=== PATIENT | male | born 1940 | race Caucasian/White ===

== ENCOUNTER 2017-03-06 08:00 | Outpatient (CLI) | payer OTHER | END 2017-03-06 08:01 | disposition home or self-care (01) | DX: I25.10 Atherosclerotic heart disease of native coronary artery without angina pectoris (principal); E78.2 Mixed hyperlipidemia; R73.09 Other abnormal glucose; Z79.899 Other long term (current) drug therapy ==

== ENCOUNTER 2017-06-12 08:44 | Outpatient (CLI) | payer OTHER ==
[2017-06-12 12:05] LABS: HEMOGLOBIN A1C 0.83 g/dL
== END 2017-06-12 08:45 | disposition home or self-care (01) ==
LOC: LAB.R 08:44
PROVIDERS: ATTEND Internal Medicine
DX: E11.9 Type 2 diabetes mellitus without complications (principal); Z79.899 Other long term (current) drug therapy
CPT/HCPCS: 82947; 83036

== ENCOUNTER 2017-09-29 08:00 | Outpatient (CLI) | payer OTHER ==
[2017-09-29 17:47] LABS: HEMOGLOBIN A1C 0.88 g/dL
== END 2017-09-29 08:01 | disposition home or self-care (01) ==
LOC: LAB.R 08:00
PROVIDERS: ATTEND Internal Medicine
DX: E11.49 Type 2 diabetes mellitus with other diabetic neurological complication (principal)
CPT/HCPCS: 83036

== ENCOUNTER 2017-12-17 08:00 | Outpatient (CLI) | payer OTHER ==
[2017-12-17 15:45] LABS: BASOPHILS % (AUTO) 0.6 %; EOSINOPHILS # (AUTO) 0.3 10^3/uL (0.0-0.7); EOSINOPHILS % (AUTO) 8.2 %; HGB - HEMOGLOBIN 14.4 g/dL (14.0-18.0); LYMPHOCYTES # (AUTO) 1.3 10^3/uL (1.5-3.5); LYMPHOCYTES % (AUTO) 31.1 %; MEAN CORPUSCULAR HEMOGLOBIN 32.9 pg (27.0-31.0); MEAN CORPUSCULAR HGB CONC 34.2 g/dL (32.0-36.0); MEAN PLATELET VOLUME 10.1 fL (7.4-11.4); MONOCYTES # (AUTO) 0.4 10^3/uL (0.0-1.0); MONOCYTES % (AUTO) 8.9 %; NEUTROPHILS # (AUTO) 2.1 10^3/uL (1.5-6.6); NEUTROPHILS % (AUTO) 51.2 %; PLT - PLATELET COUNT 130 10^3/uL (130-450); RED BLOOD COUNT 4.36 10^6/uL (4.70-6.10); RED CELL DISTRIBUTION WIDTH 12.4 % (12.0-15.0); WHITE BLOOD COUNT 4.1 x10^3/uL (4.8-10.8)
[2017-12-17 16:07] LABS: ALBUMIN/GLOBULIN RATIO 1.5 (1.0-2.2); ALKALINE PHOSPHATASE 57 IU/L (42-121); ALT ALANINE AMINOTRANSFERASE 21 IU/L (10-60); AST ASPARTATE AMINOTRANSFERASE 21 IU/L (10-42); BILIRUBIN,TOTAL 0.5 mg/dL (0.2-1.0); BUN - BLOOD UREA NITROGEN 15 mg/dL (6-20); CARBON DIOXIDE - CO2 24 mmol/L (21-32); CHLORIDE 103 mmol/L (101-111); CHOL/HDL RATIO 3.5 (<5.0); CHOLESTEROL 116 mg/dL; CREATININE 0.8 mg/dL (0.6-1.2); GFR - MDRD 93 (>89); GLUCOSE 141 mg/dL (70-100); HDL CHOLESTEROL 33 mg/dL; LDL CHOLESTEROL,CALCULATED 41 mg/dL; LDL/HDL RATIO 1.2 (<3.6); SODIUM 137 mmol/L (135-145); TOTAL PROTEIN 6.7 g/dL (6.7-8.2); VLDL CHOLESTEROL 42 mg/dL
[2017-12-17 16:12] LABS: HB2 TOTAL 15.4 g/dL; HEMOGLOBIN A1C 0.97 g/dL; HEMOGLOBIN A1C % 7.9 % (4.6-6.2)
== END 2017-12-17 08:01 | disposition home or self-care (01) ==
LOC: LAB.R 08:00
PROVIDERS: ATTEND Internal Medicine
DX: I10 Essential (primary) hypertension (principal); I45.9 Conduction disorder, unspecified; I25.10 Atherosclerotic heart disease of native coronary artery without angina pectoris; E78.5 Hyperlipidemia, unspecified; E11.49 Type 2 diabetes mellitus with other diabetic neurological complication; Z12.5 Encounter for screening for malignant neoplasm of prostate; Z79.899 Other long term (current) drug therapy
CPT/HCPCS: 80053; 80061; 83036; 83721; 84153; 84443; 85025

== ENCOUNTER 2018-01-30 11:41 | Outpatient (CLI) | payer OTHER ==
--- NOTE | 2018-01-30 13:00 | XRAY Report ---
TWO VIEW CHEST: 01/30/2018 CLINICAL INDICATION: Chest pain. FINDINGS: Frontal and lateral views of the chest demonstrate a normal cardiac silhouette. A left subclavian pacemaker is present. There is eventration of the lateral left hemidiaphragm, with minimal associated atelectasis. No effusion or pneumothorax is present. IMPRESSION: MINIMAL LEFT BASILAR ATELECTASIS. TD: 01/30/2018 13:00
== END 2018-01-30 11:42 | disposition home or self-care (01) ==
LOC: DI 11:41
PROVIDERS: ATTEND Internal Medicine
DX: J98.11 Atelectasis (principal); R07.9 Chest pain, unspecified
CPT/HCPCS: 71046

== ENCOUNTER 2018-02-04 20:58 | Outpatient (CLI) | payer OTHER ==
--- NOTE | 2018-02-05 11:38 | Ultrasound Report ---
COMPLETE ABDOMINAL ULTRASOUND: 02/04/2018 CLINICAL INDICATION: Epigastric pain. TECHNIQUE: Real-time scanning was performed with mill representative static images obtained. FINDINGS: The liver measures 15.1 cm. Hepatic echogenicity is normal. No intrahepatic biliary dilatation or focal parenchymal lesion is present. The common bile duct measures 5 mm. The gallbladder demonstrates cholelithiasis. No wall thickening or pericholecystic fluid is present. The visualized pancreas is unremarkable. The right kidney measures 9.6 cm, and appears unremarkable. The left kidney measures 10.3 cm, and demonstrates incidental cysts. No solid renal lesion or hydronephrosis is present. The spleen measures 9.6 cm, and demonstrates normal echotexture. The abdominal aorta is normal in caliber. The inferior vena cava is unremarkable. No free fluid is present. IMPRESSION: CHOLELITHIASIS, WITHOUT EVIDENCE OF ACUTE CHOLECYSTITIS OR BILIARY OBSTRUCTION. TD: 02/05/2018 11:37
== END 2018-02-04 20:59 | disposition home or self-care (01) ==
LOC: DI 20:58
PROVIDERS: ATTEND Internal Medicine
DX: K80.20 Calculus of gallbladder without cholecystitis without obstruction (principal)
CPT/HCPCS: 76700

== ENCOUNTER 2018-02-20 11:24 | Outpatient (CLI) | payer OTHER ==
--- NOTE | 2018-02-20 13:18 | XRAY Report ---
THORACOLUMBAR SPINE: 02/20/2018 CLINICAL INDICATION: Back pain. FINDINGS: Frontal and lateral views of the spine centered on the thoracolumbar junction were performed. There is S-shaped scoliosis, with a segmentation anomaly in the mid thoracic spine, with 2 left ribs arising from what appears to be T7. Degenerative changes are present. No compression fracture is seen. Pacemaker wires are incidentally noted. 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 TD: 02/20/2018 13:18
== END 2018-02-20 11:25 | disposition home or self-care (01) ==
LOC: DI 11:24
PROVIDERS: ATTEND Internal Medicine
DX: M54.9 Dorsalgia, unspecified (principal); M41.84 Other forms of scoliosis, thoracic region
CPT/HCPCS: 72080

== ENCOUNTER 2018-03-02 09:12 | Outpatient (CLI) | payer OTHER ==
[2018-03-02 13:14] LABS: HB2 TOTAL 15.3 g/dL; HEMOGLOBIN A1C 0.63 g/dL; HEMOGLOBIN A1C % 5.9 % (4.6-6.2)
[2018-03-02 13:20] LABS: ALBUMIN 4.2 g/dL (3.2-5.5); ALBUMIN/GLOBULIN RATIO 1.7 (1.0-2.2); CREATININE 0.8 mg/dL (0.6-1.2); TOTAL PROTEIN 6.7 g/dL (6.7-8.2)
== END 2018-03-02 09:13 | disposition home or self-care (01) ==
LOC: LAB.R 09:12
PROVIDERS: ATTEND Internal Medicine
DX: M54.9 Dorsalgia, unspecified (principal); R10.13 Epigastric pain; E11.49 Type 2 diabetes mellitus with other diabetic neurological complication; E78.5 Hyperlipidemia, unspecified
CPT/HCPCS: 80053; 83036; 83721

== ENCOUNTER 2018-03-04 11:20 | Outpatient (CLI) | payer OTHER ==
[2018-03-04] MEDS ORDERED: IOPAMIDOL-300 50 ML VIAL ONE (11:40)
[2018-03-04] MEDS ORDERED: IOPAMIDOL-300 100 ML VIAL ONE (11:41)
[2018-03-04 11:50] LABS: CREATININE 0.8 mg/dL (0.6-1.2)
[2018-03-04] MEDS ORDERED: IOPAMIDOL-300 50 ML VIAL PO ONE (15:16)
[2018-03-04] MEDS ORDERED: IOPAMIDOL-300 100 ML VIAL IVP ONE (15:16)
--- NOTE | 2018-03-04 18:05 | CT Report ---
CT ABDOMEN AND PELVIS WITH CONTRAST: 03/04/2018 CLINICAL INDICATION: Epigastric pain. TECHNIQUE: Axial CT images of the abdomen and pelvis were obtained with 100 mL Isovue 300 intravenously as well as oral contrast. In accordance with CT protocol optimization, one or more of the following dose reduction techniques were utilized for this exam: Automated exposure control, adjustment of mA and/or KV based on patient size, or use of iterative reconstructive technique. COMPARISON: Ultrasound 02/04/2018. FINDINGS: Limited evaluation of the lung bases is unremarkable. ABDOMEN: The liver, spleen, and adrenal glands appear unremarkable. The right kidney demonstrates a 3 mm nonobstructing calculus in the lower pole. The left kidney demonstrates cortical cysts. Cholelithiasis is again noted, without evidence of acute cholecystitis. There is a 4.0 x 3.8 x 3.0 cm hypodense mass in the uncinate process of the pancreas, without evidence of ductal dilatation, suspicious for pancreatic cancer. No bowel dilatation, free gas, or free fluid is present. No abdominal adenopathy is seen. PELVIS: The appendix is seen in the right lower quadrant, and is normal in caliber. The pelvic organs appear unremarkable. No pelvic adenopathy or free fluid is present. Osseous structures demonstrate degenerative changes. IMPRESSION: A 4 CM PANCREATIC MASS, SUSPICIOUS FOR PANCREATIC CARCINOMA. Results called to Dr. Kyle on 03/04/2018 at 4 p.m. TD: 03/04/2018 16:14
== END 2018-03-04 11:21 | disposition home or self-care (01) ==
LOC: LAB 11:20
PROVIDERS: ATTEND Internal Medicine
DX: K86.9 Disease of pancreas, unspecified (principal)
CPT/HCPCS: 36415; 74177; 82565; Q9967

== ENCOUNTER 2018-06-02 19:15 | Emergency (ER) | payer OTHER ==
[2018-06-02] MEDS ORDERED: SODIUM CHLORIDE 0.9% 1,000 ML IV ONE (19:41)
--- NOTE | 2018-06-02 19:43 | ED Physician Documentation ---
PD HPI ABD PAIN - Stated complaint Stated Complaint: BLOOD IN STOOL/PANCREATIC CANCER - Chief complaint Chief Complaint: Abd Pain - History obtained from History obtained from: Patient, Family - History of Present Illness Timing - onset: Other (77-year-old gentleman with diagnosis of pancreatic cancer with metastases to liver therefore inoperable. 6 days ago he got his third round of what sounds like gemcitabine and Abraxane via right chest wall port. Starting 3 days ago he has had diarrhea which is sometimes dark to black in color and he was sent here to rule out GI bleeding. He denies any significant abdominal pain. He has had nausea but no vomiting.) Review of Systems Constitutional: reports: Fatigue. denies: Fever, Chills Cardiac: denies: Chest pain / pressure, Palpitations Respiratory: denies: Dyspnea, Cough GI: reports: Nausea, Diarrhea, Bloody / black stool. denies: Abdominal Pain, Vomiting PD PAST MEDICAL HISTORY - Past Medical History Cardiovascular: Coronary artery disease, Other Respiratory: None Neuro: Peripheral neuropathy Endocrine/Autoimmune: Type 2 diabetes GI: Hemorrhoids : None HEENT: None Psych: None Derm: None - Past Surgical History Cardiovascular: Coronary stent, Pacemaker HEENT: Cataracts, Tonsil/Adenoidectomy - Present Medications Home Medications: Ambulatory Orders Medication Instructions Recorded Confirmed Cholecalciferol (Vitamin D3) 2,000 unit PO DAILY 04/15/18 04/15/18 [Vitamin D3] Finasteride 5 mg PO QPM 04/15/18 04/15/18 HYDROcod/ACETAM 5/325 [[place] 5/325] 1 tab PO PRN PRN 04/15/18 04/15/18 Lipase/Protease/Amylase [Shamika Alonso 2 - 4 cap PO DAILY 04/15/18 04/15/18 36,000 Units Capsule] Ramipril 5 mg PO BID 04/15/18 04/15/18 Rosuvastatin Calcium 20 mg PO QPM 04/15/18 04/15/18 metFORMIN [Glucophage] 500 mg PO BID 04/15/18 04/15/18 - Allergies Allergies/Adverse Reactions: Allergies Allergy/AdvReac Type Severity Reaction Status Date / Time No Known Allergies Allergy Unknown Verified 04/15/18 13:11 - Social History Smoking Status: Never smoker PD ED PE NORMAL - Vitals Vital signs reviewed: Yes - General General: Alert and oriented X 3, No acute distress, Well developed/nourished - HEENT HEENT: PERRL, EOMI - Neck Neck: Supple, no meningeal sign, No bony TTP - Cardiac Cardiac: RRR, No murmur - Respiratory Respiratory: No respiratory distress, Clear bilaterally - Abdomen Abdomen: Normal bowel sounds, Soft, Non tender - Rectal Rectal: Other (She brings a stool sample, it is small in volume and, guaiac negative.) - Back Back: No CVA TTP, No spinal TTP - Derm Derm: Normal color, Warm and dry - Extremities Extremities: No edema, No calf tenderness / cord - Neuro Neuro: Alert and oriented X 3, Normal speech Results - Vitals Vitals: Vital Signs - 24 hr 06/02/18 06/02/18 19:19 20:34 Temperature 36.4 C L Heart Rate 83 74 Respiratory 18 16 Rate Blood Pressure 125/67 132/82 H O2 Saturation 98 100 Oxygen O2 Source Room air - Labs Labs: Laboratory Tests 06/02/18 06/02/18 19:50 19:50 WBC 1.9 L* RBC 3.18 L Hgb 10.7 L Hct 31.3 L MCV 98.5 H MCH 33.6 H MCHC 34.1 RDW 13.9 Plt Count 205 MPV 9.2 Neut # (Auto) Not Reportable Lymph # (Auto) Not Reportable [place] # (Auto) Not Reportable Eos # (Auto) Not Reportable Baso # (Auto) Not Reportable Absolute Nucleated RBC Not Reportable Total Counted 100 Band Neuts % (Manual) 3 Abnorm Lymph % (Manual) 0 Nucleated RBC % Not Reportable Neutrophils # (Manual) 1.0 L Lymphocytes # (Manual) 0.6 L Monocytes # (Manual) 0.2 Eosinophils # (Manual) 0.0 Basophils # (Manual) 0.0 Differential Comment MANUAL DIFFERENTIAL Manual Slide Review Indicated WBC Morphology NORMAL APPEARANCE Platelet Estimate NORMAL (130-450,000) Platelet Morphology NORMAL APPEARANCE RBC Morph Micro Appear NORMAL APPEARANCE Sodium 131 L Potassium 3.6 Chloride 94 L Carbon Dioxide 26 Anion Gap 11.0 BUN 12 Creatinine 0.6 Estimated GFR (MDRD) 130 Glucose 192 H Calcium 8.5 Total Bilirubin 0.8 AST 252 H ALT 258 H Alkaline Phosphatase 291 H Total Protein 6.0 L Albumin 2.7 L Globulin 3.3 Albumin/Globulin Ratio 0.8 L Lipase 16 L PD MEDICAL DECISION MAKING - ED course ED course: 77-year-old gentleman with pancreatic cancer, chemotherapy likely related diarrhea. Reported to be dark but very guaiac negative. Labs discussed with his oncologist to feel that any changes recently are likely due to his chemotherapy.68-year-old gentleman with pancreatic cancer, chemotherapy likely related diarrhea. Reported to be dark but very guaiac negative. Labs discussed with his oncologist to feel that any changes recently are likely due to his chemotherapy. He was unable to produce a stool sample here and was given collection items and a lab requisition. - Sepsis Event Vital Signs: Vital Signs - 24 hr 06/02/18 06/02/18 19:19 20:34 Temperature 36.4 C L Heart Rate 83 74 Respiratory 18 16 Rate Blood Pressure 125/67 132/82 H O2 Saturation 98 100 Oxygen O2 Source Room air Departure - Departure Disposition: 01 Home, Self Care Clinical Impression: Diarrhea Qualifiers: Diarrhea type: unspecified type Qualified Code(s): R19.7 - Diarrhea, unspecified Pancreatic cancer Qualifiers: Pancreatic malignancy location: unspecified Qualified Code(s): C25.9 - Malignant neoplasm of pancreas, unspecified Condition: Good Record reviewed to determine appropriate education?: Yes Instructions: Chemo Comments: FOLLOWUP WITH DR PEREZ NEXT WEEK SCHEDULED. BRING STOOL CULTURE TO LAB DISCUSSED.
[2018-06-02] MEDS ORDERED: ONDANSETRON 4 MG/2 ML VIAL IVP STA (19:52)
[2018-06-02 19:56] LABS: BASOPHILS % (AUTO) 1.2 %; EOSINOPHILS % (AUTO) 1.3 %; HGB - HEMOGLOBIN 10.7 g/dL (14.0-18.0); LYMPHOCYTES % (AUTO) 34.2 %; MEAN CORPUSCULAR HEMOGLOBIN 33.6 pg (27.0-31.0); MEAN CORPUSCULAR HGB CONC 34.1 g/dL (32.0-36.0); MEAN CORPUSCULAR VOLUME 98.5 fL (80.0-94.0); MEAN PLATELET VOLUME 9.2 fL (7.4-11.4); MONOCYTES % (AUTO) 10.6 %; NEUTROPHILS % (AUTO) 52.7 %; PLT - PLATELET COUNT 205 10^3/uL (130-450); RED BLOOD COUNT 3.18 10^6/uL (4.70-6.10); RED CELL DISTRIBUTION WIDTH 13.9 % (12.0-15.0)
[2018-06-02 20:02] LABS: WHITE BLOOD COUNT 1.9 x10^3/uL (4.8-10.8)
[2018-06-02 20:03] LABS: ABNORMAL LYMPHS % (MANUAL) 0 %
[2018-06-02 20:05] LABS: ALBUMIN 2.7 g/dL (3.2-5.5); ALBUMIN/GLOBULIN RATIO 0.8 (1.0-2.2); BILIRUBIN,TOTAL 0.8 mg/dL (0.2-1.0); CALCIUM 8.5 mg/dL (8.5-10.3); CREATININE 0.6 mg/dL (0.6-1.2)
[2018-06-02 20:26] LABS: BAND NEUTROPHILS % (MANUAL) 3 %; DIFFERENTIAL COMMENT MANUAL DIFFERENTIAL; LYMPHOCYTES # (MANUAL) 0.6 10^3/uL (1.5-3.5); LYMPHOCYTES % (MANUAL) 33 %; MONOCYTES # (MANUAL) 0.2 10^3/uL (0.0-1.0); NEUTROPHILS % (MANUAL) 50 %; PLATELET ESTIMATE, MANUAL NORMAL (130-450,000) (NORMAL); PLATELET MORPHOLOGY NORMAL APPEARANCE (NORMAL); RBC MORPHOLOGY (MULTIPLE) NORMAL APPEARANCE (NORMAL)
[2018-06-02 21:10] VITALS: BP 131/72
== END 2018-06-02 21:13 | disposition home or self-care (01) ==
LOC: ED 19:15
DX: R19.7 Diarrhea, unspecified (principal); C25.9 Malignant neoplasm of pancreas, unspecified; C78.7 Secondary malignant neoplasm of liver and intrahepatic bile duct; Z79.899 Other long term (current) drug therapy
CPT/HCPCS: 36415; 80053; 83690; 85025; 96361; 96374; 99283

== ENCOUNTER 2018-06-23 10:17 | Outpatient (CLI) | payer OTHER | END 2018-06-23 10:18 | disposition critical access hospital (66) | LOC: EMS 10:17 | PROVIDERS: ATTEND Surgery | DX: R53.83 Other fatigue (principal); R41.82 Altered mental status, unspecified ==

== ENCOUNTER 2018-06-23 10:26 | Emergency (ER) | payer OTHER ==
--- NOTE | 2018-06-23 10:44 | ED Physician Documentation ---
PD HPI ALTERED MENTAL STATUS - Stated complaint Stated Complaint: CONFUSION/ FATIGUE - Chief complaint Chief Complaint: Neuro - History obtained from History obtained from: Patient, EMS - History of Present Illness Timing - onset: Today Timing - details: Abrupt onset, Still present, Waxing and waning Quality / character: Less responsive Associated symptoms: Fever (100.8 at home this moring.) Contributing factors: Anticoagulated. No: Diabetic Basline status: Alert and oriented X 3, Ambulatory Similar symptoms before: Has not had sx before Recently seen: Clinic (had chemo 2 weeks ago and is to have it again tomorrow.) Review of Systems Constitutional: denies: Fever, Chills, Myalgias Eyes: denies: Loss of vision, Photophobia Ears: denies: Loss of hearing, Ear pain Nose: denies: Rhinorrhea / runny nose, Congestion Throat: denies: Dental pain / toothache, Sore throat Cardiac: denies: Chest pain / pressure Respiratory: denies: Cough PD PAST MEDICAL HISTORY - Past Medical History Cardiovascular: Coronary artery disease, Other Respiratory: None Neuro: Peripheral neuropathy Endocrine/Autoimmune: Type 2 diabetes GI: Hemorrhoids : None HEENT: None Psych: None Derm: None - Past Surgical History Past Surgical History: Yes Cardiovascular: Coronary stent, Pacemaker HEENT: Cataracts, Tonsil/Adenoidectomy - Present Medications Home Medications: Ambulatory Orders Medication Instructions Recorded Confirmed Cholecalciferol (Vitamin D3) 2,000 unit PO DAILY 04/15/18 04/15/18 [Vitamin D3] Finasteride 5 mg PO QPM 04/15/18 04/15/18 HYDROcod/ACETAM 5/325 [[place] 5/325] 1 tab PO PRN PRN 04/15/18 04/15/18 Lipase/Protease/Amylase [Creon Dr 2 - 4 cap PO DAILY 04/15/18 04/15/18 36,000 Units Capsule] Ramipril 5 mg PO BID 04/15/18 04/15/18 Rosuvastatin Calcium 20 mg PO QPM 04/15/18 04/15/18 metFORMIN [Glucophage] 500 mg PO BID 04/15/18 04/15/18 Levofloxacin [Levaquin] 500 mg PO BID #10 tablet 06/23/18 Ondansetron Odt [Zofran] 4 mg TL Q6H PRN #15 tablet 06/23/18 - Allergies Allergies/Adverse Reactions: Allergies Allergy/AdvReac Type Severity Reaction Status Date / Time No Known Allergies Allergy Unknown Verified 04/15/18 13:11 - Social History Does the pt smoke?: No Smoking Status: Never smoker PD ED PE NORMAL - Vitals Vital signs reviewed: Yes - General General: Alert and oriented X 3, Well developed/nourished, Other (somewhat slow to answer questions but does answer them. ) - HEENT HEENT: Pharynx benign. No: Moist mucous membranes - Neck Neck: Supple, no meningeal sign, No adenopathy - Cardiac Cardiac: RRR, No murmur - Respiratory Respiratory: Clear bilaterally Results - Vitals Vitals: Vital Signs - 24 hr 06/23/18 06/23/18 06/23/18 10:29 12:30 14:30 Temperature 36.0 C L Heart Rate 110 H 88 88 Respiratory 13 12 14 Rate Blood Pressure 104/62 95/63 106/62 O2 Saturation 95 98 98 Oxygen O2 Source Room air - Labs Labs: Laboratory Tests 06/23/18 06/23/18 06/23/18 11:20 11:20 11:20 WBC 14.0 H RBC 3.51 L Hgb 12.3 L Hct 35.5 L MCV 101.1 H MCH 35.0 H MCHC 34.6 RDW 17.6 H Plt Count 178 MPV 8.6 Neut # (Auto) 12.5 H Lymph # (Auto) 0.4 L [place] # (Auto) 1.2 H Eos # (Auto) 0.0 Baso # (Auto) 0.0 Absolute Nucleated RBC 0.00 Nucleated RBC % 0.0 Sodium 133 L Potassium 4.1 Chloride 99 L Carbon Dioxide 24 Anion Gap 10.0 BUN 19 Creatinine 0.5 L Estimated GFR (MDRD) 160 Glucose 222 H Lactic Acid 1.1 Calcium 8.8 Magnesium 1.6 L Total Bilirubin 1.4 H AST 147 H ALT 168 H Alkaline Phosphatase 856 H Ammonia Total Protein 6.2 L Albumin 3.2 Globulin 3.0 Albumin/Globulin Ratio 1.1 Lipase 18 L Urine Color Urine Clarity Urine pH Ur Specific [place] Urine Protein Urine Glucose (UA) Urine Ketones Urine Occult Blood Urine Nitrite Urine Bilirubin Urine Urobilinogen Ur Leukocyte Esterase Ur Microscopic Review Urine Culture Comments Blood Type Antibody Screen 06/23/18 06/23/18 06/23/18 11:20 11:20 13:58 WBC RBC Hgb Hct MCV MCH MCHC RDW Plt Count MPV Neut # (Auto) Lymph # (Auto) [place] # (Auto) Eos # (Auto) Baso # (Auto) Absolute Nucleated RBC Nucleated RBC % Sodium Potassium Chloride Carbon Dioxide Anion Gap BUN Creatinine Estimated GFR (MDRD) Glucose Lactic Acid Calcium Magnesium Total Bilirubin AST ALT Alkaline Phosphatase Ammonia 27.8 Total Protein Albumin Globulin Albumin/Globulin Ratio Lipase Urine Color YELLOW Urine Clarity CLEAR Urine pH 6.0 Ur Specific [place] 1.010 Urine Protein NEGATIVE Urine Glucose (UA) NEGATIVE Urine Ketones NEGATIVE Urine Occult Blood NEGATIVE Urine Nitrite NEGATIVE Urine Bilirubin NEGATIVE Urine Urobilinogen 1 (NORMAL) Ur Leukocyte Esterase NEGATIVE Ur Microscopic Review NOT INDICATED Urine Culture Comments NOT INDICATED Blood Type A POSITIVE Antibody Screen NEGATIVE PD MEDICAL DECISION MAKING - ED course Complexity details: reviewed results (elevated WBC. Othwer ), re-evaluated patient (he is improved with good color and vitals. Good alertness. ), considered differential, d/w patient, d/w clinical consultant (His Oncologist at [facility] , with labs showing some concern for CBD stent having some clogging with mild elevation of LFTs. ) - Sepsis Event Vital Signs: Vital Signs - 24 hr 06/23/18 06/23/18 06/23/18 10:29 12:30 14:30 Temperature 36.0 C L Heart Rate 110 H 88 88 Respiratory 13 12 14 Rate Blood Pressure 104/62 95/63 106/62 O2 Saturation 95 98 98 Oxygen O2 Source Room air Departure - Departure Disposition: 01 Home, Self Care Clinical Impression: Acute cholangitis Altered mental status Qualifiers: Altered mental status type: stupor Qualified Code(s): R40.1 - Stupor Condition: Stable Record reviewed to determine appropriate education?: Yes Follow-Up: Anshu Cornejo MD [Primary Care Provider] - Prescriptions: Levofloxacin [Levaquin] 500 mg PO BID #10 tablet Ondansetron Odt [Zofran] 4 mg TL Q6H PRN #15 tablet PRN Reason: Nausea / Vomiting Comments: The concern would be a developing infection of your common bile duct with the stent. I talked with because he and they would like to see you tomorrow as planned. Start Levaquin antibiotic at his direction with the first dose this evening. Ondansetron if needed for nausea. Tylenol every 4 hours if needed for fevers. Return if worsening symptoms or fever /altered mentation. Follow- up at [facility] tomorrow as planned. Discharge Date/Time: 06/23/18 15:45
[2018-06-23] MEDS ORDERED: SODIUM CHLORIDE 0.9% 1,000 ML IV ONE (11:05)
[2018-06-23 11:35] LABS: BASOPHILS % (AUTO) 0.2 %; EOSINOPHILS % (AUTO) 0.1 %; HGB - HEMOGLOBIN 12.3 g/dL (14.0-18.0); LYMPHOCYTES # (AUTO) 0.4 10^3/uL (1.5-3.5); LYMPHOCYTES % (AUTO) 2.5 %; MEAN CORPUSCULAR HGB CONC 34.6 g/dL (32.0-36.0); MEAN CORPUSCULAR VOLUME 101.1 fL (80.0-94.0); MEAN PLATELET VOLUME 8.6 fL (7.4-11.4); MONOCYTES # (AUTO) 1.2 10^3/uL (0.0-1.0); MONOCYTES % (AUTO) 8.3 %; NEUTROPHILS # (AUTO) 12.5 10^3/uL (1.5-6.6); NEUTROPHILS % (AUTO) 88.9 %; PLT - PLATELET COUNT 178 10^3/uL (130-450); RED BLOOD COUNT 3.51 10^6/uL (4.70-6.10); RED CELL DISTRIBUTION WIDTH 17.6 % (12.0-15.0)
[2018-06-23 11:48] LABS: ALBUMIN 3.2 g/dL (3.2-5.5); ALBUMIN/GLOBULIN RATIO 1.1 (1.0-2.2); BILIRUBIN,TOTAL 1.4 mg/dL (0.2-1.0); CALCIUM 8.8 mg/dL (8.5-10.3); CREATININE 0.5 mg/dL (0.6-1.2); MAGNESIUM 1.6 mg/dL (1.7-2.8); TOTAL PROTEIN 6.2 g/dL (6.7-8.2)
[2018-06-23] MEDS ORDERED: IOPAMIDOL-300 100 ML VIAL ONE (11:52)
[2018-06-23] MEDS ORDERED: AMPICILLIN/SULBACTAM 1.5 GM in SODIUM CHLORIDE 0.9% MINIBAG 100 ML IV STA (11:59)
[2018-06-23] MEDS ORDERED: IOPAMIDOL-300 100 ML VIAL IVP ONE (12:54)
--- NOTE | 2018-06-23 13:08 | CT Report ---
Reason: altered mentation today Procedure Date: 06/23/2018 Accession Number: [id number] / [id number] Procedure: CT - Head W/O CPT Code: FULL RESULT: EXAM: CT HEAD EXAM DATE: 06/23/2018 12:51 PM. CLINICAL HISTORY: Altered mentation today. COMPARISON: None. TECHNIQUE: Multiaxial CT images were obtained from the foramen magnum to the vertex. Reformats: Sagittal and coronal. IV contrast: None. In accordance with CT protocol optimization, one or more of the following dose reduction techniques were utilized for this exam: automated exposure control, adjustment of mA and/or KV based on patient size, or use of iterative reconstructive technique. FINDINGS: Parenchyma: No intraparenchymal hemorrhage. No evidence of mass, midline shift, or CT findings of acute infarction. Stewart-white differentiation is distinct. Diffuse chronic microangiopathic white matter changes are evident. Extraaxial Spaces: Normal for age. No subdural or epidural collections identified. Ventricles: The ventricles and cortical sulci are enlarged, consistent with age-related tissue loss. Sinuses and orbits: Imaged paranasal sinuses, orbits, and mastoids show no significant abnormality. Bones: No evidence of fracture or calvarial defect. Other: None. IMPRESSION: Generalized age-related changes without evidence of acute intracranial abnormality. RADIA
--- NOTE | 2018-06-23 13:20 | CT Report ---
Reason: right abd tenderness and feverish Procedure Date: 06/23/2018 Accession Number: [id number] / [id number] Procedure: CT - Abdomen/Pelvis W/ CPT Code: FULL RESULT: EXAM: CT ABDOMEN AND PELVIS EXAM DATE: 06/23/2018 12:51 PM. CLINICAL HISTORY: Right abd tenderness and feverish. COMPARISONS: None. TECHNIQUE: Routine helical CT imaging was performed through the abdomen and pelvis. IV contrast: ISOVUE 300 100mL. Enteric contrast: No. Reconstructions: Coronal and sagittal. In accordance with CT protocol optimization, one or more of the following dose reduction techniques were utilized for this exam: automated exposure control, adjustment of mA and/or KV based on patient size, or use of iterative reconstructive technique. FINDINGS: Lung Bases: Mild atelectasis or scarring, left greater than right. No consolidation or effusion area. Cardiac pacer leads in expected position. Coronary calcifications. Liver: Interval pneumobilia of left hepatic ducts, presumably associated with the biliary enteric stent. No focal liver lesion. Widely patent vasculature. Gallbladder/Bile Ducts: Gas containing filling defects in the gallbladder consistent with known cholelithiasis. No yecenia gallbladder wall thickening. Interval biliary enteric stent from CHD to duodenum. Upstream CHD 11 mm in diameter. Small gas collections present in CHD. Spleen: Normal. Pancreas: Ill-defined hypodense mass in the uncinate process 2.7 x 2.26 cm in transaxial diameter (34/3), compared to 3.8 x 3.1 cm (34/3). Dilated MPD from neck through tail measuring up to 6.7 mm at the level of the body (29), compared to 5 mm. Increased infiltrative soft tissue encasement of proximal SMA and soft tissue abuts the patent SMV. Adrenal Glands: No nodule. Kidneys: No hydronephrosis. Stable 3 mm nonobstructive lower pole right intrarenal calculus. Small left renal cysts. Otherwise normal bilateral parenchymal enhancement. Peritoneal Cavity/Bowel: No dilatation or acute intestinal abnormality. Moderate stool in the rectosigmoid colon. Colonic diverticulosis without diverticulitis. No free fluid, free air, or loculated collection/abscess. No mesenteric adenopathy by size criteria. Normal appendix. Retroperitoneum: No adenopathy. Pelvic Organs: No obvious abnormality of the partially contractive bladder. [id number] prostatic enlargement. Other pelvic organs unremarkable. No free fluid or pathologic adenopathy by size criteria. Stable mildly prominent fatty bilateral inguinal canals. Vasculature: Calcified plaques of abdominal aorta and common iliac arteries, without aneurysm or dissection. Bones: Stable grade 1-2 anterolisthesis L5 on S1 associated with bilateral L5 pars defect. Mild degenerative changes of the spine. No aggressive bone destructive process. IMPRESSION: 1. Modestly smaller ill-defined infiltrative mass in the uncinate process of pancreatic head. Mildly increased proximal SMA encasement. 2. Interval biliary enteric stent. Expected pneumobilia. Mildly dilated upstream CHD 11 mm in diameter. 3. Increased MPD dilatation from pancreatic neck through tail. 4. Uncomplicated colonic diverticulosis. No other acute inflammatory or obstructive processes identified. 5. Cholelithiasis. RADIA
[2018-06-23 14:07] LABS: BILIRUBIN,URINE NEGATIVE (NEGATIVE); GLUCOSE, URINE (UA) NEGATIVE (NEGATIVE); KETONES,URINE (UA) NEGATIVE (NEGATIVE); LEUKOCYTE ESTERASE, URINE NEGATIVE (NEGATIVE); NITRITE,URINE NEGATIVE (NEGATIVE); OCCULT BLOOD,URINE NEGATIVE (NEGATIVE); PROTEIN,URINE NEGATIVE (NEGATIVE); UROBILINOGEN,URINE 1 (NORMAL) E.U./dL (NORMAL)
[2018-06-23 14:08] LABS: CLARITY,URINE CLEAR (CLEAR)
[2018-06-23 15:57] VITALS: BP 106/62
== END 2018-06-23 15:45 | disposition home or self-care (01) ==
LOC: EDUNIT# → ED 10:26
DX: K83.0 Cholangitis (principal); R40.1 Stupor; E11.9 Type 2 diabetes mellitus without complications; I25.10 Atherosclerotic heart disease of native coronary artery without angina pectoris; Z95.5 Presence of coronary angioplasty implant and graft; Z95.0 Presence of cardiac pacemaker; Z79.01 Long term (current) use of anticoagulants; Z79.84 Long term (current) use of oral hypoglycemic drugs; Z79.899 Other long term (current) drug therapy
CPT/HCPCS: 36415; 70450; 74177; 80053; 81003; 82140; 83605; 83690; 83735; 85025; 86850; 86900; 86901; 87040; 93005; 96365; 99283; 99284; Q9967; 81001; 87086

== ENCOUNTER 2018-07-06 14:17 | Outpatient (CLI) | payer OTHER ==
[2018-07-06 14:49] LABS: BASOPHILS % (AUTO) 0.6 %; EOSINOPHILS # (AUTO) 0.2 10^3/uL (0.0-0.7); EOSINOPHILS % (AUTO) 2.6 %; HGB - HEMOGLOBIN 12.7 g/dL (14.0-18.0); LYMPHOCYTES # (AUTO) 1.7 10^3/uL (1.5-3.5); LYMPHOCYTES % (AUTO) 24.2 %; MEAN CORPUSCULAR VOLUME 103.1 fL (80.0-94.0); MEAN PLATELET VOLUME 9.7 fL (7.4-11.4); MONOCYTES # (AUTO) 0.6 10^3/uL (0.0-1.0); MONOCYTES % (AUTO) 8.8 %; NEUTROPHILS # (AUTO) 4.5 10^3/uL (1.5-6.6); NEUTROPHILS % (AUTO) 63.8 %; PLT - PLATELET COUNT 284 10^3/uL (130-450); RED BLOOD COUNT 3.62 10^6/uL (4.70-6.10); RED CELL DISTRIBUTION WIDTH 17.3 % (12.0-15.0); WHITE BLOOD COUNT 7.1 x10^3/uL (4.8-10.8)
[2018-07-06 15:05] LABS: ALBUMIN 3.6 g/dL (3.2-5.5); ALBUMIN/GLOBULIN RATIO 1.2 (1.0-2.2); BILIRUBIN,TOTAL 0.8 mg/dL (0.2-1.0); CREATININE 0.6 mg/dL (0.6-1.2); TOTAL PROTEIN 6.6 g/dL (6.7-8.2)
== END 2018-07-06 14:18 | disposition home or self-care (01) ==
LOC: LAB.R 14:17
PROVIDERS: ATTEND Internal Medicine Hematology & Oncology
DX: C25.9 Malignant neoplasm of pancreas, unspecified (principal)
CPT/HCPCS: 80053; 85025

== ENCOUNTER 2018-07-07 20:57 | Outpatient (CLI) | payer OTHER ==
--- NOTE | 2018-07-07 21:02 | CONSULTATION NOTE ---
Palliative Care Consultation - Referral Referring Provider: Dr. Naveed Kyle Time of Visit: 8749-8725 Referral setting: Home (It is a taxing and considerable effort for the patient to leave the home; to facilitate treatment plan and family conference) Referral Reason: Pancreatic Cancer with Liver Mets - Information Sources Records reviewed: Previous records reviewed History/Review of Systems obtained from: Patient, Family (Zaria present for visit) Exam limitations: Clinical condition (patient with STM issues; feeling fuzzy and less able to concentrate and track conversations) - History of Present Illness Brief History of Present Illness: This is a timur 77-year-old gentleman who has diagnosis of pancreatic cancer with liver metastases. He presented January with epigastric pain, 10-15 pound weight loss, and on scan was found to have a 4 x 3.8 x 3.0 pancreatic mass. He was also found to have liver metastases and did receive an ERCP with stent placement. He has started with Dr. margot Cason on a regimen that alternates gemcitabine and Abraxane 4 weeks then FOLFIRI 4 weeks, he is to start FOLFIRI for the first time tomorrow. He most recently was hospitalized on 06/24-06/26 with what they thought was cholangitis secondary to stent, he did receive antibiotics, he was also quite dehydrated. He does feel like his functional status, and quality of life continued to deteriorate. He presents with high symptom burden of anorexia, weight loss, fatigue, increasing balance problems, and patient's most severe identified discomfort is actually his hemorrhoidal discomfort. He has struggled intermittently with constipation, though suspect has more to do with a feeling of rectal pressure secondary to his hemorrhoids. He continues to have issues with dehydration, taste changes, and now with decreased concentration and cognitive changes. Medical/Surgical History - Past Medical History Cardiovascular: reports: Hypertension, High cholesterol, Coronary artery disease, Other (heart block) Respiratory: reports: None Neuro: Peripheral neuropathy Endocrine/Autoimmune: reports: Type 2 diabetes GI: reports: Hemorrhoids : reports: Benign prostate hypertrophy, Kidney stones HEENT: reports: None Psych: reports: Depression, Anxiety Musculoskeletal: reports: Fatigue Derm: reports: None MRSA Hx?: No - Past Surgical History General: reports: Other (bile stent) Cardiovascular: reports: Coronary stent, Pacemaker, AICD, Other (portacath) HEENT: reports: Cataracts, Tonsil/Adenoidectomy - Substance History Use: Uses substance without health or social issues: Tobacco (none;), Alcohol (occasional drink), Cannabis (use for appetite/pain) Social History - Living Situation Living arrangement: At home Living Situation: With spouse/s.o. (Zaria his , for 25 years; he has a son 49; and they have a daughter 33 together who just moved up to [place] to be of support with her boyfriend; they moved from [place] to [facility] a few years ago) Family History - Family History Family History: Mother: (recentlly passed of old age), CAD, Diabetes, Type 2, Father: Family History Comment/Other: father passed of ALS Medications/Allergies - Medications Home Medications: Ambulatory Orders Medication Instructions Recorded Confirmed Cholecalciferol (Vitamin D3) 2,000 unit PO DAILY 04/15/18 07/11/18 [Vitamin D3] Finasteride 5 mg PO QPM 04/15/18 07/11/18 Lipase/Protease/Amylase [Creon Dr 2 - 4 cap PO DAILY 04/15/18 07/11/18 36,000 Units Capsule] Ramipril 5 mg PO DAILY 04/15/18 07/11/18 metFORMIN [Glucophage] 500 mg PO BID 04/15/18 07/11/18 Ondansetron Odt [Zofran] 4 mg TL Q6H PRN #15 tablet 06/23/18 07/11/18 Acetaminophen 1,000 mg PO BID 07/11/18 07/11/18 Bisacodyl 10 mg [place] DAILY PRN 07/11/18 07/11/18 Enemeez 1 bottle [place] .QOD PRN 07/11/18 Escitalopram Oxalate [Lexapro] 20 mg PO DAILY 07/11/18 07/11/18 HYDROmorphone [Dilaudid] 2 mg PO Q4HR PRN 07/11/18 07/11/18 Lidocaine [Topicaine 5] 1 applic TOP PRN PRN 07/11/18 07/11/18 Loperamide [Imodium] 2 mg PO PRN PRN 07/11/18 07/11/18 Megestrol Acetate 400 mg PO BID 07/11/18 07/11/18 Morphine Sulfate [Ms Contin] 15 mg PO TID 07/11/18 07/11/18 Polyethylene Glycol 3350 [Miralax] 17 mg PO DAILY PRN 07/11/18 07/11/18 Prochlorperazine Maleate 10 mg PO Q4HR PRN 07/11/18 07/11/18 [Compazine] Senna [Senokot] 17.2 mg PO BID 07/11/18 07/11/18 - Allergies Allergies/Adverse Reactions: Allergies Allergy/AdvReac Type Severity Reaction Status Date / Time No Known Allergies Allergy Unknown Verified 04/15/18 13:11 Review of Systems - Constitutional Constitutional: reports: Fatigue, Poor appetite, Weight loss (153/ previous to illness baseline 180). denies: Fever, Night sweats - Ears, Nose & Throat Ears, Nose & Throat: reports: Hearing loss, Hoarseness, Dry mouth. denies: Sore throat - Cardiovascular Cardiovascular: reports: Exertional dyspnea, Decr. exercise tolerance. denies: Chest pain - Respiratory Respiratory: reports: SOB with exertion. denies: Cough, Orthopnea - Gastrointestinal Gastrointestinal: reports: Change in bowel habits, Nausea (improved with scheduled ondansetron before breakfast/dinner), Early satiety (improved with Megace; challenged to get enough fluid), Other (patient describes "6 days of constipation" but now with diarrhea last couple of days; had continued bowel medications; c/o rectal pressure so feels not going but describes adequate volume of loose watery stool consitent with what has been taking orally; had held bowel meds as instructed this am with decrease in frequency; is to get chemo that causes diarrhea tomorrow so is distressed as to what to do) - Genitourinary Genitourinary: reports: Frequency, Incontinence, Other (has used external hemmorhoid cream without relief) - Musculoskeletal Musculoskeletal: reports: Stiffness, Muscle weakness, Assistive devices (uses walker for balance; has had falls though), Other (severe balance issues; has baseline peripheral neuropathy worried may worsen with treatments) - Integumentary Integumentary: reports: Dryness, Hair changes - Neurological Neurological: reports: General weakness, Headache, Memory problems (reports difficulty with concentration; tracking and STM; has been since illness; great maryellen is reading and now can't;) - Psychiatric Psychiatric: reports: Depression (family felt depressed; patient without insight; feels improved some) - Endocrine Endocrine: reports: Diabetes type 2 (blood sugars running on high side; complicated with need to push fluids dislikes plain water; BS AM 160-257; PM 207-256) - Hematologic/Lymphatic Hematologic/Lymphatic: reports: Anemia, Recurrent infections (admitted recently for concern for stent being infected; completed AB). denies: Blood clots - All Other Systems All Other Systems: reports: Reviewed and negative Physical Exam - Vital Signs Temperature: 36.1 C Pulse Rate: 82 Respiratory Rate: 18 O2 Saturation: 97 (ra @ rest) Blood Pressure: 102/52 - Physical Exam General Appearance: positive: Mild distress (reports rectal discomfort) Eyes Bilateral: positive: Normal inspection ENT: positive: ENT inspection nml. negative: Pharyngeal erythema Neck: positive: No JVD, Trachea midline Cardiovascular: positive: Regular rate & rhythm Respiratory: positive: Diminished in bases (left greater than right). negative: Wheezes, Rales, Rhonchi Abdomen: positive: Soft, Nml bowel sounds, Tenderness (with deep palpation across lower abdomen; no masses appreciated) Skin: positive: Pallor (sallow in color), Dryness, Other (no external hemmorhoids noted;small are of perirectal irritiation; can visualize some swelling in anus with internal hemmorhoids but no prolapse) Extremities: positive: No pedal edema Neurologic/Psychiatric: positive: Oriented x3 (though slow to responds at times; need to pace questions), Mood/affect nml, Weakness Palliative Care - POLST Patient has POLST: No Pain: Pain improved, Location (Reports pain is mid epigastric, radiates around to his back. Has not needed anything for breakthrough pain for long period of time, does feel overall his pain is improved, discussed possibly at this point in time being able to cut back given his concerns for cognitive changes and fatigue. Currently on MS Contin 30 mg twice daily, hydromorphone 2 mg for breakthrough pain, and acetaminophen 1000 mg twice daily) Tiredness/Fatigue: Severe (7-10) Drowsiness/Sedation: Moderate (4-6) Nausea: Moderate (4-6) Depression: Mild (1-3) Anxiety: Mild (1-3) Dyspnea: Mild (1-3) Anorexia: Moderate (4-6), Weight loss Sleep: Variable sleep pattern (up at night to void) Constipation: Yes, Opoid induced, Unmanaged Feelings of wellbeing/Perceived Quality of Life: Poor, Worsening Performance Status: Patient currently quite sedentary, does spend most of his time in the bed or in the chair watching TV no longer holds his interests either. He does find h imself sleeping most of the time.His balance is worsening, he is more fearful of falling. He does use a walker. He is receiving bating services now from home health aide, he does find this quite helpful as far as energy conservation. I would put him at a PPS of 60% - Palliative Care Discussion: Patient and familiar from meeting with palliative care at [facility]. Patient is priority for revisit for management of hemorrhoids, constipation, and anorexia. They are aware of the D[facility], they have multiple questions, we did discuss so in the context of her current visit, we would address it at our next visit as he was quite fatigued by the time we are finished with meeting his goals. Palliative care to continue to provide support for pain and symptom management, building up rapport, and advanced care planning. Impression and Recommendations - Palliative Care Impression: This is a 77-year-old gentleman with pancreatic cancer and liver metastases, has continued to have complications related to his surgery, high symptom burden related to his cancer, and continued both functional and cognitive decline. Patient currently getting support from home health services, receiving active palliative chemotherapy, and with recent hospitalization. Palliative care to provide support for pain and symptom management and anticipatory guidance. Recommendations/Counseling Done: 1. Constipation. Patient to start FOLFIRI tomorrow, well known for side effects of diarrhea. Patient most recently with fairly loose watery stools, has been asked to hold his bowel meds today. Patient quite fearful of constipation, remains quite fixated on this. This is mostly related to his rectal discomfort from his hemorrhoids. Counseling regarding goal is a regular soft stool daily, instructions related to the tools they have at hand, instructed to stop 2 Docusa te Sodium as a duplicate to Miralax. Counseling provided on how to titrate bowel program, with MiraLAX for softening i.e. "mush", if stool hard to initiate as currently watery, Senna is the "push" so if patient is not having diarrhea it is 1 senna for each 15 mg of MS; and increase dose if using ondansetron greater than 1 time a day. Given patient to start FOLFIRI, will need to montior for diarrhea vs constipation. Counseling provided for dosing of immodium, inst. to have some in the home. 2. Hemorrhoids. Patient does not exhibit any external hemorrhoids, describes and on examination appears to be internal hemorrhoids. Instructed to get Anusol suppositories for comfort and to decrease swelling, instructed to take in a.m. after bowel movement and prior to going to bed. Can continue use external hemorrhoid cream for discomfort if needed. Reviewed most likely effective intervention, is going to be regular soft BMs without diarrhea and or hard stool. 3. Pain of neoplastic origin. Patient currently on MS Contin 30 mg twice daily, has not used anything for breakthrough pain for a long period of time. Is also taking acetaminophen 1000 mg twice daily. Discussed in the context of his concern for his cognitive fuzziness, given his response to chemotherapy, would like to initiate decreasing MS Contin 15 mg to 1 tab 3 times daily, if this continues to be without issues for pain. Would further decrease down to MS Contin 15 mg twice daily. Prescription provided for 15 mg tablets. 4. Depression. Patient does express depressive symptoms to myology, though does not have persistent overwhelming feelings of depression. Counseling provided regarding normalized feelings of grief and loss, has had a complicated course with now with recent hospitalization. Patient is also had functional and cognitive decline, is somewhat discouraged with his current quality of life, he is able though to identify things that bring him maryellen and distraction. 5. Advanced care planning. Patient actually initiated conversation with myself about DOROTEO ST. Reports he has had multiple conversations but still feels somewhat confused. Discussed given his level of fatigue, will initiate at next, appointment and that we can complete at that time to reflect goals of care.Patient to receive chemotherapy tomorrow, agreed palliative care to check in on Friday regarding titration of pain medication and confusion regarding constipation versus diarrhea. Visit planned for next Friday. Time Spent: 75 minutes with greater than 50% of this done in counseling regarding goals of care, pain and symptom management, and anticipatory guidance as well as coordination of care with home health.
== END 2018-07-07 20:58 | disposition home or self-care (01) ==
LOC: PC 20:57
PROVIDERS: ATTEND Nurse Practitioner Adult Health
DX: Z51.5 Encounter for palliative care (principal); K59.03 Drug induced constipation; T40.2X5A Adverse effect of other opioids, initial encounter; G89.3 Neoplasm related pain (acute) (chronic); C25.9 Malignant neoplasm of pancreas, unspecified; C78.7 Secondary malignant neoplasm of liver and intrahepatic bile duct; F32.9 Major depressive disorder, single episode, unspecified; Z79.899 Other long term (current) drug therapy; R63.0 Anorexia; E11.40 Type 2 diabetes mellitus with diabetic neuropathy, unspecified; F41.9 Anxiety disorder, unspecified; Z79.84 Long term (current) use of oral hypoglycemic drugs
CPT/HCPCS: 99345

== ENCOUNTER 2018-07-14 17:21 | Outpatient (CLI) | payer OTHER ==
--- NOTE | 2018-07-14 18:19 | CONSULTATION NOTE ---
Palliative Care Follow Up - Referral Referring Provider: Dr. Naveed Kyle Time of Visit: [phone] Referral setting: Home (It is a taxing and considerable effort for the patient to leave the home) Referral Reason: Pancreatic Cancer - Information Sources Records reviewed: Previous records reviewed History/Review of Systems obtained from: Patient, Family ( Zaria at visit) Exam limitations: Clinical condition (patient with some STM deficits-defers to often) - History of Present Illness Update Brief HPI Update: This is a 77-year-old gentleman who was diagnosed with pancreatic cancer in January, with liver metastases including status post liver stent placement. He is on palliative chemotherapy, has finished gemcitabine and Abraxane, was to have started FOLFIRI last week. When he presented to the oncologist appointment, he had orthostatic hypotension, and was deemed to be dehydrated. Patient does stru ggle with getting of food and fluids related to early satiety, anorexia, and constipation.Patient was hospitalized overnight, received fluids, but did not have much resolution of his orthostasis, patient does have known peripheral neuropathy which could definitely be playing into his symptoms. They were quite discouraged in the context that now he has been off for 4 weeks, he is rescheduled to receive his treatment again which will be his first FOLFIRI next Friday. He has decreased his MS Contin all the way down to 15 mg twice daily, says abdominal pain which radiates around to his back is well controlled. He has not needed anything for breakthrough pain. His continued source of discomfort is his hemorrhoids, he has not been able to be consistent in his use of Anusol, he does appear though he does not perceive, his bowels are moving much better small amounts 3-4 times a day, not watery nor hard. Both he and his continue to struggle with managing medications, scheduling, food and fluids, plus home health support. Goal for this visit was to initiate conversation regarding the D[facility] Social History - Living Situation Living arrangement: At home Living Situation: With spouse/s.o. Support System: Currently being followed by AAMIR, Zaria providing most of medication oversight and support for appts. and information; Daughter and her boyfriend recently moved to [facility]; accessing manager freelance care insurance though has 90 day waiting period Medications/Allergies - Medications Home Medications: Ambulatory Orders Medication Instructions Recorded Confirmed Finasteride 5 mg PO QPM 04/15/18 07/15/18 Lipase/Protease/Amylase [Creon Dr 2 - 4 cap PO DAILY 04/15/18 07/15/18 36,000 Units Capsule] metFORMIN [Glucophage] 500 mg PO BID 04/15/18 07/15/18 Ondansetron Odt [Zofran] 4 mg TL Q6H PRN #15 tablet 06/23/18 07/15/18 Acetaminophen 1,000 mg PO BID 07/11/18 07/15/18 Bisacodyl 10 mg SD DAILY PRN 07/11/18 07/15/18 Enemeez 1 bottle SD .QOD PRN 07/11/18 07/15/18 Escitalopram Oxalate [Lexapro] 20 mg PO DAILY 07/11/18 07/15/18 HYDROmorphone [Dilaudid] 2 mg PO Q4HR PRN 07/11/18 07/15/18 Lidocaine [Topicaine 5] 1 applic TOP PRN PRN 07/11/18 07/15/18 Loperamide [Imodium] 2 mg PO PRN PRN 07/11/18 07/15/18 Megestrol Acetate 400 mg PO BID 07/11/18 07/15/18 Morphine Sulfate [Ms Contin] 15 mg PO BID 07/11/18 07/15/18 Polyethylene Glycol 3350 [Miralax] 17 mg PO DAILY PRN 07/11/18 07/15/18 Prochlorperazine Maleate 10 mg PO Q4HR PRN 07/11/18 07/15/18 [Compazine] Senna [Senokot] 8.6 mg PO BID MDD hold loose stools 07/11/18 07/15/18 Anusol Supp 1 supp SD BID 07/15/18 Digestive 8/L.acidoph/Pectin 1 tab PO DAILY 07/15/18 07/15/18 [Digestive Enzymes Tablet] Docusate Sodium [Dulcolax Stool 100 mg PO BID 07/15/18 07/15/18 Softener] Omeprazole [PriLOSEC] 20 mg PO DAILY 07/15/18 07/15/18 - Allergies Allergies/Adverse Reactions: Allergies Allergy/AdvReac Type Severity Reaction Status Date / Time No Known Allergies Allergy Unknown Verified 04/15/18 13:11 Review of Systems - Constitutional Constitutional: reports: Fatigue, Poor appetite - Eyes Eyes: reports: Vision loss, Corrective lenses - Ears, Nose & Throat Ears, Nose & Throat: reports: Hearing loss (mild), Hoarseness, Dry mouth - Cardiovascular Cardiovascular: reports: Exertional dyspnea, Decr. exercise tolerance. denies: Chest pain - Respiratory Respiratory: reports: SOB with exertion. denies: SOB at rest - Gastrointestinal Gastrointestinal: reports: Constipation (though reports soft stool 3-4 times a day; feels residual rectal pressure), Reflux/heartburn, Early satiety, Other (poor fluid intake-trying to improve). denies: Nausea - Genitourinary Genitourinary: reports: Frequency, Urgency, Incontinence (mild) - Musculoskeletal Musculoskeletal: reports: Stiffness, Muscle weakness - Integumentary Integumentary: reports: Rash, Dryness - Neurological Neurological: reports: General weakness, Abnormal gait (peripheral neuropathy demonstrated as numbness and balance issues not pain) - Psychiatric Psychiatric: reports: Depression - Hematologic/Lymphatic Hematologic/Lymphatic: reports: Anemia - All Other Systems All Other Systems: reports: Reviewed and negative Physical Exam - Vital Signs Temperature: 97.0 C Pulse Rate: 96 (sitting 92 standing) Respiratory Rate: 18 O2 Saturation: 96 (ra @ rest) Blood Pressure: 102/58 (sitting; 78/52 standing with no pulse change; balance difficulties but no dizzness; after sat down 120/68 with pulse of 102) - Physical Exam General Appearance: positive: No acute distress Eyes Bilateral: positive: Normal inspection ENT: positive: No signs of dehydration. negative: Pharyngeal erythema, Oral lesions Neck: positive: No JVD, Trachea midline Cardiovascular: positive: Regular rate & rhythm Respiratory: positive: Diminished in bases (right greater than left) Abdomen: positive: Soft, Nml bowel sounds, Tenderness, Other (internal hemmorhoids/given Anusol supp tight sphincter) Skin: positive: Pallor, Dryness Extremities: positive: No pedal edema Neurologic/Psychiatric: positive: Oriented x3, Mood/affect nml, Weakness Palliative Care - POLST Patient has POLST: No Pain: Pain improved, Location (Patient on MS Contin 15 mg twice daily, does have hydromorphone 2 mg for breakthrough pain but has not needed any. Is also on acetaminophen 1000 mg twice daily. His abdominal discomfort is currently controlled, most of his discomfort at this point in time is rectal, fluctuating with bowel movements and sitting. He has had difficulty managing the Anusol suppositories, and has not been consistent particularly with hospitalization.) Tiredness/Fatigue: Severe (7-10) Drowsiness/Sedation: Moderate (4-6) Nausea: Mild (1-3) Depression: Mild (1-3) Anxiety: Mild (1-3) Dyspnea: Mild (1-3) Anorexia: Mild (1-3) Sleep: Variable sleep pattern Constipation: Yes, Opoid induced, Unmanaged (Patient consistently forgot to use the MiraLAX, they have resorted back to the decrease sodium 100 mg twice daily for softening, given his history and use of MS Contin/ondansetron will have them initiate back the senna 8.6 mg when twice daily, hold for loose stools.) Feelings of wellbeing/Perceived Quality of Life: Fair, Worsening Performance Status: Patient's gait is very unsteady, does furniture walk. Has not had any falls most of this is related to balance and his peripheral neuropathy. He does spend quite a bit of time being sedentary, he does have poor activity tolerance. He does have assistance from home health aide for bathing, does all meal prep, and assists with dressing and ADLs. - Palliative Care Discussion: Very lengthy discussion in regarding the D[facility], this of course also included the conversation around the seriousness of his illness, current quality of life, and goals for improved quality of life. Patient does recognize the terminology of his illness, but is having difficulty as far as his final decisions around resuscitation. Much time was spent explaining the decisions, the implications of these decisions, and the form. It did allow facilitation of a very helpful conversation between the 2 of them moving into the future. They wanted to discuss it further, form was left, will continue discussion at next week's visit. Impression and Recommendations - Palliative Care Impression: This is a 77-year-old gentleman who continues to struggle daily with quality of life issues related to his pancreatic cancer, sequela related to pain and constipation, and ongoing functional decline. Palliative care to provide support for pain and symptom management and anticipatory guidance regarding goals of care Recommendations/Counseling Done: 1. Constipation. Counseling provided again regarding normalizing bowel movements, suspect again that the internal hemorrhoids are causing increased rectal pressure and the feeling of constipation. Patient is having no nausea or vomiting, his abdomen is soft good bowel sounds in the amount of stool in consistency is describing does appear adequate in the context of what he is eating. Will add back senna when tab twice daily, t0 facilitate expulsion of stool 2. Hemorrhoids. Patient having difficulty inserting Anusol suppositories, counseling provided regarding keeping them in the refrigerator, this makes him colder and easier to insert, demonstrated positioned so patient can self insert as well as instructions on doing 2 times a day. 3. Hypotension. Patient does have orthostatic hypotension with standing, and review of patient's intake today and last couple days it does appear adequate, suspect this is also have function of his peripheral neuropathy. Patient is not dizzy, just continues with balance issues. Did test blood pressure cuff against home, is still off 8-10 mg. We discussed the role of tracking, as they have gotten yet one more test to do. Instructed to take intermittently through different parts of the day and record, so we will have her record to compare it to at the time of his oncology appointment. The patient continues to have difficulty with fluid intake, can make arrangements for patient to receive fluids at this point in time he does not present with acute symptoms of dehydration thus it would not be paid for by Medicare. This is all explained to patient and his 4. Pain of neoplastic origin. Currently he is tolerating the decrease in the MS Contin 15 mg twice daily, patient is unable to really express that this is improved his cognition, though his does feel he is a little bit more clear and has been reading more which was his main complaint prior. Patient does present with some short-term memory and cognitive issues. We will continue to monitor. 5. Fatigue. This is multifactorial in origin. Patient is doing better with intake, though suspect could do better with increased calories and protein. Strategies reviewed for both caloric and hydration. Did pre parole counseling aide patient should be using walker recognizing patient's fall risk. Phone call made to care home care insurance to look at accessing for increased support, Zaria's understanding though there is a 90 day waiting period. 6. Advanced care planning. Which is a very visit was spent on counseling regarding this, both he and his are struggling regarding the implications of the illness and decisions into the future. [facility] [address] was reviewed extensively and questions were answered. Time Spent: 75 minutes was given 50% of this done in counseling regarding pain and symptom management, bowel program, goals of care and anticipatory guidance
== END 2018-07-14 17:22 | disposition home or self-care (01) ==
LOC: PC 17:21
PROVIDERS: ATTEND Nurse Practitioner Adult Health
DX: Z51.5 Encounter for palliative care (principal); I95.9 Hypotension, unspecified; G89.3 Neoplasm related pain (acute) (chronic); C25.9 Malignant neoplasm of pancreas, unspecified; C78.7 Secondary malignant neoplasm of liver and intrahepatic bile duct; R53.83 Other fatigue; Z79.899 Other long term (current) drug therapy; E11.42 Type 2 diabetes mellitus with diabetic polyneuropathy; Z79.84 Long term (current) use of oral hypoglycemic drugs; K64.9 Unspecified hemorrhoids; K59.03 Drug induced constipation; T40.2X5A Adverse effect of other opioids, initial encounter
CPT/HCPCS: 99350

== ENCOUNTER 2018-07-18 20:20 | Outpatient (CLI) | payer OTHER | END 2018-07-18 20:21 | disposition critical access hospital (66) | LOC: EMS 20:20 | PROVIDERS: ATTEND Surgery | DX: S09.90XA Unspecified injury of head, initial encounter (principal); R42 Dizziness and giddiness; W18.39XA Other fall on same level, initial encounter; Y93.01 Activity, walking, marching and hiking; Y92.008 Other place in unspecified non-institutional (private) residence as the place of occurrence of the external cause | CPT/HCPCS: A0425; A0429 ==

== ENCOUNTER 2018-07-18 20:28 | Emergency (ER) | payer OTHER ==
--- NOTE | 2018-07-18 21:02 | ED Physician Documentation ---
PD HPI HEAD INJURY - Stated complaint Stated Complaint: GLF - Chief complaint Chief Complaint: Trauma Hd/Nk - History obtained from History obtained from: Patient, Family (spouse) - History of Present Illness Mechanism of head injury: Fell Where head injury occurred: Home Timing - onset: How many hours ago (approximately 1 hour ACADEMIC SUPPORT COORDINATOR) Pain level max: 0 Pain level now: 0 Location of injury: Back Quality of pain: No: Pain Associated symptoms: No: LOC, AMS, Amnesia, Nausea / vomiting, Neck pain Symptoms improve with: Rest Symptoms worsen with: Movement Contributing factors: No: Anticoagulated, Intoxicated Recently seen: Emergency Dept (T+R beginning of this month for unrelated c/o) - Additional information Additional information: just got out of car after arriving home, says due to peripheral neuropathy, she usually stands next to him to prevent him from falling but as she was coming around from oil transport driver's side to help him, he already had gotten out of the car. He only took one step and fell backwards, struck back of head on the driveway. Denies any pain, denies LOC. Bleeding from back of head that stopped ACADEMIC SUPPORT COORDINATOR. He c/o dizziness that is distinctly worse with head movement and better with rest. He has not had the dizziness before. He cannot recall whether he was dizzy when he got out of the car (before he fell). Review of Systems Eyes: denies: Loss of vision, Decreased vision Cardiac: denies: Chest pain / pressure GI: denies: Abdominal Pain Skin: reports: Laceration (s) (back of head) Musculoskeletal: reports: Reviewed and negative Neurologic: reports: Head injury. denies: Generalized weakness, Focal weakness, Numbness, Confused, Altered mental status, Headache, LOC PD PAST MEDICAL HISTORY - Past Medical History Cardiovascular: Hypertension, High cholesterol, Coronary artery disease, Other Respiratory: None Neuro: Peripheral neuropathy Endocrine/Autoimmune: Type 2 diabetes GI: Hemorrhoids : Benign prostate hypertrophy, Kidney stones HEENT: None Psych: Depression, Anxiety Musculoskeletal: Fatigue Derm: None - Past Surgical History Past Surgical History: Yes General: Other Cardiovascular: Coronary stent, Pacemaker, AICD, Other HEENT: Cataracts, Tonsil/Adenoidectomy - Present Medications Home Medications: Ambulatory Orders Medication Instructions Recorded Confirmed Finasteride 5 mg PO QPM 04/15/18 07/15/18 Lipase/Protease/Amylase [Creon Dr 2 - 4 cap PO DAILY 04/15/18 07/15/18 36,000 Units Capsule] metFORMIN [Glucophage] 500 mg PO BID 04/15/18 07/15/18 Ondansetron Odt [Zofran] 4 mg TL Q6H PRN #15 tablet 06/23/18 07/15/18 Acetaminophen 1,000 mg PO BID 07/11/18 07/15/18 Bisacodyl 10 mg MS DAILY PRN 07/11/18 07/15/18 Enemeez 1 bottle MS .QOD PRN 07/11/18 07/15/18 Escitalopram Oxalate [Lexapro] 20 mg PO DAILY 07/11/18 07/15/18 HYDROmorphone [Dilaudid] 2 mg PO Q4HR PRN 07/11/18 07/15/18 Lidocaine [Topicaine 5] 1 applic TOP PRN PRN 07/11/18 07/15/18 Loperamide [Imodium] 2 mg PO PRN PRN 07/11/18 07/15/18 Megestrol Acetate 400 mg PO BID 07/11/18 07/15/18 Morphine Sulfate [Ms Contin] 15 mg PO BID 07/11/18 07/15/18 Polyethylene Glycol 3350 [Miralax] 17 mg PO DAILY PRN 07/11/18 07/15/18 Prochlorperazine Maleate 10 mg PO Q4HR PRN 07/11/18 07/15/18 [Compazine] Senna [Senokot] 8.6 mg PO BID MDD hold loose stools 07/11/18 07/15/18 Anusol Supp 1 supp MS BID 07/15/18 Digestive 8/L.acidoph/Pectin 1 tab PO DAILY 07/15/18 07/15/18 [Digestive Enzymes Tablet] Docusate Sodium [Dulcolax Stool 100 mg PO BID 07/15/18 07/15/18 Softener] Omeprazole [PriLOSEC] 20 mg PO DAILY 07/15/18 07/15/18 Meclizine [Antivert] 25 mg PO Q6H PRN #20 tablet 07/18/18 - Allergies Allergies/Adverse Reactions: Allergies Allergy/AdvReac Type Severity Reaction Status Date / Time No Known Allergies Allergy Unknown Verified 04/15/18 13:11 - Social History Does the pt smoke?: No Smoking Status: Never smoker - POLST Patient has POLST: No PD ED PE NORMAL - Vitals Vital signs reviewed: Yes - General General: Alert and oriented X 3, No acute distress, Well developed/nourished - HEENT HEENT: PERRL, EOMI, Other (no nystagmus; superficial lac/abrasion to posterior scalp (occiput) with echymosis but no active bleeding. mild bony tenderness) - Neck Neck: No bony TTP - Cardiac Cardiac: RRR, No murmur - Derm Derm: Normal color, Warm and dry - Neuro Neuro: Alert and oriented X 3, staff combat information center officer 2-12 intact, No motor deficit, No sensory deficit, Normal speech Eye Opening: Spontaneous Motor: Obeys Commands Verbal: Oriented GCS Score: 15 Results - Vitals Vitals: Vital Signs - 24 hr 07/18/18 07/18/18 07/18/18 20:34 20:42 22:18 Temperature 36.3 C L Heart Rate 68 70 73 Respiratory 18 16 Rate Blood Pressure 165/82 H 146/83 H O2 Saturation 98 100 97 Oxygen O2 Source Room air - Rads (name of study) CT head Radiology: Prelim report reviewed, See rad report PD MEDICAL DECISION MAKING - ED course Complexity details: reviewed old records, reviewed results, re-evaluated patient, considered differential, d/w patient, d/w family - Sepsis Event Vital Signs: Vital Signs - 24 hr 07/18/18 07/18/18 07/18/18 20:34 20:42 22:18 Temperature 36.3 C L Heart Rate 68 70 73 Respiratory 18 16 Rate Blood Pressure 165/82 H 146/83 H O2 Saturation 98 100 97 Oxygen O2 Source Room air Departure - Departure Disposition: 01 Home, Self Care Clinical Impression: Head injury, Vertigo Condition: Good Instructions: ED Abrasion, ED Head Injury Closed, Meclizine, ED Vertigo Unspecified Prescriptions: Meclizine [Antivert] 25 mg PO Q6H PRN #20 tablet PRN Reason: Dizziness Discharge Date/Time: 07/18/18 22:41
[2018-07-18] MEDS ORDERED: MECLIZINE 12.5 MG TABLET PO STA (21:14)
--- NOTE | 2018-07-18 21:53 | CT Report ---
Reason: fall, head injury, dizziness Procedure Date: 07/18/2018 Accession Number: [id number] / [id number] Procedure: CT - Head W/O CPT Code: FULL RESULT: EXAM: CT HEAD EXAM DATE: 07/18/2018 09:30 PM. CLINICAL HISTORY: Fall, head injury, dizziness. COMPARISON: HEAD W/O 06/23/2018 12:38 PM. TECHNIQUE: Multiaxial CT images were obtained from the foramen magnum to the vertex. Reformats: Sagittal and coronal. IV contrast: None. In accordance with CT protocol optimization, one or more of the following dose reduction techniques were utilized for this exam: automated exposure control, adjustment of mA and/or KV based on patient size, or use of iterative reconstructive technique. FINDINGS: Parenchyma: Mild periventricular and subcortical low density white matter changes. No evidence of infarction or hemorrhage. Extraaxial Spaces: Normal for age. No subdural or epidural collections identified. Ventricles: Normal in size and position. Sinuses and Orbits: Imaged paranasal sinuses, orbits, and mastoids show no significant abnormality. Bones: No evidence of fracture or calvarial defect. Other: None. IMPRESSION: No acute intracranial abnormality. RADIA
[2018-07-18 22:21] VITALS: BP 146/83
== END 2018-07-18 22:41 | disposition home or self-care (01) ==
LOC: EDUNIT# → ED 20:28
DX: S00.01XA Abrasion of scalp, initial encounter (principal); R42 Dizziness and giddiness; I10 Essential (primary) hypertension; E11.42 Type 2 diabetes mellitus with diabetic polyneuropathy; Z79.84 Long term (current) use of oral hypoglycemic drugs; W18.39XA Other fall on same level, initial encounter; Y93.89 Activity, other specified; Y92.008 Other place in unspecified non-institutional (private) residence as the place of occurrence of the external cause
CPT/HCPCS: 70450; 99283; A9270

== ENCOUNTER 2018-07-21 11:30 | Outpatient (CLI) | payer OTHER ==
--- NOTE | 2018-07-21 14:25 | CONSULTATION NOTE ---
Palliative Care Follow Up - Referral Referring Provider: Dr. Naveed Kyle Time of Visit: [id number] Referral setting: Home Referral Reason: Pancreatic Cancer/Goals of Care - Information Sources Records reviewed: RN notes reviewed, Previous records reviewed History/Review of Systems obtained from: Patient, Family ( Rachelle present for visit) Exam limitations: No limitations - History of Present Illness Update Brief HPI Update: This is a timur 77-year-old gentleman who has a diagnosis of pancreatic cancer with liver metastases. He had presented in January with epigastric pain, 10-15 pound weight loss, and on scan was found to have a pancreatic mass. In workup he was found to have liver metastases and did receive an ERCP with stent placement. He has started with Dr. Cornejo With a regimen that alternates gemcitabine and Abraxane with FOLFIRI, Due to complications attributed to dehydration patient has not been on treatment for greater than a month. He is due to start tomorrow, he has looking forward to moving on with treatment. Unfortunately he did have a fall over the weekend on 07/18, getting out of the car due to his peripheral neuropathy he had fallen back and hit his head. His CT scan Did not show any acute intracranial abnormality, but did continue with intermittent dizziness, and headache pain. This is continued to improve daily, and is no longer needed the meclizine. He does have a large hematoma on the back of his head, and now is using his walker for stability. He does have high symptom burden, though the has had some improvement in his anorexia, his weight has stabilized, he continues though with severe fatigue, his balance problems have been attributed to peripheral neuropathy, he does have some autonomic dysregulation with orthostatic hypotension, he has had improved management of his hemorrhoidal discomfort with the Anusol suppositories, his pain is been well controlled with the decrease to MS Contin 15 mg twice daily. His bowels have also been going on a regular basis and he is pleased with his current regimen. Social History - Living Situation Living arrangement: At home Living Situation: With spouse/s.o. Support System: His spouse Rachelle does oversee his medications, taking his blood sugars, and managing his medical appointments. His daughter and her fianc have moved closer to be of assistance, they are planning a wedding at the end of the month. Both of been quite overwhelmed with just the complexity of the relies relating to his serious illness over the last several weeks. Medications/Allergies - Medications Home Medications: Ambulatory Orders Medication Instructions Recorded Confirmed Finasteride 5 mg PO QPM 04/15/18 07/21/18 Lipase/Protease/Amylase [Shamika Alonso 2 - 4 cap PO DAILY 04/15/18 07/21/18 36,000 Units Capsule] metFORMIN [Glucophage] 500 mg PO BID 04/15/18 07/21/18 Ondansetron Odt [Zofran] 4 mg TL Q6H PRN #15 tablet 06/23/18 07/21/18 Acetaminophen 1,000 mg PO BID 07/11/18 07/21/18 Bisacodyl 10 mg GA DAILY PRN 07/11/18 07/21/18 Enemeez 1 bottle GA .QOD PRN 07/11/18 07/21/18 Escitalopram Oxalate [Lexapro] 20 mg PO DAILY 07/11/18 07/21/18 HYDROmorphone [Dilaudid] 2 mg PO Q4HR PRN 07/11/18 07/21/18 Lidocaine [Topicaine 5] 1 applic TOP PRN PRN 07/11/18 07/21/18 Loperamide [Imodium] 2 mg PO PRN PRN 07/11/18 07/21/18 Megestrol Acetate 400 mg PO BID 07/11/18 07/21/18 Morphine Sulfate [Ms Contin] 15 mg PO BID 07/11/18 07/21/18 Polyethylene Glycol 3350 [Miralax] 17 mg PO DAILY PRN 07/11/18 07/21/18 Prochlorperazine Maleate 10 mg PO Q4HR PRN 07/11/18 07/21/18 [Compazine] Senna [Senokot] 8.6 mg PO BID MDD hold loose stools 07/11/18 07/21/18 Anusol Supp 1 supp GA BID 07/15/18 07/21/18 Digestive 8/L.acidoph/Pectin 1 tab PO DAILY 07/15/18 07/21/18 [Digestive Enzymes Tablet] Docusate Sodium [Dulcolax Stool 100 mg PO BID 07/15/18 07/21/18 Softener] Omeprazole [PriLOSEC] 20 mg PO DAILY 07/15/18 07/21/18 Meclizine [Antivert] 25 mg PO Q6H PRN #20 tablet 07/18/18 07/21/18 - Allergies Allergies/Adverse Reactions: Allergies Allergy/AdvReac Type Severity Reaction Status Date / Time No Known Allergies Allergy Unknown Verified 04/15/18 13:11 Review of Systems - Constitutional Constitutional: reports: Fatigue. denies: Fever - Eyes Eyes: reports: Vision loss, Corrective lenses - Ears, Nose & Throat Ears, Nose & Throat: reports: Hearing loss, Vertigo (improving after fall) - Cardiovascular Cardiovascular: reports: Lightheadedness (with standing), Exertional dyspnea, Decr. exercise tolerance - Respiratory Respiratory: reports: SOB with exertion. denies: Cough, SOB at rest - Gastrointestinal Gastrointestinal: reports: Early satiety, Good appetite (improved), Other (hemmorhoidal pain and swelling decreased). denies: Constipation, Nausea, Reflux/heartburn - Genitourinary Genitourinary: reports: Frequency - Musculoskeletal Musculoskeletal: reports: Stiffness, Limited range of motion, Muscle weakness, Assistive devices (using walker now) - Integumentary Integumentary: reports: Dryness, Other (bruise back of head from fall) - Neurological Neurological: reports: General weakness, Dizziness (improving), Pre-existing deficit, Abnormal gait (secondary to peripheral neuropathy) - Psychiatric Psychiatric: reports: Depression (mild). denies: Anxiety - Endocrine Endocrine: reports: Diabetes type 2 - Hematologic/Lymphatic Hematologic/Lymphatic: denies: Recurrent infections - All Other Systems All Other Systems: reports: Reviewed and negative Physical Exam - Vital Signs Temperature: 96.8 C Pulse Rate: 88 Respiratory Rate: 18 O2 Saturation: 97 (ra @ rest) Blood Pressure: 112/68 (sitting; 84/62 standing without pulse change) - Physical Exam General Appearance: positive: No acute distress Eyes Bilateral: positive: Normal inspection ENT: positive: No signs of dehydration Neck: positive: No JVD, Trachea midline Cardiovascular: positive: Regular rate & rhythm Respiratory: positive: No respiratory distress Abdomen: positive: Soft Skin: positive: Pallor, Dryness, Bruising (back of head from fall) Extremities: positive: No pedal edema Neurologic/Psychiatric: positive: Oriented x3, Mood/affect nml, Flat affect Palliative Care - POLST Patient has POLST: Yes POLST Status: DNR, Selective Treatment (Completed POLST at today's visit) Pain: Pain unchanged, Pain improved, Location (Patient on MS Contin 15 mg twice daily, acetaminophen thousand milligrams twice daily. Pain is located mid epigastric radiated around to the back has been well controlled no increase in pain with decrease of medication. Has not needed anything for breakthrough pain. Hemorrhoidal pain has improved as well with the Anusol suppositories) Tiredness/Fatigue: Moderate (4-6) Drowsiness/Sedation: Mild (1-3) Nausea: Mild (1-3) Depression: Mild (1-3) Anxiety: Mild (1-3) Dyspnea: Mild (1-3) (with activity) Anorexia: Mild (1-3) Sleep: Sleeps well Constipation: Yes, Opoid induced, Managed Performance Status: Patient does need assistance with bathing, he is now progressed to the use of the walker to assist with balance and ambulation. He has started with physical therapy, with a very low impact activity program, which he does find quite fatiguing. He does present with fairly low activity tolerance. He is sleeping about 12-14 hours a night. - Palliative Care Discussion: Patient describes how he feels as "drag city". Is having some mild improvement in his symptoms, is worried about exacerbation of symptoms and increased c omplications with initiating another round of new chemotherapy tomorrow. This is balanced with the concern of no treatment, and recognizing at some level is ongoing decline. We were able to finished the discussion around the DOROTEO [address] form, in the context of the decisions and goals is to focus on quality of life at this point he would treat reversible conditions, but at end of life he would like to be at home. Choices include a do not attempt resuscitation/Allow natural ; and selective treatment with the goal of treating medical conditions while avoiding burdensome measures, further developed his conversation around weighing benefits and burdens of treatments as they present themselves. Patient at this point would accept antibiotics for prolonging life, in the context of medically assisted nutrition would look at weighing benefits and burdens in the context of comfort are within the goals that are currently being defined. They do have D POA documents per report, with is the primary, and their son and daughter with shared decision making as a backup. Their hope is as the month progresses, the wedding is at the very end, that he will continue to feel good enough to participate. His daughter is move this up so her father can be part of this recognizing the seriousness of his current condition. Impression and Recommendations - Palliative Care Impression: This is a 77-year-old gentleman who continues to struggle with quality of life issues related to his pancreatic cancer, with recent acute injury and concussion, presents with a moderate symptom burden. Palliative care to continue provide support regarding goals of care and pain and symptom management. Recommendations/Counseling Done: 1. Closed head injury. Patient's symptoms continue to resolve, moved headache pain, no longer requiring meclizine for dizziness, but still continues with bruising and discomfort. Reviewed signs and symptoms of reason to be concerned, at this point in time is continue to improve. Is using walker for balance and safety. 2. Pain of neoplastic origin. Patient current pain is well controlled on his MS Contin 15 mg twice daily. No further titration needed at this point in time. 3. Weight loss. Patient is doing much better with appetite and food and fluid intake. Is somewhat hesitant is moves into new chemotherapy cycle, counseling provided regarding nausea and diarrhea management. 4. Orthostatic hypotension most likely secondary to autonomic dysfunction. Patient has been doing much better with food and fluids, continues with orthostatic numbers, has been taking and logging. Will take to MD appointment. Patient has long-standing peripheral neuropathy most likely etiology. Counseling provided on getting from sitting to standing pumping legs, using walker for safety, is seen physical therapy for mild activity program. 5. Constipation. Patient current regimen is being titrated appropriately, Anusol suppositories helping with hemorrhoidal pain and swelling. Patient pleased with outcome. 6. Advanced care planning. Counseling provided regarding goals of care, DOROTEO ST was completed to reflect conversation and patient/ wishes. Copy will be provided for PCP and YESSI Cai Instructed to take copy to oncology appointment tomorrow and for [facility] records. Time Spent: Time spent 45 minutes with greater than 50% of this done in counseling regarding advanced care planning symptom management and anticipatory guidance CC: HOME HEALTH
== END 2018-07-21 11:31 | disposition home or self-care (01) ==
LOC: PC 11:30
PROVIDERS: ATTEND Nurse Practitioner Adult Health
DX: Z51.5 Encounter for palliative care (principal); G89.3 Neoplasm related pain (acute) (chronic); C25.9 Malignant neoplasm of pancreas, unspecified; C78.7 Secondary malignant neoplasm of liver and intrahepatic bile duct; R63.4 Abnormal weight loss; I95.1 Orthostatic hypotension; K59.03 Drug induced constipation; T40.2X5D Adverse effect of other opioids, subsequent encounter; Z66 Do not resuscitate
CPT/HCPCS: 99349

== ENCOUNTER 2018-07-27 14:30 | Outpatient (CLI) | payer OTHER ==
--- NOTE | 2018-07-27 21:07 | CONSULTATION NOTE ---
Palliative Care Follow Up - Referral Referring Provider: Dr. Naveed Kyle Time of Visit: [phone] Referral setting: Home (It is a taxing considerable effort for the patient to leave the home secondary to fatigue and balance issues) Referral Reason: Pancreatic Cancer - Information Sources Records reviewed: Previous records reviewed History/Review of Systems obtained from: Patient, Family ( Rachelle) Exam limitations: No limitations - History of Present Illness Update Brief HPI Update: This is a 77-year-old gentleman has a diagnosis of pancreatic cancer with liver metastases. He did receive FOLFIRI at 50% dosing last week, tolerated fairly well with only a couple of episodes of diarrhea and fatigue. Patient has recovered from his fall on 07/18 with concussion on the back of his head, no further dizziness or headache pain. He is still using his walker for stability, and is working physical therapy to improve balance and address deconditioning. Patient's goals are to include getting stronger and be able to participate in wedding activities at the end of the month. Patient has moderate symptom burden, continues with some anorexia, he does sleep for long periods of time. Pain has continued to improve and resolve, will go ahead and titrate off MS Contin, is currently down to 15 mg tabs in 24 hours will have him titrate 2 more nights and discontinue. His hemorrhoidal discomfort is improved and almost resolved, he is not having further trouble with constipation. Social History - Living Situation Living arrangement: At home Living Situation: With spouse/s.o. Support System: Daughter recently moved to the [place] with her fianc, currently planning waiting for the end of July. Rachelle does have home health support, bathing assistance, and friends that provide emotional support. Has been overwhelming with all his medical care needs and appointments, are hoping for things to "settle down". Medications/Allergies - Medications Home Medications: Ambulatory Orders Medication Instructions Recorded Confirmed Finasteride 5 mg PO QPM 04/15/18 07/27/18 Lipase/Protease/Amylase [Shamika Alonso 2 - 4 cap PO DAILY 04/15/18 07/27/18 36,000 Units Capsule] metFORMIN [Glucophage] 500 mg PO BID 04/15/18 07/27/18 Ondansetron Odt [Zofran] 4 mg TL Q6H PRN #15 tablet 06/23/18 07/27/18 Acetaminophen 1,000 mg PO BID 07/11/18 07/27/18 Bisacodyl 10 mg AL DAILY PRN 07/11/18 07/27/18 Enemeez 1 bottle AL .QOD PRN 07/11/18 07/27/18 Escitalopram Oxalate [Lexapro] 20 mg PO DAILY 07/11/18 07/27/18 HYDROmorphone [Dilaudid] 2 mg PO Q4HR PRN 07/11/18 07/27/18 Lidocaine [Topicaine 5] 1 applic TOP PRN PRN 07/11/18 07/27/18 Loperamide [Imodium] 2 mg PO PRN PRN 07/11/18 07/27/18 Megestrol Acetate 400 mg PO BID 07/11/18 07/27/18 Morphine Sulfate [Ms Contin] 15 mg PO DAILY MDD titrating off 07/11/18 07/27/18 Polyethylene Glycol 3350 [Miralax] 17 mg PO DAILY PRN 07/11/18 07/27/18 Prochlorperazine Maleate 10 mg PO Q4HR PRN 07/11/18 07/27/18 [Compazine] Senna [Senokot] 8.6 mg PO BID PRN MDD hold loose 07/11/18 07/27/18 stools Anusol Supp 1 supp AL BID PRN 07/15/18 07/27/18 Digestive 8/L.acidoph/Pectin 1 tab PO DAILY 07/15/18 07/27/18 [Digestive Enzymes Tablet] Docusate Sodium [Dulcolax Stool 100 mg PO BID 07/15/18 07/27/18 Softener] Omeprazole [PriLOSEC] 20 mg PO DAILY 07/15/18 07/27/18 - Allergies Allergies/Adverse Reactions: Allergies Allergy/AdvReac Type Severity Reaction Status Date / Time No Known Allergies Allergy Unknown Verified 04/15/18 13:11 Review of Systems - Constitutional Constitutional: reports: Fatigue, Weight loss. denies: Fever - Eyes Eyes: reports: Vision loss, Corrective lenses - Ears, Nose & Throat Ears, Nose & Throat: reports: Hearing loss, Dry mouth - Cardiovascular Cardiovascular: reports: Lightheadedness, Decr. exercise tolerance. denies: Chest pain, Edema - Respiratory Respiratory: reports: SOB with exertion. denies: Cough, Orthopnea, SOB at rest - Gastrointestinal Gastrointestinal: reports: Diarrhea (one episode over weekend with new chemo requiring loperamide "explosive"), Early satiety. denies: Constipation, Nausea, Vomiting - Genitourinary Genitourinary: reports: Frequency - Musculoskeletal Musculoskeletal: reports: Stiffness, Muscle weakness, Assistive devices (using walker new) - Integumentary Integumentary: reports: Dryness - Neurological Neurological: reports: General weakness, Dizziness, Memory problems (improved) - Psychiatric Psychiatric: denies: Depression, Anxiety - Endocrine Endocrine: reports: Diabetes type 2 (BS up with decadron; improved today) - Hematologic/Lymphatic Hematologic/Lymphatic: reports: Anemia. denies: Recurrent infections - All Other Systems All Other Systems: reports: Reviewed and negative Physical Exam - Vital Signs Temperature: 97.1 C Pulse Rate: 76 Respiratory Rate: 18 O2 Saturation: 95 (ra @ rest) Blood Pressure: 122/74 (laying; ;92/52 sitting; 84/52 standing; notes has not been up long and poor fluid intake today) - Physical Exam General Appearance: positive: No acute distress Eyes Bilateral: positive: Normal inspection ENT: negative: Oral lesions Neck: positive: Trachea midline Cardiovascular: positive: Regular rate & rhythm Respiratory: positive: Breath sounds nml Abdomen: positive: Non-tender, Soft Skin: positive: Other (face slightly flushed) Extremities: positive: No pedal edema Neurologic/Psychiatric: positive: Oriented x3, Mood/affect nml Palliative Care - POLST Patient has POLST: Yes POLST Status: DNR, Selective Treatment Pain: Pain improved, Location (rectal pain minimal; have not needed anusol supp last few days; abdominal pain 0/10 even with decrease of medication to MS Contin 15 ER/24 hours.) Tiredness/Fatigue: Moderate (4-6) Drowsiness/Sedation: Moderate (4-6) Nausea: None Depression: None Constipation: No, Opoid induced, Managed Feelings of wellbeing/Perceived Quality of Life: Fair, Acceptable Performance Status: Patient quite sedentary, does spend most the time in bed are in the chair. Does feel like he is clearing some, is able to read and engage more in conversation and TV. Patient is dependent for bathing, is using a walker, does have a full flight of stairs up to bedroom. Would put him at a PPS of 50% - Palliative Care Discussion: Patient feeling encouraged has been able to return to treatment plan, finding it both are positive and negative working towards daughter's wedding. Addressed patient and 's follow-up questions regarding DOROTEO ST, had concerns regarding pacemaker. Patient does not have an AICD, reassured many people naturally with a pacemaker in place when the time comes. Impression and Recommendations - Palliative Care Impression: This is a 77-year-old gentleman with pancreatic cancer with liver metastases. He received FOLFIRI at 50% dosing, And has tolerated with minimal side effects. Patient continues to have significant fatigue, pain is improving, constipation issues are improved as well. Palliative care to continue to provide support for pain and symptom management and anticipatory guidance Recommendations/Counseling Done: 1. Pain of neoplastic origin. Patient's pain continues to decrease, hopefully in response to his chemotherapy. Will go ahead given patient's fatigue and improvement cognitively with decreased opioids, will discontinue off MS Contin. Titration instructions given to continue at 1 and 24 hours x 2 days, and use hydromorphone 2 mg for breakthrough pain. If patient needing more than 3-4 doses in 24 hours, can reinstate MS Contin as indicated. 2. Fatigue, this is multifactorial in origin. is allowing patient to sleep late into the morning, this does impact his ability to eat and drink, as well as participate in exercise program. Did discuss recommend getting patient up between 9 and 10, rather than around noon. Hopefully with decreasing MS Contin, will not have a "hangover in the morning". 3. Anorexia. Patient does eat when awake, does continue to need encouragement to get adequate fluids and calorie intake. Patient seen at 230 today, had only had about 8 ounces of fluid, counseling provided regarding strategies to improve hydration status. 4. Constipation. Patient's current regimen is working without problems, not needing further Anusol suppositories today. Patient did have some diarrhea needing Imodium x1 with chemotherapy. 5. Advanced care planning. DOROTEO ST is in place with do not attempt resuscitation, limited interventions. Address further questions and concerns brought up by patient and . Patient's goals include working towards improving functional status and energy with impending wedding. Both are aware of the seriousness of his illness, are hoping for extended quality and quantity of time Time Spent: 30 minutes with good 50% of this done in counseling regarding pain and symptom m anagement, follow-up on chemotherapy, and anticipatory guidance
== END 2018-07-27 14:31 | disposition home or self-care (01) ==
LOC: PC 14:30
PROVIDERS: ATTEND Nurse Practitioner Adult Health
DX: Z51.5 Encounter for palliative care (principal); G89.3 Neoplasm related pain (acute) (chronic); C25.9 Malignant neoplasm of pancreas, unspecified; C78.7 Secondary malignant neoplasm of liver and intrahepatic bile duct; R53.83 Other fatigue; R63.0 Anorexia; Z79.899 Other long term (current) drug therapy; E11.9 Type 2 diabetes mellitus without complications; Z79.84 Long term (current) use of oral hypoglycemic drugs; Z66 Do not resuscitate
CPT/HCPCS: 99348

== ENCOUNTER 2018-08-20 16:57 | Outpatient (CLI) | payer OTHER ==
[2018-08-20 17:35] LABS: BASOPHILS % (AUTO) 0.3 %; EOSINOPHILS # (AUTO) 0.2 10^3/uL (0.0-0.7); EOSINOPHILS % (AUTO) 3.4 %; HGB - HEMOGLOBIN 12.3 g/dL (14.0-18.0); LYMPHOCYTES # (AUTO) 1.2 10^3/uL (1.5-3.5); LYMPHOCYTES % (AUTO) 23.9 %; MEAN CORPUSCULAR HEMOGLOBIN 34.4 pg (27.0-31.0); MEAN CORPUSCULAR HGB CONC 34.2 g/dL (32.0-36.0); MEAN CORPUSCULAR VOLUME 100.6 fL (80.0-94.0); MEAN PLATELET VOLUME 7.9 fL (7.4-11.4); MONOCYTES # (AUTO) 0.5 10^3/uL (0.0-1.0); MONOCYTES % (AUTO) 10.9 %; NEUTROPHILS # (AUTO) 3.1 10^3/uL (1.5-6.6); NEUTROPHILS % (AUTO) 61.5 %; PLT - PLATELET COUNT 199 10^3/uL (130-450); RED BLOOD COUNT 3.57 10^6/uL (4.70-6.10); RED CELL DISTRIBUTION WIDTH 14.1 % (12.0-15.0)
[2018-08-20 18:25] LABS: ALBUMIN 2.9 g/dL (3.2-5.5); ALBUMIN/GLOBULIN RATIO 1.2 (1.0-2.2); BILIRUBIN,TOTAL 0.6 mg/dL (0.2-1.0); CALCIUM 7.9 mg/dL (8.5-10.3); CREATININE 0.6 mg/dL (0.6-1.2); TOTAL PROTEIN 5.3 g/dL (6.7-8.2)
== END 2018-08-20 16:58 | disposition home or self-care (01) ==
LOC: LAB 16:57
PROVIDERS: ATTEND Nurse Practitioner Adult Health
DX: C25.9 Malignant neoplasm of pancreas, unspecified (principal)
CPT/HCPCS: 36415; 80053; 85025

== ENCOUNTER 2018-08-20 19:21 | Inpatient (IN) | payer MEDICARE, OTHER ==
[2018-08-20] MEDS ORDERED: SODIUM CHLORIDE 0.9% 1,000 ML IV STA (19:26)
[2018-08-20] MEDS ORDERED: POTASSIUM BICARB 25 MEQ TABLET PO STA (19:37)
[2018-08-20] MEDS ORDERED: POTASSIUM CHLOR 10 MEQ/100 ML 10 MEQ/100 ML BAG IV ONE (19:37)
[2018-08-20] MEDS ORDERED: SODIUM CHLORIDE 0.9% 1,000 ML IV ONE (19:37)
[2018-08-20] MEDS ORDERED: LIDOCAINE TOP PRN (19:38)
[2018-08-20] MEDS ORDERED: HYDROmorphone 2 MG TABLET PO PRN (19:38)
--- NOTE | 2018-08-20 19:38 | ED Physician Documentation ---
History of Present Illness - Stated complaint Stated Complaint: POTASSIUM LOW PER SAVANNAH DAVIDSON - Chief complaint Chief Complaint: Neuro - History obtained from History obtained from: Patient, Family - History of Present Illness Timing: Today Pain level max: 0 Pain level now: 0 Improved by: nothing Worsened by: diarrhea - Additonal information Additional information: Patient is a 77-year-old male who presents to the emergency department with low potassium on an outpatient lab draw today. He has had diarrhea the past several days. He has pancreatic cancer and is currently undergoing chemotherapy. He is on palliative care. Has been feeling weak and had trouble walking the past few days. Not able to eat and drink well. Review of Systems Ten Systems: 10 systems reviewed and negative Constitutional: denies: Fever, Chills Ears: denies: Ear pain Nose: denies: Rhinorrhea / runny nose, Congestion Throat: denies: Sore throat Cardiac: denies: Chest pain / pressure Respiratory: denies: Cough GI: reports: Diarrhea. denies: Nausea, Vomiting : denies: Dysuria Skin: denies: Rash Musculoskeletal: denies: Neck pain, Back pain Neurologic: denies: Focal weakness, Numbness, Headache PD PAST MEDICAL HISTORY - Past Medical History Cardiovascular: Hypertension, High cholesterol, Coronary artery disease, Other Respiratory: None Neuro: Peripheral neuropathy Endocrine/Autoimmune: Type 2 diabetes GI: Hemorrhoids : Benign prostate hypertrophy, Kidney stones HEENT: None Psych: Depression, Anxiety Musculoskeletal: Fatigue Derm: None - Past Surgical History Past Surgical History: Yes General: Other Cardiovascular: Coronary stent, Pacemaker, AICD, Other HEENT: Cataracts, Tonsil/Adenoidectomy - Present Medications Home Medications: Ambulatory Orders Medication Instructions Recorded Confirmed Finasteride 5 mg PO QPM 04/15/18 07/27/18 Lipase/Protease/Amylase [Creon Dr 2 - 4 cap PO DAILY 04/15/18 07/27/18 36,000 Units Capsule] metFORMIN [Glucophage] 500 mg PO BID 04/15/18 07/27/18 Ondansetron Odt [Zofran] 4 mg TL Q6H PRN #15 tablet 06/23/18 07/27/18 Acetaminophen 1,000 mg PO BID 07/11/18 07/27/18 Bisacodyl 10 mg [place] DAILY PRN 07/11/18 07/27/18 Enemeez 1 bottle WA .QOD PRN 07/11/18 07/27/18 Escitalopram Oxalate [Lexapro] 20 mg PO DAILY 07/11/18 07/27/18 HYDROmorphone [Dilaudid] 2 mg PO Q4HR PRN 07/11/18 07/27/18 Lidocaine [Topicaine 5] 1 applic TOP PRN PRN 07/11/18 07/27/18 Loperamide [Imodium] 2 mg PO PRN PRN 07/11/18 07/27/18 Megestrol Acetate 400 mg PO BID 07/11/18 07/27/18 Morphine Sulfate [Ms Contin] 15 mg PO DAILY MDD titrating off 07/11/18 07/27/18 Polyethylene Glycol 3350 [Miralax] 17 mg PO DAILY PRN 07/11/18 07/27/18 Prochlorperazine Maleate 10 mg PO Q4HR PRN 07/11/18 07/27/18 [Compazine] Senna [Senokot] 8.6 mg PO BID PRN MDD hold loose 07/11/18 07/27/18 stools Anusol Supp 1 supp WA BID PRN 07/15/18 07/27/18 Digestive 8/L.acidoph/Pectin 1 tab PO DAILY 07/15/18 07/27/18 [Digestive Enzymes Tablet] Docusate Sodium [Dulcolax Stool 100 mg PO BID 07/15/18 07/27/18 Softener] Omeprazole [PriLOSEC] 20 mg PO DAILY 07/15/18 07/27/18 Fludrocortisone [Florinef] 0.1 mg PO BID 08/20/18 08/20/18 LORazepam [Ativan] 1 tab PO DAILY PRN 08/20/18 08/20/18 Psyllium [Metamucil] 1 packet PO DAILY 08/20/18 08/20/18 glyBURIDE [Glyburide] 2.5 mg PO DAILY 08/20/18 08/20/18 - Allergies Allergies/Adverse Reactions: Allergies Allergy/AdvReac Type Severity Reaction Status Date / Time No Known Allergies Allergy Unknown Verified 08/20/18 19:59 - Social History Does the pt smoke?: No Smoking Status: Never smoker - POLST Patient has POLST: Yes PD ED PE NORMAL - Vitals Vital signs reviewed: Yes - General General: Alert and oriented X 3, No acute distress - HEENT HEENT: PERRL, Other (dry lips) - Neck Neck: Supple, no meningeal sign - Cardiac Cardiac: RRR, Strong equal pulses - Respiratory Respiratory: No respiratory distress, Clear bilaterally - Abdomen Abdomen: Soft, Non tender, Non distended - Derm Derm: Warm and dry, No rash - Extremities Extremities: No edema - Neuro Neuro: Alert and oriented X 3 - Psych Psych: Normal mood, Normal affect Results - Vitals Vitals: Vital Signs - 24 hr 08/20/18 19:27 Temperature 36.9 C Heart Rate 86 Respiratory 18 Rate Blood Pressure 140/79 H O2 Saturation 98 Oxygen O2 Source Room air PD MEDICAL DECISION MAKING - ED course Complexity details: reviewed old records, reviewed results, re-evaluated patient, considered differential, d/w patient, d/w family, d/w job service consultant ED course: Patient is a 77-year-old male with pancreatic cancer and diarrhea who presents with hypokalemia on outpatient blood draw. His port was accessed, IV fluids given. Potassium started to be replaced. Given the severe nature of the hypokalemia along with his weakness, will place in observation for further care. C. difficile ordered for when he has diarrhea. Discussed the case with Dr. Baez, hospitalist who accepts. Also discussed with Savannah Davidson, palliative care. This document was made in part using voice recognition software. While efforts are made to proofread this document, sound alike and grammatical errors may occur. Departure - Departure Disposition: ED Place in Observation Clinical Impression: Hypokalemia, Dehydration, Hypomagnesemia Diarrhea Qualifiers: Diarrhea type: unspecified type Qualified Code(s): R19.7 - Diarrhea, unspecified Condition: Stable Discharge Date/Time: 08/20/18 20:47
[2018-08-20] MEDS ORDERED: HYDROmorphone 1 MG/ML CARPUJECT IVP PRN (19:41)
[2018-08-20] MEDS ORDERED: PROCHLORPERAZINE 10 MG/2 ML VIAL IVP PRN (19:41)
[2018-08-20] MEDS ORDERED: ZOLPIDEM 5 MG TABLET PO PRN (19:41)
[2018-08-20] MEDS ORDERED: PROMETHAZINE 25 MG/1 ML VIAL IM PRN (19:41)
[2018-08-20 19:53] LABS: BASOPHILS % (AUTO) 0.3 %; EOSINOPHILS # (AUTO) 0.1 10^3/uL (0.0-0.7); EOSINOPHILS % (AUTO) 2.9 %; HGB - HEMOGLOBIN 12.1 g/dL (14.0-18.0); LYMPHOCYTES # (AUTO) 1.2 10^3/uL (1.5-3.5); LYMPHOCYTES % (AUTO) 24.3 %; MEAN CORPUSCULAR HEMOGLOBIN 34.6 pg (27.0-31.0); MEAN CORPUSCULAR HGB CONC 34.6 g/dL (32.0-36.0); MEAN PLATELET VOLUME 8.1 fL (7.4-11.4); MONOCYTES # (AUTO) 0.6 10^3/uL (0.0-1.0); MONOCYTES % (AUTO) 12.3 %; NEUTROPHILS % (AUTO) 60.2 %; PLT - PLATELET COUNT 197 10^3/uL (130-450); RED CELL DISTRIBUTION WIDTH 14.7 % (12.0-15.0); WHITE BLOOD COUNT 4.9 x10^3/uL (4.8-10.8)
--- NOTE | 2018-08-20 19:54 | HISTORY & PHYSICAL EXAMINATION ---
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 The patient otherwise has a past medical history significant for diabetes, hypertension, hyperlipidemia, coronary artery disease status post 2 stents, heart block status post pacemaker and peripheral neuropathy which has become worse since starting chemotherapy. The patient states that after his most recent chemotherapy treatment he began having diarrhea. He states the diarrhea started 2 days after he completed the chemo session. He states that since he has had diarrhea off and on but usually not more than 1-2 bowel movements a day. He states that the diarrhea became significantly worse over the last 3 days. He states that over the last 3 days he has been having 4-5 episodes of loose stools per day. He states that the stool has been yellowish in color and foul-smelling. He denies any blood in the stools. He does admit to having some abdominal grumbling and discomfort prior to having episodes of diarrhea but denies any significant abdominal pain. The patient also denies any fevers or chills. He denies any nausea or vomiting. The patient was on antibiotics in June for cholangitis. He has not had any sick contacts. The patient states that he was supposed to start his third round of chemotherapy yesterday but was unable to go due to ongoing diarrhea. The patient states that he has become increasingly weak with the diarrhea and although he is been trying to hydrate himself he feels as though he is dehydrated. He states that he has been taking Imodium the last few days but it has not stopped the diarrhea. He states that today he had one loose bowel movement in the morning but has not had any since. The patient states that his palliative care nurse practitioner ordered lab tests today and called him to tell him to come to the emergency department due to a low potassium. The patient states that he did have abdominal pain with his pancreatic cancer but that is now well controlled. He states he only takes Dilaudid as needed for the abdominal pain. He does state that he has bad peripheral neuropathy which he did have with diabetes but has become significantly worse since being placed on chemotherapy. He states that the peripheral neuropathy has made it more difficult for him to get around and ambulate. Patient denies any headaches, blurred vision, runny nose, sore throat, nasal congestion, difficulty swallowing, chest pain, shortness of air, orthopnea, PND, increased lower extremity swelling, urinary urgency, urinary frequency, dysuria, joint swelling, joint pain, back pain, neck stiffness, skin changes, polyuria, polydipsia, muscle aches, night sweats or any focal neurologic deficits. On presentation to the emergency department the patient was afebrile and vital signs were stable. The patient did appear to be quite dry on examination and appeared to be weak. The patient underwent routine lab work which revealed a potassium of 2.0 and a magnesium of 1.4. The patient also had a mild anemia with a hemoglobin of 12.1 which was near his baseline. The patient also had a mildly elevated BUN but his creatinine was at its baseline. The patient appeared quite dehydrated on examination and was given IV fluids and potassium in the emergency department. It was felt that given his severely low potassium that he would be best off placed in observation for IV potassium replacement and hydration overnight. The patient was placed in observation. History - Past Medical History Cardiovascular: reports: Hypertension, High cholesterol, Coronary artery disease, Other (Heartblock s/p pacemaker) Respiratory: reports: None Neuro: reports: Peripheral neuropathy Endocrine/Autoimmune: reports: Type 2 diabetes GI: reports: Hemorrhoids : reports: Benign prostate hypertrophy, Kidney stones HEENT: reports: None Psych: reports: Depression, Anxiety Musculoskeletal: reports: Fatigue Derm: reports: None MRSA Hx?: No Other Past Medical History: Pancreatic cancer with metastasis to the liver - Past Surgical History General: reports: Other Cardiovascular: reports: Coronary stent, Pacemaker, AICD, Other HEENT: reports: Cataracts, Tonsil/Adenoidectomy - Family & Social History Family History: Mother: (recentlly passed of old age), CAD, Diabetes, Type 2, Father: , Other family: Cancer (Grandfather prostate ca) Living arrangement: At home Living Situation: With spouse/s.o. Social History Notes: The patient lives in [place], [place] with his . They moved to [place] 5 years ago from [place]. The patient lived in [place] and worked as in the field of international development. He is an avid traveler. He and his decided to retire and moved to [facility]. They have 2 children 1 of whom lives on [facility]. The patient has never been a smoker and only drinks rarely on social occasions. He denies any illicit drug use. - Substance History Use: Uses substance without health or social issues: Cannabis (use for appetite/pain) - POLST Patient has POLST: Yes POLST Status: DNR Meds/Allgy - Home Medications Home Medications: Ambulatory Orders Medication Instructions Recorded Confirmed Finasteride 5 mg PO QPM 04/15/18 07/27/18 Lipase/Protease/Amylase [Creon Dr 2 - 4 cap PO DAILY 04/15/18 07/27/18 36,000 Units Capsule] metFORMIN [Glucophage] 500 mg PO BID 04/15/18 07/27/18 Ondansetron Odt [Zofran] 4 mg TL Q6H PRN #15 tablet 06/23/18 07/27/18 Acetaminophen 1,000 mg PO BID 07/11/18 07/27/18 Bisacodyl 10 mg MT DAILY PRN 07/11/18 07/27/18 Enemeez 1 bottle MT .QOD PRN 07/11/18 07/27/18 Escitalopram Oxalate [Lexapro] 20 mg PO DAILY 07/11/18 07/27/18 HYDROmorphone [Dilaudid] 2 mg PO Q4HR PRN 07/11/18 07/27/18 Lidocaine [Topicaine 5] 1 applic TOP PRN PRN 07/11/18 07/27/18 Loperamide [Imodium] 2 mg PO PRN PRN 07/11/18 07/27/18 Megestrol Acetate 400 mg PO BID 07/11/18 07/27/18 Morphine Sulfate [Ms Contin] 15 mg PO DAILY MDD titrating off 07/11/18 07/27/18 Polyethylene Glycol 3350 [Miralax] 17 mg PO DAILY PRN 07/11/18 07/27/18 Prochlorperazine Maleate 10 mg PO Q4HR PRN 07/11/18 07/27/18 [Compazine] Senna [Senokot] 8.6 mg PO BID PRN MDD hold loose 07/11/18 07/27/18 stools Anusol Supp 1 supp MT BID PRN 07/15/18 07/27/18 Digestive 8/L.acidoph/Pectin 1 tab PO DAILY 07/15/18 07/27/18 [Digestive Enzymes Tablet] Docusate Sodium [Dulcolax Stool 100 mg PO BID 07/15/18 07/27/18 Softener] Omeprazole [PriLOSEC] 20 mg PO DAILY 07/15/18 07/27/18 Fludrocortisone [Florinef] 0.1 mg PO BID 08/20/18 08/20/18 LORazepam [Ativan] 1 tab PO DAILY PRN 08/20/18 08/20/18 Psyllium [Metamucil] 1 packet PO DAILY 08/20/18 08/20/18 glyBURIDE [Glyburide] 2.5 mg PO DAILY 08/20/18 08/20/18 - Allergies Allergies/Adverse Reactions: Allergies Allergy/AdvReac Type Severity Reaction Status Date / Time No Known Allergies Allergy Unknown Verified 08/20/18 19:59 Review of Systems - Other Findings Other Findings: A comprehensive review of systems was performed the pertinent positives and negatives are stated above in the HPI and the remainder of the review of systems is negative. Prior Level of Functionality: The patient states he continues to have a good quality of life. He states that he enjoys reading during the day and playing with his dogs. He states that he has become increasingly limited with his ambulation due to his peripheral neuropathy. On most days he is able to perform all his activities of daily living independently however this becomes difficult at times with side effects from the chemotherapy. He states that up until now he is tolerated the chemotherapy fairly well. He would like to continue living for as long as he has a good quality of life. Exam - Vital Signs Reviewed Vital Signs: Yes Vital Signs: Vital Signs x48h Temp Pulse Resp BP Pulse Ox 08/20/18 19:27 36.9 C 86 18 140/79 H 98 - Physical Exam General Appearance: positive: No acute distress, Alert, Other (Patient appears pale and weak looking.) Eyes Bilateral: positive: Normal inspection, PERRL, EOMI, No lid inflammation, C onjunctivae nml, No scleral icterus ENT: positive: ENT inspection nml, Pharynx nml, Dry mucous membranes. negative: Purulent nasal drainage, Pharyngeal erythema, Oral lesions Neck: positive: Nml inspection, Thyroid nml, No JVD, Trachea midline. negative: Thyromegaly, Lymphadenopathy (R), Lymphadenopathy (L), Stiff neck, Carotid bruit, Tracheal deviation Respiratory: positive: Chest non-tender, No respiratory distress, Breath sounds nml. negative: Wheezes, Rales, Rhonchi Cardiovascular: positive: Regular rate & rhythm, No murmur, No gallop Peripheral Pulses: positive: 2+ Abdomen: positive: Non-tender, No organomegaly, Nml bowel sounds, No distention. negative: Guarding, Rebound, Hepatomegaly Back: positive: Nml inspection. negative: CVA tenderness (R), CVA tenderness (L) Skin: positive: Color nml, No rash, Warm, Dry. negative: Cyanosis, Diaphoresis, Pallor, Skin rash Extremities: positive: Non-tender, Full ROM, Nml appearance, No pedal edema Neurologic/Psychiatric: positive: Oriented x3, CN's nml (2-12), Motor nml, Sensation nml, Mood/affect nml Conclusion/Plan - Problem List (1) Hypokalemia Conclusion/Plan: The patient presents to the emergency department with 3 days of severe diarrhea and appears quite dehydrated on examination. Patient's lab work revealed a potassium of 2.0. It was determined that patient needs observation stay for hydration and IV potassium replacement given his ongoing diarrhea. Plan: IV fluids IV potassium replacement Monitor potassium Treat diarrhea (2) Diarrhea Conclusion/Plan: The patient presented to the emergency department secondary to diarrhea. Patient has been having off-and-on diarrhea since his last chemotherapy session 2 weeks ago. Diarrhea became significantly worse over the last 3 days where he had to miss his chemotherapy session yesterday. Patient has not had any fevers or chills and no significant abdominal pain. The patient was on antibiotics more than a month ago for cholangitis. The patient does not have any leukocytosis but does have dehydration and severe hypokalemia. Likely cause of the patient's diarrhea is chemotherapy-induced however given that it has been 2 weeks since his last chemotherapy session and diarrhea is becoming worse this is concerning for possible ongoing infectious diarrhea. The patient has been on Metamucil which could also be contributing to the diarrhea. Plan: Given immunocompromise state and ongoing diarrhea we will do infectious workup with stool cultures and C. difficile PCR. IV fluids Electrolyte replacement Start Imodium as needed Qualifiers: Diarrhea type: unspecified type Qualified Code(s): R19.7 - Diarrhea, unspecified (3) Hypomagnesemia Conclusion/Plan: The patient presented to the emergency department with diarrhea and was found to have hypokalemia as well as hypomagnesemia with a magnesium of 1.4. Likely the patient's hypomagnesemia is secondary to his diarrhea and GI losses of magne sium. Patient will have magnesium replaced via IV and we will continue to monitor his magnesium. (4) Dehydration Conclusion/Plan: Patient has been having diarrhea for the last 2 weeks and it has become significantly worse over the last 3 days. The patient presents with hypokalemia and hypomagnesemia and appears to be dehydrated. The patient has an elevated BUN and has dry mucous membranes. Plan: IV fluids Controlled diarrhea Electrolyte replacement (5) Pancreatic cancer Conclusion/Plan: The patient has pancreatic cancer with metastasis to the liver and has undergone chemotherapy with 4 rounds of gemcitabine and Abraxane and is currently on FOLFIRI of which he is received 2 of 4 rounds. Plan is for patient to continue to alternate between the 2 chemotherapy regimens. The patient has abdominal pain secondary to the pancreatic cancer which at this point is well controlled. The patient is no longer on MS Contin and only takes Dilaudid as needed. The patient is also suffered with bad peripheral neuropathy secondary to the chemotherapy. Patient's current presentation with diarrhea appears to be sec ondary to side effects from chemotherapy. Patient had to miss his chemotherapy session yesterday secondary to his diarrhea. Plan: IV fluids IV hydration Pain control Continue pancreatic enzymes daily Follow-up with oncology as an outpatient once discharged. Qualifiers: Pancreatic malignancy location: unspecified Qualified Code(s): C25.9 - M alignant neoplasm of pancreas, unspecified (6) Diabetes Conclusion/Plan: The patient has a history of diabetes and is on metformin and glyburide at home. The patient states that prior to his diagnosed with pancreatic cancer patient's diabetes became uncontrolled. The patient has not on insulin however. On presentation to the emergency department the patient had an elevated blood glucose of 178. Plan: Hold metformin and glyburide Place patient on sliding scale insulin Diabetic diet Check hemoglobin A1c Check blood glucose before meals at bedtime Qualifiers: Diabetes mellitus type: type 2 Diabetes mellitus alf insulin use: without alf use Diabetes mellitus complication status: with hyperglycemia Qualified Code(s): E11.65 - Type 2 diabetes mellitus with hyperglycemia (7) BPH (benign prostatic hyperplasia) Conclusion/Plan: The patient has a history of BPH and is status post TURP procedure. Patient is currently on finasteride at home for his BPH. While the patient is hospitalized he will be continued on finasteride. - Lab Results Fish Bones: 08/20/18 19:49 08/20/18 19:49 Other Lab Results: Laboratory Results WBC 4.9 x10^3/uL (4.8-10.8) 08/20/18 19:49 RBC 3.50 10^6/uL (4.70-6.10) L 08/20/18 19:49 Hgb 12.1 g/dL (14.0-18.0) L 08/20/18 19:49 Hct 35.0 % (42.0-52.0) L 08/20/18 19:49 MCV 100.0 fL (80.0-94.0) H 08/20/18 19:49 MCH 34.6 pg (27.0-31.0) H 08/20/18 19:49 MCHC 34.6 g/dL (32.0-36.0) 08/20/18 19:49 RDW 14.7 % (12.0-15.0) 08/20/18 19:49 Plt Count 197 10^3/uL (130-450) 08/20/18 19:49 MPV 8.1 fL (7.4-11.4) 08/20/18 19:49 Neut # (Auto) 3.0 10^3/uL (1.5-6.6) 08/20/18 19:49 Lymph # (Auto) 1.2 10^3/uL (1.5-3.5) L 08/20/18 19:49 Potter # (Auto) 0.6 10^3/uL (0.0-1.0) 08/20/18 19:49 Eos # (Auto) 0.1 10^3/uL (0.0-0.7) 11/01/18 19:49 Baso # (Auto) 0.0 10^3/uL (0.0-0.1) 08/20/18 19:49 Absolute Nucleated RBC 0.00 x10^3/uL 08/20/18 19:49 Nucleated RBC % 0.0 /100WBC 08/20/18 19:49 Sodium 139 mmol/L (135-145) 08/20/18 19:49 Potassium 2.0 mmol/L (3.5-5.0) L* 08/20/18 19:49 Chloride 106 mmol/L (101-111) 08/20/18 19:49 Carbon Dioxide 21 mmol/L (21-32) 08/20/18 19:49 Anion Gap 12.0 (6-13) 08/20/18 19:49 BUN 21 mg/dL (6-20) H 08/20/18 19:49 Creatinine 0.6 mg/dL (0.6-1.2) 08/20/18 19:49 Estimated GFR (MDRD) 130 (>89) 08/20/18 19:49 Glucose 178 mg/dL (70-100) H 08/20/18 19:49 POC Whole Bld Glucose 175 mg/dL (70 - 100) H 08/20/18 21:04 Calcium 8.1 mg/dL (8.5-10.3) L 08/20/18 19:49 Phosphorus 3.1 mg/dL (2.5-4.6) 08/20/18 19:49 Magnesium 1.4 mg/dL (1.7-2.8) L 08/20/18 19:49 Total Bilirubin 0.7 mg/dL (0.2-1.0) 08/20/18 19:49 AST 29 IU/L (10-42) 08/20/18 19:49 ALT 36 IU/L (10-60) 08/20/18 19:49 Alkaline Phosphatase 72 IU/L (42-121) 08/20/18 19:49 Total Protein 5.2 g/dL (6.7-8.2) L 08/20/18 19:49 Albumin 2.8 g/dL (3.2-5.5) L 08/20/18 19:49 Globulin 2.4 g/dL (2.1-4.2) 08/20/18 19:49 Albumin/Globulin Ratio 1.2 (1.0-2.2) 08/20/18 19:49 Lipase 16 U/L (22-51) L 08/20/18 19:49 Core Measures - Anticipated LOS I expect patient to be DC'd or transferred within 96 hours.: Yes - DVT/VTE - Prophylaxis VTE/DVT Prophylaxis med ordered at admit?: Yes
[2018-08-20 20:14] LABS: ALBUMIN 2.8 g/dL (3.2-5.5); ALBUMIN/GLOBULIN RATIO 1.2 (1.0-2.2); BILIRUBIN,TOTAL 0.7 mg/dL (0.2-1.0); CALCIUM 8.1 mg/dL (8.5-10.3); CREATININE 0.6 mg/dL (0.6-1.2); MAGNESIUM 1.4 mg/dL (1.7-2.8); PHOSPHORUS 3.1 mg/dL (2.5-4.6); TOTAL PROTEIN 5.2 g/dL (6.7-8.2)
[2018-08-20] MEDS ORDERED: MAGNESIUM SULFATE 2 GRAM 2 GM/50 ML BAG IV ONE (21:03)
[2018-08-20] MEDS ORDERED: LORazepam 0.5 MG TABLET PO PRN (21:19)
[2018-08-20] MEDS: FINASTERIDE 5 MG TABLET PO SCH (21:28)
[2018-08-20] MEDS: FAMOTIDINE 20 MG TABLET PO SCH (21:30)
[2018-08-20] MEDS: MEGESTROL 400 MG/10 ML UDC PO SCH (21:30)
[2018-08-20] MEDS: NS W/20 MEQ KCL 1,000 ML IV SCH (22:05)
[2018-08-20] MEDS: INSULIN ASPART 300 UNIT/3 ML PEN SUBQ SCH (22:06)
[2018-08-20] MEDS: SODIUM CHLORIDE FLUSH 0.9% 10 ML SYRINGE IVP PRN (22:07)
[2018-08-20 23:03] LABS: BILIRUBIN,URINE NEGATIVE (NEGATIVE); GLUCOSE, URINE (UA) 100 mg/dL (NEGATIVE); KETONES,URINE (UA) TRACE mg/dL (NEGATIVE); LEUKOCYTE ESTERASE, URINE NEGATIVE (NEGATIVE); NITRITE,URINE NEGATIVE (NEGATIVE); OCCULT BLOOD,URINE NEGATIVE (NEGATIVE); PROTEIN,URINE TRACE mg/dL (NEGATIVE); UROBILINOGEN,URINE 0.2 (NORMAL) E.U./dL (NORMAL)
[2018-08-20 23:04] LABS: CLARITY,URINE CLEAR (CLEAR)
[2018-08-20] MEDS: LORazepam 0.5 MG TABLET PO PRN (23:45)
[2018-08-20] MEDS: POTASSIUM CHLOR 10 MEQ/100 ML 10 MEQ/100 ML BAG IV SCH (23:45)
[2018-08-21] MEDS: POTASSIUM CHLOR 10 MEQ/100 ML 10 MEQ/100 ML BAG IV SCH ×9 (00:53→10:49)
[2018-08-21] MEDS: SODIUM CHLORIDE FLUSH 0.9% 10 ML SYRINGE IVP SCH ×4 (01:05→23:39)
[2018-08-21] MEDS: SODIUM CHLORIDE FLUSH 0.9% 10 ML SYRINGE IVP PRN ×2 (04:10→04:22)
[2018-08-21 04:33] LABS: BASOPHILS % (AUTO) 0.1 %; EOSINOPHILS # (AUTO) 0.1 10^3/uL (0.0-0.7); EOSINOPHILS % (AUTO) 2.9 %; HGB - HEMOGLOBIN 10.8 g/dL (14.0-18.0); LYMPHOCYTES % (AUTO) 25.6 %; MEAN CORPUSCULAR HEMOGLOBIN 35.1 pg (27.0-31.0); MEAN CORPUSCULAR VOLUME 100.2 fL (80.0-94.0); MEAN PLATELET VOLUME 7.8 fL (7.4-11.4); MONOCYTES # (AUTO) 0.5 10^3/uL (0.0-1.0); MONOCYTES % (AUTO) 11.8 %; NEUTROPHILS # (AUTO) 2.4 10^3/uL (1.5-6.6); NEUTROPHILS % (AUTO) 59.6 %; PLT - PLATELET COUNT 172 10^3/uL (130-450); RED BLOOD COUNT 3.08 10^6/uL (4.70-6.10); RED CELL DISTRIBUTION WIDTH 14.4 % (12.0-15.0)
[2018-08-21 05:08] LABS: INR 1.1 (0.8-1.2); PT - PROTHROMBIN TIME 11.9 secs (9.9-12.6)
[2018-08-21 05:10] LABS: ALBUMIN 2.6 g/dL (3.2-5.5); ALBUMIN/GLOBULIN RATIO 1.3 (1.0-2.2); BILIRUBIN,TOTAL 0.6 mg/dL (0.2-1.0); CALCIUM 7.5 mg/dL (8.5-10.3); CREATININE 0.5 mg/dL (0.6-1.2); MAGNESIUM 1.8 mg/dL (1.7-2.8); PHOSPHORUS 2.5 mg/dL (2.5-4.6); TOTAL PROTEIN 4.6 g/dL (6.7-8.2)
[2018-08-21 05:38] LABS: HEMOGLOBIN A1C 0.76 g/dL; HEMOGLOBIN A1C % 8.5 % (4.6-6.2)
[2018-08-21 07:49] LABS: % IRON SATURATION 17 % (20-50); IRON 35 ug/dL (45-182); TOTAL IRON BINDING CAPACITY 211 ug/dL (250-450); TRANSFERRIN 151 mg/dL (180-329)
[2018-08-21] MEDS: MEGESTROL 400 MG/10 ML UDC PO SCH ×2 (08:47→19:27)
[2018-08-21] MEDS: INSULIN ASPART 300 UNIT/3 ML PEN SUBQ SCH ×4 (08:47→21:25)
[2018-08-21] MEDS: ESCITALOPRAM 10 MG TABLET PO SCH (08:47)
[2018-08-21] MEDS: FAMOTIDINE 20 MG TABLET PO SCH ×2 (08:47→19:28)
[2018-08-21] MEDS: ENOXAPARIN 40 MG/0.4 ML SYRINGE SUBQ SCH (08:48)
[2018-08-21] MEDS: NS W/20 MEQ KCL 1,000 ML IV SCH ×2 (08:49→22:32)
[2018-08-21] MEDS: POLYETHYLENE GLYCOL 3350 17 GM PACKET PO SCH (08:49)
[2018-08-21] MEDS: FERROUS SULFATE 325 MG TABLET PO SCH (08:52)
[2018-08-21] MEDS ORDERED: MORPHINE ER 15 MG TABLET PO SCH ×2 (09:00→23:00)
[2018-08-21] MEDS ORDERED: FLUDROCORTISONE 0.1 MG TABLET PO SCH (09:00)
--- NOTE | 2018-08-21 11:59 | CONSULTATION NOTE ---
Palliative Care Follow Up - Referral Referring Provider: Dr. Baez Time of Visit: Referral setting: Hospitalized patient Referral Reason: Pancreatic Cancer liver mets/hypokalemia/diarrhea - Information Sources Records reviewed: RN notes reviewed, Previous records reviewed History/Review of Systems obtained from: Patient Exam limitations: No limitations - History of Present Illness Update Brief HPI Update: This is a 77-year-old gentleman who was diagnosed with pancreatic in January, with liver metastases status post liver stent placement. He has been receiving chemotherapy at [facility] with Dr. Cornejo, latest regimen has been FOLFIRI, last dose on 08/05. Had mild diarrhea for a few days, improved some, then worsened last few days with foul smelling, loose and incontinent, and yellowish/viera and "floating" per . Was heading to [facility] Friday when had two rounds of diarrhea and incontinence and did not go in for labs or treatment. I had called them on in follow up for appointment, and had recommended go to ED secondary to low b/p taken by PT earlier 70/40 when standing, and severe weakness, with increasing weakness with each diarrhea stool. Patient declined, but did agree to go in for labs, had to use wheelchair, and critical value of K at 2.1, was instructed to go to hospital and agreed. Patient presents with fairly significant fatigue, did not get much sleep last n ight. Reports he has been up to the bathroom, though with assistance. Acknowledges had been getting weaker over the last few days, has poor activity tolerance denies shortness of breath or cough. He has been titrated off his MS Contin, has not needed any oxycodone for breakthrough pain, remains on acetaminophen 1000 mg twice daily. Spouse is patient's medication changes in the last couple weeks, include management of his diabetes. Dr. Cornejo has started him on glyburide 2.5 mg, He is on baseline metformin 1000 mg twice daily, his blood sugars have been somewhat improved between 147 and 229. She does report a blood sugar of 85 on Friday morning, had not increased to the 5 mg tab yet. Has been working with PCP and management of blood sugars. Patient reports at baseline he is sleeping a lot more, no worse nor better, he does worry about his quality of life, and concerned about the stress and burden of his care with his . Social History - Living Situation Living arrangement: At home Living Situation: With spouse/s.o. Support System: Patient does have home health services, with physical therapy doing safety and home exercise program as well as nursing for symptom management. They have initiated some private caregiving through their long-term care insurance. is primary caregiver, does get overwhelmed. The daughter recently has moved up, they just celebrated her wedding, he reports it was a timur ceremony and enjoyed himself immensely Medications/Allergies - Medications Active Medication List: Active Medications Acetaminophen (Tylenol) 650 mg PO Q4HR PRN PRN Reason: Pain 1 to 4 Lipase/Protease/Amylase (Pancrelipase Dr 5,000/17,000/27,000 [facility]) 3 cap PO TIDWM [facility] Enoxaparin Sodium (Lovenox) 40 mg SUBQ DAILY [facility] Last Admin: 08/21/18 08:48 Dose: 40 mg Escitalopram Oxalate (Lexapro) 20 mg PO DAILY [facility] Last Admin: 08/21/18 08:47 Dose: 20 mg Famotidine (Pepcid) 20 mg PO BID [facility] Last Admin: 08/21/18 08:47 Dose: 20 mg Ferrous Sulfate (Feosol) 325 mg PO DAILYWM [facility] Last Admin: 08/21/18 08:52 Dose: 325 mg Finasteride (Proscar) 5 mg PO QPM [facility] Last Admin: 08/20/18 21:28 Dose: Not Given Fludrocortisone Acetate (Florinef) 0.1 mg PO BID [facility] Last Admin: 08/21/18 08:47 Dose: 0.1 mg Hydromorphone HCl (Dilaudid) 2 mg PO Q4HR PRN PRN Reason: PAIN Hydromorphone HCl (Dilaudid Inj Carp) 1 mg IVP Q2HR PRN PRN Reason: Pain 8 to 10 Potassium Chloride/Sodium Chloride (Normal Saline 0.9% W/20 Meq Kcl) 1,000 mls @ 100 mls/hr IV .Q10H [facility] Stop: 08/22/18 01:59 Last Admin: 08/21/18 08:49 Dose: 100 mls/hr Insulin Aspart (Novolog) 1 - 5 unit SUBQ 0800,1200,1700,2100 GABRIELA; Protocol Last Admin: 08/21/18 08:47 Dose: 2 unit Loperamide HCl (Imodium) 2 mg PO QID PRN PRN Reason: Diarrhea Lorazepam (Ativan) 0.5 mg PO DAILY PRN PRN Reason: Anxiety Last Admin: 08/20/18 23:45 Dose: 0.5 mg Megestrol Acetate (Megace) 400 mg PO BID [facility] Last Admin: 08/21/18 08:47 Dose: 400 mg Ondansetron HCl (Zofran Odt) 4 mg TL Q6HR PRN PRN Reason: Nausea / Vomiting Polyethylene Glycol (Miralax) 17 gm PO DAILY [facility] Last Admin: 08/21/18 08:49 Dose: Not Given Prochlorperazine Edisylate (Compazine Inj) 10 mg IVP Q6HR PRN PRN Reason: Nausea / Vomiting Promethazine HCl (Phenergan Inj) 25 mg IM Q6HR PRN PRN Reason: Nausea / Vomiting Sodium Chloride (Normal Saline Flush 0.9%) 10 ml IVP PRN PRN PRN Reason: NEEDED PER PROVIDER ORDERS Last Admin: 08/21/18 04:22 Dose: 10 ml Sodium Chloride (Normal Saline Flush 0.9%) 10 ml IVP 0100,0900,1700 [facility] Last Admin: 08/21/18 04:10 Dose: 10 ml Zolpidem Tartrate (Ambien) 5 mg PO QPM PRN PRN Reason: Insomnia Finasteride 5 mg PO QPM 04/15/18 Lipase/Protease/Amylase [Francison Dr 36,000 Units Capsule] 2 - 4 cap PO TID 04/15/18 metFORMIN [Glucophage] 1,000 mg PO BID 04/15/18 Acetaminophen 1,000 mg PO BID 07/11/18 Bisacodyl 10 mg [place] DAILY PRN 07/11/18 Enemeez 1 bottle [place] .QOD PRN 07/11/18 Escitalopram Oxalate [Lexapro] 20 mg PO DAILY 07/11/18 HYDROmorphone [Dilaudid] 2 mg PO Q4HR PRN 07/11/18 Lidocaine [Topicaine 5] 1 applic TOP PRN PRN 07/11/18 Loperamide [Imodium] 2 mg PO PRN PRN 07/11/18 Megestrol Acetate 400 mg PO BID 07/11/18 Morphine Sulfate [Ms Contin] 15 mg PO DAILY MDD titrating off 07/11/18 Polyethylene Glycol 3350 [Miralax] 17 mg PO DAILY PRN 07/11/18 Prochlorperazine Maleate [Compazine] 10 mg PO Q4HR PRN 07/11/18 Senna [Senokot] 8.6 mg PO BID PRN MDD hold loose stools 07/11/18 Docusate Sodium [Dulcolax Stool Softener] 100 mg PO BID PRN 07/15/18 Hydrocortisone Acetate [Anucort-Hc] 25 mg RC BID PRN 07/15/18 Omeprazole [PriLOSEC] 20 mg PO DAILY 07/15/18 Fludrocortisone [Florinef] 0.1 mg PO BID 08/20/18 LORazepam [Ativan] 0.5 mg PO Q6H 08/20/18 Psyllium [Metamucil] 1 packet PO DAILY 08/20/18 glyBURIDE [Glyburide] 5 mg PO DAILY 08/20/18 Lipase/Protease/Amylase [Creon Dr 36,000 Units Capsule] 2 cap PO BID PRN 08/21/18 Ondansetron [Zofran Odt] 8 mg PO AC PRN 08/21/18 - Allergies Allergies/Adverse Reactions: Allergies Allergy/AdvReac Type Severity Reaction Status Date / Time No Known Allergies Allergy Unknown Verified 08/20/18 19:59 Review of Systems - Constitutional Constitutional: reports: Fatigue, Weight stable. denies: Fever (153) - Eyes Eyes: reports: Vision loss, Corrective lenses - Ears, Nose & Throat Ears, Nose & Throat: denies: Mouth lesions - Cardiovascular Cardiovascular: reports: Exertional dyspnea, Decr. exercise tolerance, Other (orthostatic hypotension attributed to autonomic dysfunction; on florinef with not much improvement; patient only mildly symptomatic when gets up) - Respiratory Respiratory: reports: SOB with exertion. denies: Wheezing, SOB at rest - Gastrointestinal Gastrointestinal: reports: Diarrhea (reports slowing down; stool tests c diff and camphor antigen negative), Early satiety. denies: Abdominal distention, Nausea - Genitourinary Genitourinary: reports: Frequency - Musculoskeletal Musculoskeletal: reports: Muscle weakness, Assistive devices (using walker; has long stair way to bedroom; looking at chair lift for safety) - Integumentary Integumentary: reports: Dryness - Neurological Neurological: reports: General weakness, Memory problems (much improve STM isses), Other (peripheral neuropathy; denies increased pain or discomfort) - Psychiatric Psychiatric: reports: Depression, Anxiety - Endocrine Endocrine: reports: Diabetes type 2 - Hematologic/Lymphatic Hematologic/Lymphatic: reports: Anemia (hgb 10.8) - All Other Systems All Other Systems: reports: Reviewed and negative Physical Exam - Vital Signs Vital Signs: Vital Signs x48h Temp Pulse Resp BP Pulse Ox 08/21/18 11:25 36.8 C 82 16 158/83 H 98 08/21/18 08:00 37.0 C 87 18 128/79 95 08/21/18 04:51 36.4 C L 81 16 132/72 H 97 - Physical Exam General Appearance: positive: No acute distress Eyes Bilateral: positive: Normal inspection ENT: negative: Pharyngeal erythema, Oral lesions Neck: positive: Trachea midline Cardiovascular: positive: Regular rate & rhythm Respiratory: positive: No respiratory distress Abdomen: positive: Non-tender, Other (firm) Skin: positive: Pallor, Dryness Extremities: positive: No pedal edema Neurologic/Psychiatric: positive: Oriented x3, Mood/affect nml, Weakness Palliative Care - POLST Patient has POLST: Yes POLST Status: DNR, Selective Treatment Pain: Pain improved, Location (abdominal;) Tiredness/Fatigue: Severe (7-10) Feelings of wellbeing/Perceived Quality of Life: Fair, Worsening Performance Status: Over the last several days patient has continued to decline in function, increased weakness, needing wheelchair for longer distances. Impacted by diarrhea, most likely also secondary to low potassium - Palliative Care Discussion: Met with patient, is somewhat discouraged by his perceived ongoing quality of life was declining. We did review how the recent wedding went, seeing family, and feelings regarding this. Continues to be concerned regarding the stress and burden his care is putting on his , discussion included quality of life, weighing benefits and burdens as treatment decisions come up. Addressed concerns and questions regarding his current situation and journey with his illness Results - Lab Results Fish Bones: 08/21/18 04:15 08/21/18 11:56 Lab and Imaging Results: Lab Results x24hrs 08/21/18 08/21/18 08/21/18 Range/Units 07:50 07:48 04:15 WBC (4.8-10.8) x10^3/uL RBC (4.70-6.10) 10^6/uL Hgb (14.0-18.0) g/dL Hct (42.0-52.0) % MCV (80.0-94.0) fL MCH (27.0-31.0) pg MCHC (32.0-36.0) g/dL RDW (12.0-15.0) % Plt Count (130-450) 10^3/uL MPV (7.4-11.4) fL Neut # (Auto) (1.5-6.6) 10^3/uL Lymph # (Auto) (1.5-3.5) 10^3/uL [place] # (Auto) (0.0-1.0) 10^3/uL Eos # (Auto) (0.0-0.7) 10^3/uL Baso # (Auto) (0.0-0.1) 10^3/uL Absolute Nucleated RBC x10^3/uL Nucleated RBC % /100WBC PT (9.9-12.6) secs INR (0.8-1.2) Sodium (135-145) mmol/L Potassium (3.5-5.0) mmol/L Chloride (101-111) mmol/L Carbon Dioxide (21-32) mmol/L Anion Gap (6-13) BUN (6-20) mg/dL Creatinine (0.6-1.2) mg/dL Estimated GFR (MDRD) (>89) Glucose (70-100) mg/dL POC Whole Bld Glucose 220 H (70 - 100) mg/dL Glycated Hemoglobin (4.6-6.2) % Estim Average Glucose (70-100) Lactic Acid 3.5 H* (0.5-2.2) mmol/L Calcium (8.5-10.3) mg/dL Phosphorus (2.5-4.6) mg/dL Magnesium (1.7-2.8) mg/dL Iron (45-182) ug/dL TIBC (250-450) ug/dL % Saturation (20-50) % Transferrin (180-329) mg/dL Ferritin (23.9-336.2) ng/mL Total Bilirubin (0.2-1.0) mg/dL AST (10-42) IU/L ALT (10-60) IU/L Alkaline Phosphatase (42-121) IU/L Total Protein (6.7-8.2) g/dL Albumin (3.2-5.5) g/dL Globulin (2.1-4.2) g/dL Albumin/Globulin Ratio (1.0-2.2) Lipase (22-51) U/L Vitamin B12 469 (180-914) pg/mL Folate 32.00 (5.90 - >24.8) ng/mL Urine Color Urine Clarity (CLEAR) Urine pH (5.0-7.5) PH Ur Specific [place] (1.002-1.030) Urine Protein (NEGATIVE) mg/dL Urine Glucose (UA) (NEGATIVE) mg/dL Urine Ketones (NEGATIVE) mg/dL Urine Occult Blood (NEGATIVE) Urine Nitrite (NEGATIVE) Urine Bilirubin (NEGATIVE) Urine Urobilinogen (NORMAL) E.U./dL Ur Leukocyte Esterase (NEGATIVE) Ur Microscopic Review Urine Culture Comments 08/21/18 08/21/18 08/21/18 Range/Units 04:15 04:15 04:15 WBC (4.8-10.8) x10^3/uL RBC (4.70-6.10) 10^6/uL Hgb (14.0-18.0) g/dL Hct (42.0-52.0) % MCV (80.0-94.0) fL MCH (27.0-31.0) pg MCHC (32.0-36.0) g/dL RDW (12.0-15.0) % Plt Count (130-450) 10^3/uL MPV (7.4-11.4) fL Neut # (Auto) (1.5-6.6) 10^3/uL Lymph # (Auto) (1.5-3.5) 10^3/uL [place] # (Auto) (0.0-1.0) 10^3/uL Eos # (Auto) (0.0-0.7) 10^3/uL Baso # (Auto) (0.0-0.1) 10^3/uL Absolute Nucleated RBC x10^3/uL Nucleated RBC % /100WBC PT (9.9-12.6) secs INR (0.8-1.2) Sodium (135-145) mmol/L Potassium (3.5-5.0) mmol/L Chloride (101-111) mmol/L Carbon Dioxide (21-32) mmol/L Anion Gap (6-13) BUN (6-20) mg/dL Creatinine (0.6-1.2) mg/dL Estimated GFR (MDRD) (>89) Glucose (70-100) mg/dL POC Whole Bld Glucose (70 - 100) mg/dL Glycated Hemoglobin (4.6-6.2) % Estim Average Glucose (70-100) Lactic Acid 4.1 H* (0.5-2.2) mmol/L Calcium (8.5-10.3) mg/dL Phosphorus (2.5-4.6) mg/dL Magnesium (1.7-2.8) mg/dL Iron 35 L (45-182) ug/dL TIBC 211 L (250-450) ug/dL % Saturation 17 L (20-50) % Transferrin 151 L (180-329) mg/dL Ferritin 152.3 (23.9-336.2) ng/mL Total Bilirubin (0.2-1.0) mg/dL AST (10-42) IU/L ALT (10-60) IU/L Alkaline Phosphatase (42-121) IU/L Total Protein (6.7-8.2) g/dL Albumin (3.2-5.5) g/dL Globulin (2.1-4.2) g/dL Albumin/Globulin Ratio (1.0-2.2) Lipase (22-51) U/L Vitamin B12 (180-914) pg/mL Folate (5.90 - >24.8) ng/mL Urine Color Urine Clarity (CLEAR) Urine pH (5.0-7.5) PH Ur Specific [place] (1.002-1.030) Urine Protein (NEGATIVE) mg/dL Urine Glucose (UA) (NEGATIVE) mg/dL Urine Ketones (NEGATIVE) mg/dL Urine Occult Blood (NEGATIVE) Urine Nitrite (NEGATIVE) Urine Bilirubin (NEGATIVE) Urine Urobilinogen (NORMAL) E.U./dL Ur Leukocyte Esterase (NEGATIVE) Ur Microscopic Review Urine Culture Comments 08/21/18 08/21/18 08/21/18 Range/Units 04:15 04:15 04:15 WBC (4.8-10.8) x10^3/uL RBC (4.70-6.10) 10^6/uL Hgb (14.0-18.0) g/dL Hct (42.0-52.0) % MCV (80.0-94.0) fL MCH (27.0-31.0) pg MCHC (32.0-36.0) g/dL RDW (12.0-15.0) % Plt Count (130-450) 10^3/uL MPV (7.4-11.4) fL Neut # (Auto) (1.5-6.6) 10^3/uL Lymph # (Auto) (1.5-3.5) 10^3/uL [place] # (Auto) (0.0-1.0) 10^3/uL Eos # (Auto) (0.0-0.7) 10^3/uL Baso # (Auto) (0.0-0.1) 10^3/uL Absolute Nucleated RBC x10^3/uL Nucleated RBC % /100WBC PT 11.9 (9.9-12.6) secs INR 1.1 (0.8-1.2) Sodium 138 (135-145) mmol/L Potassium 2.3 L* (3.5-5.0) mmol/L Chloride 108 (101-111) mmol/L Carbon Dioxide 21 (21-32) mmol/L Anion Gap 9.0 (6-13) BUN 16 (6-20) mg/dL Creatinine 0.5 L (0.6-1.2) mg/dL Estimated GFR (MDRD) 160 (>89) Glucose 195 H (70-100) mg/dL POC Whole Bld Glucose (70 - 100) mg/dL Glycated Hemoglobin 8.5 H (4.6-6.2) % Estim Average Glucose 197 H (70-100) Lactic Acid (0.5-2.2) mmol/L Calcium 7.5 L (8.5-10.3) mg/dL Phosphorus 2.5 (2.5-4.6) mg/dL Magnesium 1.8 (1.7-2.8) mg/dL Iron (45-182) ug/dL TIBC (250-450) ug/dL % Saturation (20-50) % Transferrin (180-329) mg/dL Ferritin (23.9-336.2) ng/mL Total Bilirubin 0.6 (0.2-1.0) mg/dL AST 26 (10-42) IU/L ALT 31 (10-60) IU/L Alkaline Phosphatase 74 (42-121) IU/L Total Protein 4.6 L (6.7-8.2) g/dL Albumin 2.6 L (3.2-5.5) g/dL Globulin 2.0 L (2.1-4.2) g/dL Albumin/Globulin Ratio 1.3 (1.0-2.2) Lipase (22-51) U/L Vitamin B12 (180-914) pg/mL Folate (5.90 - >24.8) ng/mL Urine Color Urine Clarity (CLEAR) Urine pH (5.0-7.5) PH Ur Specific [place] (1.002-1.030) Urine Protein (NEGATIVE) mg/dL Urine Glucose (UA) (NEGATIVE) mg/dL Urine Ketones (NEGATIVE) mg/dL Urine Occult Blood (NEGATIVE) Urine Nitrite (NEGATIVE) Urine Bilirubin (NEGATIVE) Urine Urobilinogen (NORMAL) E.U./dL Ur Leukocyte Esterase (NEGATIVE) Ur Microscopic Review Urine Culture Comments 08/21/18 08/20/18 08/20/18 Range/Units 04:15 22:58 21:04 WBC 4.0 L (4.8-10.8) x10^3/uL RBC 3.08 L (4.70-6.10) 10^6/uL Hgb 10.8 L (14.0-18.0) g/dL Hct 30.9 L (42.0-52.0) % MCV 100.2 H (80.0-94.0) fL MCH 35.1 H (27.0-31.0) pg MCHC 35.0 (32.0-36.0) g/dL RDW 14.4 (12.0-15.0) % Plt Count 172 (130-450) 10^3/uL MPV 7.8 (7.4-11.4) fL Neut # (Auto) 2.4 (1.5-6.6) 10^3/uL Lymph # (Auto) 1.0 L (1.5-3.5) 10^3/uL [place] # (Auto) 0.5 (0.0-1.0) 10^3/uL Eos # (Auto) 0.1 (0.0-0.7) 10^3/uL Baso # (Auto) 0.0 (0.0-0.1) 10^3/uL Absolute Nucleated RBC 0.00 x10^3/uL Nucleated RBC % 0.0 /100WBC PT (9.9-12.6) secs INR (0.8-1.2) Sodium (135-145) mmol/L Potassium (3.5-5.0) mmol/L Chloride (101-111) mmol/L Carbon Dioxide (21-32) mmol/L Anion Gap (6-13) BUN (6-20) mg/dL Creatinine (0.6-1.2) mg/dL Estimated GFR (MDRD) (>89) Glucose (70-100) mg/dL POC Whole Bld Glucose 175 H (70 - 100) mg/dL Glycated Hemoglobin (4.6-6.2) % Estim Average Glucose (70-100) Lactic Acid (0.5-2.2) mmol/L Calcium (8.5-10.3) mg/dL Phosphorus (2.5-4.6) mg/dL Magnesium (1.7-2.8) mg/dL Iron (45-182) ug/dL TIBC (250-450) ug/dL % Saturation (20-50) % Transferrin (180-329) mg/dL Ferritin (23.9-336.2) ng/mL Total Bilirubin (0.2-1.0) mg/dL AST (10-42) IU/L ALT (10-60) IU/L Alkaline Phosphatase (42-121) IU/L Total Protein (6.7-8.2) g/dL Albumin (3.2-5.5) g/dL Globulin (2.1-4.2) g/dL Albumin/Globulin Ratio (1.0-2.2) Lipase (22-51) U/L Vitamin B12 (180-914) pg/mL Folate (5.90 - >24.8) ng/mL Urine Color YELLOW Urine Clarity CLEAR (CLEAR) Urine pH 6.0 (5.0-7.5) PH Ur Specific [place] 1.025 (1.002-1.030) Urine Protein TRACE (NEGATIVE) mg/dL Urine Glucose (UA) 100 H (NEGATIVE) mg/dL Urine Ketones TRACE (NEGATIVE) mg/dL Urine Occult Blood NEGATIVE (NEGATIVE) Urine Nitrite NEGATIVE (NEGATIVE) Urine Bilirubin NEGATIVE (NEGATIVE) Urine Urobilinogen 0.2 (NORMAL) (NORMAL) E.U./dL Ur Leukocyte Esterase NEGATIVE (NEGATIVE) Ur Microscopic Review NOT INDICATED Urine Culture Comments NOT INDICATED 08/20/18 08/20/18 Range/Units 19:49 19:49 WBC 4.9 (4.8-10.8) x10^3/uL RBC 3.50 L (4.70-6.10) 10^6/uL Hgb 12.1 L (14.0-18.0) g/dL Hct 35.0 L (42.0-52.0) % MCV 100.0 H (80.0-94.0) fL MCH 34.6 H (27.0-31.0) pg MCHC 34.6 (32.0-36.0) g/dL RDW 14.7 (12.0-15.0) % Plt Count 197 (130-450) 10^3/uL MPV 8.1 (7.4-11.4) fL Neut # (Auto) 3.0 (1.5-6.6) 10^3/uL Lymph # (Auto) 1.2 L (1.5-3.5) 10^3/uL [place] # (Auto) 0.6 (0.0-1.0) 10^3/uL Eos # (Auto) 0.1 (0.0-0.7) 10^3/uL Baso # (Auto) 0.0 (0.0-0.1) 10^3/uL Absolute Nucleated RBC 0.00 x10^3/uL Nucleated RBC % 0.0 /100WBC PT (9.9-12.6) secs INR (0.8-1.2) Sodium 139 (135-145) mmol/L Potassium 2.0 L* (3.5-5.0) mmol/L Chloride 106 (101-111) mmol/L Carbon Dioxide 21 (21-32) mmol/L Anion Gap 12.0 (6-13) BUN 21 H (6-20) mg/dL Creatinine 0.6 (0.6-1.2) mg/dL Estimated GFR (MDRD) 130 (>89) Glucose 178 H (70-100) mg/dL POC Whole Bld Glucose (70 - 100) mg/dL Glycated Hemoglobin (4.6-6.2) % Estim Average Glucose (70-100) Lactic Acid (0.5-2.2) mmol/L Calcium 8.1 L (8.5-10.3) mg/dL Phosphorus 3.1 (2.5-4.6) mg/dL Magnesium 1.4 L (1.7-2.8) mg/dL Iron (45-182) ug/dL TIBC (250-450) ug/dL % Saturation (20-50) % Transferrin (180-329) mg/dL Ferritin (23.9-336.2) ng/mL Total Bilirubin 0.7 (0.2-1.0) mg/dL AST 29 (10-42) IU/L ALT 36 (10-60) IU/L Alkaline Phosphatase 72 (42-121) IU/L Total Protein 5.2 L (6.7-8.2) g/dL Albumin 2.8 L (3.2-5.5) g/dL Globulin 2.4 (2.1-4.2) g/dL Albumin/Globulin Ratio 1.2 (1.0-2.2) Lipase 16 L (22-51) U/L Vitamin B12 (180-914) pg/mL Folate (5.90 - >24.8) ng/mL Urine Color Urine Clarity (CLEAR) Urine pH (5.0-7.5) PH Ur Specific [place] (1.002-1.030) Urine Protein (NEGATIVE) mg/dL Urine Glucose (UA) (NEGATIVE) mg/dL Urine Ketones (NEGATIVE) mg/dL Urine Occult Blood (NEGATIVE) Urine Nitrite (NEGATIVE) Urine Bilirubin (NEGATIVE) Urine Urobilinogen (NORMAL) E.U./dL Ur Leukocyte Esterase (NEGATIVE) Ur Microscopic Review Urine Culture Comments Impression and Recommendations - Palliative Care Impression: This 77-year-old gentleman who has metastatic pancreatic cancer with metastases to the liver, and status post liver stent. Patient has had ongoing diarrhea, currently rules out for C. difficile and infection, continues with loose stools but has improved since hospitalized. Patient receiving potassium replacement as well as fluids, continues with significant fatigue, hoping to be able to receive treatment next week. Palliative care to continue provide support regarding pain and symptom management and psychosocial support regarding goals of care. Recommendations/Counseling Done: 1. Diabetes type 2. Reviewed with hospitalist current medication regimen, after follow-up with [facility]. There is seem to be some confusion is what he was taking, and his response given his elevated A1c. Will be managed with short acting insulin during hospitalization. 2. Pain of neoplastic origin. Patient does appear to be fairly comfortable off of his MS Contin, he does have hydromorphone for breakthrough pain if needed, has not needed at home. His hemmorhoidal pain and discomfort had improved, suspect problematic again with the return of diarrhea. Anusol supp had been effective. 3. Depression. Counseling provided regarding patient's normal feelings of grief and loss, upcoming expected decline in trajectory, as well as managing his current relationships. 4. Pancreatic cancer with liver metastases. Patient is hoping to continue with treatment next week, phone call to Dr. Cornejo office to give him an update of his hospitalization, [facility] has rescheduled their treatment for next week. Will send updated hospital records and discharge information on Friday. Counseling provided regarding questions about future decision making, weighing benefits and burdens, and quality of life issues. 5. Diarrhea of unknown etiology. Patient reports it is slowing down, concern regarding patient does have liver stent, and liver enzymes have been within normal range. Would recommend restarting Imodium if no other contraindications. 6. Advanced care planning. Patient continues with treatment for his pancreatic cancer, he does have a DOROTEO ST in place, his goals are to focus on quality of life, treat reversible conditions, but end of life wants to be at home. Patient is hopeful to have a short hospital stay, but wants hopes to feel stronger prior to discharge. Time Spent: Time spent 60 minutes greater than 50% of the time spent in counseling regarding depression, symptom management, and anticipatory guidance
[2018-08-21] MEDS: LIPASE/PROTEASE/AMYLASE CAPSULE PO SCH ×2 (12:04→19:00)
[2018-08-21] MEDS ORDERED: POTASSIUM CHLORIDE INJ 40 MEQ in SODIUM CHLORIDE 0.9% 480 ML IV ONE (13:13)
[2018-08-21] MEDS ORDERED: POTASSIUM CHLORIDE 20 MEQ TABLET PO ONE ×2 (13:15→19:06)
--- NOTE | 2018-08-21 16:19 | PROVIDER PROGRESS NOTE ---
Subjective - Prog Note Date Prog Note Date: 08/21/18 - Subjective Pt reports feeling: Worse Subjective: pt report weakness, and have fever/chill. he denies chest pain, headache. he report diarrhea is better. Current Medications - Current Medications Current Medications: Active Medications Acetaminophen (Tylenol) 650 mg PO Q4HR PRN PRN Reason: Pain 1 to 4 Last Admin: 08/21/18 16:50 Dose: 650 mg Lipase/Protease/Amylase (Pancrelipase Dr 5,000/17,000/27,000 Intermediate) 3 cap PO TIDWM [facility] Last Admin: 08/21/18 12:04 Dose: 3 cap Clonidine HCl (Catapres) 0.1 mg PO BID PRN PRN Reason: Hypertensive Emergency Enoxaparin Sodium (Lovenox) 40 mg SUBQ DAILY [facility] Last Admin: 08/21/18 08:48 Dose: 40 mg Escitalopram Oxalate (Lexapro) 20 mg PO DAILY [facility] Last Admin: 08/21/18 08:47 Dose: 20 mg Famotidine (Pepcid) 20 mg PO BID [facility] Last Admin: 08/21/18 08:47 Dose: 20 mg Ferrous Sulfate (Feosol) 325 mg PO DAILYWM [facility] Last Admin: 08/21/18 08:52 Dose: 325 mg Finasteride (Proscar) 5 mg PO QPM [facility] Last Admin: 08/20/18 21:28 Dose: Not Given Hydromorphone HCl (Dilaudid) 2 mg PO Q4HR PRN PRN Reason: PAIN Hydromorphone HCl (Dilaudid Inj Carp) 1 mg IVP Q2HR PRN PRN Reason: Pain 8 to 10 Potassium Chloride/Sodium Chloride (Normal Saline 0.9% W/20 Meq Kcl) 1,000 mls @ 100 mls/hr IV .Q10H [facility] Stop: 08/22/18 01:59 Last Infusion: 08/21/18 16:45 Dose: 0 mls/hr Cefepime HCl 2 gm/ Sodium (Chloride) 100 mls @ 200 mls/hr IV BID [facility] Vancomycin HCl 1 gm/ Sodium (Chloride) 250 mls @ 167 mls/hr IV Q400H [facility] Insulin Aspart (Novolog) 1 - 9 unit SUBQ 0800,1200,1700,2100 [facility]; Protocol Loperamide HCl (Imodium) 2 mg PO QID PRN PRN Reason: Diarrhea Lorazepam (Ativan) 0.5 mg PO DAILY PRN PRN Reason: Anxiety Last Admin: 08/20/18 23:45 Dose: 0.5 mg Megestrol Acetate (Megace) 400 mg PO BID [facility] Last Admin: 08/21/18 08:47 Dose: 400 mg Ondansetron HCl (Zofran Odt) 4 mg TL Q6HR PRN PRN Reason: Nausea / Vomiting Polyethylene Glycol (Miralax) 17 gm PO DAILY [facility] Last Admin: 08/21/18 08:49 Dose: Not Given Prochlorperazine Edisylate (Compazine Inj) 10 mg IVP Q6HR PRN PRN Reason: Nausea / Vomiting Promethazine HCl (Phenergan Inj) 25 mg IM Q6HR PRN PRN Reason: Nausea / Vomiting Sodium Chloride (Normal Saline Flush 0.9%) 10 ml IVP PRN PRN PRN Reason: NEEDED PER PROVIDER ORDERS Last Admin: 08/21/18 04:22 Dose: 10 ml Sodium Chloride (Normal Saline Flush 0.9%) 10 ml IVP 0100,0900,1700 [facility] Last Admin: 08/21/18 16:46 Dose: Not Given Zolpidem Tartrate (Ambien) 5 mg PO QPM PRN PRN Reason: Insomnia Finasteride 5 mg PO QPM 04/15/18 Lipase/Protease/Amylase [Creon Dr 36,000 Units Capsule] 2 - 4 cap PO TID 04/15/18 metFORMIN [Glucophage] 1,000 mg PO BID 04/15/18 Acetaminophen 1,000 mg PO BID 07/11/18 Bisacodyl 10 mg [place] DAILY PRN 07/11/18 Enemeez 1 bottle [place] .QOD PRN 07/11/18 Escitalopram Oxalate [Lexapro] 20 mg PO DAILY 07/11/18 HYDROmorphone [Dilaudid] 2 mg PO Q4HR PRN 07/11/18 Lidocaine [Topicaine 5] 1 applic TOP PRN PRN 07/11/18 Loperamide [Imodium] 2 mg PO PRN PRN 07/11/18 Megestrol Acetate 400 mg PO BID 07/11/18 Morphine Sulfate [Ms Contin] 15 mg PO DAILY MDD titrating off 07/11/18 Polyethylene Glycol 3350 [Miralax] 17 mg PO DAILY PRN 07/11/18 Prochlorperazine Maleate [Compazine] 10 mg PO Q4HR PRN 07/11/18 Senna [Senokot] 8.6 mg PO BID PRN MDD hold loose stools 07/11/18 Docusate Sodium [Dulcolax Stool Softener] 100 mg PO BID PRN 07/15/18 Hydrocortisone Acetate [Anucort-Hc] 25 mg RC BID PRN 07/15/18 Omeprazole [PriLOSEC] 20 mg PO DAILY 07/15/18 Fludrocortisone [Florinef] 0.1 mg PO BID 08/20/18 LORazepam [Ativan] 1 mg PO QPM 08/20/18 Psyllium [Metamucil] 1 packet PO DAILY 08/20/18 glyBURIDE [Glyburide] 5 mg PO DAILY 08/20/18 Lipase/Protease/Amylase [Creon Dr 36,000 Units Capsule] 2 cap PO BID PRN 08/21/18 Ondansetron [Zofran Odt] 8 mg PO AC PRN 08/21/18 Objective - Vital Signs/Intake & Output Reviewed Vital Signs: Yes Vital Signs: Vital Signs x48h Temp Pulse Resp BP Pulse Ox 08/21/18 11:25 36.8 C 82 16 158/83 H 98 Intake & Output: Intake & Output 08/18/18 08/19/18 08/20/18 08/21/18 23:59 23:59 23:59 23:59 Intake Total 1390 3370.416 Output Total 300 Balance 1090 3370.416 - Objective General Appearance: positive: No acute distress, Alert. negative: Lethargic Eyes Bilateral: positive: Normal inspection, PERRL, No lid inflammation, Conjunctivae nml ENT: positive: ENT inspection nml, Pharynx nml, No signs of dehydration. negati ve: Purulent nasal drainage, Pharyngeal erythema, Oral lesions Neck: positive: Nml inspection, Thyroid nml, No JVD, Trachea midline. negative: Thyromegaly, Lymphadenopathy (R), Lymphadenopathy (L), Stiff neck, Swelling/bruising, Tracheal deviation Respiratory: positive: Chest non-tender, No respiratory distress, Breath sounds nml. negative: Wheezes, Rales, Rhonchi Cardiovascular: positive: Regular rate & rhythm, No murmur, No gallop. negative: Irregularly irregular, Extrasystoles, Tachycardia, Bradycardia, JVD present, Systolic murmur, Diastolic murmur Peripheral Pulses: 2+ Radial (R), 2+ Radial (L), 2+ Dorsalis pedis (R), 2+ Dorsalis pedis (L) Abdomen: positive: Non-tender, No organomegaly, Nml bowel sounds, No distention. negative: Tenderness, Guarding, Rebound Back: positive: Nml inspection. negative: CVA tenderness (R), CVA tenderness (L) Skin: positive: Color nml, No rash, Warm, Dry. negative: Cyanosis, Diaphoresis, Pallor Extremities: positive: Non-tender, Full ROM, Nml appearance. negative: Calf tenderness, Dheeraj's sign/cords Neurologic/Psychiatric: positive: Oriented x3, Sensation nml, Mood/affect nml. negative: Weakness, Sensory loss, Facial droop, Slurred/abnml speech, Depressed mood/affect - Lab Results Fish Bones: 08/21/18 04:15 08/21/18 11:56 Other Labs: Lab Results x24hrs 08/21/18 08/21/18 08/21/18 Range/Units 15:27 12:02 11:56 WBC (4.8-10.8) x10^3/uL RBC (4.70-6.10) 10^6/uL Hgb (14.0-18.0) g/dL Hct (42.0-52.0) % MCV (80.0-94.0) fL MCH (27.0-31.0) pg MCHC (32.0-36.0) g/dL RDW (12.0-15.0) % Plt Count (130-450) 10^3/uL MPV (7.4-11.4) fL Neut # (Auto) (1.5-6.6) 10^3/uL Lymph # (Auto) (1.5-3.5) 10^3/uL Green # (Auto) (0.0-1.0) 10^3/uL Eos # (Auto) (0.0-0.7) 10^3/uL Baso # (Auto) (0.0-0.1) 10^3/uL Absolute Nucleated RBC x10^3/uL Nucleated RBC % /100WBC PT (9.9-12.6) secs INR (0.8-1.2) Sodium (135-145) mmol/L Potassium (3.5-5.0) mmol/L Chloride (101-111) mmol/L Carbon Dioxide (21-32) mmol/L Anion Gap (6-13) BUN (6-20) mg/dL Creatinine (0.6-1.2) mg/dL Estimated GFR (MDRD) (>89) Glucose (70-100) mg/dL POC Whole Bld Glucose 187 H (70 - 100) mg/dL Glycated Hemoglobin (4.6-6.2) % Estim Average Glucose (70-100) Lactic Acid 2.2 2.0 (0.5-2.2) mmol/L Calcium (8.5-10.3) mg/dL Phosphorus (2.5-4.6) mg/dL Magnesium (1.7-2.8) mg/dL Iron (45-182) ug/dL TIBC (250-450) ug/dL % Saturation (20-50) % Transferrin (180-329) mg/dL Ferritin (23.9-336.2) ng/mL Total Bilirubin (0.2-1.0) mg/dL AST (10-42) IU/L ALT (10-60) IU/L Alkaline Phosphatase (42-121) IU/L Total Protein (6.7-8.2) g/dL Albumin (3.2-5.5) g/dL Globulin (2.1-4.2) g/dL Albumin/Globulin Ratio (1.0-2.2) Lipase (22-51) U/L Vitamin B12 (180-914) pg/mL Folate (5.90 - >24.8) ng/mL Urine Color Urine Clarity (CLEAR) Urine pH (5.0-7.5) PH Ur Specific [place] (1.002-1.030) Urine Protein (NEGATIVE) mg/dL Urine Glucose (UA) (NEGATIVE) mg/dL Urine Ketones (NEGATIVE) mg/dL Urine Occult Blood (NEGATIVE) Urine Nitrite (NEGATIVE) Urine Bilirubin (NEGATIVE) Urine Urobilinogen (NORMAL) E.U./dL Ur Leukocyte Esterase (NEGATIVE) Ur Microscopic Review Urine Culture Comments 08/21/18 08/21/18 08/21/18 Range/Units 11:56 07:50 07:48 WBC (4.8-10.8) x10^3/uL RBC (4.70-6.10) 10^6/uL Hgb (14.0-18.0) g/dL Hct (42.0-52.0) % MCV (80.0-94.0) fL MCH (27.0-31.0) pg MCHC (32.0-36.0) g/dL RDW (12.0-15.0) % Plt Count (130-450) 10^3/uL MPV (7.4-11.4) fL Neut # (Auto) (1.5-6.6) 10^3/uL Lymph # (Auto) (1.5-3.5) 10^3/uL Green # (Auto) (0.0-1.0) 10^3/uL Eos # (Auto) (0.0-0.7) 10^3/uL Baso # (Auto) (0.0-0.1) 10^3/uL Absolute Nucleated RBC x10^3/uL Nucleated RBC % /100WBC PT (9.9-12.6) secs INR (0.8-1.2) Sodium (135-145) mmol/L Potassium 2.8 L (3.5-5.0) mmol/L Chloride (101-111) mmol/L Carbon Dioxide (21-32) mmol/L Anion Gap (6-13) BUN (6-20) mg/dL Creatinine (0.6-1.2) mg/dL Estimated GFR (MDRD) (>89) Glucose (70-100) mg/dL POC Whole Bld Glucose 220 H (70 - 100) mg/dL Glycated Hemoglobin (4.6-6.2) % Estim Average Glucose (70-100) Lactic Acid 3.5 H* (0.5-2.2) mmol/L Calcium (8.5-10.3) mg/dL Phosphorus (2.5-4.6) mg/dL Magnesium (1.7-2.8) mg/dL Iron (45-182) ug/dL TIBC (250-450) ug/dL % Saturation (20-50) % Transferrin (180-329) mg/dL Ferritin (23.9-336.2) ng/mL Total Bilirubin (0.2-1.0) mg/dL AST (10-42) IU/L ALT (10-60) IU/L Alkaline Phosphatase (42-121) IU/L Total Protein (6.7-8.2) g/dL Albumin (3.2-5.5) g/dL Globulin (2.1-4.2) g/dL Albumin/Globulin Ratio (1.0-2.2) Lipase (22-51) U/L Vitamin B12 (180-914) pg/mL Folate (5.90 - >24.8) ng/mL Urine Color Urine Clarity (CLEAR) Urine pH (5.0-7.5) PH Ur Specific [place] (1.002-1.030) Urine Protein (NEGATIVE) mg/dL Urine Glucose (UA) (NEGATIVE) mg/dL Urine Ketones (NEGATIVE) mg/dL Urine Occult Blood (NEGATIVE) Urine Nitrite (NEGATIVE) Urine Bilirubin (NEGATIVE) Urine Urobilinogen (NORMAL) E.U./dL Ur Leukocyte Esterase (NEGATIVE) Ur Microscopic Review Urine Culture Comments 08/21/18 08/21/18 08/21/18 Range/Units 04:15 04:15 04:15 WBC (4.8-10.8) x10^3/uL RBC (4.70-6.10) 10^6/uL Hgb (14.0-18.0) g/dL Hct (42.0-52.0) % MCV (80.0-94.0) fL MCH (27.0-31.0) pg MCHC (32.0-36.0) g/dL RDW (12.0-15.0) % Plt Count (130-450) 10^3/uL MPV (7.4-11.4) fL Neut # (Auto) (1.5-6.6) 10^3/uL Lymph # (Auto) (1.5-3.5) 10^3/uL Green # (Auto) (0.0-1.0) 10^3/uL Eos # (Auto) (0.0-0.7) 10^3/uL Baso # (Auto) (0.0-0.1) 10^3/uL Absolute Nucleated RBC x10^3/uL Nucleated RBC % /100WBC PT (9.9-12.6) secs INR (0.8-1.2) Sodium (135-145) mmol/L Potassium (3.5-5.0) mmol/L Chloride (101-111) mmol/L Carbon Dioxide (21-32) mmol/L Anion Gap (6-13) BUN (6-20) mg/dL Creatinine (0.6-1.2) mg/dL Estimated GFR (MDRD) (>89) Glucose (70-100) mg/dL POC Whole Bld Glucose (70 - 100) mg/dL Glycated Hemoglobin (4.6-6.2) % Estim Average Glucose (70-100) Lactic Acid (0.5-2.2) mmol/L Calcium (8.5-10.3) mg/dL Phosphorus (2.5-4.6) mg/dL Magnesium (1.7-2.8) mg/dL Iron 35 L (45-182) ug/dL TIBC 211 L (250-450) ug/dL % Saturation 17 L (20-50) % Transferrin 151 L (180-329) mg/dL Ferritin 152.3 (23.9-336.2) ng/mL Total Bilirubin (0.2-1.0) mg/dL AST (10-42) IU/L ALT (10-60) IU/L Alkaline Phosphatase (42-121) IU/L Total Protein (6.7-8.2) g/dL Albumin (3.2-5.5) g/dL Globulin (2.1-4.2) g/dL Albumin/Globulin Ratio (1.0-2.2) Lipase (22-51) U/L Vitamin B12 469 (180-914) pg/mL Folate 32.00 (5.90 - >24.8) ng/mL Urine Color Urine Clarity (CLEAR) Urine pH (5.0-7.5) PH Ur Specific [place] (1.002-1.030) Urine Protein (NEGATIVE) mg/dL Urine Glucose (UA) (NEGATIVE) mg/dL Urine Ketones (NEGATIVE) mg/dL Urine Occult Blood (NEGATIVE) Urine Nitrite (NEGATIVE) Urine Bilirubin (NEGATIVE) Urine Urobilinogen (NORMAL) E.U./dL Ur Leukocyte Esterase (NEGATIVE) Ur Microscopic Review Urine Culture Comments 08/21/18 08/21/18 08/21/18 Range/Units 04:15 04:15 04:15 WBC (4.8-10.8) x10^3/uL RBC (4.70-6.10) 10^6/uL Hgb (14.0-18.0) g/dL Hct (42.0-52.0) % MCV (80.0-94.0) fL MCH (27.0-31.0) pg MCHC (32.0-36.0) g/dL RDW (12.0-15.0) % Plt Count (130-450) 10^3/uL MPV (7.4-11.4) fL Neut # (Auto) (1.5-6.6) 10^3/uL Lymph # (Auto) (1.5-3.5) 10^3/uL Green # (Auto) (0.0-1.0) 10^3/uL Eos # (Auto) (0.0-0.7) 10^3/uL Baso # (Auto) (0.0-0.1) 10^3/uL Absolute Nucleated RBC x10^3/uL Nucleated RBC % /100WBC PT (9.9-12.6) secs INR (0.8-1.2) Sodium 138 (135-145) mmol/L Potassium 2.3 L* (3.5-5.0) mmol/L Chloride 108 (101-111) mmol/L Carbon Dioxide 21 (21-32) mmol/L Anion Gap 9.0 (6-13) BUN 16 (6-20) mg/dL Creatinine 0.5 L (0.6-1.2) mg/dL Estimated GFR (MDRD) 160 (>89) Glucose 195 H (70-100) mg/dL POC Whole Bld Glucose (70 - 100) mg/dL Glycated Hemoglobin 8.5 H (4.6-6.2) % Estim Average Glucose 197 H (70-100) Lactic Acid 4.1 H* (0.5-2.2) mmol/L Calcium 7.5 L (8.5-10.3) mg/dL Phosphorus 2.5 (2.5-4.6) mg/dL Magnesium 1.8 (1.7-2.8) mg/dL Iron (45-182) ug/dL TIBC (250-450) ug/dL % Saturation (20-50) % Transferrin (180-329) mg/dL Ferritin (23.9-336.2) ng/mL Total Bilirubin 0.6 (0.2-1.0) mg/dL AST 26 (10-42) IU/L ALT 31 (10-60) IU/L Alkaline Phosphatase 74 (42-121) IU/L Total Protein 4.6 L (6.7-8.2) g/dL Albumin 2.6 L (3.2-5.5) g/dL Globulin 2.0 L (2.1-4.2) g/dL Albumin/Globulin Ratio 1.3 (1.0-2.2) Lipase (22-51) U/L Vitamin B12 (180-914) pg/mL Folate (5.90 - >24.8) ng/mL Urine Color Urine Clarity (CLEAR) Urine pH (5.0-7.5) PH Ur Specific [place] (1.002-1.030) Urine Protein (NEGATIVE) mg/dL Urine Glucose (UA) (NEGATIVE) mg/dL Urine Ketones (NEGATIVE) mg/dL Urine Occult Blood (NEGATIVE) Urine Nitrite (NEGATIVE) Urine Bilirubin (NEGATIVE) Urine Urobilinogen (NORMAL) E.U./dL Ur Leukocyte Esterase (NEGATIVE) Ur Microscopic Review Urine Culture Comments 08/21/18 08/21/18 08/20/18 Range/Units 04:15 04:15 22:58 WBC 4.0 L (4.8-10.8) x10^3/uL RBC 3.08 L (4.70-6.10) 10^6/uL Hgb 10.8 L (14.0-18.0) g/dL Hct 30.9 L (42.0-52.0) % MCV 100.2 H (80.0-94.0) fL MCH 35.1 H (27.0-31.0) pg MCHC 35.0 (32.0-36.0) g/dL RDW 14.4 (12.0-15.0) % Plt Count 172 (130-450) 10^3/uL MPV 7.8 (7.4-11.4) fL Neut # (Auto) 2.4 (1.5-6.6) 10^3/uL Lymph # (Auto) 1.0 L (1.5-3.5) 10^3/uL Green # (Auto) 0.5 (0.0-1.0) 10^3/uL Eos # (Auto) 0.1 (0.0-0.7) 10^3/uL Baso # (Auto) 0.0 (0.0-0.1) 10^3/uL Absolute Nucleated RBC 0.00 x10^3/uL Nucleated RBC % 0.0 /100WBC PT 11.9 (9.9-12.6) secs INR 1.1 (0.8-1.2) Sodium (135-145) mmol/L Potassium (3.5-5.0) mmol/L Chloride (101-111) mmol/L Carbon Dioxide (21-32) mmol/L Anion Gap (6-13) BUN (6-20) mg/dL Creatinine (0.6-1.2) mg/dL Estimated GFR (MDRD) (>89) Glucose (70-100) mg/dL POC Whole Bld Glucose (70 - 100) mg/dL Glycated Hemoglobin (4.6-6.2) % Estim Average Glucose (70-100) Lactic Acid (0.5-2.2) mmol/L Calcium (8.5-10.3) mg/dL Phosphorus (2.5-4.6) mg/dL Magnesium (1.7-2.8) mg/dL Iron (45-182) ug/dL TIBC (250-450) ug/dL % Saturation (20-50) % Transferrin (180-329) mg/dL Ferritin (23.9-336.2) ng/mL Total Bilirubin (0.2-1.0) mg/dL AST (10-42) IU/L ALT (10-60) IU/L Alkaline Phosphatase (42-121) IU/L Total Protein (6.7-8.2) g/dL Albumin (3.2-5.5) g/dL Globulin (2.1-4.2) g/dL Albumin/Globulin Ratio (1.0-2.2) Lipase (22-51) U/L Vitamin B12 (180-914) pg/mL Folate (5.90 - >24.8) ng/mL Urine Color YELLOW Urine Clarity CLEAR (CLEAR) Urine pH 6.0 (5.0-7.5) PH Ur Specific [place] 1.025 (1.002-1.030) Urine Protein TRACE (NEGATIVE) mg/dL Urine Glucose (UA) 100 H (NEGATIVE) mg/dL Urine Ketones TRACE (NEGATIVE) mg/dL Urine Occult Blood NEGATIVE (NEGATIVE) Urine Nitrite NEGATIVE (NEGATIVE) Urine Bilirubin NEGATIVE (NEGATIVE) Urine Urobilinogen 0.2 (NORMAL) (NORMAL) E.U./dL Ur Leukocyte Esterase NEGATIVE (NEGATIVE) Ur Microscopic Review NOT INDICATED Urine Culture Comments NOT INDICATED 08/20/18 08/20/18 08/20/18 Range/Units 21:04 19:49 19:49 WBC 4.9 (4.8-10.8) x10^3/uL RBC 3.50 L (4.70-6.10) 10^6/uL Hgb 12.1 L (14.0-18.0) g/dL Hct 35.0 L (42.0-52.0) % MCV 100.0 H (80.0-94.0) fL MCH 34.6 H (27.0-31.0) pg MCHC 34.6 (32.0-36.0) g/dL RDW 14.7 (12.0-15.0) % Plt Count 197 (130-450) 10^3/uL MPV 8.1 (7.4-11.4) fL Neut # (Auto) 3.0 (1.5-6.6) 10^3/uL Lymph # (Auto) 1.2 L (1.5-3.5) 10^3/uL Green # (Auto) 0.6 (0.0-1.0) 10^3/uL Eos # (Auto) 0.1 (0.0-0.7) 10^3/uL Baso # (Auto) 0.0 (0.0-0.1) 10^3/uL Absolute Nucleated RBC 0.00 x10^3/uL Nucleated RBC % 0.0 /100WBC PT (9.9-12.6) secs INR (0.8-1.2) Sodium 139 (135-145) mmol/L Potassium 2.0 L* (3.5-5.0) mmol/L Chloride 106 (101-111) mmol/L Carbon Dioxide 21 (21-32) mmol/L Anion Gap 12.0 (6-13) BUN 21 H (6-20) mg/dL Creatinine 0.6 (0.6-1.2) mg/dL Estimated GFR (MDRD) 130 (>89) Glucose 178 H (70-100) mg/dL POC Whole Bld Glucose 175 H (70 - 100) mg/dL Glycated Hemoglobin (4.6-6.2) % Estim Average Glucose (70-100) Lactic Acid (0.5-2.2) mmol/L Calcium 8.1 L (8.5-10.3) mg/dL Phosphorus 3.1 (2.5-4.6) mg/dL Magnesium 1.4 L (1.7-2.8) mg/dL Iron (45-182) ug/dL TIBC (250-450) ug/dL % Saturation (20-50) % Transferrin (180-329) mg/dL Ferritin (23.9-336.2) ng/mL Total Bilirubin 0.7 (0.2-1.0) mg/dL AST 29 (10-42) IU/L ALT 36 (10-60) IU/L Alkaline Phosphatase 72 (42-121) IU/L Total Protein 5.2 L (6.7-8.2) g/dL Albumin 2.8 L (3.2-5.5) g/dL Globulin 2.4 (2.1-4.2) g/dL Albumin/Globulin Ratio 1.2 (1.0-2.2) Lipase 16 L (22-51) U/L Vitamin B12 (180-914) pg/mL Folate (5.90 - >24.8) ng/mL Urine Color Urine Clarity (CLEAR) Urine pH (5.0-7.5) PH Ur Specific [place] (1.002-1.030) Urine Protein (NEGATIVE) mg/dL Urine Glucose (UA) (NEGATIVE) mg/dL Urine Ketones (NEGATIVE) mg/dL Urine Occult Blood (NEGATIVE) Urine Nitrite (NEGATIVE) Urine Bilirubin (NEGATIVE) Urine Urobilinogen (NORMAL) E.U./dL Ur Leukocyte Esterase (NEGATIVE) Ur Microscopic Review Urine Culture Comments ABX Reporting Has patient been on IV antibiotics over the past 48 hours?: Yes Assessment/Plan - Problem List (1) Hypokalemia Impression: 08/21 improved. K is 2.8, continue replacement, continue lab monitor (2) Diarrhea 08/21 C. difficile PCR is negative continue IV fluids, Electrolyte replacement continue Imodium as needed (3) Hypomagnesemia resolved, mag is 1.8 (4) Dehydration Conclusion/Plan: continue IV fluids, Controlled diarrhea, Electrolyte replacement continue lab monitor (5) Pancreatic cancer continue Pain control, Continue pancreatic enzymes daily Follow-up with oncology as an outpatient once discharged. (6) Diabetes Conclusion/Plan: continue Hold metformin and glyburide continue sliding scale for insulin A1c 8.5 ACHS (7) BPH (benign prostatic hyperplasia) status post TURP procedure, continue finasteride. (8) fever pt has fever at 38.4 with chill blood culture, will follow up start antibiotics Cefepime, and Vancomycin, pt is immunosuppressive chemotherapy pt, precaution of sepsis. lactic acid is normal now, continue to monitor IVF of NS lab monitor and vital monitor
[2018-08-21] MEDS: ACETAMINOPHEN 325 MG TABLET PO PRN ×2 (16:50→21:19)
[2018-08-21] MEDS ORDERED: cloNIDine 0.1 MG TABLET PO PRN (16:59)
[2018-08-21] MEDS: CEFEPIME 2 GM in SODIUM CHLORIDE 0.9% MINIBAG 100 ML IV SCH (17:55)
--- NOTE | 2018-08-21 18:06 | XRAY Report ---
Reason: fever, chill Procedure Date: 08/21/2018 Accession Number: [id number] / [id number] Procedure: XR - Chest 1 View X-Ray CPT Code: 92009 FULL RESULT: EXAM: CHEST RADIOGRAPHY EXAM DATE: 08/21/2018 05:01 PM. CLINICAL HISTORY: Fever, chill. COMPARISON: CHEST 2 VIEW 01/30/2018 11:46 AM. TECHNIQUE: 1 view. FINDINGS: Lungs/Pleura: Lung volumes are low. There is costophrenic sulcus blunting. No evidence of lobar infiltrate. No pneumothorax. Mediastinum: Mild cardiomegaly. There is thoracic aortic tortuosity. Other: Right Port-A-Cath tip projects over the low SVC. 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 IMPRESSION: 1. Low lung volumes. 2. Mild cardiomegaly. 3. Costophrenic sulcus blunting may represent small effusions. 4. No clear evidence of acute infiltrate. 5. No pneumothorax. RADIA
[2018-08-21] MEDS ORDERED: MIN OIL/DIMETHICON/COCONUT OIL 92 GM TUBE TOP PRN (18:50)
[2018-08-21] MEDS ORDERED: VANCOMYCIN INJ 2 GM in SODIUM CHLORIDE 0.9% 500 ML IV ONE (19:00)
[2018-08-21] MEDS ORDERED: SODIUM CHLORIDE 0.9% 500 ML IV ONE (19:14)
[2018-08-21] MEDS: FINASTERIDE 5 MG TABLET PO SCH (19:27)
[2018-08-21] MEDS ORDERED: SODIUM CHLORIDE 0.9% 1,000 ML IV ONE (21:00)
[2018-08-21] MEDS ORDERED: CEFEPIME 2 GM in SODIUM CHLORIDE 0.9% MINIBAG 100 ML IV SCH (21:00)
[2018-08-21] MEDS: LORazepam 0.5 MG TABLET PO PRN (21:20)
[2018-08-21] MEDS: metroNIDAZOLE 500 MG/100 ML 500 MG/100 ML BAG IV SCH (23:54)
[2018-08-22] MEDS: LOPERAMIDE 2 MG CAPSULE PO PRN ×3 (00:06→22:27)
[2018-08-22 05:15] LABS: BASOPHILS % (AUTO) 0.1 %; EOSINOPHILS % (AUTO) 0.7 %; HGB - HEMOGLOBIN 12.1 g/dL (14.0-18.0); LYMPHOCYTES # (AUTO) 0.9 10^3/uL (1.5-3.5); MEAN CORPUSCULAR HEMOGLOBIN 35.2 pg (27.0-31.0); MEAN CORPUSCULAR HGB CONC 34.6 g/dL (32.0-36.0); MEAN CORPUSCULAR VOLUME 101.6 fL (80.0-94.0); MEAN PLATELET VOLUME 7.9 fL (7.4-11.4); MONOCYTES # (AUTO) 0.8 10^3/uL (0.0-1.0); MONOCYTES % (AUTO) 11.1 %; NEUTROPHILS # (AUTO) 5.2 10^3/uL (1.5-6.6); NEUTROPHILS % (AUTO) 75.1 %; PLT - PLATELET COUNT 184 10^3/uL (130-450); RED BLOOD COUNT 3.44 10^6/uL (4.70-6.10); RED CELL DISTRIBUTION WIDTH 14.7 % (12.0-15.0); WHITE BLOOD COUNT 6.9 x10^3/uL (4.8-10.8)
[2018-08-22 05:30] LABS: ALBUMIN 2.5 g/dL (3.2-5.5); ALBUMIN/GLOBULIN RATIO 1.1 (1.0-2.2); BILIRUBIN,TOTAL 0.9 mg/dL (0.2-1.0); CALCIUM 7.4 mg/dL (8.5-10.3); CREATININE 0.5 mg/dL (0.6-1.2); TOTAL PROTEIN 4.8 g/dL (6.7-8.2)
[2018-08-22] MEDS ORDERED: SODIUM CHLORIDE 0.9% 500 ML IV ONE (05:47)
[2018-08-22] MEDS: CEFEPIME 2 GM in SODIUM CHLORIDE 0.9% MINIBAG 100 ML IV SCH ×2 (06:59→17:15)
[2018-08-22] MEDS: NS W/20 MEQ KCL 1,000 ML IV SCH (06:59)
[2018-08-22] MEDS: LIPASE/PROTEASE/AMYLASE CAPSULE PO SCH (08:23)
[2018-08-22] MEDS: INSULIN ASPART 300 UNIT/3 ML PEN SUBQ SCH ×4 (08:28→20:36)
[2018-08-22] MEDS: SODIUM CHLORIDE FLUSH 0.9% 10 ML SYRINGE IVP SCH ×3 (09:06→23:35)
[2018-08-22] MEDS: metroNIDAZOLE 500 MG/100 ML 500 MG/100 ML BAG IV SCH ×3 (09:10→22:27)
[2018-08-22] MEDS: SACCHAROMYCES BOULARDII 250 MG CAPSULE PO SCH ×2 (09:29→17:13)
[2018-08-22] MEDS: ESCITALOPRAM 10 MG TABLET PO SCH (09:29)
[2018-08-22] MEDS: FAMOTIDINE 20 MG TABLET PO SCH ×2 (09:31→20:33)
[2018-08-22] MEDS: MEGESTROL 400 MG/10 ML UDC PO SCH ×2 (09:31→20:33)
[2018-08-22] MEDS: ONDANSETRON ODT 4 MG TABLET TL PRN (10:00)
[2018-08-22] MEDS: ENOXAPARIN 40 MG/0.4 ML SYRINGE SUBQ SCH (10:02)
[2018-08-22] MEDS: POLYETHYLENE GLYCOL 3350 17 GM PACKET PO SCH (10:04)
--- NOTE | 2018-08-22 10:21 | PROVIDER PROGRESS NOTE ---
Subjective - Prog Note Date Prog Note Date: 08/22/18 Prog Note Time: 10:49 - Subjective Pt reports feeling: Improved Subjective: He is sitting up in a chair. Yesterday when I saw him, in the evening, he was rolled over onto his right side in the position. Left flank and mid abdomen were aching. Last night's exam was negative with regards to rebound guarding or tenderness. This morning his lactic acid is improved. Vitals are stable. Yesterday he was hypotensive and required a fluid bolus. He was started on empiric IV antibiotic therapy in a patient who spiked a temp, had a lactic acid. Right now he denies any specific pain. When I asked him to give me 1 word to describe how he feels he tells me he is "frustrated". He is just so tired. He just wants to achieve some stability with his treatment plan for his pancreatic cancer. 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 He denies chest pain, palpitations, shortness of breath. Mid abdominal pain and backache are resolved at this point in time. No urgency, frequency, dysuria. Mild daily cough. About the same as always. No phlegm production. Current Medications - Current Medications Current Medications: Active Medications Acetaminophen (Tylenol) 650 mg PO Q4HR PRN PRN Reason: Pain 1 to 4 Last Admin: 08/21/18 21:19 Dose: 650 mg Clonidine HCl (Catapres) 0.1 mg PO BID PRN PRN Reason: Hypertensive Emergency Enoxaparin Sodium (Lovenox) 40 mg SUBQ DAILY [facility] Last Admin: 08/22/18 10:02 Dose: 40 mg Escitalopram Oxalate (Lexapro) 20 mg PO DAILY [facility] Last Admin: 08/22/18 09:29 Dose: 20 mg Famotidine (Pepcid) 20 mg PO BID [facility] Last Admin: 08/22/18 09:31 Dose: 20 mg Ferrous Sulfate (Feosol) 325 mg PO DAILYWM [facility] Last Admin: 08/22/18 10:40 Dose: 325 mg Finasteride (Proscar) 5 mg PO QPM [facility] Last Admin: 08/21/18 19:27 Dose: 5 mg Hydromorphone HCl (Dilaudid) 2 mg PO Q4HR PRN PRN Reason: PAIN Hydromorphone HCl (Dilaudid Inj Carp) 1 mg IVP Q2HR PRN PRN Reason: Pain 8 to 10 Vancomycin HCl 1 gm/Vancomycin HCl 250 mg/ Sodium Chloride 250 mls @ 125 mls/hr IV Q12H [facility] Last Admin: 08/22/18 10:45 Dose: 125 mls/hr Cefepime HCl 2 gm/ Sodium (Chloride) 100 mls @ 200 mls/hr IV Q12H [facility] Last Infusion: 08/22/18 07:32 Dose: Infused Metronidazole (Flagyl 500 Mg/100 Ml) 500 mg in 100 mls @ 100 mls/hr IV Q8H [facility] Last Infusion: 08/22/18 10:45 Dose: Infused Insulin Aspart (Novolog) 1 - 9 unit SUBQ 0800,1200,1700,2100 [facility]; Protocol Last Admin: 08/22/18 08:28 Dose: 1 unit Loperamide HCl (Imodium) 2 mg PO QID PRN PRN Reason: Diarrhea Last Admin: 08/22/18 00:06 Dose: 2 mg Lorazepam (Ativan) 0.5 mg PO DAILY PRN PRN Reason: Anxiety Last Admin: 08/21/18 21:20 Dose: 0.5 mg Megestrol Acetate (Megace) 400 mg PO BID [facility] Last Admin: 08/22/18 09:31 Dose: 400 mg Mineral Oil (Cavilon) 1 applic TOP PRN PRN PRN Reason: Skin Care Ondansetron HCl (Zofran Odt) 4 mg TL Q6HR PRN PRN Reason: Nausea / Vomiting Last Admin: 08/22/18 10:00 Dose: 4 mg Creon 25051 Unit 3 each PO TIDWM [facility] Polyethylene Glycol (Miralax) 17 gm PO DAILY [facility] Last Admin: 08/22/18 10:04 Dose: Not Given Prochlorperazine Edisylate (Compazine Inj) 10 mg IVP Q6HR PRN PRN Reason: Nausea / Vomiting Promethazine HCl (Phenergan Inj) 25 mg IM Q6HR PRN PRN Reason: Nausea / Vomiting Saccharomyces Boulardii (Florastor) 250 mg PO BIDWM [facility] Last Admin: 08/22/18 09:29 Dose: 250 mg Sodium Chloride (Normal Saline Flush 0.9%) 10 ml IVP PRN PRN PRN Reason: NEEDED PER PROVIDER ORDERS Last Admin: 08/21/18 04:22 Dose: 10 ml Sodium Chloride (Normal Saline Flush 0.9%) 10 ml IVP 0100,0900,1700 [facility] Last Admin: 08/22/18 09:06 Dose: 10 ml Zolpidem Tartrate (Ambien) 5 mg PO QPM PRN PRN Reason: Insomnia Finasteride 5 mg PO QPM 04/15/18 Lipase/Protease/Amylase [Shamika Alonso 36,000 Units Capsule] 2 - 4 cap PO TID 04/15/18 metFORMIN [Glucophage] 1,000 mg PO BID 04/15/18 Acetaminophen 1,000 mg PO BID 07/11/18 Bisacodyl 10 mg VT DAILY PRN 07/11/18 Enemeez 1 bottle VT .QOD PRN 07/11/18 Escitalopram Oxalate [Lexapro] 20 mg PO DAILY 07/11/18 HYDROmorphone [Dilaudid] 2 mg PO Q4HR PRN 07/11/18 Lidocaine [Topicaine 5] 1 applic TOP PRN PRN 07/11/18 Loperamide [Imodium] 2 mg PO PRN PRN 07/11/18 Megestrol Acetate 400 mg PO BID 07/11/18 Morphine Sulfate [Ms Contin] 15 mg PO DAILY MDD titrating off 07/11/18 Polyethylene Glycol 3350 [Miralax] 17 mg PO DAILY PRN 07/11/18 Prochlorperazine Maleate [Compazine] 10 mg PO Q4HR PRN 07/11/18 Senna [Senokot] 8.6 mg PO BID PRN MDD hold loose stools 07/11/18 Docusate Sodium [Dulcolax Stool Softener] 100 mg PO BID PRN 07/15/18 Hydrocortisone Acetate [Anucort-Hc] 25 mg RC BID PRN 07/15/18 Omeprazole [PriLOSEC] 20 mg PO DAILY 07/15/18 Fludrocortisone [Florinef] 0.1 mg PO BID 08/20/18 LORazepam [Ativan] 1 mg PO QPM 08/20/18 Psyllium [Metamucil] 1 packet PO DAILY 08/20/18 glyBURIDE [Glyburide] 5 mg PO DAILY 08/20/18 Lipase/Protease/Amylase [Shamika Alonso 36,000 Units Capsule] 2 cap PO BID PRN 08/21/18 Ondansetron [Zofran Odt] 8 mg PO AC PRN 08/21/18 Objective - Vital Signs/Intake & Output Reviewed Vital Signs: Yes Vital Signs: Vital Signs x48h Temp Pulse Pulse Resp BP Pulse Ox 08/22/18 09:59 36.7 C 91 20 99 08/22/18 08:56 36.7 C 94 20 142/81 H 97 08/22/18 06:19 36.4 C L 91 22 132/73 H 98 Intake & Output: Intake & Output 08/19/18 08/20/18 08/21/18 08/22/18 23:59 23:59 23:59 23:59 Intake Total 1390 6318.749 1457.917 Output Total 300 100 201 Balance 1090 6218.749 1256.917 - Objective General Appearance: positive: No acute distress, Alert, Other (Sitting up in chair, eating 100% of his pancake breakfast. Pale balding gentleman with muted affect.) Eyes Bilateral: positive: PERRL, EOMI ENT: positive: Pharynx nml Neck: positive: No JVD. negative: Stiff neck, Carotid bruit Respiratory: positive: Chest non-tender. negative: Wheezes, Rales, Rhonchi Cardiovascular: positive: Regular rate & rhythm, Systolic murmur. negative: Gallop/S4, Friction rub Abdomen: positive: Non-tender, No organomegaly, Nml bowel sounds, No distention Skin: positive: Warm, Dry, Pallor Extremities: positive: Full ROM, No pedal edema Neurologic/Psychiatric: positive: Oriented x3, CN's nml (2-12), Motor nml, Weakness - Lab Results Fish Bones: 08/22/18 05:05 08/22/18 05:05 Other Labs: Lab Results x24hrs 08/22/18 08/22/18 08/22/18 Range/Units 09:00 05:05 05:05 WBC (4.8-10.8) x10^3/uL RBC (4.70-6.10) 10^6/uL Hgb (14.0-18.0) g/dL Hct (42.0-52.0) % MCV (80.0-94.0) fL MCH (27.0-31.0) pg MCHC (32.0-36.0) g/dL RDW (12.0-15.0) % Plt Count (130-450) 10^3/uL MPV (7.4-11.4) fL Neut # (Auto) (1.5-6.6) 10^3/uL Lymph # (Auto) (1.5-3.5) 10^3/uL [place] # (Auto) (0.0-1.0) 10^3/uL Eos # (Auto) (0.0-0.7) 10^3/uL Baso # (Auto) (0.0-0.1) 10^3/uL Absolute Nucleated RBC x10^3/uL Nucleated RBC % /100WBC Sodium 143 (135-145) mmol/L Potassium 3.6 (3.5-5.0) mmol/L Chloride 115 H (101-111) mmol/L Carbon Dioxide 18 L (21-32) mmol/L Anion Gap 10.0 (6-13) BUN 13 (6-20) mg/dL Creatinine 0.5 L (0.6-1.2) mg/dL Estimated GFR (MDRD) 160 (>89) Glucose 183 H (70-100) mg/dL POC Whole Bld Glucose (70 - 100) mg/dL Lactic Acid 2.7 H 3.8 H* (0.5-2.2) mmol/L Calcium 7.4 L (8.5-10.3) mg/dL Total Bilirubin 0.9 (0.2-1.0) mg/dL AST 41 (10-42) IU/L ALT 50 (10-60) IU/L Alkaline Phosphatase 159 H (42-121) IU/L Total Protein 4.8 L (6.7-8.2) g/dL Albumin 2.5 L (3.2-5.5) g/dL Globulin 2.3 (2.1-4.2) g/dL Albumin/Globulin Ratio 1.1 (1.0-2.2) 08/22/18 08/22/18 08/21/18 Range/Units 05:05 01:20 22:06 WBC 6.9 (4.8-10.8) x10^3/uL RBC 3.44 L (4.70-6.10) 10^6/uL Hgb 12.1 L (14.0-18.0) g/dL Hct 34.9 L (42.0-52.0) % MCV 101.6 H (80.0-94.0) fL MCH 35.2 H (27.0-31.0) pg MCHC 34.6 (32.0-36.0) g/dL RDW 14.7 (12.0-15.0) % Plt Count 184 (130-450) 10^3/uL MPV 7.9 (7.4-11.4) fL Neut # (Auto) 5.2 (1.5-6.6) 10^3/uL Lymph # (Auto) 0.9 L (1.5-3.5) 10^3/uL [place] # (Auto) 0.8 (0.0-1.0) 10^3/uL Eos # (Auto) 0.0 (0.0-0.7) 10^3/uL Baso # (Auto) 0.0 (0.0-0.1) 10^3/uL Absolute Nucleated RBC 0.00 x10^3/uL Nucleated RBC % 0.0 /100WBC Sodium (135-145) mmol/L Potassium (3.5-5.0) mmol/L Chloride (101-111) mmol/L Carbon Dioxide (21-32) mmol/L Anion Gap (6-13) BUN (6-20) mg/dL Creatinine (0.6-1.2) mg/dL Estimated GFR (MDRD) (>89) Glucose (70-100) mg/dL POC Whole Bld Glucose (70 - 100) mg/dL Lactic Acid 3.1 H* 4.6 H* (0.5-2.2) mmol/L Calcium (8.5-10.3) mg/dL Total Bilirubin (0.2-1.0) mg/dL AST (10-42) IU/L ALT (10-60) IU/L Alkaline Phosphatase (42-121) IU/L Total Protein (6.7-8.2) g/dL Albumin (3.2-5.5) g/dL Globulin (2.1-4.2) g/dL Albumin/Globulin Ratio (1.0-2.2) 08/21/18 08/21/18 08/21/18 Range/Units 20:50 18:46 18:46 WBC (4.8-10.8) x10^3/uL RBC (4.70-6.10) 10^6/uL Hgb (14.0-18.0) g/dL Hct (42.0-52.0) % MCV (80.0-94.0) fL MCH (27.0-31.0) pg MCHC (32.0-36.0) g/dL RDW (12.0-15.0) % Plt Count (130-450) 10^3/uL MPV (7.4-11.4) fL Neut # (Auto) (1.5-6.6) 10^3/uL Lymph # (Auto) (1.5-3.5) 10^3/uL [place] # (Auto) (0.0-1.0) 10^3/uL Eos # (Auto) (0.0-0.7) 10^3/uL Baso # (Auto) (0.0-0.1) 10^3/uL Absolute Nucleated RBC x10^3/uL Nucleated RBC % /100WBC Sodium (135-145) mmol/L Potassium 3.1 L (3.5-5.0) mmol/L Chloride (101-111) mmol/L Carbon Dioxide (21-32) mmol/L Anion Gap (6-13) BUN (6-20) mg/dL Creatinine (0.6-1.2) mg/dL Estimated GFR (MDRD) (>89) Glucose (70-100) mg/dL POC Whole Bld Glucose 219 H (70 - 100) mg/dL Lactic Acid 4.0 H* (0.5-2.2) mmol/L Calcium (8.5-10.3) mg/dL Total Bilirubin (0.2-1.0) mg/dL AST (10-42) IU/L ALT (10-60) IU/L Alkaline Phosphatase (42-121) IU/L Total Protein (6.7-8.2) g/dL Albumin (3.2-5.5) g/dL Globulin (2.1-4.2) g/dL Albumin/Globulin Ratio (1.0-2.2) 08/21/18 08/21/18 08/21/18 Range/Units 16:42 15:27 12:02 WBC (4.8-10.8) x10^3/uL RBC (4.70-6.10) 10^6/uL Hgb (14.0-18.0) g/dL Hct (42.0-52.0) % MCV (80.0-94.0) fL MCH (27.0-31.0) pg MCHC (32.0-36.0) g/dL RDW (12.0-15.0) % Plt Count (130-450) 10^3/uL MPV (7.4-11.4) fL Neut # (Auto) (1.5-6.6) 10^3/uL Lymph # (Auto) (1.5-3.5) 10^3/uL [place] # (Auto) (0.0-1.0) 10^3/uL Eos # (Auto) (0.0-0.7) 10^3/uL Baso # (Auto) (0.0-0.1) 10^3/uL Absolute Nucleated RBC x10^3/uL Nucleated RBC % /100WBC Sodium (135-145) mmol/L Potassium (3.5-5.0) mmol/L Chloride (101-111) mmol/L Carbon Dioxide (21-32) mmol/L Anion Gap (6-13) BUN (6-20) mg/dL Creatinine (0.6-1.2) mg/dL Estimated GFR (MDRD) (>89) Glucose (70-100) mg/dL POC Whole Bld Glucose 230 H 187 H (70 - 100) mg/dL Lactic Acid 2.2 (0.5-2.2) mmol/L Calcium (8.5-10.3) mg/dL Total Bilirubin (0.2-1.0) mg/dL AST (10-42) IU/L ALT (10-60) IU/L Alkaline Phosphatase (42-121) IU/L Total Protein (6.7-8.2) g/dL Albumin (3.2-5.5) g/dL Globulin (2.1-4.2) g/dL Albumin/Globulin Ratio (1.0-2.2) 08/21/18 08/21/18 Range/Units 11:56 11:56 WBC (4.8-10.8) x10^3/uL RBC (4.70-6.10) 10^6/uL Hgb (14.0-18.0) g/dL Hct (42.0-52.0) % MCV (80.0-94.0) fL MCH (27.0-31.0) pg MCHC (32.0-36.0) g/dL RDW (12.0-15.0) % Plt Count (130-450) 10^3/uL MPV (7.4-11.4) fL Neut # (Auto) (1.5-6.6) 10^3/uL Lymph # (Auto) (1.5-3.5) 10^3/uL [place] # (Auto) (0.0-1.0) 10^3/uL Eos # (Auto) (0.0-0.7) 10^3/uL Baso # (Auto) (0.0-0.1) 10^3/uL Absolute Nucleated RBC x10^3/uL Nucleated RBC % /100WBC Sodium (135-145) mmol/L Potassium 2.8 L (3.5-5.0) mmol/L Chloride (101-111) mmol/L Carbon Dioxide (21-32) mmol/L Anion Gap (6-13) BUN (6-20) mg/dL Creatinine (0.6-1.2) mg/dL Estimated GFR (MDRD) (>89) Glucose (70-100) mg/dL POC Whole Bld Glucose (70 - 100) mg/dL Lactic Acid 2.0 (0.5-2.2) mmol/L Calcium (8.5-10.3) mg/dL Total Bilirubin (0.2-1.0) mg/dL AST (10-42) IU/L ALT (10-60) IU/L Alkaline Phosphatase (42-121) IU/L Total Protein (6.7-8.2) g/dL Albumin (3.2-5.5) g/dL Globulin (2.1-4.2) g/dL Albumin/Globulin Ratio (1.0-2.2) ABX Reporting Has patient been on IV antibiotics over the past 48 hours?: Yes Assessment/Plan - Problem List (1) Fever Impression: He spiked a temperature to 38.4 yesterday around 4:50 in the afternoon. White cell count has not gone up. However a lactic acid has. Chest x-ray has low lung volumes, and he has some blunting at the costophrenic angles but there is no infiltrate. Urinalysis is negative for infection. Stool was negative for Campylobacter, Shiga toxin, and C. difficile. Blood cultures were done yesterday. Results pending. He was started on empiric IV antibiotic therapy. Vancomycin and cefepime twice daily. Day #2. Right now there is no fever. On examination he was having some left mid abdominal and left flank pain yesterday. He says that is chronic and part of his cancer pain that has been off and on since he was diagnosed. Right now is not having any. Plan: CT abdomen Adjust antibiotics on the basis of culture results when available (2) Hypokalemia Impression: Potassium started at 2.0 then 2.3 and 2.8 then 3.1 and is 3.6 today continue to monitor and supplement (2) Diarrhea He presents as having diarrhea since his chemotherapy started. Started probably couple of days after chemotherapy ended. Diarrhea has been getting progressively worse to the point that 3 days before admission his diarrhea was yellow and foul-smelling. Became so dehydrated and weak and tired with low blood pressure that was recommended he come to the emergency room C. difficile PCR is negative, campy and shigella negative. continue IV fluids, Electrolyte replacement prn continue Imodium as needed (3) Hypomagnesemia resolved, mag is 1.8 (4) Dehydration Conclusion/Plan: Causing orthostatic hypotension in the outpatient setting and that was why he was sent in. Resolved He is much improved and blood pressure is now high. continue IV fluids, Controlled diarrhea, Electrolyte replacement continue lab monitor His Florinef was stopped because of the high blood pressure. (5) Pancreatic cancer continue Pain control, Continue pancreatic enzymes daily Follow-up with oncology as an outpatient once discharged. He is very discouraged. They said that as long as he has a steady course they feel like there is some stability and hope. But with these ups and downs he gets very discouraged. He is not afraid of dying he is just so tired of late up-and-down roller coaster aspect. Emotional support provided. Palliative care already seeing the patient. (6) Diabetes Conclusion/Plan: continue Hold metformin and glyburide In the outpatient setting I do not recommend metformin. Yesterday his glucose was 220, 187, 230, 219. This morning he is 172. continue sliding scale for insulin. He has received 1 unit and 3 units only so far. A1c 8.5 (7) BPH (benign prostatic hyperplasia) status post TURP procedure, continue finasteride. (8) Iron deficiency anemia on top of his chemo induced anemia Laboratory Tests 08/21/18 04:15 Iron 35 L TIBC 211 L % Saturation 17 L Transferrin 151 L Ferous sulfate 325 mg started. once a day.
[2018-08-22] MEDS: FERROUS SULFATE 325 MG TABLET PO SCH (10:40)
[2018-08-22] MEDS: VANCOMYCIN INJ 1 GM, VANCOMYCIN INJ 250 MG in SODIUM CHLORIDE 0.9% 250 ML IV SCH ×2 (10:45→20:35)
[2018-08-22] MEDS ORDERED: IOPAMIDOL-300 100 ML VIAL ONE (10:58)
[2018-08-22] MEDS ORDERED: IOVERSOL 320 50 ML VIAL ONE (11:06)
[2018-08-22] MEDS ORDERED: IOPAMIDOL-300 100 ML VIAL IVP ONE (13:57)
[2018-08-22] MEDS: CREON 36000 UNIT PO SCH ×2 (14:45→17:13)
--- NOTE | 2018-08-22 16:28 | CT Report ---
Reason: abdominal pain, pancreatic cancer Procedure Date: 08/22/2018 Accession Number: [id number] / [id number] Procedure: CT - Abdomen/Pelvis W/ CPT Code: FULL RESULT: EXAM: CT ABDOMEN AND PELVIS EXAM DATE: 08/22/2018 01:55 PM. CLINICAL HISTORY: Abdominal pain, pancreatic cancer. COMPARISONS: CT of the abdomen and pelvis from 06/23/2018. TECHNIQUE: Routine helical CT imaging was performed through the abdomen and pelvis. IV contrast: 100 cc Omnipaque 300. Enteric contrast: Yes. Reconstructions: Coronal and sagittal. In accordance with CT protocol optimization, one or more of the following dose reduction techniques were utilized for this exam: automated exposure control, adjustment of mA and/or KV based on patient size, or use of iterative reconstructive technique. FINDINGS: Lung Bases: There are small bilateral pleural effusions with bibasilar consolidation, likely atelectasis. Respiratory motion is present in the lung bases. Liver: No focal hepatic lesions are demonstrated. The portal veins are patent. Gallbladder/Bile Ducts: Gallbladder is decompressed. Noncalcified stones are demonstrated (series 3, images 36-37). There is a metallic stent in the mid-distal common bile duct. A plastic biliary stent extends from the right hepatic duct into the duodenum. Position of the metallic stent is similar. The plastic stent is new. However, previously seen pneumobilia is no longer identified. Spleen: Within normal limits. Pancreas: There is a hypoattenuating mass in the pancreatic head and uncinate process measuring approximately 3.3 x 2.6 x 4.8 (series 3, image 40 and series 5, image 23). Previously, this measured approximately 3.1 x 2.4 x 4.0 cm. There appears to be increased tumor extension inferiorly, particularly evident between the duodenum and superior mesenteric vessels (series 3, image 41). There is atrophy and ductal dilation of the remainder of the pancreas. 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 The degree of narrowing is increased from the prior examination. The superior mesenteric artery appears encased (series 5, image 22), as seen previously. There is broad abutment of the distal duodenum (series 3, image 41). Adrenal Glands: No nodules. Kidneys: There is a cyst in the interpolar region of the left kidney as well as subcentimeter hypoattenuating focus in the lower pole of the left kidney which is too small to characterize. A 3 mm nonobstructing calculus is present in the lower pole of the right kidney (series 3, image 37). No hydronephrosis. Peritoneal Cavity/Bowel: Pancreatic mass abuts the distal duodenum, as described above. However, there is no evidence of duodenal obstruction. There is small volume peritoneal free fluid, which is new from the prior examination. However, no definite peritoneal nodularity is demonstrated. The ascending colon demonstrates mild wall thickening; however, this could be secondary to venous congestion from mesenteric vein occlusion. The appendix is within normal limits. There is diverticulosis of the sigmoid colon without evidence for acute diverticulitis. Pelvic Organs: Small amount of pelvic free fluid is present. No pelvic adenopathy. Vasculature: No abdominal aortic aneurysm. Mesenteric vascular findings as described above. Bones: There is bilateral L5 spondylolysis with grade 1 anterolisthesis at L5-S1. No suspicious osseous lesion. Other: No retroperitoneal adenopathy. IMPRESSION: 1. Hypoenhancing mass in the pancreatic head and uncinate process, compatible with known pancreatic malignancy, is increased in size since the prior examination. 2. There is encasement of the superior mesenteric artery and vein with increased narrowing of the superior mesenteric vein near the confluence with the portal vein and new, short segment thrombus in the main portal vein. 3. Tumor abuts the distal duodenum; however, there is no evidence for duodenal obstruction. 4. Metallic common bile duct stent is in similar position. A new plastic biliary stent is in place. However, there is no pneumobilia to confirm stent patency. Suggest correlation with serum LFTs. 5. New small volume peritoneal free fluid without definite peritoneal nodularity. Findings could represent malignant effusion. Alternatively, this could represent sequela of generalized anasarca (given bilateral pleural effusions and subcutaneous edema) or mesenteric venous hypertension from tumor compression. 6. Cholelithiasis. 7. Nonobstructing right nephrolithiasis. RADIA The above findings were discussed with Dr. Corbett by Dr. Antwan Tatum at 16:26 hrs on 08/22/18.
[2018-08-22] MEDS: FINASTERIDE 5 MG TABLET PO SCH (20:33)
[2018-08-23 05:09] LABS: ALBUMIN 2.2 g/dL (3.2-5.5); BILIRUBIN,TOTAL 0.6 mg/dL (0.2-1.0); CALCIUM 7.3 mg/dL (8.5-10.3); CREATININE 0.4 mg/dL (0.6-1.2); TOTAL PROTEIN 4.5 g/dL (6.7-8.2)
[2018-08-23] MEDS: CEFEPIME 2 GM in SODIUM CHLORIDE 0.9% MINIBAG 100 ML IV SCH ×2 (05:58→18:17)
[2018-08-23] MEDS: SODIUM CHLORIDE FLUSH 0.9% 10 ML SYRINGE IVP SCH ×2 (06:01→17:25)
[2018-08-23] MEDS: LOPERAMIDE 2 MG CAPSULE PO PRN ×2 (06:02→17:25)
[2018-08-23] MEDS: metroNIDAZOLE 500 MG/100 ML 500 MG/100 ML BAG IV SCH ×2 (07:12→14:51)
[2018-08-23 07:48] LABS: VANCOMYCIN,TROUGH 14.9 ug/mL (10.0-20.0)
[2018-08-23] MEDS: VANCOMYCIN INJ 1 GM, VANCOMYCIN INJ 250 MG in SODIUM CHLORIDE 0.9% 250 ML IV SCH (08:33)
[2018-08-23] MEDS: INSULIN ASPART 300 UNIT/3 ML PEN SUBQ SCH ×5 (08:35→20:44)
[2018-08-23] MEDS: POTASSIUM CHLORIDE 20 MEQ TABLET PO SCH ×3 (08:48→17:25)
[2018-08-23] MEDS: FERROUS SULFATE 325 MG TABLET PO SCH (08:48)
[2018-08-23] MEDS: FAMOTIDINE 20 MG TABLET PO SCH ×2 (08:48→20:24)
[2018-08-23] MEDS: CREON 36000 UNIT PO SCH ×3 (08:49→17:25)
[2018-08-23] MEDS: SACCHAROMYCES BOULARDII 250 MG CAPSULE PO SCH ×2 (08:49→17:25)
[2018-08-23] MEDS: ESCITALOPRAM 10 MG TABLET PO SCH (08:49)
[2018-08-23] MEDS: MEGESTROL 400 MG/10 ML UDC PO SCH ×2 (08:50→20:24)
[2018-08-23] MEDS: ENOXAPARIN 40 MG/0.4 ML SYRINGE SUBQ SCH (08:50)
[2018-08-23] MEDS: POLYETHYLENE GLYCOL 3350 17 GM PACKET PO SCH (08:56)
[2018-08-23] MEDS ORDERED: HEPARIN 5,000 UNIT/ML VIAL IVP ONE (16:01)
--- NOTE | 2018-08-23 16:04 | PROVIDER PROGRESS NOTE ---
Objective - Vital Signs/Intake & Output Vital Signs: Vital Signs x48h Temp Pulse Resp BP Pulse Ox 08/23/18 15:48 36.2 C L 85 20 140/81 H 99 08/23/18 11:39 37.0 C 87 20 133/76 H 97 Intake & Output: Intake & Output 08/20/18 08/21/18 08/22/18 08/23/18 23:59 23:59 23:59 22:59 Intake Total 1390 6318.749 4997.917 1230 Output Total 749 751 1124 450 Balance 1090 6218.749 3846.917 780 - Lab Results Fish Bones: 08/22/18 05:05 08/23/18 04:40 Other Labs: Lab Results x24hrs 08/23/18 08/23/18 08/23/18 Range/Units 07:33 07:22 04:40 Sodium 139 (135-145) mmol/L Potassium 3.4 L (3.5-5.0) mmol/L Chloride 112 H (101-111) mmol/L Carbon Dioxide 21 (21-32) mmol/L Anion Gap 6.0 (6-13) BUN 11 (6-20) mg/dL Creatinine 0.4 L (0.6-1.2) mg/dL Estimated GFR (MDRD) 208 (>89) Glucose 143 H (70-100) mg/dL POC Whole Bld Glucose 116 H (70 - 100) mg/dL Lactic Acid (0.5-2.2) mmol/L Calcium 7.3 L (8.5-10.3) mg/dL Total Bilirubin 0.6 (0.2-1.0) mg/dL AST 23 (10-42) IU/L ALT 38 (10-60) IU/L Alkaline Phosphatase 142 H (42-121) IU/L Total Protein 4.5 L (6.7-8.2) g/dL Albumin 2.2 L (3.2-5.5) g/dL Globulin 2.3 (2.1-4.2) g/dL Albumin/Globulin Ratio 1.0 (1.0-2.2) Last Dose Date 08/22/18 Last Dose Time 2034 Vancomycin Trough 14.9 (10.0-20.0) ug/mL 08/22/18 08/22/1818 Range/Units 22:25 20:26 18:53 Sodium (135-145) mmol/L Potassium (3.5-5.0) mmol/L Chloride (101-111) mmol/L Carbon Dioxide (21-32) mmol/L Anion Gap (6-13) BUN (6-20) mg/dL Creatinine (0.6-1.2) mg/dL Estimated GFR (MDRD) (>89) Glucose (70-100) mg/dL POC Whole Bld Glucose 178 H (70 - 100) mg/dL Lactic Acid 1.9 3.1 H* (0.5-2.2) mmol/L Calcium (8.5-10.3) mg/dL Total Bilirubin (0.2-1.0) mg/dL AST (10-42) IU/L ALT (10-60) IU/L Alkaline Phosphatase (42-121) IU/L Total Protein (6.7-8.2) g/dL Albumin (3.2-5.5) g/dL Globulin (2.1-4.2) g/dL Albumin/Globulin Ratio (1.0-2.2) Last Dose Date Last Dose Time Vancomycin Trough (10.0-20.0) ug/mL Assessment/Plan - Problem List (1) Mesenteric vein thrombosis Impression: Abdomen CT shows progression of tumor. Anatomy distortion because of stents in the biliary system continue but are not worse. But he has a mesenteric vein thrombosis as well. I spoke to his oncologist, Dr. Anderson, and he does recommend IV heparin and subsequent Lovenox. This could be the cause of some of his abdominal pain, stress on his bowel, and the fever we saw yesterday. He has responded to IV antibiotic therapy.Lactic acid has responded. The highest it was was 4.6 on August 21. Steadily dropping since then and it is 1.9 as of 10:00 last night. Plan: Continue empiric antibiotic therapy. Vancomycin and cefepime twice daily. Day #3. Blood cultures negative. Heparin drip Lovenox 24 hours from now Case discussed with patient and family. All questions answered. 45 minutes s pent at the bedside. (2) Hypokalemia Impression: Potassium started at 2.0 > 2.3 > 2.8 > 3.1> 3.6 > 3.4 today continue to monitor and supplement (2) Diarrhea He presents as having diarrhea since his chemotherapy started. Started probably couple of days after chemotherapy ended. Diarrhea has been getting progressively worse to the point that 3 days before admission his diarrhea was yellow and foul-smelling. Became so dehydrated and weak and tired with low blood pressure that was recommended he come to the emergency room C. difficile PCR is negative, campy and shigella negative. continue IV fluids, Electrolyte replacement prn continue Imodium as needed (3) Hypomagnesemia resolved, mag is 1.8 (4) Dehydration Conclusion/Plan: Causing orthostatic hypotension in the outpatient setting and that was why he was sent in. Resolved He is much improved and blood pressure is now high. continue IV fluids, Controlled diarrhea, Electrolyte replacement continue lab monitor His Florinef was stopped because of the high blood pressure. (5) Pancreatic cancer continue Pain control, Continue pancreatic enzymes daily Follow-up with oncology as an outpatient once discharged. He is very discouraged. They said that as long as he has a steady course they feel like there is some stability and hope. But with these ups and downs he gets very discouraged. He is not afraid of dying he is just so tired of late up-and-down roller coaster aspect. Emotional support provided. Palliative care already seeing the patient. (6) Diabetes Conclusion/Plan: continue Hold metformin and glyburide In the outpatient setting I do not recommend metformin. Yesterday glucose was 172, 213, 176, 178. Today he is 116, 209 continue sliding scale for insulin. He has received 1 unit and 3 units only so far. A1c 8.5 (7) BPH (benign prostatic hyperplasia) status post TURP procedure, continue finasteride. (8) Iron deficiency anemia on top of his chemo induced anemia Laboratory Tests 08/21/18 04:15 Iron 35 L TIBC 211 L % Saturation 17 L Transferrin 151 L Ferous sulfate 325 mg started. once a day.
[2018-08-23 16:50] LABS: HGB - HEMOGLOBIN 11.1 g/dL (14.0-18.0); MEAN CORPUSCULAR HGB CONC 34.1 g/dL (32.0-36.0); MEAN CORPUSCULAR VOLUME 102.4 fL (80.0-94.0); MEAN PLATELET VOLUME 8.9 fL (7.4-11.4); RED BLOOD COUNT 3.16 10^6/uL (4.70-6.10); WHITE BLOOD COUNT 4.9 x10^3/uL (4.8-10.8)
[2018-08-23] MEDS ORDERED: HEPARIN 25000UNITS/500ML (D5W) 25,000 UNIT/500 ML BAG IV SCH (17:00)
[2018-08-23] MEDS: PIPERACILLIN/TAZOBACTAM 3.375 GM in SODIUM CHLORIDE 0.9% MINIBAG 100 ML IV SCH (17:25)
[2018-08-23] MEDS: ONDANSETRON ODT 4 MG TABLET TL PRN (20:24)
[2018-08-23] MEDS: LORazepam 0.5 MG TABLET PO PRN (20:24)
[2018-08-23] MEDS: FINASTERIDE 5 MG TABLET PO SCH (20:24)
[2018-08-24] MEDS: SODIUM CHLORIDE FLUSH 0.9% 10 ML SYRINGE IVP SCH ×3 (00:20→17:26)
[2018-08-24 05:05] LABS: CALCIUM 7.5 mg/dL (8.5-10.3); CREATININE 0.5 mg/dL (0.6-1.2)
[2018-08-24] MEDS: PIPERACILLIN/TAZOBACTAM 3.375 GM in SODIUM CHLORIDE 0.9% MINIBAG 100 ML IV SCH ×6 (05:25→22:13)
[2018-08-24 07:46] LABS: HGB - HEMOGLOBIN 10.6 g/dL (14.0-18.0); MEAN CORPUSCULAR HEMOGLOBIN 35.2 pg (27.0-31.0); MEAN CORPUSCULAR HGB CONC 34.5 g/dL (32.0-36.0); MEAN CORPUSCULAR VOLUME 102.1 fL (80.0-94.0); RED BLOOD COUNT 3.02 10^6/uL (4.70-6.10); RED CELL DISTRIBUTION WIDTH 14.8 % (12.0-15.0); WHITE BLOOD COUNT 5.5 x10^3/uL (4.8-10.8)
--- NOTE | 2018-08-24 08:02 | PROVIDER PROGRESS NOTE ---
Subjective - Prog Note Date Prog Note Date: 08/24/18 Prog Note Time: 07:59 - Subjective Pt reports feeling: No change Subjective: He is tired. Trying to eat his food. Sometimes is not taste enough that he will get anywhere from 75-100%. He denies any chest pain. Abdominal pain. Stools are still soft and he would like some fiber. He also uses Zofran before each meal. Right now is as needed but is not getting it right before his meals and it would be easier for him to eat. Current Medications - Current Medications Current Medications: Active Medications Acetaminophen (Tylenol) 650 mg PO Q4HR PRN PRN Reason: Pain 1 to 4 Last Admin: 08/21/18 21:19 Dose: 650 mg Clonidine HCl (Catapres) 0.1 mg PO BID PRN PRN Reason: Hypertensive Emergency Enoxaparin Sodium (Lovenox) 100 mg SUBQ DAILY [facility] Last Admin: 08/24/18 08:43 Dose: 100 mg Escitalopram Oxalate (Lexapro) 20 mg PO DAILY [facility] Last Admin: 08/24/18 08:42 Dose: 20 mg Famotidine (Pepcid) 20 mg PO BID [facility] Last Admin: 08/24/18 08:42 Dose: 20 mg Ferrous Sulfate (Feosol) 325 mg PO DAILYWM [facility] Last Admin: 08/24/18 08:42 Dose: 325 mg Finasteride (Proscar) 5 mg PO QPM [facility] Last Admin: 08/23/18 20:24 Dose: 5 mg Heparin Sodium (Porcine) () 1,750 unit IVP ONCE PRN PRN Reason: ANTI-XA < 0.2UNITS/ML Stop: 08/28/18 19:59 Hydromorphone HCl (Dilaudid) 2 mg PO Q4HR PRN PRN Reason: PAIN Hydromorphone HCl (Dilaudid Inj Carp) 1 mg IVP Q2HR PRN PRN Reason: Pain 8 to 10 Heparin Sodium/Dextrose () 25,000 unit in 500 mls @ 20.85 mls/hr IV .[id number] [facility]; Protocol Stop: 08/24/18 13:00 Last Admin: 08/23/18 17:02 Dose: 15 unit/kg/hr, 20.85 mls/hr Piperacillin Sod/Tazobactam (Sod 3.375 gm/ Sodium Chloride) 100 mls @ 200 mls/hr IV Q6H [facility] Last Infusion: 08/24/18 06:15 Dose: Infused Insulin Aspart (Novolog) 2 - 10 unit SUBQ 0800,1200,1700,2100 [facility]; Protocol Stop: 08/28/18 20:59 Last Admin: 08/24/18 08:44 Dose: Not Given Loperamide HCl (Imodium) 2 mg PO QID PRN PRN Reason: Diarrhea Last Admin: 08/23/18 17:25 Dose: 2 mg Lorazepam (Ativan) 0.5 mg PO DAILY PRN PRN Reason: Anxiety Last Admin: 08/23/18 20:24 Dose: 0.5 mg Megestrol Acetate (Megace) 400 mg PO BID [facility] Last Admin: 08/24/18 08:42 Dose: 400 mg Mineral Oil (Cavilon) 1 applic TOP PRN PRN PRN Reason: Skin Care Last Admin: 08/23/18 08:49 Dose: 1 applic Ondansetron HCl (Zofran Odt) 4 mg TL Q6HR PRN PRN Reason: Nausea / Vomiting Last Admin: 08/24/18 09:48 Dose: 4 mg Creon 33890 Unit 3 each PO TIDWM [facility] Last Admin: 08/24/18 08:44 Dose: 3 each Polyethylene Glycol (Miralax) 17 gm PO DAILY [facility] Last Admin: 08/24/18 08:48 Dose: Not Given Prochlorperazine Edisylate (Compazine Inj) 10 mg IVP Q6HR PRN PRN Reason: Nausea / Vomiting Promethazine HCl (Phenergan Inj) 25 mg IM Q6HR PRN PRN Reason: Nausea / Vomiting Saccharomyces Boulardii (Florastor) 250 mg PO BIDWM [facility] Last Admin: 08/24/18 08:42 Dose: 250 mg Sodium Chloride (Normal Saline Flush 0.9%) 10 ml IVP PRN PRN PRN Reason: NEEDED PER PROVIDER ORDERS Last Admin: 08/21/18 04:22 Dose: 10 ml Sodium Chloride (Normal Saline Flush 0.9%) 10 ml IVP 0100,0900,1700 [facility] Last Admin: 08/24/18 08:48 Dose: Not Given Zolpidem Tartrate (Ambien) 5 mg PO QPM PRN PRN Reason: Insomnia Finasteride 5 mg PO QPM 04/15/18 Lipase/Protease/Amylase [Shamika Alonso 36,000 Units Capsule] 2 - 4 cap PO TID 04/15/18 metFORMIN [Glucophage] 1,000 mg PO BID 04/15/18 Acetaminophen 1,000 mg PO BID 07/11/18 Bisacodyl 10 mg AL DAILY PRN 07/11/18 Enemeez 1 bottle AL .QOD PRN 07/11/18 Escitalopram Oxalate [Lexapro] 20 mg PO DAILY 07/11/18 HYDROmorphone [Dilaudid] 2 mg PO Q4HR PRN 07/11/18 Lidocaine [Topicaine 5] 1 applic TOP PRN PRN 07/11/18 Loperamide [Imodium] 2 mg PO PRN PRN 07/11/18 Megestrol Acetate 400 mg PO BID 07/11/18 Morphine Sulfate [Ms Contin] 15 mg PO DAILY MDD titrating off 07/11/18 Polyethylene Glycol 3350 [Miralax] 17 mg PO DAILY PRN 07/11/18 Prochlorperazine Maleate [Compazine] 10 mg PO Q4HR PRN 07/11/18 Senna [Senokot] 8.6 mg PO BID PRN MDD hold loose stools 07/11/18 Docusate Sodium [Dulcolax Stool Softener] 100 mg PO BID PRN 07/15/18 Hydrocortisone Acetate [Anucort-Hc] 25 mg RC BID PRN 07/15/18 Omeprazole [PriLOSEC] 20 mg PO DAILY 07/15/18 Fludrocortisone [Florinef] 0.1 mg PO BID 08/20/18 LORazepam [Ativan] 1 mg PO QPM 08/20/18 Psyllium [Metamucil] 1 packet PO DAILY 08/20/18 glyBURIDE [Glyburide] 5 mg PO DAILY 08/20/18 Lipase/Protease/Amylase [Shamika Alonso 36,000 Units Capsule] 2 cap PO BID PRN 08/21/18 Ondansetron [Zofran Odt] 8 mg PO AC PRN 08/21/18 Objective - Vital Signs/Intake & Output Reviewed Vital Signs: Yes Vital Signs: Vital Signs x48h Temp Pulse Resp BP Pulse Ox 08/24/18 00:00 37.2 C 90 20 131/77 H 95 Intake & Output: Intake & Output 08/22/18 08/23/18 08/23/18 08/24/18 00:59 00:59 23:59 23:59 Intake Total 300 Output Total 250 Balance 50 - Objective General Appearance: positive: No acute distress, Alert (White male, looks stated age, quiet muted affect, balding with glasses sitting upright in a chair eating his breakfast and looking out the window) Eyes Bilateral: positive: PERRL, EOMI ENT: positive: Pharynx nml Neck: positive: No JVD. negative: Stiff neck, Carotid bruit Respiratory: positive: Chest non-tender, No respiratory distress, Other (Slow, shallow, unlabored respiration). negative: Wheezes, Rales, Rhonchi Cardiovascular: positive: Regular rate & rhythm, Systolic murmur. negative: Gallop/S4, Friction rub Abdomen: positive: Nml bowel sounds, No distention, Tenderness (Mild and diffuse especially in the lower quadrants). negative: Guarding, Rebound Skin: positive: Warm, Dry, Pallor Extremities: positive: Non-tender, Pedal edema (And anasarca.) Neurologic/Psychiatric: positive: Oriented x3, CN's nml (2-12), Motor nml - Lab Results Fish Bones: 08/24/18 04:45 08/24/18 04:45 Other Labs: Lab Results x24hrs 08/24/18 08/24/18 08/24/18 Range/Units 07:18 04:45 04:45 WBC (4.8-10.8) x10^3/uL RBC (4.70-6.10) 10^6/uL Hgb (14.0-18.0) g/dL Hct (42.0-52.0) % MCV (80.0-94.0) fL MCH (27.0-31.0) pg MCHC (32.0-36.0) g/dL RDW (12.0-15.0) % Plt Count (130-450) 10^3/uL MPV (7.4-11.4) fL Anti-Xa Level 0.3 ( - 0.7) U/mL Sodium 139 (135-145) mmol/L Potassium 3.8 (3.5-5.0) mmol/L Chloride 110 (101-111) mmol/L Carbon Dioxide 20 L (21-32) mmol/L Anion Gap 9.0 (6-13) BUN 11 (6-20) mg/dL Creatinine 0.5 L (0.6-1.2) mg/dL Estimated GFR (MDRD) 160 (>89) Glucose 124 H (70-100) mg/dL POC Whole Bld Glucose 128 H (70 - 100) mg/dL Calcium 7.5 L (8.5-10.3) mg/dL 08/24/18 08/23/18 08/23/18 Range/Units 04:45 22:50 20:24 WBC 5.5 (4.8-10.8) x10^3/uL RBC 3.02 L (4.70-6.10) 10^6/uL Hgb 10.6 L (14.0-18.0) g/dL Hct 30.8 L (42.0-52.0) % MCV 102.1 H (80.0-94.0) fL MCH 35.2 H (27.0-31.0) pg MCHC 34.5 (32.0-36.0) g/dL RDW 14.8 (12.0-15.0) % Plt Count 177 (130-450) 10^3/uL MPV 9.0 (7.4-11.4) fL Anti-Xa Level 0.3 ( - 0.7) U/mL Sodium (135-145) mmol/L Potassium (3.5-5.0) mmol/L Chloride (101-111) mmol/L Carbon Dioxide (21-32) mmol/L Anion Gap (6-13) BUN (6-20) mg/dL Creatinine (0.6-1.2) mg/dL Estimated GFR (MDRD) (>89) Glucose (70-100) mg/dL POC Whole Bld Glucose 214 H (70 - 100) mg/dL Calcium (8.5-10.3) mg/dL 08/23/18 08/23/18 Range/Units 16:28 04:40 WBC 4.9 (4.8-10.8) x10^3/uL RBC 3.16 L (4.70-6.10) 10^6/uL Hgb 11.1 L (14.0-18.0) g/dL Hct 32.4 L (42.0-52.0) % MCV 102.4 H (80.0-94.0) fL MCH 35.0 H (27.0-31.0) pg MCHC 34.1 (32.0-36.0) g/dL RDW 15.0 (12.0-15.0) % Plt Count 175 (130-450) 10^3/uL MPV 8.9 (7.4-11.4) fL Anti-Xa Level ( - 0.7) U/mL Sodium (135-145) mmol/L Potassium (3.5-5.0) mmol/L Chloride (101-111) mmol/L Carbon Dioxide (21-32) mmol/L Anion Gap (6-13) BUN (6-20) mg/dL Creatinine (0.6-1.2) mg/dL Estimated GFR (MDRD) (>89) Glucose (70-100) mg/dL POC Whole Bld Glucose 211 H (70 - 100) mg/dL Calcium (8.5-10.3) mg/dL ABX Reporting Has patient been on IV antibiotics over the past 48 hours?: Yes Assessment/Plan - Problem List (1) Mesenteric vein thrombosis Impression: Abdomen CT shows progression of tumor. Anatomy distortion because of stents in the biliary system continue but are not worse. But he has a mesenteric vein thrombosis as well. I spoke to his oncologist, Dr. Anderson, on 08/23 and he does recommend IV heparin and subsequent Lovenox. This could be the cause of some of his abdominal pain, stress on his bowel, and the fever we saw 08/22. He has responded to IV antibiotic therapy.Lactic acid has responded. The highest it w as was 4.6 on August 21. Steadily dropping since then and it is 1.9 as 08/21 10 pm Plan: Continue empiric antibiotic therapy. Vancomycin and cefepime twice daily. Day #3 yesterday. Since the source of his fever was bowel, changed to single agent zosyn last night. Day #1 Blood cultures negative. Heparin drip to stop a few hours after lovenox Lovenox now. Patient and to be instructed on how to use. Case discussed with patient. (2) Hypokalemia Impression: Potassium started at 2.0 > 2.3 > 2.8 > 3.1> 3.6 > 3.4>3.8 today continue to monitor and supplement (2) Diarrhea He presents as having diarrhea since his chemotherapy started. Started probably couple of days after chemotherapy ended. Diarrhea has been getting prog ressively worse to the point that 3 days before admission his diarrhea was yellow and foul-smelling. Became so dehydrated and weak and tired with low blood pressure that was recommended he come to the emergency room C. difficile PCR is negative, campy and shigella negative. continue IV fluids, Electrolyte replacement prn continue Imodium as needed Add fiber at his request Eating 75-100% of food. (3) Hypomagnesemia resolved, mag is 1.8 (4) Dehydration Conclusion/Plan: Causing orthostatic hypotension in the outpatient setting and that was why he was sent in. Resolved He is much improved and blood pressure is now high. continue IV fluids, Controlled diarrhea, Electrolyte replacement continue lab monitor His Florinef was stopped because of the high blood pressure. (5) Pancreatic cancer continue Pain control, Continue pancreatic enzymes daily Follow-up with oncology as an outpatient once discharged. He is very discouraged. They said that as long as he has a steady course they feel like there is some stability and hope. But with these ups and downs he gets very discouraged. He is not afraid of dying he is just so tired of late up-and-down roller coaster aspect. Emotional support provided. Palliative care already seeing the patient. CT of abd seems to show tumor progression. change zofran to fixed schedule dose ac. (6) Diabetes Conclusion/Plan: continue Hold metformin and glyburide In the outpatient setting I do not recommend metformin. Yesterday his glucose is 116, 209, 211, 214. This morning he is 124. continue sliding scale for insulin. He has received 1 to 4 units a day so far. A1c 8.5 (7) BPH (benign prostatic hyperplasia) status post TURP procedure, continue finasteride. (8) Iron deficiency anemia on top of his chemo induced anemia Laboratory Tests 08/21/18 04:15 Iron 35 L TIBC 211 L % Saturation 17 L Transferrin 151 L Ferous sulfate 325 mg started. once a day.
[2018-08-24] MEDS: ESCITALOPRAM 10 MG TABLET PO SCH (08:42)
[2018-08-24] MEDS: FAMOTIDINE 20 MG TABLET PO SCH ×2 (08:42→20:18)
[2018-08-24] MEDS: SACCHAROMYCES BOULARDII 250 MG CAPSULE PO SCH ×2 (08:42→17:11)
[2018-08-24] MEDS: MEGESTROL 400 MG/10 ML UDC PO SCH (08:42)
[2018-08-24] MEDS: FERROUS SULFATE 325 MG TABLET PO SCH (08:42)
[2018-08-24] MEDS: ENOXAPARIN 100 MG/ML SYRINGE SUBQ SCH (08:43)
[2018-08-24] MEDS: CREON 36000 UNIT PO SCH ×3 (08:44→17:11)
[2018-08-24] MEDS: INSULIN ASPART 300 UNIT/3 ML PEN SUBQ SCH ×4 (08:44→20:19)
[2018-08-24] MEDS: POLYETHYLENE GLYCOL 3350 17 GM PACKET PO SCH (08:48)
[2018-08-24] MEDS: ONDANSETRON ODT 4 MG TABLET TL PRN (09:48)
[2018-08-24] MEDS ORDERED: WHEAT DEXTRIN POWDER PACKET PO PRN (10:48)
[2018-08-24] MEDS ORDERED: INSULIN ASPART 300 UNIT/3 ML PEN SUBQ SCH (12:00)
[2018-08-24] MEDS: ONDANSETRON ODT 4 MG TABLET TL SCH ×2 (12:55→17:11)
--- NOTE | 2018-08-24 14:10 | CONSULTATION NOTE ---
Palliative Care Follow Up - Referral Referring Provider: Dr. Uyen Baez/Eli Machado Time of Visit: 6713-9007 Referral setting: Hospitalized patient Referral Reason: Metastatic Pancreatic Cancer/Goals of Care - Information Sources Records reviewed: RN notes reviewed, Previous records reviewed History/Review of Systems obtained from: Patient, Family ( Rachelle at bedside), Caregiver (clinical staff) Exam limitations: No limitations - History of Present Illness Update Brief HPI Update: This is a 77-year-old gentleman with an unfortunate history of pancreatic cancer with metastases to the liver, has 2 known stents. He has been on chemotherapy, had developed ongoing diarrhea and was admitted to [facility] on 08/19 for dehydration and hypokalemia. He did on 08/20 developed sepsis, has been receiving antibiotics, was found on abdomen CT to show progression of the tumor. 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 Patient has had intermittent abdominal pain, fleeting in nature today. Does present with distention, symptoms of anasarca, and developing loose stools again most likely attributed to the antibiotic therapy at this point. Patient reports he is weak, has been mostly bedbound, has swelling in his arms, abdomen, and lower extremities. His lung sounds are diminished, mild shortness of breath but not acute. Is feeling discouraged, and concerned about ongoing decline regarding quality of life. Palliative care continue to provide support for pain and symptom management, anticipatory guidance, and defining goals of care Social History - Living Situation Living arrangement: At home Living Situation: With spouse/s.o. Support System: Patient has been supported by home health, recently started some paid car egiving, awaiting time limit before can access long-term care insurance. has been managing most of care needs, which is becoming more complex, patient is concerned regarding the burden on his . Medications/Allergies - Medications Active Medication List: Active Medications Acetaminophen (Tylenol) 650 mg PO Q4HR PRN PRN Reason: Pain 1 to 4 Last Admin: 08/21/18 21:19 Dose: 650 mg Clonidine HCl (Catapres) 0.1 mg PO BID PRN PRN Reason: Hypertensive Emergency Enoxaparin Sodium (Lovenox) 100 mg SUBQ DAILY [facility] Last Admin: 08/24/18 08:43 Dose: 100 mg Escitalopram Oxalate (Lexapro) 20 mg PO DAILY [facility] Last Admin: 08/24/18 08:42 Dose: 20 mg Famotidine (Pepcid) 20 mg PO BID [facility] Last Admin: 08/24/18 08:42 Dose: 20 mg Ferrous Sulfate (Feosol) 325 mg PO DAILYWM [facility] Last Admin: 08/24/18 08:42 Dose: 325 mg Finasteride (Proscar) 5 mg PO QPM [facility] Last Admin: 08/23/18 20:24 Dose: 5 mg Heparin Sodium (Porcine) () 1,750 unit IVP ONCE PRN PRN Reason: ANTI-XA < 0.2UNITS/ML Stop: 08/28/18 19:59 Hydromorphone HCl (Dilaudid) 2 mg PO Q4HR PRN PRN Reason: PAIN Hydromorphone HCl (Dilaudid Inj Carp) 1 mg IVP Q2HR PRN PRN Reason: Pain 8 to 10 Piperacillin Sod/Tazobactam (Sod 3.375 gm/ Sodium Chloride) 100 mls @ 200 mls/hr IV Q6H [facility] Last Infusion: 08/24/18 13:20 Dose: Infused Insulin Aspart (Novolog) 2 - 10 unit SUBQ 0800,1200,1700,2100 [facility]; Protocol Stop: 08/28/18 20:59 Last Admin: 08/24/18 12:54 Dose: 6 unit Loperamide HCl (Imodium) 2 mg PO QID PRN PRN Reason: Diarrhea Last Admin: 08/23/18 17:25 Dose: 2 mg Lorazepam (Ativan) 0.5 mg PO DAILY PRN PRN Reason: Anxiety Last Admin: 08/23/18 20:24 Dose: 0.5 mg Megestrol Acetate (Megace) 400 mg PO BID [facility] Last Admin: 08/24/18 08:42 Dose: 400 mg Mineral Oil (Cavilon) 1 applic TOP PRN PRN PRN Reason: Skin Care Last Admin: 08/23/18 08:49 Dose: 1 applic Ondansetron HCl (Zofran Odt) 4 mg TL TIDWM [facility] Last Admin: 08/24/18 12:55 Dose: Not Given Creon 75301 Unit 3 each PO TIDWM [facility] Last Admin: 08/24/18 12:55 Dose: 3 each Polyethylene Glycol (Miralax) 17 gm PO DAILY [facility] Last Admin: 08/24/18 08:48 Dose: Not Given Prochlorperazine Edisylate (Compazine Inj) 10 mg IVP Q6HR PRN PRN Reason: Nausea / Vomiting Promethazine HCl (Phenergan Inj) 25 mg IM Q6HR PRN PRN Reason: Nausea / Vomiting Saccharomyces Boulardii (Florastor) 250 mg PO BIDWM [facility] Last Admin: 08/24/18 08:42 Dose: 250 mg Sodium Chloride (Normal Saline Flush 0.9%) 10 ml IVP PRN PRN PRN Reason: NEEDED PER PROVIDER ORDERS Last Admin: 08/21/18 04:22 Dose: 10 ml Sodium Chloride (Normal Saline Flush 0.9%) 10 ml IVP 0100,0900,1700 [facility] Last Admin: 08/24/18 08:48 Dose: Not Given Wheat Dextrin (Benefiber) 1 packet PO DAILY PRN PRN Reason: Constipation Zolpidem Tartrate (Ambien) 5 mg PO QPM PRN PRN Reason: Insomnia Finasteride 5 mg PO QPM 04/15/18 Lipase/Protease/Amylase [Creon Dr 36,000 Units Capsule] 2 - 4 cap PO TID 04/15/18 metFORMIN [Glucophage] 1,000 mg PO BID 04/15/18 Acetaminophen 1,000 mg PO BID 07/11/18 Bisacodyl 10 mg [place] DAILY PRN 07/11/18 Enemeez 1 bottle [place] .QOD PRN 07/11/18 Escitalopram Oxalate [Lexapro] 20 mg PO DAILY 07/11/18 HYDROmorphone [Dilaudid] 2 mg PO Q4HR PRN 07/11/18 Lidocaine [Topicaine 5] 1 applic TOP PRN PRN 07/11/18 Loperamide [Imodium] 2 mg PO PRN PRN 07/11/18 Megestrol Acetate 400 mg PO BID 07/11/18 Morphine Sulfate [Ms Contin] 15 mg PO DAILY MDD titrating off 07/11/18 Polyethylene Glycol 3350 [Miralax] 17 mg PO DAILY PRN 07/11/18 Prochlorperazine Maleate [Compazine] 10 mg PO Q4HR PRN 07/11/18 Senna [Senokot] 8.6 mg PO BID PRN MDD hold loose stools 07/11/18 Docusate Sodium [Dulcolax Stool Softener] 100 mg PO BID PRN 07/15/18 Hydrocortisone Acetate [Anucort-Hc] 25 mg RC BID PRN 07/15/18 Omeprazole [PriLOSEC] 20 mg PO DAILY 07/15/18 Fludrocortisone [Florinef] 0.1 mg PO BID 08/20/18 LORazepam [Ativan] 1 mg PO QPM 08/20/18 Psyllium [Metamucil] 1 packet PO DAILY 08/20/18 glyBURIDE [Glyburide] 5 mg PO DAILY 08/20/18 Lipase/Protease/Amylase [Creon Dr 36,000 Units Capsule] 2 cap PO BID PRN 08/21/18 Ondansetron [Zofran Odt] 8 mg PO AC PRN 08/21/18 - Allergies Allergies/Adverse Reactions: Allergies Allergy/AdvReac Type Severity Reaction Status Date / Time No Known Allergies Allergy Unknown Verified 08/20/18 19:59 Review of Systems - Constitutional Constitutional: reports: Fatigue, Weight gain. denies: Fever - Eyes Eyes: reports: Vision loss, Corrective lenses - Ears, Nose & Throat Ears, Nose & Throat: reports: Hearing loss. denies: Dry mouth - Cardiovascular Cardiovascular: reports: Edema, Exertional dyspnea, Decr. exercise tolerance. denies: Chest pain - Respiratory Respiratory: reports: SOB with exertion. denies: Cough, Wheezing, SOB at rest - Gastrointestinal Gastrointestinal: reports: Abdominal pain (intermittent and fleeting; no pain medications required), Diarrhea (started loose stool this am; second one soft; negative for bleeding), Good appetite (improved). denies: Nausea - Genitourinary Genitourinary: reports: Frequency - Musculoskeletal Musculoskeletal: reports: Muscle weakness, Assistive devices (uses walker; bedroom upstairs in home; had been working with home PT; considering chair lift for [employer]) - Integumentary Integumentary: reports: Dryness - Neurological Neurological: reports: General weakness - Hematologic/Lymphatic Hematologic/Lymphatic: reports: Anemia - All Other Systems All Other Systems: reports: Reviewed and negative Physical Exam - Vital Signs Vital Signs: Vital Signs x48h Temp Pulse Resp BP Pulse Ox 08/24/18 08:33 36.9 C 89 18 146/83 H 97 - Physical Exam General Appearance: positive: No acute distress, Alert Eyes Bilateral: positive: Normal inspection ENT: positive: No signs of dehydration Neck: positive: No JVD, Trachea midline Cardiovascular: positive: Regular rate & rhythm Respiratory: positive: Diminished in bases. negative: Wheezes, Rales, Rhonchi Abdomen: positive: Soft, Abnml bowel sounds (hyperactive), Distended Skin: positive: Pallor Extremities: positive: Pedal edema (2+ edema up to mid thigh; sacral swelling; arms with swelling and pooling in elbows) Neurologic/Psychiatric: positive: Oriented x3, Mood/affect nml, Weakness, Flat affect Palliative Care - POLST Patient has POLST: Yes POLST Status: DNR, Selective Treatment Pain: Pain improved, Location (fleeting abdominal gas pains; occasionally with persistance; none at time of visit) Tiredness/Fatigue: Severe (7-10) Drowsiness/Sedation: Mild (1-3) Nausea: None Depression: Moderate (4-6) Anxiety: None Performance Status: Patient has been having declining functional status, with ambulating around the home with front wheeled walker for short distances. Patient with poor activity tolerance, has been mostly in bed since hospitalization, has been up in the chair. Goal is for patient to walk today, would recommend considering physical therapy. - Palliative Care Discussion: Patient feeling somewhat overwhelmed by his continued health problems, concern for being able to have some quality of life again. He does recognizes he is declining and worried about the increase stressors for Rachelle. At this point unclear as far as future treatment plans, given patient's functional decline, increasing symptom burden, and now more acute health problems is unclear what he really wants at this point. Though in agreement needs to follow-up with oncologist, did discuss in the context of decision making, treatment versus supportive care. Did meet with Rachelle separately, she was quite overwhelmed as her father had of sepsis, worried about his increasing swelling last night, and it was worsening just like her dad prior to his acute decline/. Did spend time counseling with Rachelle regarding the continuum of care, accessing increased care in the home, recommended proceeding with contacting care agency for increased caregiving hours. Patient often defers healthcare decision and direction of care to , discussed this is a good opportunity to revisit what is most important to him, may need more information though before able to make any significant decisions. She plans to contact Dr. Cornejo as has good relationship with him to help understand next steps. We also discussed the continuum of care including hospice, the role in providing support at home, and the focus as far as philosophy. Whether this decision is more imminent or in the future what this looks like for patient's and families. Results - Lab Results Lab results reviewed: Yes Fish Bones: 08/24/18 04:45 08/24/18 04:45 Lab and Imaging Results: Lab Results x24hrs 08/24/18 08/24/18 08/24/18 Range/Units 11:26 07:18 04:45 WBC (4.8-10.8) x10^3/uL RBC (4.70-6.10) 10^6/uL Hgb (14.0-18.0) g/dL Hct (42.0-52.0) % MCV (80.0-94.0) fL MCH (27.0-31.0) pg MCHC (32.0-36.0) g/dL RDW (12.0-15.0) % Plt Count (130-450) 10^3/uL MPV (7.4-11.4) fL Anti-Xa Level 0.3 ( - 0.7) U/mL Sodium (135-145) mmol/L Potassium (3.5-5.0) mmol/L Chloride (101-111) mmol/L Carbon Dioxide (21-32) mmol/L Anion Gap (6-13) BUN (6-20) mg/dL Creatinine (0.6-1.2) mg/dL Estimated GFR (MDRD) (>89) Glucose (70-100) mg/dL POC Whole Bld Glucose 233 H 128 H (70 - 100) mg/dL Calcium (8.5-10.3) mg/dL 08/24/18 08/24/18 08/23/18 Range/Units 04:45 04:45 22:50 WBC 5.5 (4.8-10.8) x10^3/uL RBC 3.02 L (4.70-6.10) 10^6/uL Hgb 10.6 L (14.0-18.0) g/dL Hct 30.8 L (42.0-52.0) % MCV 102.1 H (80.0-94.0) fL MCH 35.2 H (27.0-31.0) pg MCHC 34.5 (32.0-36.0) g/dL RDW 14.8 (12.0-15.0) % Plt Count 177 (130-450) 10^3/uL MPV 9.0 (7.4-11.4) fL Anti-Xa Level 0.3 ( - 0.7) U/mL Sodium 139 (135-145) mmol/L Potassium 3.8 (3.5-5.0) mmol/L Chloride 110 (101-111) mmol/L Carbon Dioxide 20 L (21-32) mmol/L Anion Gap 9.0 (6-13) BUN 11 (6-20) mg/dL Creatinine 0.5 L (0.6-1.2) mg/dL Estimated GFR (MDRD) 160 (>89) Glucose 124 H (70-100) mg/dL POC Whole Bld Glucose (70 - 100) mg/dL Calcium 7.5 L (8.5-10.3) mg/dL 08/23/18 08/23/18 08/23/18 Range/Units 20:24 16:28 04:40 WBC 4.9 (4.8-10.8) x10^3/uL RBC 3.16 L (4.70-6.10) 10^6/uL Hgb 11.1 L (14.0-18.0) g/dL Hct 32.4 L (42.0-52.0) % MCV 102.4 H (80.0-94.0) fL MCH 35.0 H (27.0-31.0) pg MCHC 34.1 (32.0-36.0) g/dL RDW 15.0 (12.0-15.0) % Plt Count 175 (130-450) 10^3/uL MPV 8.9 (7.4-11.4) fL Anti-Xa Level ( - 0.7) U/mL Sodium (135-145) mmol/L Potassium (3.5-5.0) mmol/L Chloride (101-111) mmol/L Carbon Dioxide (21-32) mmol/L Anion Gap (6-13) BUN (6-20) mg/dL Creatinine (0.6-1.2) mg/dL Estimated GFR (MDRD) (>89) Glucose (70-100) mg/dL POC Whole Bld Glucose 214 H 211 H (70 - 100) mg/dL Calcium (8.5-10.3) mg/dL Impression and Recommendations - Palliative Care Impression: This is a 77-year-old gentleman with metastatic pancreatic cancer, with liver metastases and status post stents. Patient had developed sepsis, no underlying etiology identified, but is responding. Also found to have mesenteric vein t hrombosis, started on anti-coag, to learn Lovenox injections. Patient remains discouraged, presents with anasarca, and weakness. Palliative care to continue to follow patient through continuum for symptom management and anticipatory guidance. Recommendations/Counseling Done: 1. Depression. Patient does present with depressive feelings, counseling to normalize feelings of grief and loss and discouragement. Discussed in the context of quality of life issues, addressed questions, and future decision making regarding weighing benefits of burdens of moving forward with treatment. Encouraged patient and to revisit conversations regarding goals of care, patient often defers decision making to . 2. Mesenteric vein thrombosis. Patient initiated on heparin, transition to Lovenox. aware clinical staff will be working with her for training, address questions regarding lifelong commitment as outpatient has presented with clot. Follow-up with hospitalist regarding discontinuing Megace related to risk factors. 3. Anasarca. Patient presents with increased discomfort regarding swelling in arms, legs, belly and sacrum. Patient currently not receiving IV fluids other than IV antibiotics, will follow up with hospitalist regarding the role of di uretics as patient is currently eating and drinking. 4. Advanced care planning. Met with regarding need for increased assistance in the home, recommended following up with agency caregiving support. Does have home health which will resume on discharge, currently receiving bathing, nursing, and PT. At this point discussed weighing benefits and burdens of having patient either upstairs in bedroom or downstairs in spare bedroom, but recommended at least until patient's baseline functional status improved not to go up and down the stairs but to centralize his care. Counseling provided regarding anticipatory guidance over the transition and continuum of care including hospice. Time Spent: 40 minutes with greater than 50% of this done in counseling regarding anticipatory guidance, recommendations regarding transition home, and further exploration regarding goals of care
[2018-08-24] MEDS: SODIUM CHLORIDE FLUSH 0.9% 10 ML SYRINGE IVP PRN ×2 (14:49→22:15)
[2018-08-24] MEDS ORDERED: WATER FOR INJECTION,STERILE 10 ML ONE (18:39)
[2018-08-24] MEDS: LORazepam 0.5 MG TABLET PO PRN (20:18)
[2018-08-24] MEDS: FINASTERIDE 5 MG TABLET PO SCH (20:18)
[2018-08-25] MEDS ORDERED: SODIUM CHLORIDE FLUSH 0.9% 10 ML SYRINGE IVP PRN (02:31)
[2018-08-25] MEDS: PIPERACILLIN/TAZOBACTAM 3.375 GM in SODIUM CHLORIDE 0.9% MINIBAG 100 ML IV SCH ×2 (05:33→11:36)
[2018-08-25] MEDS: SODIUM CHLORIDE FLUSH 0.9% 10 ML SYRINGE IVP SCH ×2 (05:33→11:36)
[2018-08-25] MEDS: SODIUM CHLORIDE FLUSH 0.9% 10 ML SYRINGE IVP PRN ×2 (05:37→12:53)
[2018-08-25 07:52] VITALS: BP 149/89
[2018-08-25] MEDS: ONDANSETRON ODT 4 MG TABLET TL SCH ×2 (08:08→12:40)
[2018-08-25] MEDS: FAMOTIDINE 20 MG TABLET PO SCH (08:30)
[2018-08-25] MEDS: ESCITALOPRAM 10 MG TABLET PO SCH (08:30)
[2018-08-25] MEDS: INSULIN ASPART 300 UNIT/3 ML PEN SUBQ SCH ×2 (08:30→12:40)
[2018-08-25] MEDS: FERROUS SULFATE 325 MG TABLET PO SCH (08:30)
[2018-08-25] MEDS: SACCHAROMYCES BOULARDII 250 MG CAPSULE PO SCH (08:30)
[2018-08-25] MEDS: CREON 36000 UNIT PO SCH ×2 (08:31→12:40)
[2018-08-25] MEDS: POLYETHYLENE GLYCOL 3350 17 GM PACKET PO SCH (08:35)
[2018-08-25] MEDS: LOPERAMIDE 2 MG CAPSULE PO PRN (09:13)
--- NOTE | 2018-08-25 10:16 | ADVANCE CARE PLANNING NOTE ---
Advance Care Planning - Date/Time Date: 08/25/18 Time: 10:08 - Purpose of encounter Text: Relay patient fears and hopes to the providers who will take care of him - Parties in attendance Parties in attendance: Hospitalist, Dr. Machado and the patient - Decisional capacity Decisional capacity of: patient is appropriate. A&O x 3. Lucid. - Subjective/Patient's story Subjective/Patient's story: This is a timur gentleman who is now in the hospital of complications of nausea vomiting and diarrhea. He was very dehydrated, hypotensive and hypokalemic. This is on the face of ongoing treatment for pancreatic cancer, stage IV. 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 He took a sabbatical and went to work for the [employer] and when he finished working for the [employer] came back with a different view of what life should be. 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 Currently was working for the [employer]. He has lived in [facility], [facility], [place], [place]. [facility] is one of his most favorite vibrant places. It was in [facility] where he met his second . His job involved meeting new people, constantly negotiating, and making final decisions on large grants that would change the lives of people in their community. He ended up living in [facility] for mcc. After all those years of traveling, he told his that "we were not moving anymore". But she has terrible allergies, and while visiting [facility] 5 years ago, the fell in love with the place. So now they spend their time between [facility] and here. Unfortunately he presented with abdominal pain and weight loss and ended up being diagnosed with pancreatic cancer. They have chosen for the Oncologist. He's at [facility]. While they respect the treatment, and have deliberately chosen to go with his style of management, the [place] has become a [place]. His last infusion had to be canceled because he had diarrhea and was incontinent on the way there. He knows that the treatment was never going to cure him. But he had hoped for some more dramatic response. In the beginning they had so much hope that he would be 1 of those responders that would last a long time with a good quality of life. But as this is gone on, and the numerous complications that have ensued, he wonders if he is made the right decision. He asked me "when is the right time to change my mind and stop this". In spite of the hospitalizations and illness, he does say that the mainstay in his life is his . He loves her very much. In all marriages there are times one could cheerfully stab them, but for the most part, he finds her a stable foundation to the current stress in his life. He has 1 son from a previous marriage, a daughter from his current marriage. He loves both of his children. He says that they are "good people". His son works for the [employer] and came to visit 3 weeks, and then came back in for another week for his sister's wedding. [place]" but he thinks he she came to spend more time with him and help his . They just had her wedding about a week ago. He worries about his . There are so many little things that he did in the day to day of their life, and she didn't realize how much he did. So she is learning and doing everything now. he feels both guilty and responsible for her as she does this. He is just very distressed about the amount of fatigue he has. He has no energy. Simple things exhaust him. He has constant abdominal discomfort that comes and goes. And with each abdominal discomfort he is fearful that "this is it". He wants to know what the dying process will be like for him. Can I describe but will eventually happen to him? He helped be with his grandfather when his grandfather in terrible, agonizing pain. He was screaming in pain and discomfort and no one could help him. He doesn't want to like his grandfather. He has yet to decide at what point and which quality of life issue he loses, will determine when he stops this. He and his has had preliminary conversations when he was first diagnosed. But they have been so caught up in this process of ongoing treatment that they have not really had more conversation in this area. He is going to go home today. And he really wishes he was not. He feels safe here. While the constant coming and going of the nurses at night drives him insane, he has gotten good care and he feels like if anything went wrong we would respond quickly. - Objective/Medical story Objective/Medical Story: Patient is a 77-year-old gentleman with an unfortunate history of pancreatic cancer with metastasis to the liver diagnosed earlier this year status post 4 rounds of gemcitabine and Abraxane and currently having had 2 rounds of FOLFIRI with last chemotherapy treatment on 08/05/2018 who presents to the emergency department with a chief complaint of diarrhea. The patient otherwise has a past medical history significant for diabetes, hypertension, hyperlipidemia, coronary artery disease status post 2 stents, heart block status post pacemaker and peripheral neuropathy which has become worse since starting chemotherapy. The patient states that after his most recent chemotherapy treatment he began having diarrhea. He states the diarrhea started 2 days after he completed the chemo session. He states that since he has had diarrhea off and on but usually not more than 1-2 bowel movements a day. He states that the diarrhea became significantly worse over the last 3 days. He states that over the last 3 days he has been having 4-5 episodes of loose stools per day. He states that the stool has been yellowish in color and foul-smelling. He denies any blood in the stools. He does admit to having some abdominal grumbling and discomfort prior to having episodes of diarrhea but denies any significant abdominal pain. The patient also denies any fevers or chills. He denies any nausea or vomiting. The patient was on antibiotics in June for cholangitis. He has not had any sick contacts. The patient states that he was supposed to start his third round of chemotherapy yesterday but was unable to go due to ongoing diarrhea. The patient states that he has become increasingly weak with the diarrhea and although he is been trying to hydrate himself he feels as though he is dehydrated. He states that he has been taking Imodium the last few days but it has not stopped the diarrhea. He states that today he had one loose bowel movement in the morning but has not had any since. The patient states that his palliative care nurse practitioner ordered lab tests today and called him to tell him to come to the emergency department due to a low potassium. The patient states that he did have abdominal pain with his pancreatic cancer but that is now well controlled. He states he only takes Dilaudid as needed for the abdominal pain. He does state that he has bad peripheral neuropathy which he did have with diabetes but has become significantly worse since being placed on chemotherapy. He states that the peripheral neuropathy has made it more difficult for him to get around and ambulate. Patient denies any headaches, blurred vision, runny nose, sore throat, nasal congestion, difficulty swallowing, chest pain, shortness of air, orthopnea, PND, increased lower extremity swelling, urinary urgency, urinary frequency, dysuria, joint swelling, joint pain, back pain, neck stiffness, skin changes, polyuria, polydipsia, muscle aches, night sweats or any focal neurologic deficits. On presentation to the emergency department the patient was afebrile and vital signs were stable. The patient did appear to be quite dry on examination and appeared to be weak. The patient underwent routine lab work which revealed a potassium of 2.0 and a magnesium of 1.4. The patient also had a mild anemia with a hemoglobin of 12.1 which was near his baseline. The patient also had a mildly elevated BUN but his creatinine was at its baseline. The patient appeared quite dehydrated on examination and was given IV fluids and potassium in the emergency department. It was felt that given his severely low potassium that he would be best off placed in observation for IV potassium replacement and hydration overnight. The patient was placed in observation. He went on to respond to aggressive IV hydration and supplementation of his potassium. Blood pressure normalized and even became hypertensive at times. As we were getting ready to discharge him he then spiked a temp, dropped his pressures, and we treated him for sepsis. Lactic acid level was high. Chest x- ray was negative, UA negative, and lung exam was equivocal. 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 He has been on heparin, now transition to Lovenox. He is completed IV antibiotic therapy for the incipient sepsis. He continues to have diarrhea, intermittent sharp abdominal pain. Makes himself eat and drink in spite of the anorexia. - Goals of Care Goals of care determinations: He wants to spend as much time with his family as possible. He is working through the logistics of his son working for the [employer] in [facility]. He is very grateful [place] when he can see her more often. In the big picture, he wants to remain as independent as possible. There is not a specific event or goal he wants to live for but he wants to remain pain-free, nausea free, and of lucid mentation for as long as possible. - Plan Plan: 1. Have a conversation with his and his daughter about what quality of life means to him in the family. Is he able to define at what point he would stop treatment. While it is not a definitive conversation, and he can always change his mind, it is always a good thing to have those conversations with your family so they know what to do when he can no longer speak for himself. And he will reach a point where lucid conversation with alert consciousness will elude him. 2. Reach out to Savannah Chaudhry (palliative care) and his primary care provider Dr. Kyle. While he is under the care of Dr. Anderson, Dr. Anderson cannot help him on the day-to-day care of what he needs while he lives here. I emphasized to him that both Ms. Chaudhry and Dr. Kyle are his "go to" people. If there is pain, confusion about what to do next, or anything at all, reach out to them and they may be able to guide him about the next step. 3. Establish a more open relationship with Savannah Chaudhry. Of all the people involved in his care team, Ms. Chaudhry will be able to guide him through many of the questions, symptoms, and fears that are part of this sad journey 4. If he does not have information yet to make decisions, asked Dr. Anderson the questions he wants answered. On average, how much time does he have? Is this treatment working or not working? Should he even bother going onto the next treatment? Once Dr. Anderson gives him his answers to his questions, he may be able to make more appropriate decisions for what he wants out of life. - Code Status Code Status: Do Not Attempt Resuscitation - Time Spent on Advance Care Planning Time spent on advance care plannin minutes
--- NOTE | 2018-08-25 10:38 | Discharge Plan ---
Discharge Plan Disposition: Home Health Service Condition: Stable Prescriptions: Ciprofloxacin HCl [Cipro] 500 mg PO BID #8 tablet Enoxaparin [Lovenox] 80 mg SUBQ Q12H #60 syringe Loperamide [Imodium] 2 mg PO QID PRN #60 capsule PRN Reason: Diarrhea Metronidazole [Flagyl] 500 mg PO BID #8 tablet Diet: Regular Activity Restrictions: Activity as Tolerated Shower Restrictions: No Driving Restrictions: No Instruction Topics: Enoxaparin injection Additional Instructions or Follow Up instructions: You were admitted to the hospital because of severe weakness, low potassium, and low blood pressure. While you do have low blood pressure and have to take Florinef for that, this time your blood pressure was low because of dehydration. The dehydration was from severe diarrhea. We did submit analysis of the stool and you do not have infectious diarrhea. Most likely it is a combination of effects of chemotherapy and the fact you take metformin. Metformin can cause quite a bit of loose stools. And if you get dehydrated, metformin can also cause lactic acidosis. After we hydrated you and treated you for the diarrhea, you then had sudden drop in your blood pressure, and had a fever to 38.4. Because of chemotherapy, your white cell count did not go up. But we did feel you had sepsis from an unknown source of infection. Chest x-ray was negative, urine was negative, and blood cultures were negative. In looking for a source of infection, we did a CAT scan of your abdomen. 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 Most likely, the vein thrombosis put pressure on your bowel and caused inflammation and leaking bacteria and infection into your body. You responded well to appropriate antibiotic therapy. You will need a total of 7 days of antibiotic therapy. Your first day of therapy was August 21. Your last day of therapy should be August 28. As such, you will go home on Cipro and Flagyl to complete that therapy. We would like you to discontinue your metformin. Because of your fluid status, risk of diarrhea, metformin is not a great drug for you right now. Perhaps you and Dr. Kyle can decide which pill might be appropriate for you. You are on glyburide 5 mg a day and could possibly increase that to 5 mg twice a day. Megace has been discontinued. Megace increased your risk of venous clot. Since you have a mesenteric vein thrombosis, Megace would be contraindicated. Please continue your home physical therapy and occupational therapy through home health. You already have a nurse that comes to the house. I would like her to do a BMP on a weekly basis on September [address] Kyle or Savannah Chaudhry can follow-up on those results to make sure your potassium, BUN, and creatinine are staying stable. Please see Dr. Kyle for followup and continuity of care in the next 2 weeks. You have asked if it was possible for our medical ambulatory clinic to give you your infusions under the guidance of your oncologist. I do not know if it is but I have left your name with the clinic medical laboratory manager, Bette Cano to give you a call in the next week. She is out of the office until August 27. So might take a couple of days to get back to you. Please continue your visits with Savannah Chaudhry. She is a wonderful resource that can guide you through this process as things come and go. For the mesenteric vein thrombosis, you will now be on Lovenox 80 mg subcutaneously twice a day. Your oncologist is aware of the diagnosis and knows that I am sending you home on this medicine. I have already called Juan our radiology clerk for CT scan. Juan will push your CAT scan of the abdomen to Shaina Dozier so that your oncologist can review that CAT scan. Follow-Up Care: Home Health - RN, Home Health - PT, Home Health - OT No Smoking: If you smoke, Please STOP! Call for help. Follow-up with: Naveed Kyle MD [Primary Care Provider] -
[2018-08-25] MEDS: ENOXAPARIN 100 MG/ML SYRINGE SUBQ SCH (11:36)
--- NOTE | 2018-08-25 15:43 | DISCHARGE SUMMARY ---
Physician: Eli Machado MD DATE OF ADMISSION: 08/20/2018 DATE OF DISCHARGE: 08/25/2018 DISCHARGE DIAGNOSES 1. Sepsis. 2. Mesenteric vein thrombosis. 3. Lactic acidosis. 4. Noninfectious diarrhea, due to chemotherapy. 5. Dehydration. 6. Hypotension. 7. Hypokalemia. 8. Hypomagnesemia. 9. Pancreatic cancer with metastasis to liver. 10. Type 2 diabetes mellitus, controlled, with complications, without long-term use of insulin. 11. Benign prostatic hypertrophy. 12. Anemia from neoplastic drug. 13. Iron deficiency anemia. 14. Hypertension. DISCHARGE MEDICATIONS 1. Megace has been discontinued. 2. Metformin has been discontinued. 3. Acetaminophen 500 mg p.o. q.6 hours p.r.n. pain, fever, headache. 4. Lexapro 20 mg a day. 5. Finasteride 5 mg a day. 6. Florinef 0.1 mg p.o. b.i.d. 7. Glyburide 5 mg a day, consider increasing to twice a day. 8. Anucort-HC 25 mg RC b.i.d. p.r.n. rectal pain and bleeding. 9. Dilaudid 2 mg p.o. q.4 hours p.r.n. pain. 10. Lidocaine topical gel topically to port p.r.n. to access it. 11. Creon 2-4 capsules p.o. t.i.d. before meals. 12. Imodium 2 mg p.o. q.i.d. p.r.n. 13. Ativan 1 mg p.o. q. p.m. 14. MS Contin 15 mg p.o. daily p.r.n. 15. Prilosec 20 mg daily. 16. Zofran 8 mg p.o. before meals t.i.d. p.r.n. 17. Cipro 500 mg p.o. b.i.d. #8. 18. Flagyl 500 mg p.o. b.i.d. 19. Lovenox 80 mg subcutaneously b.i.d. PRINCIPAL PROCEDURES 1. C. difficile assay negative. 2. Campylobacter, salmonella, Shigella assays negative. 3. Blood cultures negative. 4. Occult blood negative. 5. Chest x-ray with low lung volumes, mild cardiomegaly, costophrenic sulcus blunting, may represent small effusions, no infiltrate, no pneumothorax. 6. Abdomen and pelvis CT: A mass in the pancreatic head, uncinate process, compatible with known pancreatic malignancy, increasing in size since prior exam 06/23/2018. Encasement of the superior mesenteric artery and vein with increasing narrowing of the superior mesenteric vein near the confluence with the portal vein and new short segment thrombus in the main portal vein. Tumor above the distal duodenum. No evidence of duodenal obstruction. Metallic common bile duct stent in place. New plastic biliary stent in place. No pneumobilia to confirm stent patency. Suggest correlation with serum LFTs. New small volume peritoneal fluid without definite peritoneal nodularity. Findings would represent malignant effusion. Cholelithiasis. Nonobstructing right nephrolithiasis. HOSPITAL COURSE This is a timur, 77-year-old gentleman who has pancreatic cancer with metastasis to the liver, diagnosed earlier this year. He has 4 rounds of cytarabine and Abraxane and has had 2 rounds of FOLFIRI with last chemotherapy this 08/05/2018. He presents to the emergency room with diarrhea. He had been strongly encouraged to come in by palliative director of healthcare systems, Savannah Quevedo, and the patient had been really hesitating to come in. He has diabetes, hypertension, hyperlipidemia, coronary artery disease with 2 stents, heart block with a pacer, and peripheral neuropathy. The neuropathy has become much worse since starting chemotherapy. After starting the most recent chemotherapy treatment, he began having diarrhea. He also already takes metformin for his diabetes. He continued taking the metformin in spite of the diarrhea. The diarrhea is off and on and no more than 1-2 bowel movements a day, but over the 3 days prior to admission, the diarrhea increased in frequency and discomfort. He was having 4-5 episodes of loose stools, becoming incontinent. Stool was yellowish, foul smelling. No blood. No significant abdominal pain, but increasing abdominal grumbling and discomfort. No fever, no chills. He had been on antibiotics in June for cholangitis. As he was getting in his car driving to [place] for his third round of FOLFIRI, he was incontinent of stool in the car and had to turn around. He tried taking Imodium, but it made no change. His palliative care consult asked for him to do labs today. Labs showed him to have a very low potassium, and he was asked to please come to the emergency room. On examination, he was dry on examination and very weak. Potassium was 2 and magnesium 1.4. Anemia 12.1. Mildly elevated BUN, but creatinine normal. He takes Florinef for low blood pressure. Blood pressure was 140/79, temperature was 36.9, pulse 86, respirations 18. He was initially brought in as noninfectious diarrhea, most likely from a combination of metformin and chemotherapy. He was profoundly hypovolemic, hypokalemic, hypomagnesemic. He responded to normal saline and the potassium and magnesium supplementation. Diarrhea in the form of frequent minimally loose stools continued, but he was definitely on the mend and doing better. On 08/21/2018, he then dropped his blood pressure and had a fever to 38.3. White cell count was not elevated. Examining him did not reveal any new source and that other than his diarrhea and grumbling of his abdomen, there were no new complaints. Urinalysis is negative. Chest x-ray was negative. Blood cultures ended up being negative. He was placed on broad-spectrum antibiotic therapy, and the patient is on chemotherapy and was on vancomycin, Flagyl, and cefepime. CT of the abdomen was done, and he was found to have a mesenteric vein thrombosis as described above. He was started on heparin, then transitioned to Lovenox. Fever went away. He never had an elevated white cell count. Once we identified bowel as probable source of his sepsis, he was switched to single- agent Zosyn. He will need 7 days of antibiotic therapy and will complete the antibiotic therapy with Cipro and Flagyl in the outpatient setting. During his stay, his diabetes were partially controlled. For the most part, he stayed in the 140s to 180s. On a few occasions, he was 220, 230. We have stopped the metformin because of the lactic acidosis. It was quite severe during his admission. Diarrhea and the use of metformin can cause severe lactic acidosis even without infection. His lactic acid peaked at 4.6. It was 1.9 after hydration, antibiotics, and stopping his metformin. He will need his glucose monitored in the outpatient setting a little bit more closely. Without metformin, he may be a candidate for increasing his Glyburide. Because Megace increases risk for venous thrombosis, Megace was discontinued. P.O. intake with regard to diet supplements will also need to be monitored. The patient was an exceedingly charming, intelligent individual who expressed a lot of his fears and wondered what would happen as time went on with his disease. Advanced care planning was done. On the day of discharge, conversation was documented. At the time of discharge, we are resuming all of his usual medications, except for the Megace and metformin. He can go back on the Florinef, but I asked him to revisit that issue with whichever prescriber prescribed the Florinef, since his discharge blood pressure is 149/89, and he was in the 140s and 150s for the 48 hours before discharge. Benign prostatic hypertrophy was not a problem. Diabetes was controlled as above. He was noted to have iron deficiency anemia, as well as anemia from chemotherapy. Fecal occult stool was negative and iron was 35, TIBC 211, percent saturation 17, and transferrin 151. Ferritin was 152. B12 was 469, and folate was 32. He is asked to continue iron in the outpatient setting. PHYSICAL EXAMINATION VITAL SIGNS: At discharge, temperature was 37.1, pulse 85, blood pressure 149/89, respirations 18 and unlabored, 94% on room air. He is a pale, white male, male pattern baldness, glasses. Quiet affect. Very reserved. NECK: Supple. No goiter or bruits. LUNGS: Diminished breath sounds at the bases, and initially he will have a crackle until you have him do a deep cough and then he clears. I have encouraged him to do deep breathing at home and make sure he walks around as much as possible. PMI is normally placed with a regular rate and rhythm. ABDOMEN: Slightly distended. He has generalized aching with deep palpation and will grimace with the pain, but there is no rebound or guarding. Pain is only brought on by deep palpation, and at rest, he says he feels relatively normal. He is still having loose stools off and on. He has developed some anasarca while in the hospital. That has improved over the last 2 days, but still present with edema in the forearms, hands, calves, and feet. He is alert and oriented. Needs a one-person standby assist to be able to sit up in bed and then stand to a transfer position. He wonders if he would benefit from a bedside commode because of the diarrhea. Sometimes, it is just too much to get to the bathroom in time, and he will be incontinent. I will ask case management. Greater than 30 minutes was spent coordinating discharge. TD: 08/25/2018 11:44 MTDJunior
== END 2018-08-25 13:24 | disposition home health service (06) | DRG 871 ==
LOC: ED 19:21 → INTOOBSV 19:41 → OBS 19:41 → UNDOADMOB 19:41 → OBSVTOIN 19:41 → MS2 08-21 16:59 → OBSVTOIN 08-21 17:00 → INTOOBSV 08-21 17:00 → OBS 08-21 18:34 → MS2 08-21 18:34 → UNDODISIN 08-25 13:24
PROVIDERS: ADMIT Internal Medicine; ATTEND Internal Medicine
DX: A41.9 Sepsis, unspecified organism (principal); I81 Portal vein thrombosis; C25.0 Malignant neoplasm of head of pancreas; E87.1 Hypo-osmolality and hyponatremia; C78.7 Secondary malignant neoplasm of liver and intrahepatic bile duct; G62.0 Drug-induced polyneuropathy; K52.1 Toxic gastroenteritis and colitis; R50.9 Fever, unspecified; E87.2 Acidosis; C25.9 Malignant neoplasm of pancreas, unspecified; G89.3 Neoplasm related pain (acute) (chronic); I95.1 Orthostatic hypotension; E86.0 Dehydration; E87.6 Hypokalemia; E83.42 Hypomagnesemia; E86.1 Hypovolemia; E11.65 Type 2 diabetes mellitus with hyperglycemia; D50.9 Iron deficiency anemia, unspecified; D64.81 Anemia due to antineoplastic chemotherapy; T45.1X5A Adverse effect of antineoplastic and immunosuppressive drugs, initial encounter; F41.9 Anxiety disorder, unspecified; K64.9 Unspecified hemorrhoids; D64.9 Anemia, unspecified; E11.42 Type 2 diabetes mellitus with diabetic polyneuropathy; T38.3X5A Adverse effect of insulin and oral hypoglycemic [antidiabetic] drugs, initial encounter; Z95.810 Presence of automatic (implantable) cardiac defibrillator; N40.0 Benign prostatic hyperplasia without lower urinary tract symptoms; F32.9 Major depressive disorder, single episode, unspecified; I10 Essential (primary) hypertension; Z79.891 Long term (current) use of opiate analgesic; I25.10 Atherosclerotic heart disease of native coronary artery without angina pectoris; I45.9 Conduction disorder, unspecified; E78.5 Hyperlipidemia, unspecified; Z66 Do not resuscitate; Z51.5 Encounter for palliative care; Z74.01 Bed confinement status; Z79.84 Long term (current) use of oral hypoglycemic drugs; Z79.899 Other long term (current) drug therapy; Z96.89 Presence of other specified functional implants; Z95.5 Presence of coronary angioplasty implant and graft; Z95.0 Presence of cardiac pacemaker; Z87.19 Personal history of other diseases of the digestive system
CPT/HCPCS: 36415; 71045; 74177; 80048; 80053; 80202; 81001; 81003; 82272; 82607; 82728; 82746; 83036; 83540; 83605; 83690; 83735; 84100; 84132; 84466; 85025; 85027; 85520; 85610; 87040; 87045; 87046; 87086; 87493; 96361; 96365; 96366; 96367; 96372; 99233; 99284; 99285

== ENCOUNTER 2018-08-28 17:41 | Outpatient (CLI) | payer MEDICARE, OTHER ==
--- NOTE | 2018-08-28 17:44 | CONSULTATION NOTE ---
Palliative Care Follow Up - Referral Referring Provider: Dr. Kyle Time of Visit: [id number] Referral setting: Home Referral Reason: Metastatic Pancreatic Cancer - Information Sources Records reviewed: Previous records reviewed History/Review of Systems obtained from: Patient, Family (daughter Dayami and Rachelle at visit) Exam limitations: No limitations - History of Present Illness Update Brief HPI Update: This is a 77-year-old gentleman with pancreatic cancer with metastatic disease to the liver. He is recently hospitalized from 1- 6. Originally with admission for hypokalemia, and noninfectious diarrhea. Patient did spike a temp on second day, was treated for sepsis, and workup, chest x-ray was negative, UA negative, blood cultures negative unable to find source of infection, but in evaluation did CT of the abdomen and found to have a mesenteric vein thrombosis, as well as progression of his cancer. Patient on discharge from the hospital, seen by his primary provider Dr. Kyle in follow up yesterday, found to have developed gout in his right toe. Patient is also being followed by home health, who have resumed services. Patient presents today with reporting 2 episodes of diarrhea over 24 hours, no pain or cramping with this, but distressing as does come with urgency and incontinence. Patient continues with residual anasarca, is reabsorbing the fluid, unfortunately this is meant increase in voiding, and incontinence at nighttime. Still has swelling in his upper extremities left greater than right, as well as his lower extremities feel like "tree limbs", impacting his ambulation. He did have a fall last night when trying to back in to the bathroom with some urgency secondary to diarrhea, with a fall, needing high 911 lift assist no traumatic injuries. Appetite good, feeling weaker, more difficulty ambulating related to weakness and swelling. Denies pain other than new pain in right toe with gout. Has not picked up and started Prednisone yet. Patient has poor recall of events during hospitalization. Social History - Living Situation Living arrangement: At home Living Situation: With spouse/s.o. Support System: Patient's manages most of the care and oversight for patient's medical manage of medications, appointments, and communication. She is getting somewhat overwhelmed, their daughter Dayami is present today for the visit. She is [place] here [place], recently got . He also has a son who visits on a regular basis. They do have friends and community that are supportive as well, patient's plays in the local [employer] Medications/Allergies - Medications Home Medications: Ambulatory Orders Medication Instructions Recorded Confirmed Finasteride 5 mg PO QPM 04/15/18 08/29/18 Lipase/Protease/Amylase [Shamika Alonso 2 - 4 cap PO TID 04/15/18 08/29/18 36,000 Units Capsule] Bisacodyl 10 mg PA DAILY PRN 07/11/18 08/29/18 Escitalopram Oxalate [Lexapro] 20 mg PO DAILY 07/11/18 08/29/18 HYDROmorphone [Dilaudid] 2 mg PO Q4HR PRN 07/11/18 08/29/18 Lidocaine [Topicaine 5] 1 applic TOP PRN PRN 07/11/18 08/29/18 Polyethylene Glycol 3350 [Miralax] 17 mg PO DAILY PRN 07/11/18 08/29/18 Prochlorperazine Maleate 10 mg PO Q4HR PRN 07/11/18 08/29/18 [Compazine] Senna [Senokot] 8.6 mg PO BID PRN MDD hold loose 07/11/18 08/29/18 stools Hydrocortisone Acetate [Anucort-Hc] 25 mg RC BID PRN 07/15/18 08/29/18 Omeprazole [PriLOSEC] 20 mg PO DAILY 07/15/18 08/29/18 Fludrocortisone [Florinef] 0.1 mg PO BID 08/20/18 08/29/18 LORazepam [Ativan] 1 mg PO QPM 08/20/18 08/29/18 Psyllium [Metamucil] 1 packet PO DAILY 08/20/18 08/29/18 glyBURIDE [Glyburide] 5 mg PO DAILY 08/20/18 08/29/18 Lipase/Protease/Amylase [Shamika Alonso 2 cap PO BID PRN 08/21/18 08/29/18 36,000 Units Capsule] Ondansetron [Zofran Odt] 8 mg PO AC PRN 08/21/18 08/29/18 Enoxaparin [Lovenox] 80 mg SUBQ Q12H #60 syringe 08/24/18 08/29/18 Acetaminophen [Tylenol] 650 mg PO Q4HR PRN tablet 08/25/18 08/29/18 Ciprofloxacin HCl [Cipro] 500 mg PO BID #8 tablet 08/25/18 08/29/18 Loperamide [Imodium] 2 mg PO QID PRN #60 capsule 08/25/18 08/29/18 Metronidazole [Flagyl] 500 mg PO BID #8 tablet 08/25/18 08/29/18 Prednisone [Darrell] 20 mg PO DAILY MDD taper 08/29/18 08/29/18 - Allergies Allergies/Adverse Reactions: Allergies Allergy/AdvReac Type Severity Reaction Status Date / Time No Known Allergies Allergy Unknown Verified 08/20/18 19:59 Review of Systems - Constitutional Constitutional: reports: Fatigue, Weight gain (related to swelling; inst. to do daily weights) - Eyes Eyes: reports: Vision loss, Corrective lenses - Ears, Nose & Throat Ears, Nose & Throat: reports: Hearing loss (mild) - Cardiovascular Cardiovascular: reports: Edema (with recent hospitalization developed anasarca), Decr. exercise tolerance - Respiratory Respiratory: reports: SOB with exertion. denies: Cough, SOB at rest - Gastrointestinal Gastrointestinal: reports: Diarrhea (2 episodes since disharge from hospital), Bloating, Early satiety. denies: Rectal bleeding, Nausea - Genitourinary Genitourinary: reports: Frequency, Urgency - Musculoskeletal Musculoskeletal: reports: Stiffness, Muscle weakness, Gout (right great toe; new on discharge), Assistive devices (using walker when up), Other (fall last night when backing into bathroom; had to call 911 for assist) - Integumentary Integumentary: reports: Dryness - Neurological Neurological: reports: General weakness, Dizziness (intermittent), Memory problems (has poor recall of hospitalization; "didn't realize how sick I was") - Psychiatric Psychiatric: reports: Depression, Anxiety - Endocrine Endocrine: reports: Diabetes type 2 (AM 133/155 and pm 168) Physical Exam - Vital Signs Temperature: 97.0 C Pulse Rate: 95 Respiratory Rate: 18 O2 Saturation: 98 (ra @ rest) Blood Pressure: 110/64 (sitting) - Physical Exam General Appearance: positive: No acute distress, Alert, Anxious Eyes Bilateral: positive: Normal inspection ENT: negative: Pharyngeal erythema Neck: positive: No JVD, Trachea midline Cardiovascular: positive: Regular rate & rhythm Respiratory: positive: Diminished in bases (know bilateral small pleural effusions). negative: Wheezes, Rales, Rhonchi Abdomen: positive: Non-tender, Soft, Nml bowel sounds Skin: positive: Pallor, Dryness Extremities: positive: Joint swelling (right great toe with erythema/tenderness on examination) Neurologic/Psychiatric: positive: Oriented x3, Mood/affect nml, Weakness, Flat affect Palliative Care - POLST Patient has POLST: Yes POLST Status: DNR, Selective Treatment Pain: Location (no abdominal pain; new pain great right toe from gout; not needing medication) Tiredness/Fatigue: Severe (7-10) Drowsiness/Sedation: Mild (1-3) Nausea: None Depression: Moderate (4-6) Anxiety: Moderate (4-6) Dyspnea: Moderate (4-6) Anorexia: Mild (1-3) Sleep: Variable sleep pattern (up at night to void) Performance Status: Patient is experiencing functional decline since hospitalization, increased difficulty getting up the stairs. Has had an acute fall, this is most recently though attributed to balance. Does need assistance with bathing, is decreased activity tolerance, is quite sedentary about baseline. I would put him at a [facility] performance status of 60% - Palliative Care Discussion: Patient, Rachelle, and Dayami present for family discussion. Discussion regarding wondering what initiated introduction of conversation regarding hospice, aware patient was acutely ill and it was serious, and has continued to decline. In exploring thier understanding of the events around hospitalization, complications regarding his mesenteric thrombosis, side effects from his chemotherapy, including sepsis and patient's own expression multiple times regarding concerns around quality of life it appears did not understand CT scan has shown progression of disease as well. Reviewed it was in comparison to scans [facility] had, did not include imaging from [facility]. Counseling provided in response to questions regarding hospice, supportive care, changing goals, continuing with chemotherapy and threshold for making decisions and weighing benefits and burdens regarding his current situation. Patient expresses ongoing concern regarding quality of life, had been helpful to be more functional, and feels distress over the burden of care his has taken on for himIn agreement, rodriguez component missing, his conversation and input from primary oncologist Dr. Cornejo. Oncologist has been getting the reports/information from recent stay, and discussed efforts to get latest scan to him for review with imaging in their system. Results - Lab Results Lab results reviewed: Yes Impression and Recommendations - Palliative Care Impression: This is a 77-year-old gentleman with metastatic pancreatic cancer to the liver, recent hospitalization for sepsis and development of mesenteric vein thrombosis, recently on Lovenox injections. Patient currently at home, continues with intermittent diarrhea, generalized weakness, fatigue, and resolving anasarca. Palliative care to continue provide support and anticipatory guidance regarding pain and symptom management and goals of care. Recommendations/Counseling Done: 1. Generalized weakness. Did obtain commode through [employer], set up for transfers at night, secondary to fall. We will have home health physical therapy follow-up with fall recovery and further equipment recommendations. Reinforced the need for lift assist, to avoid injury for patient or , positive reinforcement given. Patient at high risk for sequela of a fall, with now on anti-coag therapy. Encouraged to minimize times up-and-down stairway, secondary to fall risk. 2. Anorexia. Patient is doing fairly well with eating since got home, despite discontinuation of Megace. Reviewed though still avoiding large amount secondary to anasarca, Needs to monitor and continue adequate fluid intake. Requested he weigh daily, to monitor resolution. 3. Gout. Patient had not picked up prednisone, secondary worried about side effects of fluid retention. Did discuss in the context of his acute hospitalization and anasarca, the addition of prednisone as a side effect, would be minimal. Given his acute nature and increasing discomfort, recommended to obtain and start taking. Did review watching blood sugars, as well as taking on with food earlier in the day. 4. Depression. Patient is feeling somewhat overwhelmed with his most recent hospitalization, concerned about returning to any level of quality of life, worried about his impact on his family. Counseling provided regarding expressed concerns and encouraged to focus on the immediate given no need to make any changes this weekend, finding ways to enjoy spending time with family, and continued support. Advanced care planning. Family meeting and addressed current concerns, questions, counseling regarding the continuum of care, address questions regarding hospice, threshold for goals, and support provided. Encouraged to make list of questions/concerns for oncologist visit, will go ahead and help facilitate getting information to oncologist from recent hospitalization, particularly CT scan. Time Spent: 60 minutes with greater than 50% of this done in counseling regarding goals of care, pain and symptom management, and anticipatory guidance.Coordination of care with oncology office and home health team
== END 2018-08-28 17:42 | disposition home or self-care (01) ==
LOC: PC 17:41
PROVIDERS: ATTEND Nurse Practitioner Adult Health
DX: Z51.5 Encounter for palliative care (principal); R53.1 Weakness; R63.0 Anorexia; M10.9 Gout, unspecified; F32.9 Major depressive disorder, single episode, unspecified; C25.9 Malignant neoplasm of pancreas, unspecified; C78.7 Secondary malignant neoplasm of liver and intrahepatic bile duct; R19.7 Diarrhea, unspecified; R60.1 Generalized edema; E11.9 Type 2 diabetes mellitus without complications; F41.9 Anxiety disorder, unspecified; Z79.84 Long term (current) use of oral hypoglycemic drugs; I81 Portal vein thrombosis; Z79.899 Other long term (current) drug therapy; Z66 Do not resuscitate
CPT/HCPCS: 99350

== ENCOUNTER 2018-09-01 08:00 | Outpatient (CLI) | payer MEDICARE, OTHER ==
[2018-09-01 19:06] LABS: CALCIUM 7.8 mg/dL (8.5-10.3); CREATININE 0.7 mg/dL (0.6-1.2)
== END 2018-09-01 08:01 | disposition home or self-care (01) ==
LOC: LAB.R 08:00
PROVIDERS: ATTEND Internal Medicine Hematology & Oncology
DX: C25.9 Malignant neoplasm of pancreas, unspecified (principal)
CPT/HCPCS: 80048

== ENCOUNTER 2018-09-03 08:45 | Outpatient (CLI) | payer MEDICARE, OTHER ==
[2018-09-03 13:08] LABS: CREATININE 0.5 mg/dL (0.6-1.2)
== END 2018-09-03 08:46 ==
LOC: LAB.R 08:45
PROVIDERS: ATTEND Internal Medicine
DX: C25.9 Malignant neoplasm of pancreas, unspecified (principal)
CPT/HCPCS: 80048

== ENCOUNTER 2018-09-05 13:40 | Outpatient (CLI) | payer OTHER | END 2018-09-05 13:41 | disposition critical access hospital (66) | LOC: EMS 13:40 | PROVIDERS: ATTEND Surgery | DX: R53.1 Weakness (principal); R19.7 Diarrhea, unspecified | CPT/HCPCS: A0425; A0429 ==

== ENCOUNTER 2018-09-05 13:48 | Inpatient (IN) | payer MEDICARE, OTHER ==
[2018-09-05 14:33] LABS: BASOPHILS % (AUTO) 0.2 %; EOSINOPHILS # (AUTO) 0.1 10^3/uL (0.0-0.7); EOSINOPHILS % (AUTO) 0.5 %; HGB - HEMOGLOBIN 11.7 g/dL (14.0-18.0); LYMPHOCYTES # (AUTO) 0.6 10^3/uL (1.5-3.5); LYMPHOCYTES % (AUTO) 4.3 %; MEAN CORPUSCULAR HEMOGLOBIN 34.9 pg (27.0-31.0); MEAN CORPUSCULAR HGB CONC 34.5 g/dL (32.0-36.0); MEAN PLATELET VOLUME 8.3 fL (7.4-11.4); MONOCYTES # (AUTO) 0.8 10^3/uL (0.0-1.0); MONOCYTES % (AUTO) 5.3 %; NEUTROPHILS # (AUTO) 12.8 10^3/uL (1.5-6.6); NEUTROPHILS % (AUTO) 89.7 %; PLT - PLATELET COUNT 296 10^3/uL (130-450); RED BLOOD COUNT 3.35 10^6/uL (4.70-6.10); WHITE BLOOD COUNT 14.3 x10^3/uL (4.8-10.8)
--- NOTE | 2018-09-05 14:34 | ED Physician Documentation ---
History of Present Illness - Stated complaint Stated Complaint: WEAKNESS - Chief complaint Chief Complaint: General - History obtained from History obtained from: Patient, Family - History of Present Illness Timing: Today Pain level max: 0 Pain level now: 0 - Additonal information Additional information: 77-year-old male Brought in by EMS with history of diabetes, pancreatic cancer on chemo which was held 4 weeks ago due to diarrhea, pacemaker, Hypotension is here with who stated the patient has been having low potassium since he was admitted a week ago. His recent potassium was done 5 days ago and it was less than 2 so his oncologist had prescribed potassium pills in high dose. Today while is in the bathroom patient was unable to get up and help himself due to leg weakness.Per the patient was not confused until now in the emergency room.She denies any trauma or recent injury. She denies any fever.She states his living well is DNR and DNI. Review of Systems Unable to obtain: Confused Ten Systems: 10 systems reviewed and negative Constitutional: denies: Fever, Fatigue Cardiac: denies: Chest pain / pressure, Palpitations Respiratory: denies: Dyspnea, Cough GI: denies: Abdominal Pain, Nausea, Vomiting, Diarrhea : denies: Dysuria, Frequency Skin: denies: Rash Musculoskeletal: denies: Neck pain, Back pain, Extremity pain, Extremity swelling Neurologic: reports: Generalized weakness, Confused. denies: Focal weakness, Difficulty speaking, Near syncope, Syncope, Headache, Head injury, LOC PD PAST MEDICAL HISTORY - Past Medical History Cardiovascular: Hypertension, High cholesterol, Coronary artery disease, Other Respiratory: None Neuro: Peripheral neuropathy Endocrine/Autoimmune: Type 2 diabetes GI: Hemorrhoids : Benign prostate hypertrophy, Kidney stones HEENT: None Psych: Depression, Anxiety Musculoskeletal: Fatigue Derm: None - Past Surgical History Past Surgical History: Yes General: Other Cardiovascular: Coronary stent, Pacemaker, AICD, Other HEENT: Cataracts, Tonsil/Adenoidectomy - Present Medications Home Medications: Ambulatory Orders Medication Instructions Recorded Confirmed RX: Finasteride 5 mg PO QPM 04/15/18 09/05/18 RX: Lipase/Protease/Amylase [Creon 3 cap PO TIDWM 04/15/18 09/05/18 36,000 Units Capsule] RX: Escitalopram Oxalate [Lexapro] 20 mg PO DAILY 07/11/18 09/05/18 RX: HYDROmorphone [Dilaudid] 2 mg PO Q4HR PRN 07/11/18 09/05/18 RX: Lidocaine [Topicaine 5] 1 applic TOP PRN PRN 07/11/18 09/05/18 RX: Prochlorperazine Maleate 10 mg PO Q4HR PRN 07/11/18 09/05/18 [Compazine] RX: Omeprazole [PriLOSEC] 20 mg PO DAILY 07/15/18 09/05/18 RX: Fludrocortisone [Florinef] 0.1 mg PO BID 08/20/18 09/05/18 RX: LORazepam [Ativan] 1 mg PO QPM 08/20/18 09/05/18 RX: glyBURIDE [Glyburide] 5 mg PO DAILY 08/20/18 09/05/18 RX: Ondansetron [Zofran Odt] 8 mg PO AC PRN 08/21/18 09/05/18 Enoxaparin [Lovenox] 80 mg SUBQ Q12H #60 syringe 08/24/18 09/05/18 RX: Acetaminophen [Tylenol] 650 mg PO Q4HR PRN tablet 08/25/18 09/05/18 RX: Loperamide [Imodium] 2 mg PO QID PRN #60 capsule 08/25/18 09/05/18 RX: glyBURIDE [Glyburide] 2.5 mg PO QPM 09/05/18 09/05/18 - Allergies Allergies/Adverse Reactions: Allergies Allergy/AdvReac Type Severity Reaction Status Date / Time No Known Allergies Allergy Unknown Verified 08/20/18 19:59 - Social History Does the pt smoke?: No Smoking Status: Never smoker Does the pt drink ETOH?: No Does the pt have substance abuse?: No - Immunizations Immunizations are current?: No - POLST Patient has POLST: Yes POLST Status: DNR PD ED PE NORMAL - Vitals Vital signs reviewed: Yes - General General: No acute distress, Well developed/nourished, Other (Awake and alert) - HEENT HEENT: Atraumatic, PERRL, EOMI, Moist mucous membranes, Pharynx benign - Neck Neck: Supple, no meningeal sign, No bony TTP, No adenopathy - Cardiac Cardiac: RRR, No murmur - Respiratory Respiratory: No respiratory distress, Clear bilaterally - Abdomen Abdomen: Normal bowel sounds, Soft, Non tender, Non distended - Back Back: No CVA TTP, No spinal TTP - Derm Derm: Normal color, Warm and dry - Extremities Extremities: No deformity, No tenderness to palpate, Normal ROM s pain, No edema - Neuro Neuro: No motor deficit, No sensory deficit, Normal speech, Other (Alert but un able to inform me of his 's name, today's date and current location.He is able to follow simple commands. No pronator drift. Moves all extremity with strength 5/5.) - Psych Psych: Normal mood, Normal affect Results - Vitals Vitals: Vital Signs - 24 hr 09/05/18 09/05/18 09/05/18 13:51 16:00 18:00 Temperature 36.8 C Heart Rate 107 H 109 H 102 H Respiratory 16 16 15 Rate Blood Pressure 156/89 H 160/87 H 158/89 H O2 Saturation 96 95 95 09/05/18 19:42 Temperature Heart Rate 99 Respiratory 16 Rate Blood Pressure 156/86 H O2 Saturation 94 Oxygen O2 Source Room air - EKG (time done) 1429 Rate: Rate (enter#) Rhythm: Paced (Ventricular pacing, Atrial sensing) [place]: LAD - Labs Labs: Laboratory Tests 09/05/18 09/05/18 09/05/18 14:26 14:26 14:26 WBC 14.3 H RBC 3.35 L Hgb 11.7 L Hct 33.9 L MCV 101.0 H MCH 34.9 H MCHC 34.5 RDW 15.0 Plt Count 296 MPV 8.3 Neut # (Auto) 12.8 H Lymph # (Auto) 0.6 L Tate # (Auto) 0.8 Eos # (Auto) 0.1 Baso # (Auto) 0.0 Absolute Nucleated RBC 0.00 Nucleated RBC % 0.0 Sodium 138 Potassium 3.0 L Chloride 107 Carbon Dioxide 25 Anion Gap 6.0 BUN 11 Creatinine 0.4 L Estimated GFR (MDRD) 208 Glucose 214 H Lactic Acid Calcium 8.0 L Magnesium 1.7 Total Bilirubin 0.7 AST 22 ALT 26 Alkaline Phosphatase 182 H Troponin I < 0.04 Total Protein 5.8 L Albumin 2.9 L Globulin 2.9 Albumin/Globulin Ratio 1.0 Lipase 18 L Urine Color Urine Clarity Urine pH Ur Specific [place] Urine Protein Urine Glucose (UA) Urine Ketones Urine Occult Blood Urine Nitrite Urine Bilirubin Urine Urobilinogen Ur Leukocyte Esterase Ur Microscopic Review Urine Culture Comments 09/05/18 09/05/18 15:10 19:47 WBC RBC Hgb Hct MCV MCH MCHC RDW Plt Count MPV Neut # (Auto) Lymph # (Auto) Tate # (Auto) Eos # (Auto) Baso # (Auto) Absolute Nucleated RBC Nucleated RBC % Sodium Potassium Chloride Carbon Dioxide Anion Gap BUN Creatinine Estimated GFR (MDRD) Glucose Lactic Acid 1.4 Calcium Magnesium Total Bilirubin AST ALT Alkaline Phosphatase Troponin I Total Protein Albumin Globulin Albumin/Globulin Ratio Lipase Urine Color YELLOW Urine Clarity CLEAR Urine pH 7.0 Ur Specific [place] 1.020 Urine Protein NEGATIVE Urine Glucose (UA) 250 H Urine Ketones NEGATIVE Urine Occult Blood NEGATIVE Urine Nitrite NEGATIVE Urine Bilirubin NEGATIVE Urine Urobilinogen 0.2 (NORMAL) Ur Leukocyte Esterase NEGATIVE Ur Microscopic Review NOT INDICATED Urine Culture Comments NOT INDICATED PD MEDICAL DECISION MAKING - ED course Complexity details: reviewed results, re-evaluated patient ([id number] sleeping soundly.193Patient awake and alert but still confused and not Remembering his 's name. inform of test results. She stated the pancolitis from the CAT scan is new and would like the patient admitted. ), considered differential (Hypokalemia, intracranial bleed, TIA, UTI, infection), d/w patient, d/w family (155 and daughter inform of test results including potassium level and replacement by IV. wants the patient potassium replacement to be orally because it is faster.174 and daughter want the patient to have CT scan of his abdomen to make sure that there is no biliary infection. At 175 they had requested for pain medication for patient who is in [place] Contin.), d/w PMD (1954 Case discussed with hospitalist Dr. Felipe who stated he knows patient well and had taken care of him from previous admissions. She will talk to the patient's prior to admitting. 2019Dr. Felipe stated she will admit the patient for observation.) Departure - Departure Disposition: ED Place in Observation Clinical Impression: Confusion, Pancolitis Pancreatic cancer Qualifiers: Pancreatic malignancy location: head of pancreas Qualified Code(s): C25.0 - Mal ignant neoplasm of head of pancreas Condition: Stable Discharge Date/Time: 09/05/18 21:15
[2018-09-05 14:45] LABS: ALBUMIN 2.9 g/dL (3.2-5.5); BILIRUBIN,TOTAL 0.7 mg/dL (0.2-1.0); CREATININE 0.4 mg/dL (0.6-1.2); MAGNESIUM 1.7 mg/dL (1.7-2.8); TOTAL PROTEIN 5.8 g/dL (6.7-8.2)
--- NOTE | 2018-09-05 14:59 | CT Report ---
Reason: confusion Procedure Date: 09/05/2018 Accession Number: [id number] / [id number] Procedure: CT - Head W/O CPT Code: FULL RESULT: EXAM: CT HEAD EXAM DATE: 09/05/2018 02:43 PM. CLINICAL HISTORY: Confusion. COMPARISON: 07/18/2018. TECHNIQUE: Multiaxial CT images were obtained from the foramen magnum to the vertex. Reformats: Sagittal and coronal. IV contrast: None. In accordance with CT protocol optimization, one or more of the following dose reduction techniques were utilized for this exam: automated exposure control, adjustment of mA and/or KV based on patient size, or use of iterative reconstructive technique. FINDINGS: Parenchyma: No intraparenchymal hemorrhage. No evidence of mass, midline shift, or CT findings of acute infarction. Stewart-white differentiation is distinct. Diffuse chronic microangiopathic white matter changes are evident. Extraaxial Spaces: Normal for age. No subdural or epidural collections identified. Ventricles: The ventricles and cortical sulci are enlarged, consistent with age-related tissue loss. Sinuses and orbits: Mucosal thickening maxillary sinuses. Cerumen right external auditory canal Imaged orbits, and mastoids show no significant abnormality. Bones: No evidence of fracture or calvarial defect. Other: None. IMPRESSION: Generalized age-related cortical atrophic changes without evidence of acute intracranial abnormality. RADIA
[2018-09-05 15:18] LABS: BILIRUBIN,URINE NEGATIVE (NEGATIVE); GLUCOSE, URINE (UA) 250 mg/dL (NEGATIVE); KETONES,URINE (UA) NEGATIVE (NEGATIVE); LEUKOCYTE ESTERASE, URINE NEGATIVE (NEGATIVE); NITRITE,URINE NEGATIVE (NEGATIVE); OCCULT BLOOD,URINE NEGATIVE (NEGATIVE); PROTEIN,URINE NEGATIVE (NEGATIVE); UROBILINOGEN,URINE 0.2 (NORMAL) E.U./dL (NORMAL)
[2018-09-05 15:21] LABS: CLARITY,URINE CLEAR (CLEAR)
--- NOTE | 2018-09-05 15:27 | XRAY Report ---
Reason: chest pain Procedure Date: 09/05/2018 Accession Number: [id number] / [id number] Procedure: XR - Chest 1 View X-Ray CPT Code: 87789 FULL RESULT: EXAM: CHEST RADIOGRAPHY EXAM DATE: 09/05/2018 02:55 PM. CLINICAL HISTORY: Chest pain. COMPARISON: 08/21/2018. TECHNIQUE: 1 view. FINDINGS: Lungs/Pleura: No focal opacities evident. Blunted costophrenic angles stable No pneumothorax. Decreased lung volumes Mediastinum: Heart is within normal limits. Ectatic aorta Other: Right-sided Port-A-Cath tip in the low SVC. 2-lead pacer tips in the right atrium right ventricle IMPRESSION: No active disease RADIA
[2018-09-05] MEDS ORDERED: POTASSIUM CHLOR 20 MEQ/100 ML 20 MEQ/100 ML BAG IV ONE (15:52)
[2018-09-05] MEDS ORDERED: POTASSIUM CHLOR 10 MEQ/100 ML 10 MEQ/100 ML BAG IV STA ×2 (15:57→15:58)
[2018-09-05] MEDS ORDERED: POTASSIUM CHLORIDE 20 MEQ TABLET PO STA (16:08)
[2018-09-05] MEDS ORDERED: SODIUM CHLORIDE 0.9% 1,000 ML IV ONE (17:47)
[2018-09-05] MEDS ORDERED: MORPHINE 2 MG/ML CARPUJECT IVP STA (17:53)
[2018-09-05] MEDS ORDERED: IOPAMIDOL-300 100 ML VIAL ONE (18:13)
[2018-09-05] MEDS ORDERED: IOPAMIDOL-300 100 ML VIAL IVP ONE (18:48)
--- NOTE | 2018-09-05 19:19 | CT Report ---
Reason: pain, hx pancreatic can on chemo Procedure Date: 09/05/2018 Accession Number: [id number] / [id number] Procedure: CT - Abdomen/Pelvis W/ CPT Code: FULL RESULT: EXAM: CT ABDOMEN AND PELVIS EXAM DATE: 09/05/2018 06:37 PM. CLINICAL HISTORY: Pain. History of pancreatic cancer, on chemotherapy. COMPARISONS: ABDOMEN/PELVIS W/ 08/22/2018 1:45 PM. TECHNIQUE: Routine helical CT imaging was performed through the abdomen and pelvis. IV contrast: 100 cc of Isovue-300. Enteric contrast: No. Reconstructions: Coronal and sagittal. In accordance with CT protocol optimization, one or more of the following dose reduction techniques were utilized for this exam: automated exposure control, adjustment of mA and/or KV based on patient size, or use of iterative reconstructive technique. FINDINGS: Lung Bases: Stable small pleural effusions. Advanced coronary artery calcification noted. Liver: Mild pneumobilia, otherwise unremarkable. Gallbladder/Bile Ducts: No calcified gallstones. Stable common bile duct stent. Spleen: Normal. Pancreas: Stable pancreatic atrophy with dilated duct up to 12 mm in diameter. 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 Adrenal Glands: Normal. Kidneys: Normal. No masses or hydronephrosis. Peritoneal Cavity/Bowel: Mild ascites, less than prior. Diffuse colonic wall thickening. No free air or adenopathy. No masses. Nonvisualized appendix. Pelvic Organs: The prostate and bladder are unremarkable. Vasculature: No aortic dilatation. Mild atherosclerotic calcification. No narrowing of the SMA. Bones: Degenerative disease and anterolisthesis at L5-S1 due to bilateral chronic L5 pars defects. Other: Small fat-containing inguinal hernias. IMPRESSION: 1. 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 2. Common bile duct stent remains in place, with mild pneumobilia in the liver. 3. Pancolitis, with diffuse colonic wall thickening. 4. Mild ascites, less than prior exam. 5. Persistent small pleural effusions. RADIA
[2018-09-05] MEDS ORDERED: ONDANSETRON ODT 4 MG TABLET TL PRN (20:12)
[2018-09-05] MEDS ORDERED: ACETAMINOPHEN 325 MG TABLET PO PRN (20:12)
[2018-09-05] MEDS ORDERED: PROCHLORPERAZINE 10 MG/2 ML VIAL IVP PRN (20:12)
[2018-09-05] MEDS ORDERED: MAGNESIUM SULFATE 2 GRAM 2 GM/50 ML BAG IV ONE (20:17)
--- NOTE | 2018-09-05 20:53 | HISTORY & PHYSICAL EXAMINATION ---
Chief Complaint - Chief Complaint Chief Complaint: Weakness and confusion with low potassium in a patient with metastatic panc History of Present Illness - History of Present Illness HPI Comment/Other: This is an unfortunate 77-year-old man who continues to decline from a functional perspective with regards to metastatic pancreatic cancer to his liver associated with ascites, progressive tumor growth, and mesenteric vein thrombosis. He was just in the hospital for dehydration and hypokalemia from diarrhea August 20. That hospitalization was complicated by mesenteric vein thrombosis and and a brief episode of sepsis. He did respond to fluid re suscitation with IV antibiotics. He was transitioned to oral antibiotics and continued on Lovenox in the outpatient setting. Megace was discontinued. He has been seen by palliative care after discharge. Discharge was August 25 and he was seen by palliative care August 28. He is starting to transition in a philosophical perspective to end-of-life care thoughts. He is fearful. Does not want to be in pain. He saw his grandfather dying agonizing pain and does not want to be doing that. He is continued to have brief episodes of diarrhea. But they have not been severe or copious as they were with his last admission. More than anything he has lots of "gas" according to his . He has had poor appetite but makes himself eat. He is getting weaker and weaker. He fell once at home and 911 had to be called to lift him up. He saw Dr. linder on Friday and potassium was low. He was given oral supplementation. Repeat potassium has not been done yet and he was to be seen in follow-up. He seemed about the same this morning. No fever, no chills. No new diarrhea. But he does have more abdominal pain today. When he got up to go to the bathroom he barely made it. And then could not get up off the toilet. As such she was brought in by EMS because of his weakness. noted that he seems more confused today. In the emergency room he even had a brief moment where he is not recognizing her. Temperature is 36 8. Pulse is occasionally tachycardic to 109 but dropped down into the 90s. Blood pressure is 158-160 systolic. He is 95% on room air. He appears to be a very frail, failing elderly gentleman. Mumbling. Slightly confused. Potassium was 3. Creatinine is 0.4. Random glucose 214. Lactic acid 1.4. White cell count is up to 14.3 with hemoglobin 11.7 and hematocrit 33.9. Because of his abdominal pain wanted a CT the abdomen and CT shows low-density mass at the head of the pancreas that is inseparable for the mesenteric vein thrombosis. Mild ascites. Diffuse colonic wall thickening. Persistent small pleural effusions. His biliary stent is in place. states that they are not ready to let him go. They still want treatment with IV fluids and antibiotics. I reiterated my conversation from last admission. I have described in detail what we would anticipate from his gradual progression. What I am seeing tonight is not unusual and would be an expected outcome of what his tumor and his health are doing. He is failing. He is a DO NOT RESUSCITATE, DO NOT INTUBATE. History - Past Medical History Cardiovascular: reports: Hypertension, High cholesterol, Coronary artery disease, Other Respiratory: reports: None Neuro: reports: Peripheral neuropathy Endocrine/Autoimmune: reports: Type 2 diabetes GI: reports: Hemorrhoids : reports: Benign prostate hypertrophy, Kidney stones HEENT: reports: None Psych: reports: Depression, Anxiety Musculoskeletal: reports: Fatigue Derm: reports: None MRSA Hx?: No - Past Surgical History General: reports: Other Cardiovascular: reports: Coronary stent, Pacemaker, AICD, Other HEENT: reports: Cataracts, Tonsil/Adenoidectomy - Family & Social History Family History: Mother: (recentlly passed of old age), CAD, Diabetes, Type 2, Father: , Other family: Cancer (Grandfather prostate ca) Social History Notes: The patient lives in [place], [place] with his . They moved to [place] 5 years ago from [place]. The patient lived in [place] and worked as in the field of [employer]. He is an avid traveler. He and his decided to retire and moved to [facility]. They have 2 children 1 of whom lives on [facility]. The patient has never been a smoker and only drinks rarely on social occasions. He denies any illicit drug use. - Substance History Use: Uses substance without health or social issues: Cannabis (use for appetite/ pain) - POLST Patient has POLST: Yes POLST Status: DNR Meds/Allgy - Home Medications Home Medications: Ambulatory Orders Medication Instructions Recorded Confirmed Finasteride 5 mg PO QPM 04/15/18 08/29/18 Lipase/Protease/Amylase [Shamika Alonso 2 - 4 cap PO TID 04/15/18 08/29/18 36,000 Units Capsule] Bisacodyl 10 mg [place] DAILY PRN 07/11/18 08/29/18 Escitalopram Oxalate [Lexapro] 20 mg PO DAILY 07/11/18 08/29/18 HYDROmorphone [Dilaudid] 2 mg PO Q4HR PRN 07/11/18 08/29/18 Lidocaine [Topicaine 5] 1 applic TOP PRN PRN 07/11/18 08/29/18 Polyethylene Glycol 3350 [Miralax] 17 mg PO DAILY PRN 07/11/18 08/29/18 Prochlorperazine Maleate 10 mg PO Q4HR PRN 07/11/18 08/29/18 [Compazine] Senna [Senokot] 8.6 mg PO BID PRN MDD hold loose 07/11/18 08/29/18 stools Hydrocortisone Acetate [Anucort-Hc] 25 mg RC BID PRN 07/15/18 08/29/18 Omeprazole [PriLOSEC] 20 mg PO DAILY 07/15/18 08/29/18 Fludrocortisone [Florinef] 0.1 mg PO BID 08/20/18 08/29/18 LORazepam [Ativan] 1 mg PO QPM 08/20/18 08/29/18 Psyllium [Metamucil] 1 packet PO DAILY 08/20/18 08/29/18 glyBURIDE [Glyburide] 5 mg PO DAILY 08/20/18 08/29/18 Lipase/Protease/Amylase [Shamika Alonso 2 cap PO BID PRN 08/21/18 08/29/18 36,000 Units Capsule] Ondansetron [Zofran Odt] 8 mg PO AC PRN 08/21/18 08/29/18 Enoxaparin [Lovenox] 80 mg SUBQ Q12H #60 syringe 08/24/18 08/29/18 Acetaminophen [Tylenol] 650 mg PO Q4HR PRN tablet 08/25/18 08/29/18 Ciprofloxacin HCl [Cipro] 500 mg PO BID #8 tablet 08/25/18 08/29/18 Loperamide [Imodium] 2 mg PO QID PRN #60 capsule 08/25/18 08/29/18 Metronidazole [Flagyl] 500 mg PO BID #8 tablet 08/25/18 08/29/18 Prednisone [Darrell] 20 mg PO DAILY MDD taper 08/29/18 08/29/18 - Allergies Allergies/Adverse Reactions: Allergies Allergy/AdvReac Type Severity Reaction Status Date / Time No Known Allergies Allergy Unknown Verified 08/20/18 19:59 Review of Systems - Constitutional Constitutional: reports: Fatigue, Malaise, Weakness, Poor appetite - Eyes Eyes: denies: Pain, Amaurosis, Vision loss, Dipolpia - Ears, Nose & Throat Ears, Nose & Throat: denies: Ear pain, Hearing aids, Nasal obstruction, Nasal congestion, Postnasal drainage, Sore throat - Cardiovascular Cariovascular: reports: Exertional dyspnea, Decr. exercise tolerance. denies: Irregular heart rate, Chest pain, Syncope - Respiratory Respiratory: denies: Cough, Sputum production, Wheezing, Orthopnea - Gastrointestinal Gastrointestinal: reports: Abdominal pain, Abdominal distention, Constipation, Diarrhea. denies: Rectal bleeding, Black stools, Bloody stools, Nausea, Vomiting - Genitourinary Genitourinary: reports: Frequency, Urgency, Incontinence. denies: Dysuria - Musculoskeletal Musculoskeletal: reports: Muscle pain, Back pain, Gout, Joint pain - Integumentary Integumentary: denies: Rash, Lesions, Pigment changes - Neurological Neurological: reports: General weakness. denies: Focal weakness, Headache, Dizziness - Psychiatric Psychiatric: reports: Depression, Anxiety. denies: Suicidal, Hallucinations - Endocrine Endocrine: denies: Polyuria, Polydypsia, Polyphagia - Hematologic/Lymphatic Hematologic/Lymphatic: reports: Anemia, Bruising, Blood clots. denies: Petechiae Prior Level of Functionality: He has been getting weaker and weaker in the last few weeks. He used to be independent, ambulate without assistance this last summer. He was starting to need a walker or cane or some type of assistive device in the last 2 months. This last week is now gotten to the point that he cannot get up. He was alert and oriented up until this week.He is now incontinent of urine and stool at times. In the last couple of months would get him into the shower and she would stand by and help him. His has hired someone to come help her. That person starts on September 07. Exam - Vital Signs Reviewed Vital Signs: Yes Vital Signs: Vital Signs x48h Temp Pulse Resp BP Pulse Ox 09/05/18 20:37 96 16 158/87 H 93 09/05/18 19:42 99 16 156/86 H 94 09/05/18 18:00 102 H 15 158/89 H 95 09/05/18 16:00 109 H 16 160/87 H 95 09/05/18 13:51 36.8 C 107 H 16 156/89 H 96 - Physical Exam General Appearance: positive: No acute distress Eyes Bilateral: positive: PERRL, EOMI ENT: positive: Dry mucous membranes Neck: positive: No JVD. negative: Lymphadenopathy (R), Lymphadenopathy (L), Stiff neck, Carotid bruit Respiratory: positive: Chest non-tender, Rhonchi. negative: Wheezes, Rales Cardiovascular: positive: Regular rate & rhythm, Systolic murmur. negative: Gallop/S4, Friction rub Peripheral Pulses: positive: 1+ Abdomen: positive: Other (Generalized tenderness, liver palpable, masslike effect left upper quadrant as well. Mild generalized distention. No fluid wave palpable. He is most uncomfortable in the left mid abdomen and left upper quadrant with palpation. But no rebound or guarding.) Skin: positive: Warm, Dry, Pallor Extremities: positive: Full ROM, Pedal edema Neurologic/Psychiatric: positive: CN's nml (2-12), Motor nml, Disoriented to person (At times. Even to his .), Disoriented to place, Disoriented to time, Weakness, Other (Today is a marked deterioration from what he was when I discharged him. feels that confusion is new since about noon today.) Conclusion/Plan - Problem List (1) Weakness Conclusion/Plan: Functional. Also has metabolic encephalopathy present. Secondary to disease progression with regards to his cancer, anorexia, pancolitis, etc. I have carefully reiterated what my anticipation is of how this patient will do in the next few weeks. I am reiterating the conversation I had with his on the last visit. Plan: Place in observation. Treat electrolyte disorder and hydrate and see how he does Empiric antibiotic therapy Reassess in the morning. will speak to daughter and son and decide what she would like to do. The patient is not able to participate in this conversation at this time (2) Mesenteric vein thrombosis Conclusion/Plan: Continue Lovenox. I do not know if the pancolitis he is experiencing is from worsening mesenteric vein thrombosis. The pancreatic mass with tumor compression seems to be the cause of the stasis and that mesenteric vein. Plan: No change in Lovenox dose (3) Pancreatic cancer metastasized to liver Conclusion/Plan: He has not had chemotherapy since before last admission. It was anticipated that he would start once some of his mesenteric vein thrombosis symptoms abated. But he is not received therapy since discharge. I know that his oncologist is getting reports from myself and palliative care. Other than updating him and his condition I do not think anything can be offered to this gentleman at this time from an oncologic perspective. (4) Hypokalemia Conclusion/Plan: Hypokalemia supplemented in his normal saline. Also supplement with separate riders. We will also give 2 g magnesium. Recheck levels in the morning (5) Pancolitis Conclusion/Plan: He had diarrhea that was much more ferocious. Is actually abated somewhat and now he has more gas than anything else. While he does have generalized abdominal tenderness, there is no acute findings. Pancolitis could be as a sequela of the mesenteric vein thrombosis. It could be infectious colitis. Plan: Check stool for C. difficile if he does have diarrhea is requesting empiric antibiotic therapy and I will use single agent Zosyn (6) Diabetes Conclusion/Plan: With his last admission metformin was discontinued. He was not sent home on Lantus. At this time with the patient's poor prognosis I may give small doses of Lantus here. But I really do not anticipate doing this in the outpatient setting as he transitions to a more of a hospice type treatment plan. Qualifiers: Diabetes mellitus type: type 2 Diabetes mellitus snf insulin use: without termite renewal inspector use Diabetes mellitus complication status: with hyperglycemia Qualified Code(s): E11.65 - Type 2 diabetes mellitus with hyperglycemia - Lab Results Lab results reviewed: Yes Fish Bones: 09/05/18 14:26 09/05/18 14:26 - Diagnostic Imaging Results Diagnostic Imaging Results: positive: Final report reviewed Diagnostic Imaging Results Comments: CT ABDOMEN AND PELVIS EXAM DATE: 09/05/2018 06:37 PM. CLINICAL HISTORY: Pain. History of pancreatic cancer, on chemotherapy. COMPARISONS: ABDOMEN/PELVIS W/ 08/22/2018 1:45 PM. TECHNIQUE: Routine helical CT imaging was performed through the abdomen and pelvis. IV contrast: 100 cc of Isovue-300. Enteric contrast: No. Reconstructions: Coronal and sagittal. In accordance with CT protocol optimization, one or more of the following dose reduction techniques were utilized for this exam: automated exposure control, adjustment of mA and/or KV based on patient size, or use of iterative reconstructive technique. FINDINGS: Lung Bases: Stable small pleural effusions. Advanced coronary artery calcification noted. Liver: Mild pneumobilia, otherwise unremarkable. Gallbladder/Bile Ducts: No calcified gallstones. Stable common bile duct stent. Spleen: Normal. Pancreas: Stable pancreatic atrophy with dilated duct up to 12 mm in diameter. 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 Adrenal Glands: Normal. Kidneys: Normal. No masses or hydronephrosis. Peritoneal Cavity/Bowel: Mild ascites, less than prior. Diffuse colonic wall thickening. No free air or adenopathy. No masses. Nonvisualized appendix. Pelvic Organs: The prostate and bladder are unremarkable. Vasculature: No aortic dilatation. Mild atherosclerotic calcification. No narrowing of the SMA. Bones: Degenerative disease and anterolisthesis at L5-S1 due to bilateral chronic L5 pars defects. Other: Small fat-containing inguinal hernias. IMPRESSION: 1. 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 2. Common bile duct stent remains in place, with mild pneumobilia in the liver. 3. Pancolitis, with diffuse colonic wall thickening. 4. Mild ascites, less than prior exam. 5. Persistent small pleural effusions. CT HEAD EXAM DATE: 09/05/2018 02:43 PM. CLINICAL HISTORY: Confusion. COMPARISON: 07/18/2018. TECHNIQUE: Multiaxial CT images were obtained from the foramen magnum to the vertex. Reformats: Sagittal and coronal. IV contrast: None. In accordance with CT protocol optimization, one or more of the following dose reduction techniques were utilized for this exam: automated exposure control, adjustment of mA and/or KV based on patient size, or use of iterative reconstructive technique. FINDINGS: Parenchyma: No intraparenchymal hemorrhage. No evidence of mass, midline shift, or CT findings of acute infarction. Setwart-white differentiation is distinct. Diffuse chronic microangiopathic white matter changes are evident. Extraaxial Spaces: Normal for age. No subdural or epidural collections identified. Ventricles: The ventricles and cortical sulci are enlarged, consistent with age-related tissue loss. Sinuses and orbits: Mucosal thickening maxillary sinuses. Cerumen right external auditory canal Imaged orbits, and mastoids show no significant abnormality. Bones: No evidence of fracture or calvarial defect. Other: None. IMPRESSION: Generalized age-related cortical atrophic changes without evidence of acute intracranial abnormality. Core Measures - Anticipated LOS I expect patient to be DC'd or transferred within 96 hours.: Yes - DVT/VTE - Prophylaxis VTE/DVT Device ordered at admit?: Yes
[2018-09-05] MEDS ORDERED: NS W/20 MEQ KCL 1,000 ML IV SCH (21:00)
[2018-09-05] MEDS: POTASSIUM CHLOR 10 MEQ/100 ML 10 MEQ/100 ML BAG IV SCH (23:02)
[2018-09-05] MEDS: LORazepam 0.5 MG TABLET PO SCH (23:03)
[2018-09-05] MEDS: FLUDROCORTISONE 0.1 MG TABLET PO SCH (23:03)
[2018-09-05] MEDS: NS W/20 MEQ KCL 1,000 ML IV SCH (23:03)
[2018-09-05] MEDS: ENOXAPARIN 80 MG/0.8 ML SYRINGE SUBQ SCH (23:04)
[2018-09-05] MEDS: FINASTERIDE 5 MG TABLET PO SCH (23:04)
[2018-09-05] MEDS: AMYLASE PO SCH (23:05)
[2018-09-05] MEDS: LIPASE PO SCH (23:05)
[2018-09-05] MEDS: PROTEASE PO SCH (23:05)
[2018-09-06] MEDS: PIPERACILLIN/TAZOBACTAM 3.375 GM in SODIUM CHLORIDE 0.9% MINIBAG 100 ML IV SCH ×2 (00:12→07:05)
[2018-09-06] MEDS: POTASSIUM CHLOR 10 MEQ/100 ML 10 MEQ/100 ML BAG IV SCH ×2 (00:13→01:23)
[2018-09-06] MEDS: SODIUM CHLORIDE FLUSH 0.9% 10 ML SYRINGE IVP SCH ×3 (06:21→16:38)
[2018-09-06] MEDS: AMYLASE PO SCH (06:22)
[2018-09-06] MEDS: LIPASE PO SCH (06:22)
[2018-09-06] MEDS: PROTEASE PO SCH (06:22)
[2018-09-06 06:45] LABS: BASOPHILS % (AUTO) 0.1 %; EOSINOPHILS % (AUTO) 0.1 %; HGB - HEMOGLOBIN 11.3 g/dL (14.0-18.0); LYMPHOCYTES # (AUTO) 0.8 10^3/uL (1.5-3.5); LYMPHOCYTES % (AUTO) 5.4 %; MEAN CORPUSCULAR HEMOGLOBIN 34.4 pg (27.0-31.0); MEAN CORPUSCULAR HGB CONC 33.6 g/dL (32.0-36.0); MEAN CORPUSCULAR VOLUME 102.3 fL (80.0-94.0); MEAN PLATELET VOLUME 8.6 fL (7.4-11.4); MONOCYTES # (AUTO) 0.9 10^3/uL (0.0-1.0); MONOCYTES % (AUTO) 6.1 %; NEUTROPHILS # (AUTO) 13.6 10^3/uL (1.5-6.6); NEUTROPHILS % (AUTO) 88.3 %; PLT - PLATELET COUNT 270 10^3/uL (130-450); RED BLOOD COUNT 3.28 10^6/uL (4.70-6.10); RED CELL DISTRIBUTION WIDTH 15.3 % (12.0-15.0); WHITE BLOOD COUNT 15.4 x10^3/uL (4.8-10.8)
[2018-09-06 07:00] LABS: CALCIUM 7.5 mg/dL (8.5-10.3); CREATININE 0.5 mg/dL (0.6-1.2)
[2018-09-06] MEDS ORDERED: POTASSIUM CHLORIDE INJ 40 MEQ in SODIUM CHLORIDE 0.9% 480 ML IV ONE (07:29)
[2018-09-06] MEDS: HYDROmorphone 1 MG/ML CARPUJECT IVP PRN ×2 (08:15→13:11)
[2018-09-06] MEDS: ONDANSETRON 4 MG/2 ML VIAL IVP PRN (08:24)
[2018-09-06] MEDS ORDERED: POTASSIUM CHLORIDE 20 MEQ TABLET PO SCH (09:00)
[2018-09-06] MEDS ORDERED: PREDNISONE 20 MG PO SCH (09:00)
[2018-09-06] MEDS: POLYETHYLENE GLYCOL 3350 17 GM PACKET PO SCH (09:43)
[2018-09-06] MEDS: POTASSIUM CHLORIDE 20 MEQ TABLET PO SCH ×2 (09:46→21:02)
[2018-09-06] MEDS ORDERED: CALAMINE/ZINC OXIDE 118 ML BOTTLE TOP PRN (10:53)
[2018-09-06] MEDS ORDERED: MIN OIL/DIMETHICON/COCONUT OIL 92 GM TUBE TOP PRN (10:53)
[2018-09-06] MEDS: VANCOMYCIN 125 MG CAPSULE PO SCH ×4 (12:42→21:03)
[2018-09-06] MEDS: FLUDROCORTISONE 0.1 MG TABLET PO SCH ×2 (12:43→21:02)
[2018-09-06] MEDS: ESCITALOPRAM 10 MG TABLET PO SCH (12:44)
[2018-09-06] MEDS ORDERED: PIPERACILLIN/TAZOBACTAM 3.375 GM in SODIUM CHLORIDE 0.9% MINIBAG 100 ML IV SCH (13:00)
[2018-09-06] MEDS: ENOXAPARIN 80 MG/0.8 ML SYRINGE SUBQ SCH ×2 (13:06→23:35)
[2018-09-06] MEDS: NYSTATIN 500000 UNITS/5 ML UDC PO SCH ×3 (13:14→21:03)
[2018-09-06] MEDS: NS W/20 MEQ KCL 1,000 ML IV SCH (14:55)
--- NOTE | 2018-09-06 17:53 | PROVIDER PROGRESS NOTE ---
Assessment/Plan - Problem List (1) Clostridium difficile colitis Assessment/Plan: Patient has been having diarrhea and on CT scan was found to have a pancolitis. The patient was initially started on IV Zosyn with the thought that the patient has an infectious colitis. Throughout the day the patient has been having worsening diarrhea and a recent hypokalemia. Patient's C. difficile pcr came back positive. Plan: Continue IV fluid hydration and potassium replacement Start patient on oral vancomycin for treatment of C. difficile with dose of 125 mg 4 times daily Discontinue Zosyn Continue to monitor diarrhea and mental status. Given C. difficile colitis patient will be changed to inpatient status. (2) Metabolic encephalopathy Conclusion/Plan: The patient has altered mental status as he is unable to recognize his and although he is alert he appears confused and does not have any insight into his condition currently. According to the the patient is not at his baseline mental status. The patient appears to have metabolic encephalopathy likely due to ongoing infection with Clostridium difficile along with dehydration. Patient will be given IV fluids for hydration and given electrolyte replacement and C. difficile will be treated. The patient did undergo CT head which was negative. This is unlikely to be brain metastasis from his cancer however if the patient's altered mentation continues despite the treatment of his C. difficile and d ehydration we will need to do an MRI to confirm that there is no metastasis. The patient does appear to be slowly improving. (3) Weakness Conclusion/Plan: Functional. Likely this is a combination of the patient's current condition with ongoing metastatic cancer, as well as current condition with C. difficile colitis and dehydration. Plan: Treat electrolyte disorder and hydrate Vancomycin for treatment of C. difficile colitis PT evaluation once patient is improved from ongoing illness (4) Mesenteric vein thrombosis Conclusion/Plan: Continue Lovenox. The pancreatic mass with tumor compression seems to be the cau se of the stasis and that mesenteric vein thrombosis. Plan: No change in Lovenox dose (5) Pancreatic cancer metastasized to liver Conclusion/Plan: He has not had chemotherapy since before last admission. It was anticipated that he would start once some of his mesenteric vein thrombosis symptoms abated. But he is not received therapy since discharge. I know that his oncologist is getting reports from myself and palliative care. Other than updating him and his condition I do not think anything can be offered to this gentleman at this time from an oncologic perspective. (6) Hypokalemia Conclusion/Plan: The patient continues to have worsening hypokalemia as his potassium is down to 2.4 this morning. This is likely due to ongoing diarrhea due to C. difficile colitis. The patient will be continued with oral and IV potassium replacement. We will continue to monitor his potassium daily. (6) Diabetes Conclusion/Plan: Patient is hyperglycemic on presentation with a glucose of 214. The patient's blood glucose is improved this morning down to 180. It appears that the patient was on glyburide at home. The patient's glyburide will be held while the patient is hospitalized. I will place the patient on sliding scale insulin while he is hospitalized. Qualifiers: Diabetes mellitus type: type 2 Diabetes mellitus terminal supervisor insulin use: without terminal supervisor use Diabetes mellitus complication status: with hyperglycemia Qualified Code(s): E11.65 - Type 2 diabetes mellitus with hyperglycemia - Current Meds Current Meds: Current Medications Generic Name Dose Route Start Last Admin Trade Name Freq PRN Reason Stop Dose Admin Acetaminophen 650 mg 09/05/18 20:12 09/06/18 01:00 Tylenol PO 650 mg Q4HR PRN Administration Pain 1 to 4 Enoxaparin Sodium 80 mg 09/05/18 21:00 09/06/18 13:06 Lovenox SUBQ 80 mg Q12H GABRIELA Administration Escitalopram Oxalate 20 mg 09/06/18 09:00 09/06/18 12:44 Lexapro PO 20 mg DAILY GABRIELA Administration Finasteride 5 mg 09/05/18 21:00 09/05/18 23:04 Proscar PO 5 mg QPM GABRIELA Administration Fludrocortisone Acetate 0.1 mg 09/05/18 21:00 09/06/18 12:43 Florinef PO 0.1 mg BID GABRIELA Administration Hydromorphone HCl 1 mg 09/05/18 20:12 09/06/18 13:11 Dilaudid Inj Carp IVP 1 mg Q2HR PRN Administration Pain 8 to 10 Potassium Chloride/Sodium Chloride 1,000 mls @ 80 mls/hr 09/05/18 21:00 09/06/18 14:55 Normal Saline 0.9% W/20 Meq Kcl IV 80 mls/hr .[id number] GABRIELA Administration Lorazepam 1 mg 09/05/18 21:00 09/05/18 23:03 Ativan PO 1 mg QPM GABRIELA Administration Nystatin 5 ml 09/06/18 13:00 09/06/18 17:18 Mycostatin PO 5 ml QID GABRIELA Administration Ondansetron HCl 4 mg 09/05/18 20:12 09/06/18 08:24 Zofran Inj IVP 4 mg Q6HR PRN Administration Nausea / Vomiting Shamika Alonso 36,000 2 each 09/05/18 20:14 09/06/18 09:37 Units Capsule PO 2 each BID PRN Administration SNACK Crerosibel Alonso 36,000 3 each 09/06/18 13:00 09/06/18 17:18 Units Capsule PO 3 each TIDWM GABRIELA Administration Polyethylene Glycol 17 gm 09/06/18 09:00 09/06/18 09:43 Miralax PO Not Given DAILY GABRIELA Potassium Chloride 60 meq 09/06/18 09:00 09/06/18 09:46 K-Dur PO 60 meq BID GABRIELA Administration Sodium Chloride 10 ml 09/06/18 01:00 09/06/18 16:38 Normal Saline Flush 0.9% IVP Not Given 0100,0900,1700 GABRIELA Vancomycin HCl 125 mg 09/06/18 11:00 09/06/18 17:18 Vancocin PO 125 mg QID GABRIELA Administration - Lab Result Lab results reviewed: Yes Fish Bone Diagrams: 09/06/18 06:25 09/06/18 06:25 - Diagnostic Imaging Results Diagnostic Imaging Results: Final report reviewed - Additional Planning Condition/Complexity: Guarded My Orders: My Active Orders 09/06/18 09:00 Potassium Chloride [K-Dur] 60 meq PO BID 09/06/18 10:53 Calamine/Zinc Oxide [Calamine] 1 applic TOP PRN PRN Min Oil/Dimeth/Coconut Oil Crm [Cavilon] 1 applic TOP PRN PRN 09/06/18 11:00 Vancomycin [Vancocin] 125 mg PO QID 09/06/18 13:00 Nystatin [Mycostatin] 5 ml PO QID Consult/Specialty: PT Plan Discussed with:: Patient, Spouse Time Spent: 31-60 minutes Subjective - Subjective Patient Reports: Other (Patient is more alert this morning however he still confused and does not recognize his as he keeps saying that it is his sister. The patient continued to have diarrhea overnight. He has no complaint of abdominal pain, nausea or vomiting. The patient has not had any fevers or chills overnight.) Nursing Reports: Diarrhea Objective Vital Signs: Vital Signs - 24 hr 09/05/18 09/05/18 09/05/18 18:00 19:42 20:37 Temperature Heart Rate 102 H 99 96 Heart Rate [ Brachial] Respiratory 15 16 16 Rate Blood Pressure 158/89 H 156/86 H 158/87 H Blood Pressure [Right Brachial artery] O2 Saturation 95 94 93 09/05/18 09/05/18 09/06/18 21:00 23:47 05:34 Temperature 38.1 C H 37.4 C 37.2 C Heart Rate Heart Rate [ 100 106 H 93 Brachial] Respiratory 16 22 20 Rate Blood Pressure Blood Pressure 155/82 H 159/69 H 153/77 H [Right Brachial artery] O2 Saturation 94 96 97 09/06/18 09/06/18 09/06/18 07:50 11:57 15:11 Temperature 36.2 C L 36.9 C 36.9 C Heart Rate 88 Heart Rate [ 90 87 Brachial] Respiratory 18 16 16 Rate Blood Pressure Blood Pressure 151/77 H 148/81 H [Right Brachial artery] O2 Saturation 94 96 96 09/06/18 16:20 Temperature 36.9 C Heart Rate Heart Rate [ 88 Brachial] Respiratory 16 Rate Blood Pressure Blood Pressure 150/76 H [Right Brachial artery] O2 Saturation 98 Oxygen O2 Source Room air I&O (Last 24 Hrs): Intake and Output Totals x24h 09/04/18 09/05/18 09/06/18 23:59 23:59 23:59 Intake Total 183.153 6334 Output Total 100 Balance 362.961 2369 General: Alert, Cooperative, No acute distress, Other (Oriented x1) HEENT: Atraumatic, PERRLA, EOMI, Other (Dry mucous membranes) Neck: Supple, No JVD, No thyromegaly, +2 carotid pulse wo bruit, No LAD Lymphatic: no adenopathy Neuro: Alert, Non Focal, CN 2-12 Grossly Intact, Other (Oriented x1) Cardiovascular: Regular rate, Normal S1, Normal S2, No murmurs Respiratory: Chest non-tender, No respiratory distress, Breath sounds nml Abdomen: Normal bowel sounds, Soft, No tenderness Extremities: No clubbing, No cyanosis, No edema, Normal pulses Skin: No rashes, No breakdown - Results Results: Laboratory Results WBC 15.4 x10^3/uL (4.8-10.8) H 09/06/18 06:25 RBC 3.28 10^6/uL (4.70-6.10) L 09/06/18 06:25 Hgb 11.3 g/dL (14.0-18.0) L 09/06/18 06:25 Hct 33.6 % (42.0-52.0) L 09/06/18 06:25 MCV 102.3 fL (80.0-94.0) H 09/06/18 06:25 MCH 34.4 pg (27.0-31.0) H 09/06/18 06:25 MCHC 33.6 g/dL (32.0-36.0) 09/06/18 06:25 RDW 15.3 % (12.0-15.0) H 09/06/18 06:25 Plt Count 270 10^3/uL (130-450) 09/06/18 06:25 MPV 8.6 fL (7.4-11.4) 09/06/18 06:25 Neut # (Auto) 13.6 10^3/uL (1.5-6.6) H 09/06/18 06:25 Lymph # (Auto) 0.8 10^3/uL (1.5-3.5) L 09/06/18 06:25 Teller # (Auto) 0.9 10^3/uL (0.0-1.0) 09/06/18 06:25 Eos # (Auto) 0.0 10^3/uL (0.0-0.7) 09/06/18 06:25 Baso # (Auto) 0.0 10^3/uL (0.0-0.1) 09/06/18 06:25 Absolute Nucleated RBC 0.00 x10^3/uL 09/06/18 06:25 Nucleated RBC % 0.0 /100WBC 09/06/18 06:25 Sodium 137 mmol/L (135-145) 09/06/18 06:25 Potassium 2.4 mmol/L (3.5-5.0) L* 09/06/18 06:25 Chloride 108 mmol/L (101-111) 09/06/18 06:25 Carbon Dioxide 25 mmol/L (21-32) 09/06/18 06:25 Anion Gap 4.0 (6-13) L 09/06/18 06:25 BUN 7 mg/dL (6-20) 09/06/18 06:25 Creatinine 0.5 mg/dL (0.6-1.2) L 09/06/18 06:25 Estimated GFR (MDRD) 160 (>89) 09/06/18 06:25 Glucose 180 mg/dL (70-100) H 09/06/18 06:25 Lactic Acid 1.4 mmol/L (0.5-2.2) 09/05/18 19:47 Calcium 7.5 mg/dL (8.5-10.3) L 09/06/18 06:25 Magnesium 1.7 mg/dL (1.7-2.8) 09/05/18 14:26 Total Bilirubin 0.7 mg/dL (0.2-1.0) 09/05/18 14:26 AST 22 IU/L (10-42) 09/05/18 14:26 ALT 26 IU/L (10-60) 09/05/18 14:26 Alkaline Phosphatase 182 IU/L (42-121) H 09/05/18 14:26 Troponin I < 0.04 ng/mL (<0.49) 09/05/18 14:26 Total Protein 5.8 g/dL (6.7-8.2) L 09/05/18 14:26 Albumin 2.9 g/dL (3.2-5.5) L 09/05/18 14:26 Globulin 2.9 g/dL (2.1-4.2) 09/05/18 14:26 Albumin/Globulin Ratio 1.0 (1.0-2.2) 09/05/18 14:26 Lipase 18 U/L (22-51) L 09/05/18 14:26 Urine Color YELLOW 09/05/18 15:10 Urine Clarity CLEAR (CLEAR) 09/05/18 15:10 Urine pH 7.0 PH (5.0-7.5) 09/05/18 15:10 Ur Specific [place] 1.020 (1.002-1.030) 09/05/18 15:10 Urine Protein NEGATIVE mg/dL (NEGATIVE) 09/05/18 15:10 Urine Glucose (UA) 250 mg/dL (NEGATIVE) H 09/05/18 15:10 Urine Ketones NEGATIVE mg/dL (NEGATIVE) 09/05/18 15:10 Urine Occult Blood NEGATIVE (NEGATIVE) 09/05/18 15:10 Urine Nitrite NEGATIVE (NEGATIVE) 09/05/18 15:10 Urine Bilirubin NEGATIVE (NEGATIVE) 09/05/18 15:10 Urine Urobilinogen 0.2 (NORMAL) E.U./dL (NORMAL) 09/05/18 15:10 Ur Leukocyte Esterase NEGATIVE (NEGATIVE) 09/05/18 15:10 Ur Microscopic Review NOT INDICATED 09/05/18 15:10 Urine Culture Comments NOT INDICATED 09/05/18 15:10 ABX Reporting Has patient been on IV antibiotics over the past 48 hours?: No Current Medications - Current Medications Current Medications: Active Medications Generic Name Dose Route Start Last Admin Trade Name Freq PRN Reason Stop Dose Admin Acetaminophen 650 mg 09/05/18 20:12 09/06/18 01:00 Tylenol PO 650 mg Q4HR PRN Administration Pain 1 to 4 Calamine 1 applic 09/06/18 10:53 Calamine TOP PRN PRN ITCHING Enoxaparin Sodium 80 mg 09/05/18 21:00 09/06/18 13:06 Lovenox SUBQ 80 mg Q12H GABRIELA Administration Escitalopram Oxalate 20 mg 09/06/18 09:00 09/06/18 12:44 Lexapro PO 20 mg DAILY GABRIELA Administration Finasteride 5 mg 09/05/18 21:00 09/05/18 23:04 Proscar PO 5 mg QPM GABRIELA Administration Fludrocortisone Acetate 0.1 mg 09/05/18 21:00 09/06/18 12:43 Florinef PO 0.1 mg BID GABRIELA Administration Hydromorphone HCl 1 mg 09/05/18 20:12 09/06/18 13:11 Dilaudid Inj Carp IVP 1 mg Q2HR PRN Administration Pain 8 to 10 Potassium Chloride/Sodium Chloride 1,000 mls @ 80 mls/hr 09/05/18 21:00 09/06/18 14:55 Normal Saline 0.9% W/20 Meq Kcl IV 80 mls/hr .[id number] GABRIELA Administration Insulin Aspart 1 - 5 unit 09/06/18 21:00 Novolog SUBQ 0800,1200,1700,2100 [facility] Protocol Lorazepam 1 mg 09/05/18 21:00 09/05/18 23:03 Ativan PO 1 mg QPM GABRIELA Administration Mineral Oil 1 applic 09/06/18 10:53 Cavilon TOP PRN PRN Skin Care Nystatin 5 ml 09/06/18 13:00 09/06/18 17:18 Mycostatin PO 5 ml QID GABRIELA Administration Ondansetron HCl 4 mg 09/05/18 20:12 09/06/18 08:24 Zofran Inj IVP 4 mg Q6HR PRN Administration Nausea / Vomiting Ondansetron HCl 4 mg 09/05/18 20:12 Zofran Odt TL Q6HR PRN Nausea / Vomiting Shamika Alonso 36,000 2 each 09/05/18 20:14 09/06/18 09:37 Units Capsule PO 2 each BID PRN Administration SNACK Shamika Alonso 36,000 3 each 09/06/18 13:00 09/06/18 17:18 Units Capsule PO 3 each TIDWM GABRIELA Administration Polyethylene Glycol 17 gm 09/06/18 09:00 09/06/18 09:43 Miralax PO Not Given DAILY [facility] Potassium Chloride 60 meq 09/06/18 09:00 09/06/18 09:46 K-Dur PO 60 meq BID [facility] Administration Prochlorperazine Edisylate 10 mg 09/05/18 20:12 Compazine Inj IVP Q6HR PRN Nausea / Vomiting Sodium Chloride 10 ml 09/05/18 20:12 Normal Saline Flush 0.9% IVP PRN PRN NEEDED PER PROVIDER ORDERS Sodium Chloride 10 ml 09/06/18 01:00 09/06/18 16:38 Normal Saline Flush 0.9% IVP Not Given 0100,0900,1700 [facility] Vancomycin HCl 125 mg 09/06/18 11:00 09/06/18 17:18 Vancocin PO 125 mg QID GABRIELA Administration Finasteride 5 mg PO QPM 04/15/18 Lipase/Protease/Amylase [Shamika Alonso 36,000 Units Capsule] 3 cap PO TIDWM 04/15/18 Escitalopram Oxalate [Lexapro] 20 mg PO DAILY 07/11/18 HYDROmorphone [Dilaudid] 2 mg PO Q4HR PRN 07/11/18 Lidocaine [Topicaine 5] 1 applic TOP PRN PRN 07/11/18 Prochlorperazine Maleate [Compazine] 10 mg PO Q4HR PRN 07/11/18 Omeprazole [PriLOSEC] 20 mg PO DAILY 07/15/18 Fludrocortisone [Florinef] 0.1 mg PO BID 08/20/18 LORazepam [Ativan] 1 mg PO QPM 08/20/18 glyBURIDE [Glyburide] 5 mg PO DAILY 08/20/18 Ondansetron [Zofran Odt] 8 mg PO AC PRN 08/21/18 glyBURIDE [Glyburide] 2.5 mg PO QPM 09/05/18 Acetaminophen [Tylenol] 650 mg PO BID 09/06/18 Lipase/Protease/Amylase [Creon Dr 36,000 Units Capsule] 2 each PO BID PRN 09/06/18 Loperamide [Imodium] 4 mg PO BID 09/06/18 Nystatin 5 ml PO QID 09/06/18 Potassium Chloride 60 meq PO DAILY 09/06/18
[2018-09-06] MEDS: FINASTERIDE 5 MG TABLET PO SCH (21:01)
[2018-09-06] MEDS: INSULIN ASPART 300 UNIT/3 ML PEN SUBQ SCH (21:02)
[2018-09-06] MEDS: LORazepam 0.5 MG TABLET PO SCH (21:02)
[2018-09-07] MEDS: NS W/20 MEQ KCL 1,000 ML IV SCH ×2 (02:25→12:54)
[2018-09-07] MEDS: SODIUM CHLORIDE FLUSH 0.9% 10 ML SYRINGE IVP SCH ×3 (02:27→17:11)
[2018-09-07 07:01] LABS: HB2 TOTAL 12.2 g/dL; HEMOGLOBIN A1C 0.83 g/dL; HEMOGLOBIN A1C % 8.4 % (4.6-6.2)
[2018-09-07 07:22] LABS: BASOPHILS % (AUTO) 0.1 %; EOSINOPHILS # (AUTO) 0.2 10^3/uL (0.0-0.7); EOSINOPHILS % (AUTO) 3.3 %; HGB - HEMOGLOBIN 11.3 g/dL (14.0-18.0); LYMPHOCYTES # (AUTO) 0.8 10^3/uL (1.5-3.5); LYMPHOCYTES % (AUTO) 12.7 %; MEAN CORPUSCULAR HEMOGLOBIN 34.9 pg (27.0-31.0); MEAN CORPUSCULAR HGB CONC 34.4 g/dL (32.0-36.0); MEAN CORPUSCULAR VOLUME 101.4 fL (80.0-94.0); MONOCYTES # (AUTO) 0.3 10^3/uL (0.0-1.0); MONOCYTES % (AUTO) 4.8 %; NEUTROPHILS # (AUTO) 5.3 10^3/uL (1.5-6.6); NEUTROPHILS % (AUTO) 79.1 %; PLT - PLATELET COUNT 248 10^3/uL (130-450); RED BLOOD COUNT 3.24 10^6/uL (4.70-6.10); RED CELL DISTRIBUTION WIDTH 15.3 % (12.0-15.0); WHITE BLOOD COUNT 6.7 x10^3/uL (4.8-10.8)
[2018-09-07 07:40] LABS: ALBUMIN 2.5 g/dL (3.2-5.5); ALBUMIN/GLOBULIN RATIO 0.9 (1.0-2.2); ALKALINE PHOSPHATASE 143 IU/L (42-121); ALT ALANINE AMINOTRANSFERASE 20 IU/L (10-60); AST ASPARTATE AMINOTRANSFERASE 14 IU/L (10-42); BILIRUBIN,TOTAL 0.9 mg/dL (0.2-1.0); BUN - BLOOD UREA NITROGEN 8 mg/dL (6-20); CALCIUM 7.5 mg/dL (8.5-10.3); CARBON DIOXIDE - CO2 22 mmol/L (21-32); CHLORIDE 111 mmol/L (101-111); CREATININE 0.5 mg/dL (0.6-1.2); GFR - MDRD 160 (>89); GLUCOSE 162 mg/dL (70-100); MAGNESIUM 1.8 mg/dL (1.7-2.8); PHOSPHORUS 1.5 mg/dL (2.5-4.6); SODIUM 139 mmol/L (135-145); TOTAL PROTEIN 5.2 g/dL (6.7-8.2)
[2018-09-07] MEDS ORDERED: POTASSIUM PHOSPHATE 21 MMOL in SODIUM CHLORIDE 0.9% 250 ML IV ONE (07:56)
[2018-09-07] MEDS: INSULIN ASPART 300 UNIT/3 ML PEN SUBQ SCH ×4 (08:14→21:09)
[2018-09-07] MEDS: SODIUM CHLORIDE FLUSH 0.9% 10 ML SYRINGE IVP PRN (08:15)
[2018-09-07] MEDS: ENOXAPARIN 80 MG/0.8 ML SYRINGE SUBQ SCH ×2 (08:16→21:07)
[2018-09-07] MEDS: ESCITALOPRAM 10 MG TABLET PO SCH (08:27)
[2018-09-07] MEDS: FLUDROCORTISONE 0.1 MG TABLET PO SCH ×2 (08:28→21:08)
[2018-09-07] MEDS: VANCOMYCIN 125 MG CAPSULE PO SCH ×4 (08:29→21:08)
[2018-09-07] MEDS: POLYETHYLENE GLYCOL 3350 17 GM PACKET PO SCH (08:31)
[2018-09-07] MEDS: LISINOPRIL 20 MG TABLET PO SCH (08:50)
[2018-09-07] MEDS: POTASSIUM CHLORIDE 20 MEQ TABLET PO SCH ×3 (08:51→21:07)
[2018-09-07] MEDS ORDERED: NYSTATIN 500000 UNITS/5 ML UDC PO SCH (09:00)
[2018-09-07 09:10] LABS: VBG PH 7.41 (7.31-7.41)
[2018-09-07] MEDS: NYSTATIN 500000 UNITS/5 ML UDC PO SCH ×4 (09:40→21:08)
--- NOTE | 2018-09-07 12:42 | CONSULTATION NOTE ---
Palliative Care Follow Up - Referral Referring Provider: Dr. Manoj Baez Time of Visit: [phone] Referral setting: Hospitalized patient Referral Reason: Metastatic Pancreatic Cancer/Goals of Care - Information Sources Records reviewed: RN notes reviewed, Previous records reviewed History/Review of Systems obtained from: Patient, Family ( Rachelle supplied history/ROS) Exam limitations: Clinical condition (patient without memory of most recent acute admisssion; clearer today though appears difficult tracking) - History of Present Illness Update Brief HPI Update: This is a 77-year-old gentleman who has metastatic pancreatic cancer to his liver, progressive tumor growth, and mesenteric vein thrombosis. He was just recently discharged from the hospital, with severe hypo-kalemia, sepsis, and had been improving. And a follow-up on his hypokalemia on 09/01, He did have a critical value of 1.9, this was managed by the oncologist. Patient was asymptomatic at that point in time, without weakness, was having some intermittent loose stools, but was put on high doses of potassium with improvement on 09/03-2.8. Had continued on oral replacement. 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 He was seen by home health and had continued to improve, but on the morning of admission on 09/05 he had increased weakness, confusion, and continued difficulty identifying the underlying etiology for his hypokalemia and ongoing failure to thrive. This admission though, he did test positive for C. difficile, has been receiving treatment with improvement today, somewhat "drifty" but able to participate in conversation and family conference. Patient has improved functionally as well, able to ambulate short distances, is eating without difficulty, and has had no recurrent pain. Palliative care has been following patient, regarding goals of care and symptom management as well as coronation of care. Patient has been weighing benefits and burdens of transitioning to hospice, unfortunately his appointment with his oncologist is tomorrow, this was the last piece of information he felt he needed to further define that decision. Patient has though had ongoing functional dec line, is feeling somewhat discouraged, and has not had treatment since mid July. Social History - Living Situation Living arrangement: At home Living Situation: With spouse/s.o. Support System: Rachelle oversees patient's medications, and advocates for medical appointments and care. Today his daughter Dayami and his son Tirso from [facility] are present for family conference. Medications/Allergies - Medications Active Medication List: Active Medications Acetaminophen (Tylenol) 650 mg PO Q4HR PRN PRN Reason: Pain 1 to 4 Last Admin: 09/06/18 01:00 Dose: 650 mg Calamine (Calamine) 1 applic TOP PRN PRN PRN Reason: ITCHING Enoxaparin Sodium (Lovenox) 80 mg SUBQ Q12H COUNTS INCLUDE 234 BEDS AT THE [facility] Last Admin: 09/07/18 08:16 Dose: 80 mg Escitalopram Oxalate (Lexapro) 20 mg PO DAILY COUNTS INCLUDE 234 BEDS AT THE [facility] Last Admin: 09/07/18 08:27 Dose: 20 mg Finasteride (Proscar) 5 mg PO QPM COUNTS INCLUDE 234 BEDS AT THE [facility] Last Admin: 09/06/18 21:01 Dose: 5 mg Fludrocortisone Acetate (Florinef) 0.1 mg PO BID COUNTS INCLUDE 234 BEDS AT THE [facility] Last Admin: 09/07/18 08:28 Dose: 0.1 mg Hydromorphone HCl (Dilaudid Inj Carp) 1 mg IVP Q2HR PRN PRN Reason: Pain 8 to 10 Last Admin: 09/06/18 13:11 Dose: 1 mg Potassium Chloride/Sodium Chloride (Normal Saline 0.9% W/20 Meq Kcl) 1,000 mls @ 80 mls/hr IV .[id number] COUNTS INCLUDE 234 BEDS AT THE [facility] Last Admin: 09/07/18 02:25 Dose: 80 mls/hr Potassium Phosphate 21 mmol/ (Sodium Chloride) 257 mls @ 42.833 mls/hr IV ONCE ONE Stop: 09/07/18 13:55 Last Admin: 09/07/18 08:50 Dose: 42.833 mls/hr Insulin Aspart (Novolog) 1 - 5 unit SUBQ 0800,1200,1700,2100 COUNTS INCLUDE 234 BEDS AT THE [facility]; Protocol Last Admin: 09/07/18 11:34 Dose: 4 unit Insulin Glargine (Lantus Solostar) 5 unit SUBQ QPM COUNTS INCLUDE 234 BEDS AT THE [facility] Lisinopril (Zestril) 20 mg PO DAILY COUNTS INCLUDE 234 BEDS AT THE [facility] Last Admin: 09/07/18 08:50 Dose: 20 mg Lorazepam (Ativan) 1 mg PO QPM COUNTS INCLUDE 234 BEDS AT THE [facility] Last Admin: 09/06/18 21:02 Dose: 1 mg Mineral Oil (Cavilon) 1 applic TOP PRN PRN PRN Reason: Skin Care Nystatin (Mycostatin) 5 ml PO QID COUNTS INCLUDE 234 BEDS AT THE [facility] Last Admin: 09/07/18 09:40 Dose: 5 ml Ondansetron HCl (Zofran Inj) 4 mg IVP Q6HR PRN PRN Reason: Nausea / Vomiting Last Admin: 09/06/18 08:24 Dose: 4 mg Ondansetron HCl (Zofran Odt) 4 mg TL Q6HR PRN PRN Reason: Nausea / Vomiting Shamika Alonso 36,000 (Units Capsule) 2 each PO BID PRN PRN Reason: SNACK Last Admin: 09/06/18 09:37 Dose: 2 each Shamika Alonso 36,000 (Units Capsule) 3 each PO TIDWM COUNTS INCLUDE 234 BEDS AT THE [facility] Last Admin: 09/07/18 08:49 Dose: 3 each Polyethylene Glycol (Miralax) 17 gm PO DAILY COUNTS INCLUDE 234 BEDS AT THE [facility] Last Admin: 09/07/18 08:31 Dose: Not Given Potassium Chloride (K-Dur) 60 meq PO TID COUNTS INCLUDE 234 BEDS AT THE [facility] Last Admin: 09/07/18 08:51 Dose: 60 meq Prochlorperazine Edisylate (Compazine Inj) 10 mg IVP Q6HR PRN PRN Reason: Nausea / Vomiting Saccharomyces Boulardii (Florastor) 500 mg PO BIDWM COUNTS INCLUDE 234 BEDS AT THE [facility] Sodium Chloride (Normal Saline Flush 0.9%) 10 ml IVP PRN PRN PRN Reason: NEEDED PER PROVIDER ORDERS Sodium Chloride (Normal Saline Flush 0.9%) 10 ml IVP 0100,0900,1700 COUNTS INCLUDE 234 BEDS AT THE [facility] Last Admin: 09/07/18 08:51 Dose: Not Given Sodium Chloride (Normal Saline Flush 0.9%) 20 ml IVP PRN PRN PRN Reason: After Blood Draw Last Admin: 09/07/18 08:15 Dose: 20 ml Vancomycin HCl (Vancocin) 125 mg PO QID COUNTS INCLUDE 234 BEDS AT THE [facility] Last Admin: 09/07/18 08:29 Dose: 125 mg Finasteride 5 mg PO QPM 04/15/18 Lipase/Protease/Amylase [Shamika Dr 36,000 Units Capsule] 3 cap PO TIDWM 04/15/18 Escitalopram Oxalate [Lexapro] 20 mg PO DAILY 07/11/18 HYDROmorphone [Dilaudid] 2 mg PO Q4HR PRN 07/11/18 Lidocaine [Topicaine 5] 1 applic TOP PRN PRN 07/11/18 Prochlorperazine Maleate [Compazine] 10 mg PO Q4HR PRN 07/11/18 Omeprazole [PriLOSEC] 20 mg PO DAILY 07/15/18 Fludrocortisone [Florinef] 0.1 mg PO BID 08/20/18 LORazepam [Ativan] 1 mg PO QPM 08/20/18 glyBURIDE [Glyburide] 5 mg PO DAILY 08/20/18 Ondansetron [Zofran Odt] 8 mg PO AC PRN 08/21/18 glyBURIDE [Glyburide] 2.5 mg PO QPM 09/05/18 Acetaminophen [Tylenol] 650 mg PO BID 09/06/18 Lipase/Protease/Amylase [Creon Dr 36,000 Units Capsule] 2 each PO BID PRN 09/06/18 Loperamide [Imodium] 4 mg PO BID 09/06/18 Nystatin 5 ml PO QID 09/06/18 Potassium Chloride 60 meq PO DAILY 09/06/18 - Allergies Allergies/Adverse Reactions: Allergies Allergy/AdvReac Type Severity Reaction Status Date / Time No Known Allergies Allergy Unknown Verified 08/20/18 19:59 Review of Systems - Constitutional Constitutional: reports: Fatigue, Weight loss (patient had anasarca last admit; has lost most of fluid weight) - Eyes Eyes: reports: Vision loss, Corrective lenses - Ears, Nose & Throat Ears, Nose & Throat: reports: Hearing loss - Cardiovascular Cardiovascular: reports: Decr. exercise tolerance - Respiratory Respiratory: reports: SOB with exertion. denies: SOB at rest - Gastrointestinal Gastrointestinal: reports: Diarrhea, Early satiety, Other (hx of painful hemmorhoid; reports currently not issue). denies: Nausea - Genitourinary Genitourinary: reports: Frequency - Musculoskeletal Musculoskeletal: reports: Muscle weakness, Assistive devices (using walker) - Integumentary Integumentary: reports: Dryness - Neurological Neurological: reports: Memory problems (improving; significant confusion on admit) - Psychiatric Psychiatric: reports: Depression, Anxiety - Endocrine Endocrine: reports: Diabetes type 2 - Hematologic/Lymphatic Hematologic/Lymphatic: reports: Blood clots (on enoxaparin for mesenteric thrombosis), Recurrent infections (recent sepsis unknown etiology; now presenting with C diff) - All Other Systems All Other Systems: reports: Reviewed and negative Physical Exam - Vital Signs Vital Signs: Vital Signs x48h Temp Pulse Resp BP Pulse Ox 09/07/18 12:02 36.7 C 85 18 182/92 H 97 09/07/18 08:16 36.9 C 90 16 170/94 H 93 09/07/18 05:00 36.7 C 91 18 177/92 H 95 - Physical Exam General Appearance: positive: No acute distress Eyes Bilateral: positive: Normal inspection ENT: positive: No signs of dehydration Neck: positive: No JVD, Trachea midline Respiratory: positive: No respiratory distress Skin: positive: Pallor, Dryness Extremities: positive: No pedal edema, Other (patient with dusky LE; right great toe still with mild swelling and redness) Neurologic/Psychiatric: positive: Mood/affect nml, Disoriented to time, Weakne ss, Flat affect Palliative Care - POLST Patient has POLST: Yes POLST Status: DNR, Selective Treatment Pain: No pain Tiredness/Fatigue: Moderate (4-6) Drowsiness/Sedation: Moderate (4-6) Nausea: Mild (1-3) Depression: Mild (1-3) Anxiety: Moderate (4-6) Dyspnea: Mild (1-3) Anorexia: Moderate (4-6) - Palliative Care Discussion: Patient expressing discouragement, recognizes continuing decline, has very little insight or remembering of his most recent acute event. Rachelle does present with caregiver fatigue. We discussed at length given his current condition, ways to better support them at home, including ordering of a hospital bed and commode. Did discuss in the context of Medicare criteria, he would not meet, but would be a monthly rental. Given concern to be able to meet patient's care needs at home, I did negotiate that this would be something of assistance and help, this is the request of the , patient did acquiesce. Again patient and are somewhat reluctant to move on to hospice until they have spoken with the oncologist. The appointment was for tomorrow, patient does have functional decline, now with underlying C. difficile infection, would not be a candidate in the immediate future, and has continued to have complications related to his underlying disease process. Did agree with send hospital records for oncologist review, Rachelle is planning to follow-up by phone later today to see if can elicit the information without needing to go to [place]. Both Dayami and Tirso, are anxious to support their parents, and will assist with conf iguring home and home support. Results - Lab Results Lab results reviewed: Yes Fish Bones: 09/07/18 05:30 09/07/18 05:30 Lab and Imaging Results: Lab Results x24hrs 09/07/18 09/07/18 09/07/18 Range/Units 06:15 05:30 05:30 WBC (4.8-10.8) x10^3/uL RBC (4.70-6.10) 10^6/uL Hgb (14.0-18.0) g/dL Hct (42.0-52.0) % MCV (80.0-94.0) fL MCH (27.0-31.0) pg MCHC (32.0-36.0) g/dL RDW (12.0-15.0) % Plt Count (130-450) 10^3/uL MPV (7.4-11.4) fL Neut # (Auto) (1.5-6.6) 10^3/uL Lymph # (Auto) (1.5-3.5) 10^3/uL Wilson # (Auto) (0.0-1.0) 10^3/uL Eos # (Auto) (0.0-0.7) 10^3/uL Baso # (Auto) (0.0-0.1) 10^3/uL Absolute Nucleated RBC x10^3/uL Nucleated RBC % /100WBC VBG pH 7.410 (7.31-7.41) Ionized Calcium 1.10 L YES (1.15-1.33) mmol/L Sodium 139 (135-145) mmol/L Potassium 2.6 L (3.5-5.0) mmol/L Chloride 111 (101-111) mmol/L Carbon Dioxide 22 (21-32) mmol/L Anion Gap 6.0 (6-13) BUN 8 (6-20) mg/dL Creatinine 0.5 L (0.6-1.2) mg/dL Estimated GFR (MDRD) 160 (>89) Glucose 162 H (70-100) mg/dL Glycated Hemoglobin 8.4 H (4.6-6.2) % Estim Average Glucose 194 H (70-100) Calcium 7.5 L (8.5-10.3) mg/dL Phosphorus 1.5 L (2.5-4.6) mg/dL Magnesium 1.8 (1.7-2.8) mg/dL Total Bilirubin 0.9 (0.2-1.0) mg/dL AST 14 (10-42) IU/L ALT 20 (10-60) IU/L Alkaline Phosphatase 143 H (42-121) IU/L Total Protein 5.2 L (6.7-8.2) g/dL Albumin 2.5 L (3.2-5.5) g/dL Globulin 2.7 (2.1-4.2) g/dL Albumin/Globulin Ratio 0.9 L (1.0-2.2) 09/07/18 Range/Units 05:30 WBC 6.7 (4.8-10.8) x10^3/uL RBC 3.24 L (4.70-6.10) 10^6/uL Hgb 11.3 L (14.0-18.0) g/dL Hct 32.9 L (42.0-52.0) % MCV 101.4 H (80.0-94.0) fL MCH 34.9 H (27.0-31.0) pg MCHC 34.4 (32.0-36.0) g/dL RDW 15.3 H (12.0-15.0) % Plt Count 248 (130-450) 10^3/uL MPV 9.0 (7.4-11.4) fL Neut # (Auto) 5.3 (1.5-6.6) 10^3/uL Lymph # (Auto) 0.8 L (1.5-3.5) 10^3/uL Wilson # (Auto) 0.3 (0.0-1.0) 10^3/uL Eos # (Auto) 0.2 (0.0-0.7) 10^3/uL Baso # (Auto) 0.0 (0.0-0.1) 10^3/uL Absolute Nucleated RBC 0.00 x10^3/uL Nucleated RBC % 0.0 /100WBC VBG pH (7.31-7.41) Ionized Calcium (1.15-1.33) mmol/L Sodium (135-145) mmol/L Potassium (3.5-5.0) mmol/L Chloride (101-111) mmol/L Carbon Dioxide (21-32) mmol/L Anion Gap (6-13) BUN (6-20) mg/dL Creatinine (0.6-1.2) mg/dL Estimated GFR (MDRD) (>89) Glucose (70-100) mg/dL Glycated Hemoglobin (4.6-6.2) % Estim Average Glucose (70-100) Calcium (8.5-10.3) mg/dL Phosphorus (2.5-4.6) mg/dL Magnesium (1.7-2.8) mg/dL Total Bilirubin (0.2-1.0) mg/dL AST (10-42) IU/L ALT (10-60) IU/L Alkaline Phosphatase (42-121) IU/L Total Protein (6.7-8.2) g/dL Albumin (3.2-5.5) g/dL Globulin (2.1-4.2) g/dL Albumin/Globulin Ratio (1.0-2.2) Impression and Recommendations - Palliative Care Impression: This is a timur 77-year-old gentleman who has had multiple complications related both to his metastatic cancer with liver metastases, and side effects of treatment. Patient now presents with hypokalemia, metabolic abnormalities, and C. difficile. Palliative care to continue provide support and anticipatory guidance until transition to hospice. Recommendations/Counseling Done: 1. Pancreatic cancer with liver metastases. Information faxed to oncologist, with note regarding information sought by patient and family regarding question of time to transition to hospice. planning to call, secondary to unable to make appointment tomorrow. 2. Generalized weakness. This is multifactorial in origin, including hypokalemia, deconditioning, and weight loss. Given patient's history of falls, and family conference regarding things that may make things easier in the home setting, hospital bed and commode was ordered from [facility]. They are aware will be private pay, patient does not meet Medicare criteria. 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 Order sent, will arrange with family for delivery for tomorrow. 3. Advanced care planning. Patient and at somewhat of an impass, awaiting final input from oncologist prior to transition to hospice. Continuing to ask and address questions regarding the continuum of care including hospice, currently open to home health, [facility] is in place. Anticipatory guidance is provided. Time Spent: 45 minutes with getting 50% of this done in counseling regarding goals of care, and anticipatory guidance
[2018-09-07] MEDS: SACCHAROMYCES BOULARDII 250 MG CAPSULE PO SCH ×2 (12:53→17:02)
--- NOTE | 2018-09-07 18:55 | Discharge Plan ---
Discharge Plan Disposition: 01 Home, Self Care Condition: Stable Prescriptions: Vancomycin [Vancocin] 125 mg PO QID #32 capsule No Smoking: If you smoke, Please STOP! Call for help. Follow-up with: Naveed Kyle MD [Primary Care Provider] -
--- NOTE | 2018-09-07 19:02 | PROVIDER PROGRESS NOTE ---
Assessment/Plan - Problem List (1) Clostridium difficile colitis Assessment/Plan: Patient has been having diarrhea and on CT scan was found to have a pancolitis. Patient's C. difficile pcr came back positive. Today patient is continuing to have diarrhea with 4 watery BMs this am. His WBC is improved and he appears more alert and strength is improved. Plan: Continue IV fluid hydration and potassium replacement Continue oral vancomycin for treatment of C. difficile with dose of 125 mg 4 times daily Continue to monitor diarrhea will need to have decreased diarrhea prior to be being discharged (2) Metabolic encephalopathy Conclusion/Plan: The patient appears to have metabolic encephalopathy likely due to ongoing infection with Clostridium difficile along with dehydration. Resolving this am as patient is much more alert and seems to be aware of where he is and what is going on. Patient is close to baseline. (3) Weakness Conclusion/Plan: Functional. Likely this is a combination of the patient's current condition with ongoing metastatic cancer, as well as current condition with C. difficile colitis and dehydration. Significant improvement Patient able to walk to bathroom today (4) Mesenteric vein thrombosis Conclusion/Plan: Continue Lovenox. The pancreatic mass with tumor compression seems to be the cause of the stasis and that mesenteric vein thrombosis. Plan: No change in Lovenox dose (5) Pancreatic cancer metastasized to liver Conclusion/Plan: He has not had chemotherapy since before last admission. It was anticipated that he would start once some of his mesenteric vein thrombosis symptoms abated. But he is not received therapy since discharge. I know that his oncologist is getting reports from myself and palliative care. Other than updating him and his condition I do not think anything can be offered to this gentleman at this time from an oncologic perspective. (6) Hypokalemia Conclusion/Plan: Improved from 2.4 to 2.6. Continue potassium replacement. (7) Diabetes Conclusion/Plan: Patient is hyperglycemic on presentation with a glucose of 214. HbA1C elevated at 8.4 Start lantus 5 units tonight Continue SS insulin Monitor BG Qualifiers: Diabetes mellitus type: type 2 Diabetes mellitus senior living insulin use: without senior living use Diabetes mellitus complication status: with hyperglycemia Qualified Code(s): E11.65 - Type 2 diabetes mellitus with hyperglycemia (8) Hypophosphatemia Conclusion/Plan: Phos low this am at 1.5 Replace Monitor - Current Meds Current Meds: Current Medications Generic Name Dose Route Start Last Admin Trade Name Freq PRN Reason Stop Dose Admin Acetaminophen 650 mg 09/05/18 20:12 09/06/18 01:00 Tylenol PO 650 mg Q4HR PRN Administration Pain 1 to 4 Enoxaparin Sodium 80 mg 09/05/18 21:00 09/07/18 08:16 Lovenox SUBQ 80 mg Q12H GABRIELA Administration Escitalopram Oxalate 20 mg 09/06/18 09:00 09/07/18 08:27 Lexapro PO 20 mg DAILY GABRIELA Administration Finasteride 5 mg 09/05/18 21:00 09/06/18 21:01 Proscar PO 5 mg QPM GABRIELA Administration Fludrocortisone Acetate 0.1 mg 09/05/18 21:00 09/07/18 08:28 Florinef PO 0.1 mg BID GABRIELA Administration Hydromorphone HCl 1 mg 09/05/18 20:12 09/06/18 13:11 Dilaudid Inj Carp IVP 1 mg Q2HR PRN Administration Pain 8 to 10 Potassium Chloride/Sodium Chloride 1,000 mls @ 80 mls/hr 09/05/18 21:00 09/07/18 12:54 Normal Saline 0.9% W/20 Meq Kcl IV 80 mls/hr .[id number] GABRIELA Administration Insulin Aspart 1 - 9 unit 09/07/18 17:00 09/07/18 17:10 Novolog SUBQ 7 unit 0800,1200,1700,2100 GABRIELA Administration Protocol Lisinopril 20 mg 09/07/18 09:00 09/07/18 08:50 Zestril PO 20 mg DAILY GABRIELA Administration Lorazepam 1 mg 09/05/18 21:00 09/06/18 21:02 Ativan PO 1 mg QPM GABRIELA Administration Nystatin 5 ml 09/06/18 13:00 09/07/18 17:02 Mycostatin PO 5 ml QID GABRIELA Administration Ondansetron HCl 4 mg 09/05/18 20:12 09/06/18 08:24 Zofran Inj IVP 4 mg Q6HR PRN Administration Nausea / Vomiting Shamika Alonso 36,000 2 each 09/05/18 20:14 09/06/18 09:37 Units Capsule PO 2 each BID PRN Administration SNACK Shamika Sprague,000 3 each 09/06/18 13:00 09/07/18 17:01 Units Capsule PO 3 each TIDWM GABRIELA Administration Polyethylene Glycol 17 gm 09/06/18 09:00 09/07/18 08:31 Miralax PO Not Given DAILY GABRIELA Potassium Chloride 60 meq 09/07/18 08:00 09/07/18 13:34 K-Dur PO 60 meq TID GABRIELA Administration Saccharomyces Boulardii 500 mg 09/07/18 11:02 09/07/18 17:02 Florastor PO 500 mg BIDWM GABRIELA Administration Sodium Chloride 10 ml 09/06/18 01:00 09/07/18 17:11 Normal Saline Flush 0.9% IVP Not Given 0100,0900,1700 GABRIELA Sodium Chloride 20 ml 09/07/18 08:33 09/07/18 08:15 Normal Saline Flush 0.9% IVP 20 ml PRN PRN Administration After Blood Draw Vancomycin HCl 125 mg 09/06/18 11:00 09/07/18 17:03 Vancocin PO 125 mg QID GABRIELA Administration - Lab Result Lab results reviewed: Yes Fish Bone Diagrams: 09/07/18 05:30 09/07/18 05:30 - Diagnostic Imaging Results Diagnostic Imaging Results: Final report reviewed - Additional Planning Condition/Complexity: Guarded My Orders: My Active Orders 09/07/18 08:00 Potassium Chloride [K-Dur] 60 meq PO TID 09/07/18 09:00 Lisinopril [Zestril] 20 mg PO DAILY 09/07/18 11:02 Saccharomyces Boulardii [Florastor] 500 mg PO BIDWM 09/07/18 17:00 Insulin Aspart [NovoLOG] 1 - 9 unit SUBQ 0800,1200,1700,2100 09/07/18 21:00 Insulin Glargine [Lantus Solostar] 5 unit SUBQ QPM 09/08/18 05:00 CBC - COMP BLD CT W/AUTO DIFF [HEME] DAILYLAB CMP, RFLX TO IONIZED CA IF [CHEM] DAILYLAB MAGNESIUM [CHEM] DAILYLAB PHOSPHORUS [CHEM] DAILYLAB 09/09/18 05:00 CBC - COMP BLD CT W/AUTO DIFF [HEME] DAILYLAB CMP, RFLX TO IONIZED CA IF [CHEM] DAILYLAB MAGNESIUM [CHEM] DAILYLAB PHOSPHORUS [CHEM] DAILYLAB 09/10/18 05:00 CBC - COMP BLD CT W/AUTO DIFF [HEME] DAILYLAB CMP, RFLX TO IONIZED CA IF [CHEM] DAILYLAB MAGNESIUM [CHEM] DAILYLAB PHOSPHORUS [CHEM] DAILYLAB 09/11/18 05:00 CBC - COMP BLD CT W/AUTO DIFF [HEME] DAILYLAB CMP, RFLX TO IONIZED CA IF [CHEM] DAILYLAB MAGNESIUM [CHEM] DAILYLAB PHOSPHORUS [CHEM] DAILYLAB 09/12/18 05:00 CBC - COMP BLD CT W/AUTO DIFF [HEME] DAILYLAB CMP, RFLX TO IONIZED CA IF [CHEM] DAILYLAB MAGNESIUM [CHEM] DAILYLAB PHOSPHORUS [CHEM] DAILYLAB Plan Discussed with:: Patient, Family, Spouse Time Spent: 31-60 minutes Subjective - Subjective Patient Reports: Feeling Better, Resting Comfortably, Diarrhea (Continued diarrhea this am.), Other (No fevers or chills. Patient feels stronger this am. Abdominal gas with discomfort.) Nursing Reports: No Complaints Objective Vital Signs: Vital Signs - 24 hr 09/06/18 09/06/18 09/07/18 20:40 23:44 05:00 Temperature 36.9 C 36.9 C 36.7 C Heart Rate [ 89 81 91 Brachial] Respiratory 16 17 18 Rate Blood Pressure 152/66 H 162/91 H 177/92 H [Right Brachial artery] O2 Saturation 97 96 95 09/07/18 09/07/18 09/07/18 08:16 12:02 15:43 Temperature 36.9 C 36.7 C 37.0 C Heart Rate [ 90 85 86 Brachial] Respiratory 16 18 18 Rate Blood Pressure 170/94 H 182/92 H 187/99 H [Right Brachial artery] O2 Saturation 93 97 98 Oxygen O2 Source Room air I&O (Last 24 Hrs): Intake and Output Totals x24h 09/05/18 09/06/18 09/07/18 23:59 23:59 23:59 Intake Total 420.632 7917.333 2678.667 Output Total 100 500 Balance 640.293 4397.333 2178.667 General: Alert, Oriented x3, Cooperative, No acute distress, Other (Appears cachectic and dry) HEENT: Atraumatic, PERRLA, EOMI, Other (Dry mucus membranes) Neck: Supple, No JVD, No thyromegaly, +2 carotid pulse wo bruit, No LAD Lymphatic: no adenopathy Neuro: Alert, Non Focal, CN 2-12 Grossly Intact, Oriented Times 3 Cardiovascular: Regular rate, Normal S1, Normal S2, No murmurs Respiratory: Chest non-tender, No respiratory distress, Breath sounds nml Abdomen: Soft, Other (Mild distension, mild tenderness in the lower abdomen) Extremities: No clubbing, No cyanosis, Normal pulses, Other (Mild edema) Skin: No rashes, No breakdown - Results Results: Laboratory Results WBC 6.7 x10^3/uL (4.8-10.8) 09/07/18 05:30 RBC 3.24 10^6/uL (4.70-6.10) L 09/07/18 05:30 Hgb 11.3 g/dL (14.0-18.0) L 09/07/18 05:30 Hct 32.9 % (42.0-52.0) L 09/07/18 05:30 MCV 101.4 fL (80.0-94.0) H 09/07/18 05:30 MCH 34.9 pg (27.0-31.0) H 09/07/18 05:30 MCHC 34.4 g/dL (32.0-36.0) 09/07/18 05:30 RDW 15.3 % (12.0-15.0) H 09/07/18 05:30 Plt Count 248 10^3/uL (130-450) 09/07/18 05:30 MPV 9.0 fL (7.4-11.4) 09/07/18 05:30 Neut # (Auto) 5.3 10^3/uL (1.5-6.6) 09/07/18 05:30 Lymph # (Auto) 0.8 10^3/uL (1.5-3.5) L 09/07/18 05:30 Wallace # (Auto) 0.3 10^3/uL (0.0-1.0) 09/07/18 05:30 Eos # (Auto) 0.2 10^3/uL (0.0-0.7) 09/07/18 05:30 Baso # (Auto) 0.0 10^3/uL (0.0-0.1) 09/07/18 05:30 Absolute Nucleated RBC 0.00 x10^3/uL 09/07/18 05:30 Nucleated RBC % 0.0 /100WBC 09/07/18 05:30 VBG pH 7.410 (7.31-7.41) 09/07/18 05:30 Ionized Calcium 1.10 mmol/L (1.15-1.33) L 09/07/18 05:30 Sodium 139 mmol/L (135-145) 09/07/18 05:30 Potassium 2.6 mmol/L (3.5-5.0) L 09/07/18 05:30 Chloride 111 mmol/L (101-111) 09/07/18 05:30 Carbon Dioxide 22 mmol/L (21-32) 09/07/18 05:30 Anion Gap 6.0 (6-13) 09/07/18 05:30 BUN 8 mg/dL (6-20) 09/07/18 05:30 Creatinine 0.5 mg/dL (0.6-1.2) L 09/07/18 05:30 Estimated GFR (MDRD) 160 (>89) 09/07/18 05:30 Glucose 162 mg/dL (70-100) H 09/07/18 05:30 Glycated Hemoglobin 8.4 % (4.6-6.2) H 09/07/18 06:15 Estim Average Glucose 194 (70-100) H 09/07/18 06:15 Lactic Acid 1.4 mmol/L (0.5-2.2) 09/05/18 19:47 Calcium 7.5 mg/dL (8.5-10.3) L 09/07/18 05:30 Ionized Calcium YES 09/07/18 05:30 Phosphorus 1.5 mg/dL (2.5-4.6) L 09/07/18 05:30 Magnesium 1.8 mg/dL (1.7-2.8) 09/07/18 05:30 Total Bilirubin 0.9 mg/dL (0.2-1.0) 09/07/18 05:30 AST 14 IU/L (10-42) 09/07/18 05:30 ALT 20 IU/L (10-60) 09/07/18 05:30 Alkaline Phosphatase 143 IU/L (42-121) H 09/07/18 05:30 Troponin I < 0.04 ng/mL (<0.49) 09/05/18 14:26 Total Protein 5.2 g/dL (6.7-8.2) L 09/07/18 05:30 Albumin 2.5 g/dL (3.2-5.5) L 09/07/18 05:30 Globulin 2.7 g/dL (2.1-4.2) 09/07/18 05:30 Albumin/Globulin Ratio 0.9 (1.0-2.2) L 09/07/18 05:30 Lipase 18 U/L (22-51) L 09/05/18 14:26 Urine Color YELLOW 09/05/18 15:10 Urine Clarity CLEAR (CLEAR) 09/05/18 15:10 Urine pH 7.0 PH (5.0-7.5) 09/05/18 15:10 Ur Specific [place] 1.020 (1.002-1.030) 09/05/18 15:10 Urine Protein NEGATIVE mg/dL (NEGATIVE) 09/05/18 15:10 Urine Glucose (UA) 250 mg/dL (NEGATIVE) H 09/05/18 15:10 Urine Ketones NEGATIVE mg/dL (NEGATIVE) 09/05/18 15:10 Urine Occult Blood NEGATIVE (NEGATIVE) 09/05/18 15:10 Urine Nitrite NEGATIVE (NEGATIVE) 09/05/18 15:10 Urine Bilirubin NEGATIVE (NEGATIVE) 09/05/18 15:10 Urine Urobilinogen 0.2 (NORMAL) E.U./dL (NORMAL) 09/05/18 15:10 Ur Leukocyte Esterase NEGATIVE (NEGATIVE) 09/05/18 15:10 Ur Microscopic Review NOT INDICATED 09/05/18 15:10 Urine Culture Comments NOT INDICATED 09/05/18 15:10 ABX Reporting Has patient been on IV antibiotics over the past 48 hours?: No Current Medications - Current Medications Current Medications: Active Medications Generic Name Dose Route Start Last Admin Trade Name Freq PRN Reason Stop Dose Admin Acetaminophen 650 mg 09/05/18 20:12 09/06/18 01:00 Tylenol PO 650 mg Q4HR PRN Administration Pain 1 to 4 Calamine 1 applic 09/06/18 10:53 Calamine TOP PRN PRN ITCHING Enoxaparin Sodium 80 mg 09/05/18 21:00 09/07/18 08:16 Lovenox SUBQ 80 mg Q12H GABRIELA Administration Escitalopram Oxalate 20 mg 09/06/18 09:00 09/07/18 08:27 Lexapro PO 20 mg DAILY GABRIELA Administration Finasteride 5 mg 09/05/18 21:00 09/06/18 21:01 Proscar PO 5 mg QPM GABRIELA Administration Fludrocortisone Acetate 0.1 mg 09/05/18 21:00 09/07/18 08:28 Florinef PO 0.1 mg BID GABRIELA Administration Hydromorphone HCl 1 mg 09/05/18 20:12 09/06/18 13:11 Dilaudid Inj Carp IVP 1 mg Q2HR PRN Administration Pain 8 to 10 Potassium Chloride/Sodium Chloride 1,000 mls @ 80 mls/hr 09/05/18 21:00 09/07/18 12:54 Normal Saline 0.9% W/20 Meq Kcl IV 80 mls/hr .[id number] GABRIELA Administration Insulin Aspart 1 - 9 unit 09/07/18 17:00 09/07/18 17:10 Novolog SUBQ 7 unit 0800,1200,1700,2100 [facility] Administration Protocol Insulin Glargine 5 unit 09/07/18 21:00 Lantus Solostar SUBQ QPM [facility] Lisinopril 20 mg 09/07/18 09:00 09/07/18 08:50 Zestril PO 20 mg DAILY [facility] Administration Lorazepam 1 mg 09/05/18 21:00 09/06/18 21:02 Ativan PO 1 mg QPM GABRIELA Administration Mineral Oil 1 applic 09/06/18 10:53 Cavilon TOP PRN PRN Skin Care Nystatin 5 ml 09/06/18 13:00 09/07/18 17:02 Mycostatin PO 5 ml QID GABRIELA Administration Ondansetron HCl 4 mg 09/05/18 20:12 09/06/18 08:24 Zofran Inj IVP 4 mg Q6HR PRN Administration Nausea / Vomiting Ondansetron HCl 4 mg 09/05/18 20:12 Zofran Odt TL Q6HR PRN Nausea / Vomiting Oxycodone HCl 5 mg 09/07/18 19:03 Roxicodone PO Q4HR PRN Pain 5-[address] 36,000 2 each 09/05/18 20:14 09/06/18 09:37 Units Capsule PO 2 each BID PRN Administration SNACK Shamika Alonso 36,000 3 each 09/06/18 13:00 09/07/18 17:01 Units Capsule PO 3 each TIDWM GABRIELA Administration Polyethylene Glycol 17 gm 09/06/18 09:00 09/07/18 08:31 Miralax PO Not Given DAILY GABRIELA Potassium Chloride 60 meq 09/07/18 08:00 09/07/18 13:34 K-Dur PO 60 meq TID GABRIELA Administration Prochlorperazine Edisylate 10 mg 09/05/18 20:12 Compazine Inj IVP Q6HR PRN Nausea / Vomiting Saccharomyces Boulardii 500 mg 09/07/18 11:02 09/07/18 17:02 Florastor PO 500 mg BIDWM GABRIELA Administration Sodium Chloride 10 ml 09/05/18 20:12 Normal Saline Flush 0.9% IVP PRN PRN NEEDED PER PROVIDER ORDERS Sodium Chloride 10 ml 09/06/18 01:00 09/07/18 17:11 Normal Saline Flush 0.9% IVP Not Given 0100,0900,1700 [facility] Sodium Chloride 20 ml 09/07/18 08:33 09/07/18 08:15 Normal Saline Flush 0.9% IVP 20 ml PRN PRN Administration After Blood Draw Vancomycin HCl 125 mg 09/06/18 11:00 09/07/18 17:03 Vancocin PO 125 mg QID GABRIELA Administration Finasteride 5 mg PO QPM 04/15/18 Lipase/Protease/Amylase [Shamika Alonso 36,000 Units Capsule] 3 cap PO TIDWM 04/15/18 Escitalopram Oxalate [Lexapro] 20 mg PO DAILY 07/11/18 HYDROmorphone [Dilaudid] 2 mg PO Q4HR PRN 07/11/18 Lidocaine [Topicaine 5] 1 applic TOP PRN PRN 07/11/18 Prochlorperazine Maleate [Compazine] 10 mg PO Q4HR PRN 07/11/18 Omeprazole [PriLOSEC] 20 mg PO DAILY 07/15/18 Fludrocortisone [Florinef] 0.1 mg PO BID 08/20/18 LORazepam [Ativan] 1 mg PO QPM 08/20/18 glyBURIDE [Glyburide] 5 mg PO DAILY 08/20/18 Ondansetron [Zofran Odt] 8 mg PO AC PRN 08/21/18 glyBURIDE [Glyburide] 2.5 mg PO QPM 09/05/18 Acetaminophen [Tylenol] 650 mg PO BID 09/06/18 Lipase/Protease/Amylase [Shamika Alonso 36,000 Units Capsule] 2 each PO BID PRN 09/06/18 Loperamide [Imodium] 4 mg PO BID 09/06/18 Nystatin 5 ml PO QID 09/06/18 Potassium Chloride 60 meq PO DAILY 09/06/18
[2018-09-07] MEDS ORDERED: oxyCODONE 5 MG TABLET PO PRN (19:03)
[2018-09-07] MEDS: POTASSIUM CHLOR 10 MEQ/100 ML 10 MEQ/100 ML BAG IV SCH ×4 (19:52→23:43)
[2018-09-07] MEDS: LORazepam 0.5 MG TABLET PO SCH (21:08)
[2018-09-07] MEDS: FINASTERIDE 5 MG TABLET PO SCH (21:08)
[2018-09-07] MEDS: MORPHINE ER 15 MG TABLET PO SCH (21:08)
[2018-09-07] MEDS: INSULIN GLARGINE 300 UNIT/3 ML PEN SUBQ SCH (21:09)
[2018-09-08] MEDS: POTASSIUM CHLOR 10 MEQ/100 ML 10 MEQ/100 ML BAG IV SCH ×6 (00:47→21:03)
[2018-09-08] MEDS: SODIUM CHLORIDE FLUSH 0.9% 10 ML SYRINGE IVP SCH ×3 (01:16→17:10)
[2018-09-08] MEDS: SODIUM CHLORIDE FLUSH 0.9% 10 ML SYRINGE IVP PRN ×3 (05:50→11:21)
[2018-09-08] MEDS: POTASSIUM CHLORIDE 20 MEQ TABLET PO SCH ×3 (05:58→21:26)
[2018-09-08] MEDS: MORPHINE ER 15 MG TABLET PO SCH ×3 (06:05→21:26)
[2018-09-08 06:36] LABS: BASOPHILS % (AUTO) 0.4 %; EOSINOPHILS # (AUTO) 0.2 10^3/uL (0.0-0.7); EOSINOPHILS % (AUTO) 3.9 %; HGB - HEMOGLOBIN 10.2 g/dL (14.0-18.0); LYMPHOCYTES # (AUTO) 1.1 10^3/uL (1.5-3.5); LYMPHOCYTES % (AUTO) 26.1 %; MEAN CORPUSCULAR HEMOGLOBIN 34.5 pg (27.0-31.0); MEAN CORPUSCULAR HGB CONC 33.4 g/dL (32.0-36.0); MEAN CORPUSCULAR VOLUME 103.2 fL (80.0-94.0); MEAN PLATELET VOLUME 8.9 fL (7.4-11.4); MONOCYTES # (AUTO) 0.3 10^3/uL (0.0-1.0); MONOCYTES % (AUTO) 6.2 %; NEUTROPHILS # (AUTO) 2.8 10^3/uL (1.5-6.6); NEUTROPHILS % (AUTO) 63.4 %; PLT - PLATELET COUNT 224 10^3/uL (130-450); RED BLOOD COUNT 2.97 10^6/uL (4.70-6.10); RED CELL DISTRIBUTION WIDTH 14.6 % (12.0-15.0); WHITE BLOOD COUNT 4.4 x10^3/uL (4.8-10.8)
[2018-09-08 06:52] LABS: ALBUMIN 2.4 g/dL (3.2-5.5); ALBUMIN/GLOBULIN RATIO 0.9 (1.0-2.2); ALKALINE PHOSPHATASE 131 IU/L (42-121); ALT ALANINE AMINOTRANSFERASE 20 IU/L (10-60); AST ASPARTATE AMINOTRANSFERASE 16 IU/L (10-42); BILIRUBIN,TOTAL 0.7 mg/dL (0.2-1.0); BUN - BLOOD UREA NITROGEN 7 mg/dL (6-20); CALCIUM 7.7 mg/dL (8.5-10.3); CARBON DIOXIDE - CO2 21 mmol/L (21-32); CHLORIDE 110 mmol/L (101-111); CREATININE 0.4 mg/dL (0.6-1.2); GFR - MDRD 208 (>89); GLUCOSE 199 mg/dL (70-100); MAGNESIUM 1.8 mg/dL (1.7-2.8); PHOSPHORUS 1.5 mg/dL (2.5-4.6); SODIUM 136 mmol/L (135-145)
[2018-09-08 06:54] LABS: VBG PH 7.362 (7.31-7.41)
[2018-09-08] MEDS ORDERED: POTASSIUM PHOSPHATE 21 MMOL in SODIUM CHLORIDE 0.9% 250 ML IV ONE (07:57)
[2018-09-08] MEDS: SACCHAROMYCES BOULARDII 250 MG CAPSULE PO SCH ×2 (08:03→17:09)
[2018-09-08] MEDS: LISINOPRIL 20 MG TABLET PO SCH (08:04)
[2018-09-08] MEDS: VANCOMYCIN 125 MG CAPSULE PO SCH ×4 (08:04→21:31)
[2018-09-08] MEDS: ESCITALOPRAM 10 MG TABLET PO SCH (08:04)
[2018-09-08] MEDS: NYSTATIN 500000 UNITS/5 ML UDC PO SCH ×4 (08:04→21:31)
[2018-09-08] MEDS: FLUDROCORTISONE 0.1 MG TABLET PO SCH ×2 (08:04→21:26)
[2018-09-08] MEDS: ENOXAPARIN 80 MG/0.8 ML SYRINGE SUBQ SCH ×2 (08:04→21:27)
[2018-09-08] MEDS: NS W/20 MEQ KCL 1,000 ML IV SCH ×2 (08:06→21:04)
[2018-09-08] MEDS: INSULIN ASPART 300 UNIT/3 ML PEN SUBQ SCH ×4 (08:08→21:02)
[2018-09-08] MEDS: POLYETHYLENE GLYCOL 3350 17 GM PACKET PO SCH (08:31)
--- NOTE | 2018-09-08 15:47 | PROVIDER PROGRESS NOTE ---
Assessment/Plan - Problem List (1) Clostridium difficile colitis Assessment/Plan: Patient has been having diarrhea and on CT scan was found to have a pancolitis. Patient's C. difficile pcr came back positive. Patient continuing to have diarrhea (6 episodes today) Continues to be dehyrdated and hypokalemic. Plan: Continue IV fluid hydration and potassium replacement Continue oral vancomycin for treatment of C. difficile with dose of 125 mg 4 times daily Continue to monitor diarrhea will need to have decreased diarrhea prior to be being discharged (2) Metabolic encephalopathy Conclusion/Plan: The patient appears to have metabolic encephalopathy likely due to ongoing infection with Clostridium difficile along with dehydration. Resolved (3) Weakness Conclusion/Plan: Functional. Likely this is a combination of the patient's current condition with ongoing metastatic cancer, as well as current condition with C. difficile colitis and dehydration. Resolving Will need to continue home health at home (4) Mesenteric vein thrombosis Conclusion/Plan: Continue Lovenox. The pancreatic mass with tumor compression seems to be the cause of the stasis and that mesenteric vein thrombosis. Plan: Continue lovenox (5) Pancreatic cancer metastasized to liver Conclusion/Plan: He has not had chemotherapy since before last admission. It was anticipated that he would start once some of his mesenteric vein thrombosis symptoms abated. But he is not received therapy since discharge. I know that his oncologist is getting reports from myself and palliative care. Other than updating him and his condition I do not think anything can be offered to this gentleman at this time from an oncologic perspective. (6) Hypokalemia Conclusion/Plan: Improved from 2.4 to 2.6 to 2.8 Continue IV and PO potassium replacement. (7) Diabetes Conclusion/Plan: Patient was hyperglycemic on presentation with a glucose of 214. HbA1C elevated at 8.4 Started on lantus 5 units q nightly Continue SS insulin BG is improved this am Continue regular diet given patient has metastatic pancreatic Ca Qualifiers: Diabetes mellitus type: type 2 Diabetes mellitus buttermaker continuous churn insulin use: without jail use Diabetes mellitus complication status: with hyperglycemia Qualified Code(s): E11.65 - Type 2 diabetes mellitus with hyperglycemia (8) Hypophosphatemia Conclusion/Plan: Phos low this am at 1.5 Replace Monitor - Current Meds Current Meds: Current Medications Generic Name Dose Route Start Last Admin Trade Name Freq PRN Reason Stop Dose Admin Acetaminophen 650 mg 09/05/18 20:12 09/06/18 01:00 Tylenol PO 650 mg Q4HR PRN Administration Pain 1 to 4 Enoxaparin Sodium 80 mg 09/05/18 21:00 09/08/18 08:04 Lovenox SUBQ 80 mg Q12H GABRIELA Administration Escitalopram Oxalate 20 mg 09/06/18 09:00 09/08/18 08:04 Lexapro PO 20 mg DAILY GABRIELA Administration Finasteride 5 mg 09/05/18 21:00 09/07/18 21:08 Proscar PO 5 mg QPM GABRIELA Administration Fludrocortisone Acetate 0.1 mg 09/05/18 21:00 09/08/18 08:04 Florinef PO 0.1 mg BID GABRIELA Administration Hydromorphone HCl 1 mg 09/05/18 20:12 09/06/18 13:11 Dilaudid Inj Carp IVP 1 mg Q2HR PRN Administration Pain 8 to 10 Potassium Chloride/Sodium Chloride 1,000 mls @ 80 mls/hr 09/05/18 21:00 09/08/18 08:06 Normal Saline 0.9% W/20 Meq Kcl IV 80 mls/hr .[id number] GABRIELA Administration Insulin Aspart 1 - 9 unit 09/07/18 17:00 09/08/18 12:05 Novolog SUBQ 5 unit 0800,1200,1700,2100 GABRIELA Administration Protocol Insulin Glargine 5 unit 09/07/18 21:00 09/07/18 21:09 Lantus Solostar SUBQ 5 unit QPM GABRIELA Administration Lisinopril 20 mg 09/07/18 09:00 09/08/18 08:04 Zestril PO 20 mg DAILY GABRIELA Administration Lorazepam 1 mg 09/05/18 21:00 09/07/18 21:08 Ativan PO 1 mg QPM GABRIELA Administration Morphine Sulfate 15 mg 09/07/18 21:00 09/08/18 13:16 PO 15 mg Q8H GABRIELA Administration Nystatin 5 ml 09/06/18 13:00 09/08/18 13:15 Mycostatin PO 5 ml QID GABRIELA Administration Ondansetron HCl 4 mg 09/05/18 20:12 09/06/18 08:24 Zofran Inj IVP 4 mg Q6HR PRN Administration Nausea / Vomiting Creon Dr 36,000 2 each 09/05/18 20:14 09/06/18 09:37 Units Capsule PO 2 each BID PRN Administration KARRIE Wick Dr 36,000 3 each 09/06/18 13:00 09/08/18 12:08 Units Capsule PO 3 each TIDWM GABRIELA Administration Polyethylene Glycol 17 gm 09/06/18 09:00 09/08/18 08:31 Miralax PO Not Given DAILY GABRIELA Potassium Chloride 60 meq 09/07/18 08:00 09/08/18 14:32 K-Dur PO 60 meq TID GABRIELA Administration Saccharomyces Boulardii 500 mg 09/07/18 11:02 09/08/18 08:03 Florastor PO 500 mg BIDWM GABRIELA Administration Sodium Chloride 10 ml 09/05/18 20:12 09/08/18 11:21 Normal Saline Flush 0.9% IVP 10 ml PRN PRN Administration NEEDED PER PROVIDER ORDERS Sodium Chloride 10 ml 09/06/18 01:00 09/08/18 08:31 Normal Saline Flush 0.9% IVP Not Given 0100,0900,1700 GABRIELA Sodium Chloride 20 ml 09/07/18 08:33 09/08/18 05:50 Normal Saline Flush 0.9% IVP 20 ml PRN PRN Administration After Blood Draw Vancomycin HCl 125 mg 09/06/18 11:00 09/08/18 13:16 Vancocin PO 125 mg QID GABRIELA Administration - Lab Result Lab results reviewed: Yes Fish Bone Diagrams: 09/08/18 05:45 09/08/18 05:45 Other Lab Results: Laboratory Results WBC 4.4 x10^3/uL (4.8-10.8) L 09/08/18 05:45 RBC 2.97 10^6/uL (4.70-6.10) L 09/08/18 05:45 Hgb 10.2 g/dL (14.0-18.0) L 09/08/18 05:45 Hct 30.7 % (42.0-52.0) L 09/08/18 05:45 MCV 103.2 fL (80.0-94.0) H 09/08/18 05:45 MCH 34.5 pg (27.0-31.0) H 09/08/18 05:45 MCHC 33.4 g/dL (32.0-36.0) 09/08/18 05:45 RDW 14.6 % (12.0-15.0) 09/08/18 05:45 Plt Count 224 10^3/uL (130-450) 09/08/18 05:45 MPV 8.9 fL (7.4-11.4) 09/08/18 05:45 Neut # (Auto) 2.8 10^3/uL (1.5-6.6) 09/08/18 05:45 Lymph # (Auto) 1.1 10^3/uL (1.5-3.5) L 09/08/18 05:45 [place] # (Auto) 0.3 10^3/uL (0.0-1.0) 09/08/18 05:45 Eos # (Auto) 0.2 10^3/uL (0.0-0.7) 09/08/18 05:45 Baso # (Auto) 0.0 10^3/uL (0.0-0.1) 09/08/18 05:45 Absolute Nucleated RBC 0.00 x10^3/uL 09/08/18 05:45 Nucleated RBC % 0.1 /100WBC 09/08/18 05:45 VBG pH 7.362 (7.31-7.41) 09/08/18 05:45 Ionized Calcium 1.12 mmol/L (1.15-1.33) L 09/08/18 05:45 Sodium 136 mmol/L (135-145) 09/08/18 05:45 Potassium 2.8 mmol/L (3.5-5.0) L 09/08/18 05:45 Chloride 110 mmol/L (101-111) 09/08/18 05:45 Carbon Dioxide 21 mmol/L (21-32) 09/08/18 05:45 Anion Gap 5.0 (6-13) L 09/08/18 05:45 BUN 7 mg/dL (6-20) 09/08/18 05:45 Creatinine 0.4 mg/dL (0.6-1.2) L 09/08/18 05:45 Estimated GFR (MDRD) 208 (>89) 09/08/18 05:45 Glucose 199 mg/dL (70-100) H 09/08/18 05:45 Glycated Hemoglobin 8.4 % (4.6-6.2) H 09/07/18 06:15 Estim Average Glucose 194 (70-100) H 09/07/18 06:15 Lactic Acid 1.4 mmol/L (0.5-2.2) 09/05/18 19:47 Calcium 7.7 mg/dL (8.5-10.3) L 09/08/18 05:45 Ionized Calcium YES 09/08/18 05:45 Phosphorus 1.5 mg/dL (2.5-4.6) L 09/08/18 05:45 Magnesium 1.8 mg/dL (1.7-2.8) 09/08/18 05:45 Total Bilirubin 0.7 mg/dL (0.2-1.0) 09/08/18 05:45 AST 16 IU/L (10-42) 09/08/18 05:45 ALT 20 IU/L (10-60) 09/08/18 05:45 Alkaline Phosphatase 131 IU/L (42-121) H 09/08/18 05:45 Troponin I < 0.04 ng/mL (<0.49) 09/05/18 14:26 Total Protein 5.0 g/dL (6.7-8.2) L 09/08/18 05:45 Albumin 2.4 g/dL (3.2-5.5) L 09/08/18 05:45 Globulin 2.6 g/dL (2.1-4.2) 09/08/18 05:45 Albumin/Globulin Ratio 0.9 (1.0-2.2) L 09/08/18 05:45 Lipase 18 U/L (22-51) L 09/05/18 14:26 Urine Color YELLOW 09/05/18 15:10 Urine Clarity CLEAR (CLEAR) 09/05/18 15:10 Urine pH 7.0 PH (5.0-7.5) 09/05/18 15:10 Ur Specific [place] 1.020 (1.002-1.030) 09/05/18 15:10 Urine Protein NEGATIVE mg/dL (NEGATIVE) 09/05/18 15:10 Urine Glucose (UA) 250 mg/dL (NEGATIVE) H 09/05/18 15:10 Urine Ketones NEGATIVE mg/dL (NEGATIVE) 09/05/18 15:10 Urine Occult Blood NEGATIVE (NEGATIVE) 09/05/18 15:10 Urine Nitrite NEGATIVE (NEGATIVE) 09/05/18 15:10 Urine Bilirubin NEGATIVE (NEGATIVE) 09/05/18 15:10 Urine Urobilinogen 0.2 (NORMAL) E.U./dL (NORMAL) 09/05/18 15:10 Ur Leukocyte Esterase NEGATIVE (NEGATIVE) 09/05/18 15:10 Ur Microscopic Review NOT INDICATED 09/05/18 15:10 Urine Culture Comments NOT INDICATED 09/05/18 15:10 - EKG Results EKG Interpreted Independently: Yes - Diagnostic Imaging Results Diagnostic Imaging Results: Final report reviewed - Additional Planning Condition/Complexity: Improved My Orders: My Active Orders 09/07/18 17:00 Insulin Aspart [NovoLOG] 1 - 9 unit SUBQ 0800,1200,1700,2100 09/07/18 21:00 Insulin Glargine [Lantus Solostar] 5 unit SUBQ QPM 09/08/18 Home Health Referral [CONS] Routine 09/08/18 14:00 Potassium Chlor 10 Meq/100 ml [Potassium Chloride] 10 meq in 100 ml IV Q1H 09/09/18 05:00 CBC - COMP BLD CT W/AUTO DIFF [HEME] DAILYLAB CMP, RFLX TO IONIZED CA IF [CHEM] DAILYLAB MAGNESIUM [CHEM] DAILYLAB PHOSPHORUS [CHEM] DAILYLAB 09/10/18 05:00 CBC - COMP BLD CT W/AUTO DIFF [HEME] DAILYLAB CMP, RFLX TO IONIZED CA IF [CHEM] DAILYLAB MAGNESIUM [CHEM] DAILYLAB PHOSPHORUS [CHEM] DAILYLAB 09/11/18 05:00 CBC - COMP BLD CT W/AUTO DIFF [HEME] DAILYLAB CMP, RFLX TO IONIZED CA IF [CHEM] DAILYLAB MAGNESIUM [CHEM] DAILYLAB PHOSPHORUS [CHEM] DAILYLAB 09/12/18 05:00 CBC - COMP BLD CT W/AUTO DIFF [HEME] DAILYLAB CMP, RFLX TO IONIZED CA IF [CHEM] DAILYLAB MAGNESIUM [CHEM] DAILYLAB PHOSPHORUS [CHEM] DAILYLAB Plan Discussed with:: Patient Time Spent: 31-60 minutes Subjective - Subjective Patient Reports: Diarrhea (Improved over night but 6 episodes this morning.), Other (COntinues to feel stronger. Denies abdominal pain or fevers.) Nursing Reports: No Complaints Objective Vital Signs: Vital Signs - 24 hr 09/07/18 09/07/18 09/08/18 15:43 19:53 00:50 Temperature 37.0 C 37 C 37.1 C Heart Rate [ 86 86 86 Brachial] Respiratory 18 18 16 Rate Blood Pressure 187/99 H 174/83 H 158/90 H [Right Brachial artery] O2 Saturation 98 98 98 09/08/18 09/08/18 09/08/18 04:16 08:00 13:00 Temperature 36.9 C 36.9 C 36.5 C Heart Rate [ 86 70 76 Brachial] Respiratory 16 18 18 Rate Blood Pressure 182/89 H 171/91 H 152/86 H [Right Brachial artery] O2 Saturation 98 98 98 Oxygen O2 Source Room air I&O (Last 24 Hrs): Intake and Output Totals x24h 09/06/18 09/07/18 09/08/18 23:59 23:59 23:59 Intake Total 3123.333 3810.334 1801.666 Output Total 100 500 Balance 3023.333 3310.334 1801.666 General: Alert, Oriented x3, Cooperative, No acute distress, Other (Cachectic) HEENT: Atraumatic, PERRLA, EOMI, Other (Dry mucus membranes) Neck: Supple, No JVD, No thyromegaly, +2 carotid pulse wo bruit, No LAD Lymphatic: no adenopathy Neuro: Alert, Non Focal, CN 2-12 Grossly Intact, Oriented Times 3 Cardiovascular: Regular rate, Normal S1, Normal S2, No murmurs Respiratory: Chest non-tender, No respiratory distress, Breath sounds nml Abdomen: Normal bowel sounds, Soft, Other (Mild epigastric tenderness) Extremities: No clubbing, No cyanosis, No edema, Normal pulses Skin: No rashes, No breakdown - Results Results: Laboratory Results WBC 4.4 x10^3/uL (4.8-10.8) L 09/08/18 05:45 RBC 2.97 10^6/uL (4.70-6.10) L 09/08/18 05:45 Hgb 10.2 g/dL (14.0-18.0) L 09/08/18 05:45 Hct 30.7 % (42.0-52.0) L 09/08/18 05:45 MCV 103.2 fL (80.0-94.0) H 09/08/18 05:45 MCH 34.5 pg (27.0-31.0) H 09/08/18 05:45 MCHC 33.4 g/dL (32.0-36.0) 09/08/18 05:45 RDW 14.6 % (12.0-15.0) 09/08/18 05:45 Plt Count 224 10^3/uL (130-450) 09/08/18 05:45 MPV 8.9 fL (7.4-11.4) 09/08/18 05:45 Neut # (Auto) 2.8 10^3/uL (1.5-6.6) 09/08/18 05:45 Lymph # (Auto) 1.1 10^3/uL (1.5-3.5) L 09/08/18 05:45 [place] # (Auto) 0.3 10^3/uL (0.0-1.0) 09/08/18 05:45 Eos # (Auto) 0.2 10^3/uL (0.0-0.7) 09/08/18 05:45 Baso # (Auto) 0.0 10^3/uL (0.0-0.1) 09/08/18 05:45 Absolute Nucleated RBC 0.00 x10^3/uL 09/08/18 05:45 Nucleated RBC % 0.1 /100WBC 09/08/18 05:45 VBG pH 7.362 (7.31-7.41) 09/08/18 05:45 Ionized Calcium 1.12 mmol/L (1.15-1.33) L 09/08/18 05:45 Sodium 136 mmol/L (135-145) 09/08/18 05:45 Potassium 2.8 mmol/L (3.5-5.0) L 09/08/18 05:45 Chloride 110 mmol/L (101-111) 09/08/18 05:45 Carbon Dioxide 21 mmol/L (21-32) 09/08/18 05:45 Anion Gap 5.0 (6-13) L 09/08/18 05:45 BUN 7 mg/dL (6-20) 09/08/18 05:45 Creatinine 0.4 mg/dL (0.6-1.2) L 09/08/18 05:45 Estimated GFR (MDRD) 208 (>89) 09/08/18 05:45 Glucose 199 mg/dL (70-100) H 09/08/18 05:45 Glycated Hemoglobin 8.4 % (4.6-6.2) H 09/07/18 06:15 Estim Average Glucose 194 (70-100) H 09/07/18 06:15 Lactic Acid 1.4 mmol/L (0.5-2.2) 09/05/18 19:47 Calcium 7.7 mg/dL (8.5-10.3) L 09/08/18 05:45 Ionized Calcium YES 09/08/18 05:45 Phosphorus 1.5 mg/dL (2.5-4.6) L 09/08/18 05:45 Magnesium 1.8 mg/dL (1.7-2.8) 09/08/18 05:45 Total Bilirubin 0.7 mg/dL (0.2-1.0) 09/08/18 05:45 AST 16 IU/L (10-42) 09/08/18 05:45 ALT 20 IU/L (10-60) 09/08/18 05:45 Alkaline Phosphatase 131 IU/L (42-121) H 09/08/18 05:45 Troponin I < 0.04 ng/mL (<0.49) 09/05/18 14:26 Total Protein 5.0 g/dL (6.7-8.2) L 09/08/18 05:45 Albumin 2.4 g/dL (3.2-5.5) L 09/08/18 05:45 Globulin 2.6 g/dL (2.1-4.2) 09/08/18 05:45 Albumin/Globulin Ratio 0.9 (1.0-2.2) L 09/08/18 05:45 Lipase 18 U/L (22-51) L 09/05/18 14:26 Urine Color YELLOW 09/05/18 15:10 Urine Clarity CLEAR (CLEAR) 09/05/18 15:10 Urine pH 7.0 PH (5.0-7.5) 09/05/18 15:10 Ur Specific [place] 1.020 (1.002-1.030) 09/05/18 15:10 Urine Protein NEGATIVE mg/dL (NEGATIVE) 09/05/18 15:10 Urine Glucose (UA) 250 mg/dL (NEGATIVE) H 09/05/18 15:10 Urine Ketones NEGATIVE mg/dL (NEGATIVE) 09/05/18 15:10 Urine Occult Blood NEGATIVE (NEGATIVE) 09/05/18 15:10 Urine Nitrite NEGATIVE (NEGATIVE) 09/05/18 15:10 Urine Bilirubin NEGATIVE (NEGATIVE) 09/05/18 15:10 Urine Urobilinogen 0.2 (NORMAL) E.U./dL (NORMAL) 09/05/18 15:10 Ur Leukocyte Esterase NEGATIVE (NEGATIVE) 09/05/18 15:10 Ur Microscopic Review NOT INDICATED 09/05/18 15:10 Urine Culture Comments NOT INDICATED 09/05/18 15:10 ABX Reporting Has patient been on IV antibiotics over the past 48 hours?: No Current Medications - Current Medications Current Medications: Active Medications Generic Name Dose Route Start Last Admin Trade Name Freq PRN Reason Stop Dose Admin Acetaminophen 650 mg 09/05/18 20:12 09/06/18 01:00 Tylenol PO 650 mg Q4HR PRN Administration Pain 1 to 4 Calamine 1 applic 09/06/18 10:53 Calamine TOP PRN PRN ITCHING Enoxaparin Sodium 80 mg 09/05/18 21:00 09/08/18 08:04 Lovenox SUBQ 80 mg Q12H GABRIELA Administration Escitalopram Oxalate 20 mg 09/06/18 09:00 09/08/18 08:04 Lexapro PO 20 mg DAILY GABRIELA Administration Finasteride 5 mg 09/05/18 21:00 09/07/18 21:08 Proscar PO 5 mg QPM GABRIELA Administration Fludrocortisone Acetate 0.1 mg 09/05/18 21:00 09/08/18 08:04 Florinef PO 0.1 mg BID GABRIELA Administration Hydromorphone HCl 1 mg 09/05/18 20:12 09/06/18 13:11 Dilaudid Inj Carp IVP 1 mg Q2HR PRN Administration Pain 8 to 10 Potassium Chloride/Sodium Chloride 1,000 mls @ 80 mls/hr 09/05/18 21:00 09/08/18 08:06 Normal Saline 0.9% W/20 Meq Kcl IV 80 mls/hr .[id number] GABRIELA Administration Potassium Chloride 10 meq in 100 mls @ 100 mls/hr 09/08/18 14:00 Potassium Chloride IV 09/08/18 17:59 Q1H GABRIELA Insulin Aspart 1 - 9 unit 09/07/18 17:00 09/08/18 12:05 Novolog SUBQ 5 unit 0800,1200,1700,2100 GABRIELA Administration Protocol Insulin Glargine 5 unit 09/07/18 21:00 09/07/18 21:09 Lantus Solostar SUBQ 5 unit QPM GABRIELA Administration Lisinopril 20 mg 09/07/18 09:00 09/08/18 08:04 Zestril PO 20 mg DAILY GABRIELA Administration Lorazepam 1 mg 09/05/18 21:00 09/07/18 21:08 Ativan PO 1 mg QPM GABRIELA Administration Mineral Oil 1 applic 09/06/18 10:53 Cavilon TOP PRN PRN Skin Care Morphine Sulfate 15 mg 09/07/18 21:00 09/08/18 13:16 PO 15 mg Q8H GABRIELA Administration Nystatin 5 ml 09/06/18 13:00 09/08/18 13:15 Mycostatin PO 5 ml QID GABRIELA Administration Ondansetron HCl 4 mg 09/05/18 20:12 09/06/18 08:24 Zofran Inj IVP 4 mg Q6HR PRN Administration Nausea / Vomiting Ondansetron HCl 4 mg 09/05/18 20:12 Zofran Odt TL Q6HR PRN Nausea / Vomiting Shamika Alonso 36,000 2 each 09/05/18 20:14 09/06/18 09:37 Units Capsule PO 2 each BID PRN Administration SNACK Shamika Alonso 36,000 3 each 09/06/18 13:00 09/08/18 12:08 Units Capsule PO 3 each TIDWM GABRIELA Administration Polyethylene Glycol 17 gm 09/06/18 09:00 09/08/18 08:31 Miralax PO Not Given DAILY [facility] Potassium Chloride 60 meq 09/07/18 08:00 09/08/18 14:32 K-Dur PO 60 meq TID GABRIELA Administration Prochlorperazine Edisylate 10 mg 09/05/18 20:12 Compazine Inj IVP Q6HR PRN Nausea / Vomiting Saccharomyces Boulardii 500 mg 09/07/18 11:02 09/08/18 08:03 Florastor PO 500 mg BIDWM GABRIELA Administration Sodium Chloride 10 ml 09/05/18 20:12 09/08/18 11:21 Normal Saline Flush 0.9% IVP 10 ml PRN PRN Administration NEEDED PER PROVIDER ORDERS Sodium Chloride 10 ml 09/06/18 01:00 09/08/18 08:31 Normal Saline Flush 0.9% IVP Not Given 0100,0900,1700 [facility] Sodium Chloride 20 ml 09/07/18 08:33 09/08/18 05:50 Normal Saline Flush 0.9% IVP 20 ml PRN PRN Administration After Blood Draw Vancomycin HCl 125 mg 09/06/18 11:00 09/08/18 13:16 Vancocin PO 125 mg QID GABRIELA Administration Finasteride 5 mg PO QPM 04/15/18 Lipase/Protease/Amylase [Shamika Alonso 36,000 Units Capsule] 3 cap PO TIDWM 04/15/18 Escitalopram Oxalate [Lexapro] 20 mg PO DAILY 07/11/18 HYDROmorphone [Dilaudid] 2 mg PO Q4HR PRN 07/11/18 Lidocaine [Topicaine 5] 1 applic TOP PRN PRN 07/11/18 Prochlorperazine Maleate [Compazine] 10 mg PO Q4HR PRN 07/11/18 Omeprazole [PriLOSEC] 20 mg PO DAILY 07/15/18 Fludrocortisone [Florinef] 0.1 mg PO BID 08/20/18 LORazepam [Ativan] 1 mg PO QPM 08/20/18 glyBURIDE [Glyburide] 5 mg PO DAILY 08/20/18 Ondansetron [Zofran Odt] 8 mg PO AC PRN 08/21/18 glyBURIDE [Glyburide] 2.5 mg PO QPM 09/05/18 Acetaminophen [Tylenol] 650 mg PO BID 09/06/18 Lipase/Protease/Amylase [Shamika Alonso 36,000 Units Capsule] 2 each PO BID PRN 09/06/18 Loperamide [Imodium] 4 mg PO BID 09/06/18 Nystatin 5 ml PO QID 09/06/18 Potassium Chloride 60 meq PO DAILY 09/06/18
[2018-09-08] MEDS: ONDANSETRON 4 MG/2 ML VIAL IVP PRN (17:17)
[2018-09-08] MEDS: INSULIN GLARGINE 300 UNIT/3 ML PEN SUBQ SCH (21:02)
[2018-09-08] MEDS: LORazepam 0.5 MG TABLET PO SCH (21:26)
[2018-09-08] MEDS: FINASTERIDE 5 MG TABLET PO SCH (21:27)
[2018-09-08] MEDS: PANTOPRAZOLE 40 MG TABLET PO SCH (22:24)
[2018-09-08] MEDS ORDERED: LABETALOL 20 MG/4 ML SYRINGE IVP ONE (22:52)
[2018-09-09] MEDS: SODIUM CHLORIDE FLUSH 0.9% 10 ML SYRINGE IVP SCH ×3 (02:16→16:52)
[2018-09-09] MEDS: SODIUM CHLORIDE FLUSH 0.9% 10 ML SYRINGE IVP PRN ×2 (06:39→06:40)
[2018-09-09 06:46] LABS: BASOPHILS % (AUTO) 0.6 %; EOSINOPHILS # (AUTO) 0.2 10^3/uL (0.0-0.7); EOSINOPHILS % (AUTO) 5.9 %; HGB - HEMOGLOBIN 10.2 g/dL (14.0-18.0); LYMPHOCYTES # (AUTO) 0.9 10^3/uL (1.5-3.5); LYMPHOCYTES % (AUTO) 25.3 %; MEAN CORPUSCULAR HGB CONC 33.2 g/dL (32.0-36.0); MEAN CORPUSCULAR VOLUME 102.4 fL (80.0-94.0); MEAN PLATELET VOLUME 8.1 fL (7.4-11.4); MONOCYTES # (AUTO) 0.4 10^3/uL (0.0-1.0); MONOCYTES % (AUTO) 9.9 %; NEUTROPHILS # (AUTO) 2.2 10^3/uL (1.5-6.6); NEUTROPHILS % (AUTO) 58.3 %; PLT - PLATELET COUNT 217 10^3/uL (130-450); RED BLOOD COUNT 3.01 10^6/uL (4.70-6.10); WHITE BLOOD COUNT 3.7 x10^3/uL (4.8-10.8)
[2018-09-09] MEDS: POTASSIUM CHLORIDE 20 MEQ TABLET PO SCH ×3 (06:46→22:27)
[2018-09-09] MEDS: PANTOPRAZOLE 40 MG TABLET PO SCH (06:47)
[2018-09-09] MEDS: MORPHINE ER 15 MG TABLET PO SCH (06:47)
[2018-09-09 06:59] LABS: ALBUMIN 2.5 g/dL (3.2-5.5); ALBUMIN/GLOBULIN RATIO 0.9 (1.0-2.2); ALKALINE PHOSPHATASE 229 IU/L (42-121); ALT ALANINE AMINOTRANSFERASE 29 IU/L (10-60); AST ASPARTATE AMINOTRANSFERASE 27 IU/L (10-42); BILIRUBIN,TOTAL 0.7 mg/dL (0.2-1.0); BUN - BLOOD UREA NITROGEN 6 mg/dL (6-20); CALCIUM 8.1 mg/dL (8.5-10.3); CARBON DIOXIDE - CO2 19 mmol/L (21-32); CHLORIDE 113 mmol/L (101-111); CREATININE 0.4 mg/dL (0.6-1.2); GFR - MDRD 208 (>89); GLUCOSE 118 mg/dL (70-100); MAGNESIUM 1.6 mg/dL (1.7-2.8); PHOSPHORUS 2.5 mg/dL (2.5-4.6); SODIUM 138 mmol/L (135-145); TOTAL PROTEIN 5.3 g/dL (6.7-8.2)
[2018-09-09 07:05] LABS: VBG PH 7.362 (7.31-7.41)
[2018-09-09] MEDS: INSULIN ASPART 300 UNIT/3 ML PEN SUBQ SCH ×4 (07:57→22:28)
[2018-09-09] MEDS ORDERED: MAGNESIUM SULFATE 2 GRAM 2 GM/50 ML BAG IV ONE (08:15)
[2018-09-09] MEDS: ESCITALOPRAM 10 MG TABLET PO SCH (08:19)
[2018-09-09] MEDS: SACCHAROMYCES BOULARDII 250 MG CAPSULE PO SCH ×2 (08:19→16:51)
[2018-09-09] MEDS: LISINOPRIL 20 MG TABLET PO SCH (08:19)
[2018-09-09] MEDS: NYSTATIN 500000 UNITS/5 ML UDC PO SCH ×4 (08:21→22:29)
[2018-09-09] MEDS: VANCOMYCIN 125 MG CAPSULE PO SCH ×4 (08:21→22:33)
[2018-09-09] MEDS: FLUDROCORTISONE 0.1 MG TABLET PO SCH (08:21)
[2018-09-09] MEDS: ENOXAPARIN 80 MG/0.8 ML SYRINGE SUBQ SCH ×2 (08:23→22:27)
[2018-09-09] MEDS: POLYETHYLENE GLYCOL 3350 17 GM PACKET PO SCH (08:24)
--- NOTE | 2018-09-09 09:27 | PROVIDER PROGRESS NOTE ---
Assessment/Plan - Problem List (1) Clostridium difficile colitis Assessment/Plan: Patient has been having diarrhea and on CT scan was found to have a pancolitis. Patient's C. difficile pcr came back positive. Patient with 9 loose BMs on evening shift plus overnight This am so far no BMs Plan: Continue IV fluid hydration and potassium replacement Continue oral vancomycin for treatment of C. difficile with dose of 125 mg 4 times daily Continue to monitor diarrhea will need to have decreased diarrhea prior to be being discharged If patients BMs are becoming more formed or he has decreased frequency today then possible discharge tomorrow (2) Metabolic encephalopathy Conclusion/Plan: The patient appears to have metabolic encephalopathy likely due to ongoing infection with Clostridium difficile along with dehydration. Resolved (3) Weakness Conclusion/Plan: Functional. Likely this is a combination of the patient's current condition with ongoing metastatic cancer, as well as current condition with C. difficile co litis and dehydration. Resolving Will need to continue home health at home (4) Mesenteric vein thrombosis Conclusion/Plan: Continue Lovenox. The pancreatic mass with tumor compression seems to be the cause of the stasis and that mesenteric vein thrombosis. Plan: Continue lovenox (5) Pancreatic cancer metastasized to liver Conclusion/Plan: He has not had chemotherapy since before last admission. It was anticipated that he would start once some of his mesenteric vein thrombosis symptoms abated. But he is not received therapy since discharge. I know that his oncologist is getting reports from myself and palliative care. Other than updating him and his condition I do not think anything can be offered to this gentleman at this time from an oncologic perspective. (6) Hypokalemia Conclusion/Plan: Resolved K is up to 3.8 (7) Diabetes Conclusion/Plan: Patient was hyperglycemic on presentation with a glucose of 214. HbA1C elevated at 8.4 Started on lantus 5 units q nightly Continue SS insulin BG well controlled Continue regular diet given patient has metastatic pancreatic Ca Qualifiers: Diabetes mellitus type: type 2 Diabetes mellitus fci insulin use: without fci use Diabetes mellitus complication status: with hyperglycem ia Qualified Code(s): E11.65 - Type 2 diabetes mellitus with hyperglycemia (8) Hypomagnesemia Conclusion/Plan: Mg was 1.6 this am Will replace with IV Mg - Current Meds Current Meds: Current Medications Generic Name Dose Route Start Last Admin Trade Name Freq PRN Reason Stop Dose Admin Acetaminophen 650 mg 09/05/18 20:12 09/06/18 01:00 Tylenol PO 650 mg Q4HR PRN Administration Pain 1 to 4 Enoxaparin Sodium 80 mg 09/05/18 21:00 09/09/18 08:23 Lovenox SUBQ 80 mg Q12H GABRIELA Administration Escitalopram Oxalate 20 mg 09/06/18 09:00 09/09/18 08:19 Lexapro PO 20 mg DAILY GABRIELA Administration Finasteride 5 mg 09/05/18 21:00 09/08/18 21:27 Proscar PO 5 mg QPM GABRIELA Administration Fludrocortisone Acetate 0.1 mg 09/05/18 21:00 09/09/18 08:21 Florinef PO 0.1 mg BID GABRIELA Administration Hydromorphone HCl 1 mg 09/05/18 20:12 09/06/18 13:11 Dilaudid Inj Carp IVP 1 mg Q2HR PRN Administration Pain 8 to 10 Insulin Aspart 1 - 9 unit 09/07/18 17:00 09/09/18 07:57 Novolog SUBQ Not Given 0800,1200,1700,2100 [facility] Protocol Insulin Glargine 5 unit 09/07/18 21:00 09/08/18 21:02 Lantus Solostar SUBQ 5 unit QPM GABRIELA Administration Lisinopril 20 mg 09/07/18 09:00 09/09/18 08:19 Zestril PO 20 mg DAILY GABRIELA Administration Lorazepam 1 mg 09/05/18 21:00 09/08/18 21:26 Ativan PO 1 mg QPM GABRIELA Administration Morphine Sulfate 15 mg 09/07/18 21:00 09/09/18 06:47 PO 15 mg Q8H GABRIELA Administration Nystatin 5 ml 09/06/18 13:00 09/09/18 08:21 Mycostatin PO 5 ml QID GABRIELA Administration Ondansetron HCl 4 mg 09/05/18 20:12 09/08/18 17:17 Zofran Inj IVP 4 mg Q6HR PRN Administration Nausea / Vomiting Pantoprazole Sodium 40 mg 09/08/18 21:51 09/09/18 06:47 Protonix PO 40 mg QDAC GABRIELA Administration Shamika Alonso 36,000 2 each 09/05/18 20:14 09/09/18 08:25 Units Capsule PO 2 each BID PRN Administration KARRIE [address] 36,000 3 each 09/06/18 13:00 09/09/18 08:34 Units Capsule PO 3 each TIDWM GABRIELA Administration Polyethylene Glycol 17 gm 09/06/18 09:00 09/09/18 08:24 Miralax PO Not Given DAILY GABRIELA Potassium Chloride 60 meq 09/07/18 08:00 09/09/18 06:46 K-Dur PO 60 meq TID GABRIELA Administration Saccharomyces Boulardii 500 mg 09/07/18 11:02 09/09/18 08:19 Florastor PO 500 mg BIDWM GABRIELA Administration Sodium Chloride 10 ml 09/05/18 20:12 09/09/18 06:40 Normal Saline Flush 0.9% IVP 20 ml PRN PRN Administration NEEDED PER PROVIDER ORDERS Sodium Chloride 10 ml 09/06/18 01:00 09/09/18 08:22 Normal Saline Flush 0.9% IVP 10 ml 0100,0900,1700 GABRIELA Administration Sodium Chloride 20 ml 09/07/18 08:33 09/09/18 06:39 Normal Saline Flush 0.9% IVP 20 ml PRN PRN Administration After Blood Draw Vancomycin HCl 125 mg 09/06/18 11:00 09/09/18 08:21 Vancocin PO 125 mg QID GABRIELA Administration - Lab Result Lab results reviewed: Yes Fish Bone Diagrams: 09/09/18 06:25 09/09/18 06:25 - Diagnostic Imaging Results Diagnostic Imaging Results: Final report reviewed - Additional Planning Condition/Complexity: Improved My Orders: My Active Orders 09/10/18 05:00 CBC - COMP BLD CT W/AUTO DIFF [HEME] DAILYLAB CMP, RFLX TO IONIZED CA IF [CHEM] DAILYLAB MAGNESIUM [CHEM] DAILYLAB PHOSPHORUS [CHEM] DAILYLAB 09/11/18 05:00 CBC - COMP BLD CT W/AUTO DIFF [HEME] DAILYLAB CMP, RFLX TO IONIZED CA IF [CHEM] DAILYLAB MAGNESIUM [CHEM] DAILYLAB PHOSPHORUS [CHEM] DAILYLAB 09/12/18 05:00 CBC - COMP BLD CT W/AUTO DIFF [HEME] DAILYLAB CMP, RFLX TO IONIZED CA IF [CHEM] DAILYLAB MAGNESIUM [CHEM] DAILYLAB PHOSPHORUS [CHEM] DAILYLAB Plan Discussed with:: Patient, Spouse Time Spent: 31-60 minutes Subjective - Subjective Patient Reports: Feeling Better, Resting Comfortably, Diarrhea (Had 3 loose stools overnight), Other (Patient is alert but more distant this am.) Nursing Reports: Confused Objective Vital Signs: Vital Signs - 24 hr 09/08/18 09/08/18 09/08/18 13:00 17:00 20:09 Temperature 36.5 C 36.7 C 36.5 C Heart Rate [ 76 71 75 Brachial] Respiratory 18 18 18 Rate Blood Pressure 152/86 H 168/95 H 175/88 H [Right Brachial artery] O2 Saturation 98 96 98 09/08/18 09/08/18 09/09/18 22:33 22:34 01:11 Temperature 37.0 C Heart Rate [ 74 Brachial] Respiratory 20 Rate Blood Pressure 187/95 H 170/105 H 164/93 H [Right Brachial artery] O2 Saturation 94 09/09/18 09/09/18 09/09/18 01:37 01:45 01:51 Temperature Heart Rate [ 80 71 68 Brachial] Respiratory Rate Blood Pressure 172/98 H 155/77 H 158/75 H [Right Brachial artery] O2 Saturation 09/09/18 09/09/18 09/09/18 01:57 02:15 02:30 Temperature Heart Rate [ 69 70 69 Brachial] Respiratory Rate Blood Pressure 160/83 H 164/79 H 165/80 H [Right Brachial artery] O2 Saturation 09/09/18 09/09/18 09/09/18 02:40 04:29 07:41 Temperature 37.2 C 36.7 C Heart Rate [ 70 75 Brachial] Respiratory 18 19 Rate Blood Pressure 158/83 H 165/85 H 176/89 H [Right Brachial artery] O2 Saturation 96 Oxygen O2 Source Room air I&O (Last 24 Hrs): Intake and Output Totals x24h 09/07/18 09/08/18 09/09/18 23:59 23:59 23:59 Intake Total 3810.334 3928.666 100 Output Total 500 Balance 3310.334 3928.666 100 General: Alert, Cooperative, No acute distress, Other (Oriented x 2) HEENT: Atraumatic, PERRLA, EOMI, Mucous membr. moist/pink Neck: Supple, No JVD, No thyromegaly, +2 carotid pulse wo bruit, No LAD Lymphatic: no adenopathy Neuro: Alert, Non Focal, CN 2-12 Grossly Intact, Other (Oriented x 2) Cardiovascular: Regular rate, Normal S1, Normal S2, No murmurs Respiratory: Chest non-tender, No respiratory distress, Breath sounds nml Abdomen: Normal bowel sounds, Soft, No tenderness, No hepatospenomegaly Extremities: No clubbing, No cyanosis, No edema, Normal pulses Skin: No breakdown Comments/Notes: Vessicular rash on right sacral area, very limited area, not tender or painful. - Results Results: Laboratory Results WBC 3.7 x10^3/uL (4.8-10.8) L 09/09/18 06:25 RBC 3.01 10^6/uL (4.70-6.10) L 09/09/18 06:25 Hgb 10.2 g/dL (14.0-18.0) L 09/09/18 06:25 Hct 30.8 % (42.0-52.0) L 09/09/18 06:25 MCV 102.4 fL (80.0-94.0) H 09/09/18 06:25 MCH 34.0 pg (27.0-31.0) H 09/09/18 06:25 MCHC 33.2 g/dL (32.0-36.0) 09/09/18 06:25 RDW 15.0 % (12.0-15.0) 09/09/18 06:25 Plt Count 217 10^3/uL (130-450) 09/09/18 06:25 MPV 8.1 fL (7.4-11.4) 09/09/18 06:25 Neut # (Auto) 2.2 10^3/uL (1.5-6.6) 09/09/18 06:25 Lymph # (Auto) 0.9 10^3/uL (1.5-3.5) L 09/09/18 06:25 [place] # (Auto) 0.4 10^3/uL (0.0-1.0) 09/09/18 06:25 Eos # (Auto) 0.2 10^3/uL (0.0-0.7) 09/09/18 06:25 Baso # (Auto) 0.0 10^3/uL (0.0-0.1) 09/09/18 06:25 Absolute Nucleated RBC 0.00 x10^3/uL 09/09/18 06:25 Nucleated RBC % 0.1 /100WBC 09/09/18 06:25 VBG pH 7.362 (7.31-7.41) 09/09/18 06:25 Ionized Calcium 1.15 mmol/L (1.15-1.33) 09/09/18 06:25 Sodium 138 mmol/L (135-145) 09/09/18 06:25 Potassium 3.8 mmol/L (3.5-5.0) 09/09/18 06:25 Chloride 113 mmol/L (101-111) H 09/09/18 06:25 Carbon Dioxide 19 mmol/L (21-32) L 09/09/18 06:25 Anion Gap 6.0 (6-13) 09/09/18 06:25 BUN 6 mg/dL (6-20) 09/09/18 06:25 Creatinine 0.4 mg/dL (0.6-1.2) L 09/09/18 06:25 Estimated GFR (MDRD) 208 (>89) 09/09/18 06:25 Glucose 118 mg/dL (70-100) H 09/09/18 06:25 Glycated Hemoglobin 8.4 % (4.6-6.2) H 09/07/18 06:15 Estim Average Glucose 194 (70-100) H 09/07/18 06:15 Lactic Acid 1.4 mmol/L (0.5-2.2) 09/05/18 19:47 Calcium 8.1 mg/dL (8.5-10.3) L 09/09/18 06:25 Ionized Calcium YES 09/09/18 06:25 Phosphorus 2.5 mg/dL (2.5-4.6) 09/09/18 06:25 Magnesium 1.6 mg/dL (1.7-2.8) L 09/09/18 06:25 Total Bilirubin 0.7 mg/dL (0.2-1.0) 09/09/18 06:25 AST 27 IU/L (10-42) 09/09/18 06:25 ALT 29 IU/L (10-60) 09/09/18 06:25 Alkaline Phosphatase 229 IU/L (42-121) H 09/09/18 06:25 Troponin I < 0.04 ng/mL (<0.49) 09/05/18 14:26 Total Protein 5.3 g/dL (6.7-8.2) L 09/09/18 06:25 Albumin 2.5 g/dL (3.2-5.5) L 09/09/18 06:25 Globulin 2.8 g/dL (2.1-4.2) 09/09/18 06:25 Albumin/Globulin Ratio 0.9 (1.0-2.2) L 09/09/18 06:25 Lipase 18 U/L (22-51) L 09/05/18 14:26 Urine Color YELLOW 09/05/18 15:10 Urine Clarity CLEAR (CLEAR) 09/05/18 15:10 Urine pH 7.0 PH (5.0-7.5) 09/05/18 15:10 Ur Specific [place] 1.020 (1.002-1.030) 09/05/18 15:10 Urine Protein NEGATIVE mg/dL (NEGATIVE) 09/05/18 15:10 Urine Glucose (UA) 250 mg/dL (NEGATIVE) H 09/05/18 15:10 Urine Ketones NEGATIVE mg/dL (NEGATIVE) 09/05/18 15:10 Urine Occult Blood NEGATIVE (NEGATIVE) 09/05/18 15:10 Urine Nitrite NEGATIVE (NEGATIVE) 09/05/18 15:10 Urine Bilirubin NEGATIVE (NEGATIVE) 09/05/18 15:10 Urine Urobilinogen 0.2 (NORMAL) E.U./dL (NORMAL) 09/05/18 15:10 Ur Leukocyte Esterase NEGATIVE (NEGATIVE) 09/05/18 15:10 Ur Microscopic Review NOT INDICATED 09/05/18 15:10 Urine Culture Comments NOT INDICATED 09/05/18 15:10 ABX Reporting Has patient been on IV antibiotics over the past 48 hours?: No Current Medications - Current Medications Current Medications: Active Medications Generic Name Dose Route Start Last Admin Trade Name Freq PRN Reason Stop Dose Admin Acetaminophen 650 mg 09/05/18 20:12 09/06/18 01:00 Tylenol PO 650 mg Q4HR PRN Administration Pain 1 to 4 Cal[place] 1 applic 09/06/18 10:53 Calamine TOP PRN PRN ITCHING Enoxaparin Sodium 80 mg 09/05/18 21:00 09/09/18 08:23 Lovenox SUBQ 80 mg Q12H GABRIELA Administration Escitalopram Oxalate 20 mg 09/06/18 09:00 09/09/18 08:19 Lexapro PO 20 mg DAILY GABRIELA Administration Finasteride 5 mg 09/05/18 21:00 09/08/18 21:27 Proscar PO 5 mg QPM GABRIELA Administration Fludrocortisone Acetate 0.1 mg 09/05/18 21:00 09/09/18 08:21 Florinef PO 0.1 mg BID GABRIELA Administration Hydromorphone HCl 1 mg 09/05/18 20:12 09/06/18 13:11 Dilaudid Inj Carp IVP 1 mg Q2HR PRN Administration Pain 8 to 10 Insulin Aspart 1 - 9 unit 09/07/18 17:00 09/09/18 07:57 Novolog SUBQ Not Given 0800,1200,1700,2100 [facility] Protocol Insulin Glargine 5 unit 09/07/18 21:00 09/08/18 21:02 Lantus Solostar SUBQ 5 unit QPM GABRIELA Administration Lisinopril 20 mg 09/07/18 09:00 09/09/18 08:19 Zestril PO 20 mg DAILY GABRIELA Administration Lorazepam 1 mg 09/05/18 21:00 09/08/18 21:26 Ativan PO 1 mg QPM GABRIELA Administration Mineral Oil 1 applic 09/06/18 10:53 [place] TOP PRN PRN Skin Care Morphine Sulfate 15 mg 09/07/18 21:00 09/09/18 06:47 PO 15 mg Q8H GABRIELA Administration Nystatin 5 ml 09/06/18 13:00 09/09/18 08:21 Mycostatin PO 5 ml QID GABRIELA Administration Ondansetron HCl 4 mg 09/05/18 20:12 09/08/18 17:17 Zofran Inj IVP 4 mg Q6HR PRN Administration Nausea / Vomiting Ondansetron HCl 4 mg 09/05/18 20:12 Zofran Odt TL Q6HR PRN Nausea / Vomiting Pantoprazole Sodium 40 mg 09/08/18 21:51 09/09/18 06:47 Protonix PO 40 mg QDAC GABRIELA Administration Shamika Alonso 36,000 2 each 09/05/18 20:14 09/09/18 08:25 Units Capsule PO 2 each BID PRN Administration SNACK Shamika Alonso 36,000 3 each 09/06/18 13:00 09/09/18 08:34 Units Capsule PO 3 each TIDWM GABRIELA Administration Polyethylene Glycol 17 gm 09/06/18 09:00 09/09/18 08:24 Miralax PO Not Given DAILY GABRIELA Potassium Chloride 60 meq 09/07/18 08:00 09/09/18 06:46 K-Dur PO 60 meq TID GABRIELA Administration Prochlorperazine Edisylate 10 mg 09/05/18 20:12 Compazine Inj IVP Q6HR PRN Nausea / Vomiting Saccharomyces Boulardii 500 mg 09/07/18 11:02 09/09/18 08:19 Florastor PO 500 mg BIDWM GABRIELA Administration Sodium Chloride 10 ml 09/05/18 20:12 09/09/18 06:40 Normal Saline Flush 0.9% IVP 20 ml PRN PRN Administration NEEDED PER PROVIDER ORDERS Sodium Chloride 10 ml 09/06/18 01:00 09/09/18 08:22 Normal Saline Flush 0.9% IVP 10 ml 0100,0900,1700 GABRIELA Administration Sodium Chloride 20 ml 09/07/18 08:33 09/09/18 06:39 Normal Saline Flush 0.9% IVP 20 ml PRN PRN Administration After Blood Draw Vancomycin HCl 125 mg 09/06/18 11:00 09/09/18 08:21 Vancocin PO 125 mg QID GABRIELA Administration Finasteride 5 mg PO QPM 04/15/18 Lipase/Protease/Amylase [Shamika Alonso 36,000 Units Capsule] 3 cap PO TIDWM 04/15/18 Escitalopram Oxalate [Lexapro] 20 mg PO DAILY 07/11/18 HYDROmorphone [Dilaudid] 2 mg PO Q4HR PRN 07/11/18 Lidocaine [Topicaine 5] 1 applic TOP PRN PRN 07/11/18 Prochlorperazine Maleate [Compazine] 10 mg PO Q4HR PRN 07/11/18 Omeprazole [PriLOSEC] 20 mg PO DAILY 07/15/18 Fludrocortisone [Florinef] 0.1 mg PO BID 08/20/18 LORazepam [Ativan] 1 mg PO QPM 08/20/18 glyBURIDE [Glyburide] 5 mg PO DAILY 08/20/18 Ondansetron [Zofran Odt] 8 mg PO AC PRN 08/21/18 glyBURIDE [Glyburide] 2.5 mg PO QPM 09/05/18 Acetaminophen [Tylenol] 650 mg PO BID 09/06/18 Lipase/Protease/Amylase [Shamika Alonso 36,000 Units Capsule] 2 each PO BID PRN 09/06/18 Loperamide [Imodium] 4 mg PO BID 09/06/18 Nystatin 5 ml PO QID 09/06/18 Potassium Chloride 60 meq PO DAILY 09/06/18
[2018-09-09] MEDS ORDERED: PANTOPRAZOLE 40 MG TABLET PO PRN (11:33)
[2018-09-09] MEDS ORDERED: PANTOPRAZOLE 40 MG TABLET PO SCH (12:00)
[2018-09-09] MEDS ORDERED: MORPHINE ER 15 MG TABLET PO PRN (12:46)
[2018-09-09] MEDS: FINASTERIDE 5 MG TABLET PO SCH (22:27)
[2018-09-09] MEDS: INSULIN GLARGINE 300 UNIT/3 ML PEN SUBQ SCH (22:27)
[2018-09-09] MEDS: LORazepam 0.5 MG TABLET PO SCH (22:33)
[2018-09-10] MEDS: SODIUM CHLORIDE FLUSH 0.9% 10 ML SYRINGE IVP SCH ×4 (01:39→11:55)
[2018-09-10] MEDS ORDERED: LABETALOL 20 MG/4 ML SYRINGE IVP SCH (02:11)
[2018-09-10] MEDS: SODIUM CHLORIDE FLUSH 0.9% 10 ML SYRINGE IVP PRN ×2 (03:05→11:55)
[2018-09-10 05:12] LABS: BASOPHILS % (AUTO) 0.4 %; EOSINOPHILS # (AUTO) 0.1 10^3/uL (0.0-0.7); EOSINOPHILS % (AUTO) 1.1 %; HGB - HEMOGLOBIN 11.6 g/dL (14.0-18.0); LYMPHOCYTES # (AUTO) 0.8 10^3/uL (1.5-3.5); LYMPHOCYTES % (AUTO) 12.6 %; MEAN CORPUSCULAR HEMOGLOBIN 34.6 pg (27.0-31.0); MEAN CORPUSCULAR HGB CONC 34.5 g/dL (32.0-36.0); MEAN CORPUSCULAR VOLUME 100.1 fL (80.0-94.0); MEAN PLATELET VOLUME 8.7 fL (7.4-11.4); MONOCYTES # (AUTO) 0.4 10^3/uL (0.0-1.0); MONOCYTES % (AUTO) 6.1 %; NEUTROPHILS # (AUTO) 5.2 10^3/uL (1.5-6.6); NEUTROPHILS % (AUTO) 79.8 %; PLT - PLATELET COUNT 238 10^3/uL (130-450); RED BLOOD COUNT 3.37 10^6/uL (4.70-6.10); RED CELL DISTRIBUTION WIDTH 14.7 % (12.0-15.0); WHITE BLOOD COUNT 6.5 x10^3/uL (4.8-10.8)
[2018-09-10 05:25] LABS: ALBUMIN 2.7 g/dL (3.2-5.5); ALBUMIN/GLOBULIN RATIO 0.8 (1.0-2.2); ALKALINE PHOSPHATASE 261 IU/L (42-121); ALT ALANINE AMINOTRANSFERASE 30 IU/L (10-60); AST ASPARTATE AMINOTRANSFERASE 24 IU/L (10-42); BILIRUBIN,TOTAL 0.9 mg/dL (0.2-1.0); BUN - BLOOD UREA NITROGEN 5 mg/dL (6-20); CALCIUM 8.2 mg/dL (8.5-10.3); CARBON DIOXIDE - CO2 22 mmol/L (21-32); CHLORIDE 106 mmol/L (101-111); CREATININE 0.5 mg/dL (0.6-1.2); GFR - MDRD 160 (>89); GLUCOSE 120 mg/dL (70-100); MAGNESIUM 1.8 mg/dL (1.7-2.8); PHOSPHORUS 2.3 mg/dL (2.5-4.6); SODIUM 136 mmol/L (135-145)
[2018-09-10 05:27] LABS: VBG PH 7.398 (7.31-7.41)
[2018-09-10] MEDS: POTASSIUM CHLORIDE 20 MEQ TABLET PO SCH (06:38)
[2018-09-10 07:25] VITALS: BP 172/82
[2018-09-10] MEDS ORDERED: NEUTRA-PHOS 250 MG TABLET PO SCH (08:00)
[2018-09-10] MEDS ORDERED: SODIUM CHLORIDE 0.9% 100ML 100 ML IV ONE (08:16)
[2018-09-10] MEDS: INSULIN ASPART 300 UNIT/3 ML PEN SUBQ SCH (08:26)
[2018-09-10] MEDS: ENOXAPARIN 80 MG/0.8 ML SYRINGE SUBQ SCH (08:30)
[2018-09-10] MEDS: VANCOMYCIN 125 MG CAPSULE PO SCH (08:31)
[2018-09-10] MEDS: ESCITALOPRAM 10 MG TABLET PO SCH (08:31)
[2018-09-10] MEDS: NYSTATIN 500000 UNITS/5 ML UDC PO SCH (08:31)
[2018-09-10] MEDS: SACCHAROMYCES BOULARDII 250 MG CAPSULE PO SCH (08:31)
[2018-09-10] MEDS ORDERED: CALCIUM GLUCONATE 2,000 MG in SODIUM CHLORIDE 0.9% 100ML 100 ML IV ONE (08:45)
--- NOTE | 2018-09-10 10:25 | Discharge Plan ---
Discharge Plan Disposition: Home, Self Care Condition: Stable Prescriptions: Vancomycin [Vancocin] 125 mg PO QID #32 capsule Diet: Regular Activity Restrictions: Activity as Tolerated Shower Restrictions: No Driving Restrictions: No Assistance Devices: Walker Weight Bearing: Full Weight Additional Instructions or Follow Up instructions: You presented to the emergency department with generalized weakness, diarrhea and lethargy. You were found to have C. difficile colitis with dehydration and severe electrolyte disturbances. You were treated for the C. difficile colitis with an oral antibiotic and for the dehydration with IV fluids and IV electrolytes. Over the course of 5 days in the hospital you had a significant improvement in your diarrhea, mentation and strength. You appeared to be well enough to be able to return home. I have prescribed you an antibiotic called vancomycin which she will take orally for the next 7 days to complete a treatment course for C. difficile colitis. I encourage you to drink plenty of fluid and stay well-hydrated. You should also continue to take potassium daily to ensure that you have replaced your electrolytes. You should follow-up with your primary care physician and palliative care next week and you should get your blood drawn to ensure that you have not developed any further electrolyte abnormalities. I also think that you should consider hospice going forward due to the severity of your illness and your pancreatic cancer. Have a Happy Thanksgiving with your family and friends. No Smoking: If you smoke, Please STOP! Call for help. Follow-up with: Naveed Kyle MD [Primary Care Provider] -
--- NOTE | 2018-09-10 11:20 | DISCHARGE SUMMARY ---
Discharge Summary Admit Date: 09/05/18 Discharge Date: 09/10/18 Discharging Provider: Manoj Baez MD Primary Care Provider: Naveed Linder MD Code Status: Do Not Attempt Resuscitation Condition at Discharge: Stable Discharge Disposition: 01 Home, Self Care - DIAGNOSES Admission Diagnoses: 1. Generalized weakness 2. Metabolic encephalopathy 3. Mesenteric vein thrombosis 4. Pancreatic cancer metastasized to liver 5. Hypokalemia 6. Pancolitis 7. Type 2 diabetes mellitus with hyperglycemia Discharge Diagnoses with Status of Each Condition: 1. Clostridium difficile colitis: Improved 2. Metabolic encephalopathy: Resolved 3. Weakness: Resolved 4. Mesenteric vein thrombosis: Stable 5. Pancreatic cancer metastasized to liver: Stable 6. Hypokalemia: Resolved 7. Type 2 diabetes mellitus without long-term use of insulin with hyperglycemia: Stable 8. Hypomagnesemia: Resolved 9. Hypophosphatemia: Stable 10. Hypocalcemia: Stable - HPI History of Present Illness: This is an unfortunate 77-year-old man who continues to decline from a functional perspective with regards to metastatic pancreatic cancer to his liver associated with ascites, progressive tumor growth, and mesenteric vein thrombosis. He was just in the hospital for dehydration and hypokalemia from diarrhea August 20. That hospitalization was complicated by mesenteric vein thrombosis and and a brief episode of sepsis. He did respond to fluid resuscitation with IV antibiotics. He was transitioned to oral antibiotics and continued on Lovenox in the outpatient setting. Megace was discontinued. He has been seen by palliative care after discharge. Discharge was August 25 and he was seen by palliative care August 28. He is starting to transition in a philosophical perspective to end-of-life care thoughts. He is fearful. Does not want to be in pain. He saw his grandfather dying agonizing pain and does not want to be doing that. He is continued to have brief episodes of diarrhea. But they have not been severe or copious as they were with his last admission. More than anything he has lots of "gas" according to his . He has had poor appetite but makes himself eat. He is getting weaker and weaker. He fell once at home and 911 had to be called to lift him up. He saw Dr. linder on Friday and potassium was low. He was given oral supplementation. Repeat potassium has not been done yet and he was to be seen in follow-up. He seemed about the same this morning. No fever, no chills. No new diarrhea. But he does have more abdominal pain today. When he got up to go to the bathroom he barely made it. And then could not get up off the toilet. As such she was brought in by EMS because of his weakness. noted that he seems more confused today. In the emergency room he even had a brief moment where he is not recognizing her. Temperature is 36 8. Pulse is occasionally tachycardic to 109 but dropped down into the 90s. Blood pressure is 158-160 systolic. He is 95% on room air. He appears to be a very frail, failing elderly gentleman. Mumbling. Slightly confused. Potassium was 3. Creatinine is 0.4. Random glucose 214. Lactic acid 1.4. White cell count is up to 14.3 with hemoglobin 11.7 and hematocrit 33.9. Because of his abdominal pain wanted a CT the abdomen and CT shows low-density mass at the head of the pancreas that is inseparable for the mesenteric vein thrombosis. Mild ascites. Diffuse colonic wall thickening. Persistent small pleural effusions. His biliary stent is in place. states that they are not ready to let him go. They still want treatment with IV fluids and antibiotics. I reiterated my conversation from last adm ission. I have described in detail what we would anticipate from his gradual progression. What I am seeing tonight is not unusual and would be an expected outcome of what his tumor and his health are doing. He is failing. He is a DO NOT RESUSCITATE, DO NOT INTUBATE. - HOSPITAL COURSE Hospital Course: The patient presented with diarrhea, generalized weakness, lethargy and confusion. The patient was found to be dehydrated with electrolyte abnormalities including severe hypokalemia, hypocalcemia, hypophosphatemia and hypomagnesemia. The patient's stool was tested for C. difficile and found to be positive for C. difficile colitis. The patient's CT abdomen showed a pancolitis. The patient initially was placed on Zosyn prior to the C. difficile being positive. The patient's Zosyn was stopped and the patient was placed on oral vancomycin for treatment of C. difficile. The patient was slow to improve regarding the C. difficile as he continued to have diarrhea for the first 4 days of hospitalization. Finally on day 5 the patient's diarrhea slowed down to where he only had 2 bowel movements throughout the day which were more formed. The patient was also severely dehydrated and had electrolyte disturbances. The patient was given adequate fluid resuscitation and electrolytes were appropriately replaced. The patient's mentation improved significantly to where he was much more alert and answering most questions appropriately. He was still a little slow in processing and answering questions but this was felt to be due to his chronic ailments. The patient's strength was much improved and he was able to get up and move around with the walker with minimal assistance. It was felt that the patient was well enough to return home to have Thanksgiving with his family and continue oral vancomycin for treatment of his C. difficile coli tis at home. The patient was discharged with an additional 7 days of treatment for his C. difficile colitis with oral vancomycin. The patient was encouraged to drink plenty of fluid and was told to continue his potassium daily. While the patient was hospitalized his blood pressures were persistently elevated and he had to be started on an antihypertensive medication. Likely the patient's blood pressures were elevated secondary to him being on Florinef which was discontinued while the patient was hospitalized. The patient was not discharged with an antihypertensive medication as we were concerned that patient's blood pressure may start to drop after stopping the Florinef. The patient will follow up with his primary care physician and palliative care at home. We did approach the idea of hospice with the family and although they seem to be headed in that direction they were not ready for hospice at this time. - ALLERGIES Allergies/Adverse Reactions: Allergies Allergy/AdvReac Type Severity Reaction Status Date / Time oxycodone Allergy Itching Verified 09/07/18 23:13 - MEDICATIONS Home Medications: Ambulatory Orders Medication Instructions Recorded Confirmed Finasteride 5 mg PO QPM 04/15/18 09/05/18 Lipase/Protease/Amylase [Shamika Alonso 3 cap PO TIDWM 04/15/18 09/05/18 36,000 Units Capsule] Escitalopram Oxalate [Lexapro] 20 mg PO DAILY 07/11/18 09/05/18 HYDROmorphone [Dilaudid] 2 mg PO Q4HR PRN 07/11/18 09/05/18 Lidocaine [Topicaine 5] 1 applic TOP PRN PRN 07/11/18 09/05/18 Prochlorperazine Maleate 10 mg PO Q4HR PRN 07/11/18 09/05/18 [Compazine] Omeprazole [PriLOSEC] 20 mg PO DAILY 07/15/18 09/05/18 LORazepam [Ativan] 1 mg PO QPM 08/20/18 09/05/18 glyBURIDE [Glyburide] 5 mg PO DAILY 08/20/18 09/05/18 Ondansetron [Zofran Odt] 8 mg PO AC PRN 08/21/18 09/05/18 Enoxaparin [Lovenox] 80 mg SUBQ Q12H #60 syringe 08/24/18 09/05/18 glyBURIDE [Glyburide] 2.5 mg PO QPM 09/05/18 09/05/18 Acetaminophen [Tylenol] 650 mg PO BID 09/06/18 09/06/18 Lipase/Protease/Amylase [Creon Dr 2 each PO BID PRN 09/06/18 09/06/18 36,000 Units Capsule] Nystatin 5 ml PO QID 09/06/18 09/06/18 Vancomycin [Vancocin] 125 mg PO QID #32 capsule 09/07/18 Potassium Chloride 20 meq PO DAILY #0 09/10/18 09/06/18 - PHYSICAL EXAM AT DISCHARGE General Appearance: positive: No acute distress, Alert, Other (Slow processing) Eyes Bilateral: positive: Normal inspection, PERRL, EOMI, No lid inflammation, Conjunctivae nml, No scleral icterus ENT: positive: ENT inspection nml, Pharynx nml, No signs of dehydration. negative: Purulent nasal drainage, Pharyngeal erythema, Oral lesions Neck: positive: Nml inspection, Thyroid nml, No JVD, Trachea midline. negative: Thyromegaly, Lymphadenopathy (R), Lymphadenopathy (L), Stiff neck, Carotid bruit, Tracheal deviation Respiratory: positive: Chest non-tender, No respiratory distress, Breath sounds nml. negative: Wheezes, Rales, Rhonchi Cardiovascular: positive: Regular rate & rhythm, No murmur, No gallop Peripheral Pulses: positive: 2+ Abdomen: positive: No organomegaly, Nml bowel sounds, Tenderness (Mild, diffuse worse in the epigastric area). negative: Guarding, Rebound, Hepatomegaly Skin: positive: Color nml, No rash, Warm. negative: Cyanosis, Diaphoresis, Pall or, Skin rash Extremities: positive: Non-tender, Full ROM, Nml appearance, No pedal edema Neurologic/Psychiatric: positive: CN's nml (2-12), Motor nml, Sensation nml, Mood/affect nml, Disoriented to time - LABS Result Diagrams: 09/10/18 05:00 09/10/18 05:00 Other Lab Results: Laboratory Tests 09/05/18 09/05/18 09/05/18 14:26 14:26 14:26 WBC 14.3 H RBC 3.35 L Hgb 11.7 L Hct 33.9 L MCV 101.0 H MCH 34.9 H MCHC 34.5 RDW 15.0 Plt Count 296 MPV 8.3 Neut # (Auto) 12.8 H Lymph # (Auto) 0.6 L Elliott # (Auto) 0.8 Eos # (Auto) 0.1 Baso # (Auto) 0.0 Absolute Nucleated RBC 0.00 Nucleated RBC % 0.0 VBG pH Ionized Calcium Sodium 138 Potassium 3.0 L Chloride 107 Carbon Dioxide 25 Anion Gap 6.0 BUN 11 Creatinine 0.4 L Estimated GFR (MDRD) 208 Glucose 214 H POC Whole Bld Glucose Glycated Hemoglobin Estim Average Glucose Lactic Acid Calcium 8.0 L Phosphorus Magnesium 1.7 Total Bilirubin 0.7 AST 22 ALT 26 Alkaline Phosphatase 182 H Troponin I < 0.04 Total Protein 5.8 L Albumin 2.9 L Globulin 2.9 Albumin/Globulin Ratio 1.0 Lipase 18 L Urine Color Urine Clarity Urine pH Ur Specific [place] Urine Protein Urine Glucose (UA) Urine Ketones Urine Occult Blood Urine Nitrite Urine Bilirubin Urine Urobilinogen Ur Leukocyte Esterase Ur Microscopic Review Urine Culture Comments 09/05/18 09/05/18 09/06/18 15:10 19:47 06:25 WBC 15.4 H RBC 3.28 L Hgb 11.3 L Hct 33.6 L MCV 102.3 H MCH 34.4 H MCHC 33.6 RDW 15.3 H Plt Count 270 MPV 8.6 Neut # (Auto) 13.6 H Lymph # (Auto) 0.8 L Elliott # (Auto) 0.9 Eos # (Auto) 0.0 Baso # (Auto) 0.0 Absolute Nucleated RBC 0.00 Nucleated RBC % 0.0 VBG pH Ionized Calcium Sodium Potassium Chloride Carbon Dioxide Anion Gap BUN Creatinine Estimated GFR (MDRD) Glucose POC Whole Bld Glucose Glycated Hemoglobin Estim Average Glucose Lactic Acid 1.4 Calcium Phosphorus Magnesium Total Bilirubin AST ALT Alkaline Phosphatase Troponin I Total Protein Albumin Globulin Albumin/Globulin Ratio Lipase Urine Color YELLOW Urine Clarity CLEAR Urine pH 7.0 Ur Specific [place] 1.020 Urine Protein NEGATIVE Urine Glucose (UA) 250 H Urine Ketones NEGATIVE Urine Occult Blood NEGATIVE Urine Nitrite NEGATIVE Urine Bilirubin NEGATIVE Urine Urobilinogen 0.2 (NORMAL) Ur Leukocyte Esterase NEGATIVE Ur Microscopic Review NOT INDICATED Urine Culture Comments NOT INDICATED 09/06/18 09/06/18 09/07/18 06:25 20:37 05:30 WBC 6.7 RBC 3.24 L Hgb 11.3 L Hct 32.9 L MCV 101.4 H MCH 34.9 H MCHC 34.4 RDW 15.3 H Plt Count 248 MPV 9.0 Neut # (Auto) 5.3 Lymph # (Auto) 0.8 L Elliott # (Auto) 0.3 Eos # (Auto) 0.2 Baso # (Auto) 0.0 Absolute Nucleated RBC 0.00 Nucleated RBC % 0.0 VBG pH Ionized Calcium Sodium 137 Potassium 2.4 L* Chloride 108 Carbon Dioxide 25 Anion Gap 4.0 L BUN 7 Creatinine 0.5 L Estimated GFR (MDRD) 160 Glucose 180 H POC Whole Bld Glucose 275 H Glycated Hemoglobin Estim Average Glucose Lactic Acid Calcium 7.5 L Phosphorus Magnesium Total Bilirubin AST ALT Alkaline Phosphatase Troponin I Total Protein Albumin Globulin Albumin/Globulin Ratio Lipase Urine Color Urine Clarity Urine pH Ur Specific [place] Urine Protein Urine Glucose (UA) Urine Ketones Urine Occult Blood Urine Nitrite Urine Bilirubin Urine Urobilinogen Ur Leukocyte Esterase Ur Microscopic Review Urine Culture Comments 09/07/18 09/07/18 09/07/18 05:30 05:30 06:15 WBC RBC Hgb Hct MCV MCH MCHC RDW Plt Count MPV Neut # (Auto) Lymph # (Auto) Elliott # (Auto) Eos # (Auto) Baso # (Auto) Absolute Nucleated RBC Nucleated RBC % VBG pH 7.410 Ionized Calcium YES 1.10 L Sodium 139 Potassium 2.6 L Chloride 111 Carbon Dioxide 22 Anion Gap 6.0 BUN 8 Creatinine 0.5 L Estimated GFR (MDRD) 160 Glucose 162 H POC Whole Bld Glucose Glycated Hemoglobin 8.4 H Estim Average Glucose 194 H Lactic Acid Calcium 7.5 L Phosphorus 1.5 L Magnesium 1.8 Total Bilirubin 0.9 AST 14 ALT 20 Alkaline Phosphatase 143 H Troponin I Total Protein 5.2 L Albumin 2.5 L Globulin 2.7 Albumin/Globulin Ratio 0.9 L Lipase Urine Color Urine Clarity Urine pH Ur Specific [place] Urine Protein Urine Glucose (UA) Urine Ketones Urine Occult Blood Urine Nitrite Urine Bilirubin Urine Urobilinogen Ur Leukocyte Esterase Ur Microscopic Review Urine Culture Comments 09/07/18 09/07/18 09/07/18 07:31 11:09 16:25 WBC RBC Hgb Hct MCV MCH MCHC RDW Plt Count MPV Neut # (Auto) Lymph # (Auto) Elliott # (Auto) Eos # (Auto) Baso # (Auto) Absolute Nucleated RBC Nucleated RBC % VBG pH Ionized Calcium Sodium Potassium Chloride Carbon Dioxide Anion Gap BUN Creatinine Estimated GFR (MDRD) Glucose POC Whole Bld Glucose 187 H 280 H 296 H Glycated Hemoglobin Estim Average Glucose Lactic Acid Calcium Phosphorus Magnesium Total Bilirubin AST ALT Alkaline Phosphatase Troponin I Total Protein Albumin Globulin Albumin/Globulin Ratio Lipase Urine Color Urine Clarity Urine pH Ur Specific [place] Urine Protein Urine Glucose (UA) Urine Ketones Urine Occult Blood Urine Nitrite Urine Bilirubin Urine Urobilinogen Ur Leukocyte Esterase Ur Microscopic Review Urine Culture Comments 09/07/18 09/08/18 09/08/18 19:59 05:45 05:45 WBC 4.4 L RBC 2.97 L Hgb 10.2 L Hct 30.7 L MCV 103.2 H MCH 34.5 H MCHC 33.4 RDW 14.6 Plt Count 224 MPV 8.9 Neut # (Auto) 2.8 Lymph # (Auto) 1.1 L Elliott # (Auto) 0.3 Eos # (Auto) 0.2 Baso # (Auto) 0.0 Absolute Nucleated RBC 0.00 Nucleated RBC % 0.1 VBG pH Ionized Calcium YES Sodium 136 Potassium 2.8 L Chloride 110 Carbon Dioxide 21 Anion Gap 5.0 L BUN 7 Creatinine 0.4 L Estimated GFR (MDRD) 208 Glucose 199 H POC Whole Bld Glucose 201 H Glycated Hemoglobin Estim Average Glucose Lactic Acid Calcium 7.7 L Phosphorus 1.5 L Magnesium 1.8 Total Bilirubin 0.7 AST 16 ALT 20 Alkaline Phosphatase 131 H Troponin I Total Protein 5.0 L Albumin 2.4 L Globulin 2.6 Albumin/Globulin Ratio 0.9 L Lipase Urine Color Urine Clarity Urine pH Ur Specific [place] Urine Protein Urine Glucose (UA) Urine Ketones Urine Occult Blood Urine Nitrite Urine Bilirubin Urine Urobilinogen Ur Leukocyte Esterase Ur Microscopic Review Urine Culture Comments 09/08/18 09/08/18 09/08/18 05:45 07:28 11:20 WBC RBC Hgb Hct MCV MCH MCHC RDW Plt Count MPV Neut # (Auto) Lymph # (Auto) Elliott # (Auto) Eos # (Auto) Baso # (Auto) Absolute Nucleated RBC Nucleated RBC % VBG pH 7.362 Ionized Calcium 1.12 L Sodium Potassium Chloride Carbon Dioxide Anion Gap BUN Creatinine Estimated GFR (MDRD) Glucose POC Whole Bld Glucose 196 H 232 H Glycated Hemoglobin Estim Average Glucose Lactic Acid Calcium Phosphorus Magnesium Total Bilirubin AST ALT Alkaline Phosphatase Troponin I Total Protein Albumin Globulin Albumin/Globulin Ratio Lipase Urine Color Urine Clarity Urine pH Ur Specific [place] Urine Protein Urine Glucose (UA) Urine Ketones Urine Occult Blood Urine Nitrite Urine Bilirubin Urine Urobilinogen Ur Leukocyte Esterase Ur Microscopic Review Urine Culture Comments 09/08/18 09/08/18 09/09/18 16:45 20:48 06:25 WBC 3.7 L RBC 3.01 L Hgb 10.2 L Hct 30.8 L MCV 102.4 H MCH 34.0 H MCHC 33.2 RDW 15.0 Plt Count 217 MPV 8.1 Neut # (Auto) 2.2 Lymph # (Auto) 0.9 L Elliott # (Auto) 0.4 Eos # (Auto) 0.2 Baso # (Auto) 0.0 Absolute Nucleated RBC 0.00 Nucleated RBC % 0.1 VBG pH Ionized Calcium Sodium Potassium Chloride Carbon Dioxide Anion Gap BUN Creatinine Estimated GFR (MDRD) Glucose POC Whole Bld Glucose 183 H 184 H Glycated Hemoglobin Estim Average Glucose Lactic Acid Calcium Phosphorus Magnesium Total Bilirubin AST ALT Alkaline Phosphatase Troponin I Total Protein Albumin Globulin Albumin/Globulin Ratio Lipase Urine Color Urine Clarity Urine pH Ur Specific [place] Urine Protein Urine Glucose (UA) Urine Ketones Urine Occult Blood Urine Nitrite Urine Bilirubin Urine Urobilinogen Ur Leukocyte Esterase Ur Microscopic Review Urine Culture Comments 09/09/18 09/09/18 09/09/18 06:25 06:25 07:39 WBC RBC Hgb Hct MCV MCH MCHC RDW Plt Count MPV Neut # (Auto) Lymph # (Auto) Elliott # (Auto) Eos # (Auto) Baso # (Auto) Absolute Nucleated RBC Nucleated RBC % VBG pH 7.362 Ionized Calcium YES 1.15 Sodium 138 Potassium 3.8 Chloride 113 H Carbon Dioxide 19 L Anion Gap 6.0 BUN 6 Creatinine 0.4 L Estimated GFR (MDRD) 208 Glucose 118 H POC Whole Bld Glucose 113 H Glycated Hemoglobin Estim Average Glucose Lactic Acid Calcium 8.1 L Phosphorus 2.5 Magnesium 1.6 L Total Bilirubin 0.7 AST 27 ALT 29 Alkaline Phosphatase 229 H Troponin I Total Protein 5.3 L Albumin 2.5 L Globulin 2.8 Albumin/Globulin Ratio 0.9 L Lipase Urine Color Urine Clarity Urine pH Ur Specific [place] Urine Protein Urine Glucose (UA) Urine Ketones Urine Occult Blood Urine Nitrite Urine Bilirubin Urine Urobilinogen Ur Leukocyte Esterase Ur Microscopic Review Urine Culture Comments 09/09/18 09/09/18 09/09/18 11:21 16:30 21:02 WBC RBC Hgb Hct MCV MCH MCHC RDW Plt Count MPV Neut # (Auto) Lymph # (Auto) [place] # (Auto) Eos # (Auto) Baso # (Auto) Absolute Nucleated RBC Nucleated RBC % VBG pH Ionized Calcium Sodium Potassium Chloride Carbon Dioxide Anion Gap BUN Creatinine Estimated GFR (MDRD) Glucose POC Whole Bld Glucose 176 H 269 H 195 H Glycated Hemoglobin Estim Average Glucose Lactic Acid Calcium Phosphorus Magnesium Total Bilirubin AST ALT Alkaline Phosphatase Troponin I Total Protein Albumin Globulin Albumin/Globulin Ratio Lipase Urine Color Urine Clarity Urine pH Ur Specific [place] Urine Protein Urine Glucose (UA) Urine Ketones Urine Occult Blood Urine Nitrite Urine Bilirubin Urine Urobilinogen Ur Leukocyte Esterase Ur Microscopic Review Urine Culture Comments 09/10/18 09/10/18 09/10/18 05:00 05:00 05:00 WBC 6.5 RBC 3.37 L Hgb 11.6 L Hct 33.7 L MCV 100.1 H MCH 34.6 H MCHC 34.5 RDW 14.7 Plt Count 238 MPV 8.7 Neut # (Auto) 5.2 Lymph # (Auto) 0.8 L Elliott # (Auto) 0.4 Eos # (Auto) 0.1 Baso # (Auto) 0.0 Absolute Nucleated RBC 0.00 Nucleated RBC % 0.0 VBG pH 7.398 Ionized Calcium YES 1.12 L Sodium 136 Potassium 3.7 Chloride 106 Carbon Dioxide 22 Anion Gap 8.0 BUN 5 L Creatinine 0.5 L Estimated GFR (MDRD) 160 Glucose 120 H POC Whole Bld Glucose Glycated Hemoglobin Estim Average Glucose Lactic Acid Calcium 8.2 L Phosphorus 2.3 L Magnesium 1.8 Total Bilirubin 0.9 AST 24 ALT 30 Alkaline Phosphatase 261 H Troponin I Total Protein 6.0 L Albumin 2.7 L Globulin 3.3 Albumin/Globulin Ratio 0.8 L Lipase Urine Color Urine Clarity Urine pH Ur Specific [place] Urine Protein Urine Glucose (UA) Urine Ketones Urine Occult Blood Urine Nitrite Urine Bilirubin Urine Urobilinogen Ur Leukocyte Esterase Ur Microscopic Review Urine Culture Comments 09/10/18 09/10/18 07:22 11:25 WBC RBC Hgb Hct MCV MCH MCHC RDW Plt Count MPV Neut # (Auto) Lymph # (Auto) Elliott # (Auto) Eos # (Auto) Baso # (Auto) Absolute Nucleated RBC Nucleated RBC % VBG pH Ionized Calcium Sodium Potassium Chloride Carbon Dioxide Anion Gap BUN Creatinine Estimated GFR (MDRD) Glucose POC Whole Bld Glucose 103 H 202 H Glycated Hemoglobin Estim Average Glucose Lactic Acid Calcium Phosphorus Magnesium Total Bilirubin AST ALT Alkaline Phosphatase Troponin I Total Protein Albumin Globulin Albumin/Globulin Ratio Lipase Urine Color Urine Clarity Urine pH Ur Specific [place] Urine Protein Urine Glucose (UA) Urine Ketones Urine Occult Blood Urine Nitrite Urine Bilirubin Urine Urobilinogen Ur Leukocyte Esterase Ur Microscopic Review Urine Culture Comments - DIAGNOSTIC IMAGING Diagnostic Imaging Results: Final report reviewed Diagnostic Imaging Results Comments: Chest x-ray Impression: No active disease CT head Impression: Generalized age-related cortical atrophic changes without evidence of acute intracranial abnormality Abdomen/pelvis CT Impression: 1. Persistent ill-defined density at the head of the pancreas, a combination of SMV thrombosis and contiguous pancreatic mass, with atrophy and ductal dilation of the remainder of the pancreas. 2. Common bile duct stent remains in place, with mild pneumobilia in the liver. 3. Pancolitis, with diffuse colonic wall thickening. 4. Mild ascites, less than prior exam. 5. Persistent small pleural effusions - FOLLOW UP Follow Up: Patient was admitted for generalized weakness, dehydration and decreased level of consciousness. Patient was found to have C. difficile colitis. He was treated with oral vancomycin, IV fluids and electrolyte replacement. The patie nt had significant improvement in his generalized weakness and mentation. The patient was adequately hydrated. He spent 5 days in the hospital and diarrhea finally appeared to be improving. Patient was discharged home with his family to continue treatment for C. difficile colitis for an additional 7 days with oral vancomycin. The patient was instructed to stay well-hydrated. Patient's family was instructed that if patient's diarrhea worsens or he becomes dehydrated again that he should return back to the emergency department. The patient will follow up with his primary care physician, palliative care and his oncologist. The patient overall has a poor prognosis going forward the family is aware of this and may be considering hospice in the future. - TIME SPENT Time Spent in Discharge (Minutes): 50
[2018-09-10] MEDS ORDERED: SODIUM CHLORIDE FLUSH 0.9% 10 ML SYRINGE ONE (11:40)
== END 2018-09-10 12:49 | disposition home or self-care (01) | DRG 371 ==
LOC: EDUNIT# → EDBD → ED 13:48 → MS3 20:12 → MS2 20:12 → UNDOADMOB 20:12 → MS2 22:31 → MS3 22:31 → MS2 22:48 → OBSVTOIN 09-06 14:33 → INTOOBSV 09-06 14:33 → UNDODISIN 09-10 12:49
PROVIDERS: ADMIT Specialist; ATTEND Internal Medicine
DX: A04.72 Enterocolitis due to Clostridium difficile, not specified as recurrent (principal); G93.41 Metabolic encephalopathy; I81 Portal vein thrombosis; C25.9 Malignant neoplasm of pancreas, unspecified; C78.7 Secondary malignant neoplasm of liver and intrahepatic bile duct; R18.0 Malignant ascites; J90 Pleural effusion, not elsewhere classified; E87.6 Hypokalemia; E11.65 Type 2 diabetes mellitus with hyperglycemia; E83.42 Hypomagnesemia; E83.39 Other disorders of phosphorus metabolism; E83.51 Hypocalcemia; E86.0 Dehydration; T38.0X5A Adverse effect of glucocorticoids and synthetic analogues, initial encounter; I10 Essential (primary) hypertension; F32.9 Major depressive disorder, single episode, unspecified; F41.9 Anxiety disorder, unspecified; K52.89 Other specified noninfective gastroenteritis and colitis; Z66 Do not resuscitate; Z51.5 Encounter for palliative care; Z79.891 Long term (current) use of opiate analgesic; Z79.84 Long term (current) use of oral hypoglycemic drugs; Z79.2 Long term (current) use of antibiotics; Z79.52 Long term (current) use of systemic steroids; Z96.89 Presence of other specified functional implants; Z95.5 Presence of coronary angioplasty implant and graft; Z95.0 Presence of cardiac pacemaker
CPT/HCPCS: 36415; 70450; 71045; 74177; 80048; 80053; 81001; 81003; 82330; 83036; 83605; 83690; 83735; 84100; 84484; 85025; 87086; 87493; 93005; 96365; 96366; 96375; 99233; 99284; 99285